=== PATIENT | female | born 1945 | race Two or more races ===

== ENCOUNTER 2017-02-16 19:29 | Inpatient (IN) | payer MEDICARE, OTHER ==
[~2017-02-16] VITALS: Ht 162.6 cm; Wt 49.9 kg
--- NOTE | 2017-02-16 19:37 | Emergency Room Report ---
History of Present Illness General Source: Medical Record, EMS Present Illness HPI 71YOF sent from SNF for FTT - not eating - and glucose> 500. HPI limited- patient not contributing, Other med problems include CAD, HTN, GERD, osteo of heels Allergies: Coded Allergies: No Known Allergies (Unverified , 02/16/17) Patient History Past Medical History: other - see HPI Past Surgical History: unable to obtain Pertinent Family History: unable to obtain Social History: Denies: smoking, alcohol use, drug use Now: No Immunizations: UTD Reviewed Nursing Documentation: PMH: Agreed, PSxH: Agreed Review of Systems All Other Systems: negative except mentioned in HPI Physical Exam Sp02 EP Interpretation: reviewed, normal General Appearance: normal inspection, well appearing, no apparent distress, alert, non-toxic Head: normocephalic, atraumatic Eyes: bilateral eye PERRL, bilateral eye EOMI ENT: normal ENT inspection, hearing grossly normal, normal voice Neck: normal inspection, full range of motion, supple, no bony tend Respiratory: normal inspection, lungs clear, normal breath sounds, no respiratory distress, no retraction, no wheezing Cardiovascular #1: regular rate, rhythm, no edema Gastrointestinal: normal inspection, normal bowel sounds, non tender, soft, no guarding, no hernia Genitourinary: no CVA tenderness, other - Urine from straight cath is pus Musculoskeletal: normal inspection, back normal, normal range of motion, Angela' s Sign negative Neurologic: normal inspection, alert, responsive, speech normal Psychiatric: normal inspection, judgement/insight normal, mood/affect normal Skin: normal inspection, normal color, no rash Medical Decision Making Medicare Attestation I Steven Jain MD hereby attest that the medical record entry for date of service, 02/16/17 accurately reflects signatures/notations that I made in my capacity as MD when I treated/diagnosed the above listed Medicare beneficiary. I attest that this information is true, accurate and complete to the best of my knowledge. I understand that any falsification, omission, or concealment of material fact may subject me to administrative, civil, or criminal liability. This patient warrants hospital admission for extreme of age and has a condition that cannot be treated as outpatient. Diagnostic Impression: Primary Impression: Failure to thrive Qualified Codes: R62.7 - Adult failure to thrive Additional Impressions: Hypernatremia ASHLY (acute kidney injury) UTI (urinary tract infection) Qualified Codes: N30.01 - Acute cystitis with hematuria Dehydration Sepsis Qualified Codes: A41.9 - Sepsis, unspecified organism ER Course 71 yof brought in by ambulance for a question of failure to thrive Found to be hypernatremic, likely due to dehydration given the elevated serum creatinine stright cath of urine shows pus, likely source of infection contributing to leukocytosis Blood cultures pending Empiric antibiotics given fluid given for severe dehydration Endorse to Dr. Stubbs as PMD at 9pm for tele admit EKG Diagnostic Results Rate: tachycardiac Rhythm: NSR ST Segments: other - ST depression in 2,3,AVF, V4-6 ASA given to the pt in ED: No Rhythm Strip Diag. Results EP Interpretation: yes Rate: 65 Rhythm: NSR, no PVC's, no ectopy Chest X-Ray Diagnostic Results Chest X-Ray Diagnostic Results : Chest X-Ray Ordered: Yes # of Views/Limited/Complete: 1 View Indication: Other - FTT EP Interpretation: Yes Interpretation: no consolidation, no effusion, no pneumothorax, no acute cardiopulmonary disease Impression: No acute disease Electronically Signed by: Dr Steven Jain MD Status: improved Disposition: ADMITTED INPATIENT Condition: Serious STEVEN JAIN M.D. Feb 16, 2017 19:37
[2017-02-16 19:55] VITALS: BP 95/54
[2017-02-16 20:39] LABS: BASOPHILS % (AUTO) 0.6 % (0.0-2.0); EOSINOPHILS % (AUTO) 0.3 % (0.0-3.0); LYMPHOCYTES % (AUTO) 12.1 % (20.0-45.0); MEAN CORPUSCULAR HEMOGLOBIN 30.3 PG (27.0-31.0); MEAN CORPUSCULAR HGB CONC 29.6 G/DL (32.0-36.0); MEAN CORPUSCULAR VOLUME 103 FL (80-99); MEAN PLATELET VOLUME 9.2 FL (6.5-10.1); MONOCYTES % (AUTO) 5.5 % (1.0-10.0); NEUTROPHILS % (AUTO) 81.5 % (45.0-75.0); PLATELET COUNT 207 K/UL (150-450); RED BLOOD COUNT 4.32 M/UL (4.20-5.40); RED CELL DISTRIBUTION WIDTH 15.7 % (11.6-14.8); WHITE BLOOD COUNT 17.7 K/UL (4.8-10.8)
[2017-02-16 20:41] LABS: ALANINE AMINOTRANSFERASE 26 U/L (12-78); ALBUMIN/GLOBULIN RATIO 0.6 (1.0-2.7); ANION GAP 16 mmol/L (5-15); ASPARTATE AMINO TRANSFERASE 31 U/L (15-37); CALCIUM 9.4 MG/DL (8.5-10.1); CARBON DIOXIDE 23 MMOL/L (21-32); CHLORIDE 124 MMOL/L (98-107); CREATININE 3.3 MG/DL (0.55-1.30); LIPASE 179 U/L (73-393); POTASSIUM 4.2 MMOL/L (3.5-5.1); TOTAL PROTEIN 8.9 G/DL (6.4-8.2)
[2017-02-16 20:42] LABS: SODIUM 163 MMOL/L (136-145)
[2017-02-16 20:45] LABS: INR 1.2 (0.9-1.1); PROTHROMBIN TIME 12.7 SEC (9.30-11.50)
[2017-02-16 21:25] LABS: APPEARANCE,URINE VERY CLOUDY; KETONES,URINE 1+ (NEGATIVE); LEUKOCYTE ESTERASE ,URINE 3+ (NEGATIVE); NITRITE,URINE POSITIVE (NEGATIVE); PH,URINE 5 (4.5-8.0); PROTEIN,URINE 4+ (NEGATIVE); UROBILINOGEN,URINE NORMAL MG/DL (0.0-1.0)
[2017-02-16 21:39] LABS: BACTERIA,URINE MANY /HPF; RBC,URINE TNTC /HPF (0 - 2); SQUAMOUS EPITHELIAL CELL,UR FEW /LPF (NONE/OCC); WBC,URINE TNTC /HPF (0 - 2)
[2017-02-16 21:40] LABS: AMORPHOUS SEDIMENT,UR FEW /LPF
[2017-02-16 21:55] VITALS: BP 120/63
[2017-02-16] MEDS ORDERED: ATIVAN0.5 MG ORAL (21:56)
[2017-02-16] MEDS ORDERED: NORVASC5 MG ORAL (21:56)
[2017-02-16] MEDS ORDERED: DULCOLAX10 MG RC (21:56)
[2017-02-16] MEDS ORDERED: ATORVASTATIN CA10 MG ORAL (21:56)
[2017-02-16] MEDS ORDERED: MULTIVITAMINS1 EAC8 ORAL (21:56)
[2017-02-16] MEDS ORDERED: NORCO 5-325 TA1 EACH ORAL (21:56)
[2017-02-16] MEDS ORDERED: ACIDOPHILUS LA1 EAC1 ORAL (21:56)
[2017-02-16] MEDS ORDERED: AMBIEN5 MG ORAL (21:56)
[2017-02-16] MEDS ORDERED: ASPIRIN81 MG ORAL (21:56)
[2017-02-16] MEDS ORDERED: ATENOLOL25 MG ORAL (21:56)
[2017-02-16] MEDS ORDERED: MIRTAZAPINE15 MG ORAL (21:56)
[2017-02-16] MEDS ORDERED: MILK OF MA400 MG/51 ORAL (21:56)
[2017-02-16] MEDS ORDERED: NOVOLIN R100 UNIT/1 SUBQ ×2 (21:56)
[2017-02-16] MEDS ORDERED: AMIODARONE HCL100 MG ORAL (21:56)
[2017-02-16] MEDS ORDERED: ACETAMINOPHEN325 M1 ORAL (21:56)
[2017-02-16] MEDS ORDERED: PROTONIX40 MG ORAL (21:56)
[2017-02-16] MEDS ORDERED: COLACE100 MG ORAL (21:56)
[2017-02-16] MEDS ORDERED: SENOKOT8.6 MG PO (21:56)
[2017-02-16] MEDS ORDERED: PLAVIX75 MG ORAL (21:56)
[2017-02-16] MEDS ORDERED: VENLAFAXINE H37.5 MG ORAL (21:56)
[2017-02-16] MEDS ORDERED: MYLANTA PO (21:56)
[2017-02-16] MEDS ORDERED: GLUCAGON HCL1 MG IJ (21:56)
[2017-02-16] MEDS ORDERED: LEVEMIR100 UNIT/1 SUBQ (21:56)
[2017-02-17] VITALS: BP 104/57
[2017-02-17 01:58] LABS: ANION GAP 11 mmol/L (5-15); CALCIUM 9.3 MG/DL (8.5-10.1); CARBON DIOXIDE 23 MMOL/L (21-32); CHLORIDE 130 MMOL/L (98-107); CREATININE 2.9 MG/DL (0.55-1.30); POTASSIUM 3.7 MMOL/L (3.5-5.1)
[2017-02-17 02:15] LABS: SODIUM 165 MMOL/L (136-145)
[2017-02-17 04:00] VITALS: BP 106/52
[2017-02-17 05:07] LABS: BASOPHILS % (AUTO) 0.4 % (0.0-2.0); EOSINOPHILS % (AUTO) 1.3 % (0.0-3.0); LYMPHOCYTES % (AUTO) 14.4 % (20.0-45.0); MEAN CORPUSCULAR HEMOGLOBIN 34.5 PG (27.0-31.0); MEAN CORPUSCULAR HGB CONC 33.6 G/DL (32.0-36.0); MEAN CORPUSCULAR VOLUME 103 FL (80-99); MEAN PLATELET VOLUME 9.2 FL (6.5-10.1); MONOCYTES % (AUTO) 6.4 % (1.0-10.0); NEUTROPHILS % (AUTO) 77.4 % (45.0-75.0); PLATELET COUNT 176 K/UL (150-450); RED BLOOD COUNT 3.54 M/UL (4.20-5.40); RED CELL DISTRIBUTION WIDTH 15.8 % (11.6-14.8); WHITE BLOOD COUNT 15.4 K/UL (4.8-10.8)
[2017-02-17 05:33] LABS: ANION GAP 10 mmol/L (5-15); CALCIUM 9.2 MG/DL (8.5-10.1); CARBON DIOXIDE 23 MMOL/L (21-32); CHLORIDE 130 MMOL/L (98-107); CREATININE 2.8 MG/DL (0.55-1.30); POTASSIUM 3.7 MMOL/L (3.5-5.1)
[2017-02-17 06:22] LABS: SODIUM 164 MMOL/L (136-145)
[2017-02-17] MEDS: NovoLOG Insulin Flexpen SUBQ SCH ×4 (06:30→21:00)
[2017-02-17 08:00] VITALS: BP 100/50
[2017-02-17 08:53] LABS: ANION GAP 11 mmol/L (5-15); CALCIUM 8.9 MG/DL (8.5-10.1); CARBON DIOXIDE 24 MMOL/L (21-32); CHLORIDE 132 MMOL/L (98-107); CREATININE 2.6 MG/DL (0.55-1.30)
[2017-02-17 08:57] LABS: SODIUM 167 MMOL/L (136-145)
[2017-02-17] MEDS: Lactobacillus-GG tablet ORAL SCH ×2 (09:30→17:32)
[2017-02-17] MEDS: Venlafaxine XR 37.5mg cap ORAL SCH (09:31)
[2017-02-17] MEDS: Amiodarone 200mg tab ORAL SCH (09:31)
[2017-02-17] MEDS: Aspirin Baby 81mg ORAL SCH (09:31)
[2017-02-17] MEDS ORDERED: Flu Vaccine Quadrivalent 0.5ml IM ONE (11:59)
[2017-02-17] MEDS ORDERED: Pneumococcal Vaccine 25mcg/0.5ml IM ONE (11:59)
[2017-02-17 12:00] VITALS: BP 112/75
--- NOTE | 2017-02-17 12:10 | Consultation ---
Consult Note Consult Note asked to eval for renal failure 71YOF sent from SNF for FTT - not eating - and glucose> 500. HPI limited- patient not contributing, Other med problems include CAD, HTN, GERD, osteo of heels examined- chart reviewed discussed with household personal assistant/Plan acute renal failure- dehydration- and hypernatremia FTT UTI CAD GERD Plan: Hydrate- monitor I&o and renal parameters Urine studies gastric support per orders EDGARDO ORDOÑEZ Feb 17, 2017 12:10
[2017-02-17 12:36] LABS: ANION GAP 9 mmol/L (5-15); CALCIUM 9.1 MG/DL (8.5-10.1); CARBON DIOXIDE 26 MMOL/L (21-32); CHLORIDE 133 MMOL/L (98-107); CREATININE 2.4 MG/DL (0.55-1.30); POTASSIUM 3.7 MMOL/L (3.5-5.1)
[2017-02-17 12:37] LABS: SODIUM 168 MMOL/L (136-145)
--- NOTE | 2017-02-17 15:19 | History and Physical ---
History of Present Illness General Date patient seen: Feb 17, 2017 Time patient seen: 12:00 Reason for Hospitalization: failure to thrive, hypernatremia, ASHLY, sepsis Present Illness HPI 71y/o female with pmh of DM2, HTN, HLD, CAD, GERD, depression who presents from SNF with failure to thrive. History limited as pt altered. Per SNF report, pt has not been taking her meds since Thursday and has not eating anything since yesterday. At SNF, pt noted to be tachycardic and glucose >500. In ED, pt afebrile, tachycardic, BPs wnl. Labs notable for ASHLY w/ SCr 3.3, hypernatremia to 163, glucseo 500s. Pt given IVFs, regular insulin 4U IV. Pt also found to have leukocytosis w/ WBC 17K and U/S showing pyuria c/w UTI. Pt was started on started on levaquin. Allergies: Coded Allergies: No Known Allergies (Unverified , 02/16/17) Medication History Scheduled Amiodarone Hcl (Amiodarone Hcl), 100 MG ORAL DAILY, (Reported) Amlodipine Besylate (Norvasc), 5 MG ORAL DAILY, (Reported) Aspirin* (Aspirin*), 81 MG ORAL DAILY, (Reported) Atenolol* (Tenormin*), 12.5 MG ORAL DAILY, (Reported) Atorvastatin Calcium* (Lipitor*), 10 MG ORAL BEDTIME, (Reported) Clopidogrel Bisulfate* (Plavix*), 75 MG ORAL DAILY, (Reported) Docusate Sodium* (Colace*), 100 MG ORAL TWICE A DAY, (Reported) Insulin Detemir (Levemir), 34 SUBQ BEDTIME, (Reported) Insulin Regular, Human* (Novolin R*), 7 SUBQ AC MEALS, (Reported) Insulin Regular, Human* (Novolin R*), 0 SUBQ .SLIDING SCALE, (Reported) Lactobacillus Acidophilus (Acidophilus Lactobacillus), 1 TAB ORAL BID, (Reported ) Magnesium Hydroxide* (Milk Of Magnesia*), 30 ML ORAL DAILY, (Reported) Mirtazapine* (Remeron*), 7.5 MG ORAL BEDTIME, (Reported) Multivitamin With Minerals (Multivitamins With Minerals*), 1 TAB ORAL DAILY, ( Reported) Pantoprazole* (Protonix*), 40 MG ORAL DAILY, (Reported) Sennosides (Senokot), 8.6 MG PO BEDTIME, (Reported) Venlafaxine Hcl* (Effexor*), 37.5 MG ORAL DAILY, (Reported) [Mylanta], 20 ML PO EVERY 4 HOURS, (Reported) Scheduled PRN Acetaminophen* (Acetaminophen 325MG Tablet*), 650 MG ORAL Q4H PRN for Mild Pain (Pain Scale 1-3), (Reported) Bisacodyl (Dulcolax), 10 MG RC DAILY PRN for Constipation, (Reported) Glucagon HCl (Glucagon HCl), 1 MG IJ q 24 hours PRN for bs<60, (Reported) Hydrocodone Bit/Acetaminophen 5-325* ([place] 5-325*), 1 TAB ORAL DAILY PRN for For Pain, (Reported) Lorazepam* (Ativan*), 0.5 MG ORAL EVERY 6 HOURS PRN for For Anxiety, (Reported) Zolpidem Tartrate* (Ambien*), 5 MG ORAL BEDTIME PRN for Insomnia, (Reported) Patient History History Provided By: Patient, Medical Record, PMD Healthcare decision maker Resuscitation status Full Code Advanced Directive on File No Past Medical/Surgical History Past Medical/Surgical History: (1) CAD (coronary artery disease) (2) HTN (hypertension) (3) HLD (hyperlipidemia) (4) GERD (gastroesophageal reflux disease) (5) Depression (6) Diabetes mellitus Family History Family History: Patient reports no known family medical history. Social History Social History: (1) lives at [facility] Review of Systems ROS Narrative Unable to obtain as pt altered Physical Exam Physical Exam Narrative General: alert, cooperative, no distress, appears stated age, lethargic, A&Ox1 Head: normocephalic, without obvious abnormality, atraumatic Eyes: conjunctivae/corneas clear. PERRL, EOM's intact Throat: lips, mucosa, and tongue normal. MMM Neck: supple, symmetrical, trachea midline, and no JVD Lungs: clear to auscultation bilaterally Heart: regular rate and rhythm, S1, S2 normal, no murmur, click, rub or gallop Abdomen: soft, non-tender, non-distended, bowel sounds normal; no masses or organomegaly Extremities: extremities normal, atraumatic, no cyanosis or edema Pulses: 2+ and symmetric Skin: skin color, texture, turgor normal; +pressure ulcers b/l heels Neurologic: grossly normal, no focal deficits Last 24 Hour Vital Signs Date Time Temp Pulse Resp B/P (MAP) Pulse Ox O2 Delivery O2 Flow Rate FiO2 02/17/17 12:05 86 02/17/17 12:00 97.7 89 20 112/75 100 Room Air 02/17/17 09:00 85 100/50 02/17/17 08:00 85 02/17/17 08:00 96.6 86 19 100/50 96 Room Air 02/17/17 04:00 97.5 98 20 106/52 98 Room Air 02/17/17 04:00 89 02/17/17 00:00 96 02/17/17 00:00 97.9 98 18 104/57 99 Room Air 98 02/16/17 22:48 101 02/16/17 22:20 97.9 105 20 120/63 100 Nasal Cannula 2.0 02/16/17 21:55 97.9 105 20 120/63 100 Nasal Cannula 2.0 02/16/17 19:55 97.9 106 14 95/54 96 Room Air 02/16/17 19:34 97.9 103 14 95/54 96 Room Air Intake and Output 02/17/17 02/18/17 19:00 07:00 Intake Total 500 ml Balance 500 ml IV Total 500 ml Laboratory Tests Test 02/16/17 19:50 02/16/17 20:55 02/17/17 01:30 02/17/17 05:00 White Blood Count 17.7 K/UL (4.8-10.8) H 15.4 K/UL (4.8-10.8) H Red Blood Count 4.32 M/UL (4.20-5.40) 3.54 M/UL (4.20-5.40) L Hemoglobin 13.1 G/DL (12.0-16.0) 12.2 G/DL (12.0-16.0) Hematocrit 44.3 % (37.0-47.0) 36.4 % (37.0-47.0) L Mean Corpuscular Volume 103 FL (80-99) H 103 FL (80-99) H Mean Corpuscular Hemoglobin 30.3 PG (27.0-31.0) 34.5 PG (27.0-31.0) H Mean Corpuscular Hemoglobin Concent 29.6 G/DL (32.0-36.0) L 33.6 G/DL (32.0-36.0) Red Cell Distribution Width 15.7 % (11.6-14.8) H 15.8 % (11.6-14.8) H Platelet Count 207 K/UL (150-450) 176 K/UL (150-450) Mean Platelet Volume 9.2 FL (6.5-10.1) 9.2 FL (6.5-10.1) Neutrophils (%) (Auto) 81.5 % (45.0-75.0) H 77.4 % (45.0-75.0) H Lymphocytes (%) (Auto) 12.1 % (20.0-45.0) L 14.4 % (20.0-45.0) L Monocytes (%) (Auto) 5.5 % (1.0-10.0) 6.4 % (1.0-10.0) Eosinophils (%) (Auto) 0.3 % (0.0-3.0) 1.3 % (0.0-3.0) Basophils (%) (Auto) 0.6 % (0.0-2.0) 0.4 % (0.0-2.0) Prothrombin Time 12.7 SEC (9.30-11.50) H Prothromb Time International Ratio 1.2 (0.9-1.1) H Sodium Level 163 MMOL/L (136-145) *H 165 MMOL/L (136-145) *H 164 MMOL/L (136-145) *H Potassium Level 4.2 MMOL/L (3.5-5.1) 3.7 MMOL/L (3.5-5.1) 3.7 MMOL/L (3.5-5.1) Chloride Level 124 MMOL/L (98-107) H 130 MMOL/L (98-107) H 130 MMOL/L (98-107) H Carbon Dioxide Level 23 MMOL/L (21-32) 23 MMOL/L (21-32) 23 MMOL/L (21-32) Anion Gap 16 mmol/L (5-15) H 11 mmol/L (5-15) 10 mmol/L (5-15) Blood Urea Nitrogen 100 mg/dL (7-18) H 99 mg/dL (7-18) H 92 mg/dL (7-18) H Creatinine 3.3 MG/DL (0.55-1.30) H 2.9 MG/DL (0.55-1.30) H 2.8 MG/DL (0.55-1.30) H Estimat Glomerular Filtration Rate mL/min (>60) mL/min (>60) mL/min (>60) Glucose Level 472 MG/DL (74-106) H 263 MG/DL (74-106) #H 208 MG/DL (74-106) H Calcium Level 9.4 MG/DL (8.5-10.1) 9.3 MG/DL (8.5-10.1) 9.2 MG/DL (8.5-10.1) Total Bilirubin 0.5 MG/DL (0.2-1.0) Aspartate Amino Transf (AST/SGOT) 31 U/L (15-37) Alanine Aminotransferase (ALT/SGPT) 26 U/L (12-78) Alkaline Phosphatase 182 U/L (46-116) H Troponin I 0.064 ng/mL (0.000-0.056) 0.064 ng/mL (0.000-0.056) Total Protein 8.9 G/DL (6.4-8.2) H Albumin 3.2 G/DL (3.4-5.0) L Globulin 5.7 g/dL Albumin/Globulin Ratio 0.6 (1.0-2.7) L Lipase 179 U/L (73-393) Urine Color Pale yellow Urine Appearance Very cloudy Urine pH 5 (4.5-8.0) Urine Specific [place] 1.020 (1.005-1.035) Urine Protein 4+ (NEGATIVE) H Urine Glucose (UA) Negative (NEGATIVE) Urine Ketones 1+ (NEGATIVE) H Urine Occult Blood 5+ (NEGATIVE) H Urine Nitrite Positive (NEGATIVE) H Urine Bilirubin Negative (NEGATIVE) Urine Urobilinogen Normal MG/DL (0.0-1.0) Urine Leukocyte Esterase 3+ (NEGATIVE) H Urine RBC Tntc /HPF (0 - 2) H Urine WBC Tntc /HPF (0 - 2) H Urine Squamous Epithelial Cells Few /LPF (NONE/OCC) Urine Amorphous Sediment Few /LPF (NONE) H Urine Bacteria Many /HPF (NONE) H Test 02/17/17 08:00 02/17/17 12:15 02/17/17 14:40 Sodium Level 167 MMOL/L (136-145) *H 168 MMOL/L (136-145) *H Potassium Level 4.0 MMOL/L (3.5-5.1) 3.7 MMOL/L (3.5-5.1) Chloride Level 132 MMOL/L (98-107) H 133 MMOL/L (98-107) H Carbon Dioxide Level 24 MMOL/L (21-32) 26 MMOL/L (21-32) Anion Gap 11 mmol/L (5-15) 9 mmol/L (5-15) Blood Urea Nitrogen 94 mg/dL (7-18) H 88 mg/dL (7-18) H Creatinine 2.6 MG/DL (0.55-1.30) H 2.4 MG/DL (0.55-1.30) H Estimat Glomerular Filtration Rate mL/min (>60) mL/min (>60) Glucose Level 187 MG/DL (74-106) H 175 MG/DL (74-106) H Calcium Level 8.9 MG/DL (8.5-10.1) 9.1 MG/DL (8.5-10.1) Troponin I 0.059 ng/mL (0.000-0.056) Urine Random Sodium 21 MEQ/L (20-110) Microbiology Date/Time Source Procedure Growth Status 02/16/17 20:55 Urine,Clean Catch Urine Culture - Preliminary Resulted 02/17/17 03:00 Foot Left Gram Stain - Final Resulted 02/17/17 03:00 Foot Left Wound Culture Pending Resulted Height (Feet): 5 Height (Inches): 4.00 Weight (Pounds): 110 Medications Current Medications Medications (Trade) Dose Ordered Sig/Baldev Route PRN Reason Start Time Stop Time Status Last Admin Dose Admin Acetaminophen (Tylenol) 650 mg Q4H PRN ORAL Mild Pain/Temp > 100.5 02/17/17 00:45 03/19/17 00:44 Amiodarone HCl (Cordarone) 100 mg DAILY ORAL 02/17/17 09:00 03/19/17 08:59 02/17/17 09:31 Amlodipine Besylate (Norvasc) 2.5 mg DAILY ORAL 02/18/17 09:00 03/20/17 08:59 Aspirin (ASA) 81 mg DAILY ORAL 02/17/17 09:00 03/19/17 08:59 02/17/17 09:31 Atorvastatin Calcium (Lipitor) 10 mg BEDTIME ORAL 02/17/17 21:00 03/19/17 20:59 Clopidogrel Bisulfate (Plavix) 75 mg DAILY ORAL 02/17/17 09:00 03/19/17 08:59 02/17/17 09:31 Dextrose (Dextrose 50%) STAT PRN IV Hypoglycemia 02/16/17 23:45 03/18/17 23:44 Insulin Aspart (NovoLOG) BEFORE MEALS AND HS SUBQ 02/17/17 06:30 03/19/17 06:29 Lactobacillus Acidophilus (Culturelle) 1 tab TWICE A DAY ORAL 02/17/17 09:00 03/19/17 08:59 02/17/17 09:30 Levofloxacin 100 ml @ 100 mls/hr Q48H IVPB 02/18/17 21:00 02/25/17 20:59 Pantoprazole (Protonix) 40 mg ACBREAKFAST ORAL 02/17/17 06:30 03/19/17 06:29 Ranitidine HCl (Zantac) 150 mg Q24H ORAL 02/17/17 13:30 02/19/17 13:29 02/17/17 13:21 Sodium Chloride 1,000 ml @ 100 mls/hr Q10H IV 02/17/17 13:30 03/19/17 13:29 02/17/17 13:22 Venlafaxine HCl (Effexor-XR) 37.5 mg DAILY ORAL 02/17/17 09:00 03/19/17 08:59 02/17/17 09:31 Assessment/Plan Problem List: (1) Failure to thrive SNOMED: 27149488 Qualifiers: Qualified Codes: R62.7 - Adult failure to thrive (2) Sepsis ICD Codes: A41.9 - Sepsis, unspecified organism SNOMED: 16762086 Qualifiers: Qualified Codes: A41.9 - Sepsis, unspecified organism (3) UTI (urinary tract infection) ICD Codes: N39.0 - Urinary tract infection, site not specified SNOMED: 99058328 Qualifiers: Qualified Codes: N30.01 - Acute cystitis with hematuria (4) Acute toxic metabolic encephalopathy (5) ASHLY (acute kidney injury) ICD Codes: N17.9 - Acute kidney failure, unspecified SNOMED: 62367785 (6) Hypernatremia ICD Codes: E87.0 - Hyperosmolality and hypernatremia SNOMED: 39579246 (7) Elevated troponin Assessment & Plan: likely in setting of renal insufficiency vs NSTEMI type 2 given sepsis ICD Codes: R74.8 - Abnormal levels of other serum enzymes SNOMED: 210254193, 912383384 (8) CAD (coronary artery disease) ICD Codes: I25.10 - Atherosclerotic heart disease of ione coronary artery without angina pectoris SNOMED: 94070671 (9) Diabetes mellitus Assessment & Plan: uncontrolled ICD Codes: E11.9 - Type 2 diabetes mellitus without complications SNOMED: 25747178 (10) HTN (hypertension) ICD Codes: I10 - Essential (primary) hypertension SNOMED: 95993803 (11) HLD (hyperlipidemia) ICD Codes: E78.5 - Hyperlipidemia, unspecified SNOMED: 82522904 (12) Depression ICD Codes: F32.9 - Major depressive disorder, single episode, unspecified SNOMED: 28865144 Status: stable Assessment/Plan Admit inpt Renal consulted Cont IVFs w/ /2 NS at 100mL/h per renal Trend BMP closely Cardiology consulted given elevated troponin Trend trop/EKG Cont levaquin for UTI for now (02/16-) Consider ID consult Trend CBC Cont home meds RIDGE Check A1C Swallow eval Pony Roll Finisher consult DVT Prophylaxis: SCD, HSQ Code Status: Full Hospital Classification Declaration: Based on this initial evaluation, and depending on the patient's clinical course, I anticipate that this patient will require hospitalization for 2-3 days for sepsis, ASHLY, hypernatremia and close respiratory/hemodynamic monitoring. Disposition: Once the patient is stable to leave the hospital, I anticipate the patient will likely be discharged to the following environment: back to SNF I spent 70 minutes on this patient's case, and 39 minutes were dedicated to counseling and/or care coordination. Discussed with patient/family, nursing staff, SW/CM, renal, cardiology regarding clinical status, treatment course, and disposition planning. Time of note may not reflect time of encounter. Noman Burch M.D. Feb 17, 2017 15:19
[2017-02-17 16:00] VITALS: BP 119/67
[2017-02-17] MEDS ORDERED: NS 500ML ONE (16:15)
--- NOTE | 2017-02-17 16:22 | Cardiac Electrophysiology PN ---
Subjective Subjective [id number] Objective Last 24 Hour Vital Signs Date Time Temp Pulse Resp B/P (MAP) Pulse Ox O2 Delivery O2 Flow Rate FiO2 02/17/17 12:05 86 02/17/17 12:00 97.7 89 20 112/75 100 Room Air 02/17/17 09:00 85 100/50 02/17/17 08:00 85 02/17/17 08:00 96.6 86 19 100/50 96 Room Air 02/17/17 04:00 97.5 98 20 106/52 98 Room Air 02/17/17 04:00 89 02/17/17 00:00 96 02/17/17 00:00 97.9 98 18 104/57 99 Room Air 98 02/16/17 22:48 101 02/16/17 22:20 97.9 105 20 120/63 100 Nasal Cannula 2.0 02/16/17 21:55 97.9 105 20 120/63 100 Nasal Cannula 2.0 02/16/17 19:55 97.9 106 14 95/54 96 Room Air 02/16/17 19:34 97.9 103 14 95/54 96 Room Air Intake and Output 02/17/17 02/18/17 19:00 07:00 Intake Total 700 ml Balance 700 ml IV Total 700 ml Laboratory Tests Test 02/16/17 19:50 02/16/17 20:55 02/17/17 01:30 02/17/17 05:00 White Blood Count 17.7 K/UL (4.8-10.8) H 15.4 K/UL (4.8-10.8) H Red Blood Count 4.32 M/UL (4.20-5.40) 3.54 M/UL (4.20-5.40) L Hemoglobin 13.1 G/DL (12.0-16.0) 12.2 G/DL (12.0-16.0) Hematocrit 44.3 % (37.0-47.0) 36.4 % (37.0-47.0) L Mean Corpuscular Volume 103 FL (80-99) H 103 FL (80-99) H Mean Corpuscular Hemoglobin 30.3 PG (27.0-31.0) 34.5 PG (27.0-31.0) H Mean Corpuscular Hemoglobin Concent 29.6 G/DL (32.0-36.0) L 33.6 G/DL (32.0-36.0) Red Cell Distribution Width 15.7 % (11.6-14.8) H 15.8 % (11.6-14.8) H Platelet Count 207 K/UL (150-450) 176 K/UL (150-450) Mean Platelet Volume 9.2 FL (6.5-10.1) 9.2 FL (6.5-10.1) Neutrophils (%) (Auto) 81.5 % (45.0-75.0) H 77.4 % (45.0-75.0) H Lymphocytes (%) (Auto) 12.1 % (20.0-45.0) L 14.4 % (20.0-45.0) L Monocytes (%) (Auto) 5.5 % (1.0-10.0) 6.4 % (1.0-10.0) Eosinophils (%) (Auto) 0.3 % (0.0-3.0) 1.3 % (0.0-3.0) Basophils (%) (Auto) 0.6 % (0.0-2.0) 0.4 % (0.0-2.0) Prothrombin Time 12.7 SEC (9.30-11.50) H Prothromb Time International Ratio 1.2 (0.9-1.1) H Sodium Level 163 MMOL/L (136-145) *H 165 MMOL/L (136-145) *H 164 MMOL/L (136-145) *H Potassium Level 4.2 MMOL/L (3.5-5.1) 3.7 MMOL/L (3.5-5.1) 3.7 MMOL/L (3.5-5.1) Chloride Level 124 MMOL/L (98-107) H 130 MMOL/L (98-107) H 130 MMOL/L (98-107) H Carbon Dioxide Level 23 MMOL/L (21-32) 23 MMOL/L (21-32) 23 MMOL/L (21-32) Anion Gap 16 mmol/L (5-15) H 11 mmol/L (5-15) 10 mmol/L (5-15) Blood Urea Nitrogen 100 mg/dL (7-18) H 99 mg/dL (7-18) H 92 mg/dL (7-18) H Creatinine 3.3 MG/DL (0.55-1.30) H 2.9 MG/DL (0.55-1.30) H 2.8 MG/DL (0.55-1.30) H Estimat Glomerular Filtration Rate mL/min (>60) mL/min (>60) mL/min (>60) Glucose Level 472 MG/DL (74-106) H 263 MG/DL (74-106) #H 208 MG/DL (74-106) H Calcium Level 9.4 MG/DL (8.5-10.1) 9.3 MG/DL (8.5-10.1) 9.2 MG/DL (8.5-10.1) Total Bilirubin 0.5 MG/DL (0.2-1.0) Aspartate Amino Transf (AST/SGOT) 31 U/L (15-37) Alanine Aminotransferase (ALT/SGPT) 26 U/L (12-78) Alkaline Phosphatase 182 U/L (46-116) H Troponin I 0.064 ng/mL (0.000-0.056) 0.064 ng/mL (0.000-0.056) Total Protein 8.9 G/DL (6.4-8.2) H Albumin 3.2 G/DL (3.4-5.0) L Globulin 5.7 g/dL Albumin/Globulin Ratio 0.6 (1.0-2.7) L Lipase 179 U/L (73-393) Urine Color Pale yellow Urine Appearance Very cloudy Urine pH 5 (4.5-8.0) Urine Specific [place] 1.020 (1.005-1.035) Urine Protein 4+ (NEGATIVE) H Urine Glucose (UA) Negative (NEGATIVE) Urine Ketones 1+ (NEGATIVE) H Urine Occult Blood 5+ (NEGATIVE) H Urine Nitrite Positive (NEGATIVE) H Urine Bilirubin Negative (NEGATIVE) Urine Urobilinogen Normal MG/DL (0.0-1.0) Urine Leukocyte Esterase 3+ (NEGATIVE) H Urine RBC Tntc /HPF (0 - 2) H Urine WBC Tntc /HPF (0 - 2) H Urine Squamous Epithelial Cells Few /LPF (NONE/OCC) Urine Amorphous Sediment Few /LPF (NONE) H Urine Bacteria Many /HPF (NONE) H Test 02/17/17 08:00 02/17/17 12:15 02/17/17 14:40 Sodium Level 167 MMOL/L (136-145) *H 168 MMOL/L (136-145) *H Potassium Level 4.0 MMOL/L (3.5-5.1) 3.7 MMOL/L (3.5-5.1) Chloride Level 132 MMOL/L (98-107) H 133 MMOL/L (98-107) H Carbon Dioxide Level 24 MMOL/L (21-32) 26 MMOL/L (21-32) Anion Gap 11 mmol/L (5-15) 9 mmol/L (5-15) Blood Urea Nitrogen 94 mg/dL (7-18) H 88 mg/dL (7-18) H Creatinine 2.6 MG/DL (0.55-1.30) H 2.4 MG/DL (0.55-1.30) H Estimat Glomerular Filtration Rate mL/min (>60) mL/min (>60) Glucose Level 187 MG/DL (74-106) H 175 MG/DL (74-106) H Calcium Level 8.9 MG/DL (8.5-10.1) 9.1 MG/DL (8.5-10.1) Troponin I 0.059 ng/mL (0.000-0.056) Urine Random Sodium 21 MEQ/L (20-110) Microbiology Date/Time Source Procedure Growth Status 02/16/17 20:55 Urine,Clean Catch Urine Culture - Preliminary Resulted 02/17/17 03:00 Foot Left Gram Stain - Final Resulted 02/17/17 03:00 Foot Left Wound Culture Pending Resulted LUIS EDUARDO CORBIN Feb 17, 2017 16:22
[2017-02-17 20:00] VITALS: BP 124/65
[2017-02-18] VITALS: BP 112/60
[2017-02-18 04:00] VITALS: BP 124/65
--- NOTE | 2017-02-18 05:15 | Consultation ---
DATE OF CONSULTATION: 02/17/2017 CARDIOLOGY CONSULTATION CONSULTING PHYSICIAN: Avtar Munroe M.D. REFERRING PHYSICIAN: Napoleon Stubbs M.D. REASON FOR CONSULTATION: Management of hypertension and elevated troponin in the patient with coronary artery disease. HISTORY OF PRESENT ILLNESS: The patient is a 71-year-old lady with history of hypertension, diabetes, coronary artery disease, , and gastroesophageal reflux disease, who was sent from alf for failure to thrive and not eating and glucose of more than 500. The patient was admitted to step-down unit. The patient's EKG showed ST depression in the inferolateral leads. The patient's troponin was also elevated at 0.064 and a Cardiology consultation was obtained for further evaluation and management. It is of note that the patient's sodium was as high as also 168. PAST MEDICAL HISTORY: As mentioned above. FAMILY HISTORY: Noncontributory. SOCIAL HISTORY: She lives in a alf. She does not smoke or drink alcohol. REVIEW OF SYSTEMS: Negative other than what was mentioned in the history of present illness. PHYSICAL EXAMINATION: VITAL SIGNS: Blood pressure is 100/50, pulse is 86, respirations 20, and temperature 97.7 degrees. HEAD AND NECK: No JVD. LUNGS: Clear. CARDIOVASCULAR: Regular S1 and S2 with no gallop or murmur. ABDOMEN: Soft. EXTREMITIES: No pitting edema. LABORATORY AND DIAGNOSTIC DATA: Labs show sodium of 168, potassium of 3.7, BUN of 88, creatinine of 2.4, and glucose of 175. Initial BUN and creatinine was 98 and 2.8. Troponin is 0.064 and 0.059. INR is 1.2. White count was initially 17.7, today is 15.4; hemoglobin 12.2, hematocrit 36.4, and platelet count of 176,000. INR is 1.2. Urinalysis shows too numerous to count WBC and RBC and positive nitrite and many bacteria. ASSESSMENT AND PLAN: 1. Troponin leak. This is due to the patient's renal failure and azotemia. The patient does not have any chest pain; however, the patient electrocardiogram. The patient will be on aspirin and Plavix. Add metoprolol to her medical regimen and continue Lipitor. 2. Hypertension, on Norvasc 2.5 mg mg daily. Today, I will discontinue and start the patient on Toprol in view of positive troponin. 3. Paroxysmal atrial fibrillation, on amiodarone 100 mg daily. The patient is off anticoagulation except for aspirin and Plavix. Currently in sinus rhythm. 4. Hyperlipidemia, on Lipitor. 5. Severe hypernatremia. The patient is on intravenous fluids per Dr. Armstrong. 6. Acute renal failure. Again, further management by Dr. Armstrong. 7. Uncontrolled diabetes with glucose of more than 500. Thank you very much, Dr. Stubbs, for allowing me to participate in the care of this patient. Please do not hesitate to contact me if you have any questions regarding my evaluation. Avtar Munroe M.D. DR: SMITH JOB#: [id number] CC:
[2017-02-18 05:34] LABS: BASOPHILS % (AUTO) 0.5 % (0.0-2.0); EOSINOPHILS % (AUTO) 2.7 % (0.0-3.0); LYMPHOCYTES % (AUTO) 17.3 % (20.0-45.0); MEAN CORPUSCULAR HEMOGLOBIN 32.6 PG (27.0-31.0); MEAN CORPUSCULAR HGB CONC 31.4 G/DL (32.0-36.0); MEAN CORPUSCULAR VOLUME 104 FL (80-99); MEAN PLATELET VOLUME 9.5 FL (6.5-10.1); MONOCYTES % (AUTO) 5.7 % (1.0-10.0); NEUTROPHILS % (AUTO) 73.8 % (45.0-75.0); PLATELET COUNT 140 K/UL (150-450); RED BLOOD COUNT 3.15 M/UL (4.20-5.40); RED CELL DISTRIBUTION WIDTH 15.9 % (11.6-14.8); WHITE BLOOD COUNT 10.3 K/UL (4.8-10.8)
[2017-02-18 05:55] LABS: ALANINE AMINOTRANSFERASE 18 U/L (12-78); ALBUMIN/GLOBULIN RATIO 0.5 (1.0-2.7); ANION GAP 5 mmol/L (5-15); ASPARTATE AMINO TRANSFERASE 28 U/L (15-37); CALCIUM 8.8 MG/DL (8.5-10.1); CARBON DIOXIDE 26 MMOL/L (21-32); CHLORIDE 132 MMOL/L (98-107); CHOLESTEROL 97 MG/DL (< 200); CHOLESTEROL/HDL RATIO 5.1 (3.3-4.4); CREATININE 1.7 MG/DL (0.55-1.30); CRP QUANT 10.9 mg/dL (0.00-0.90); PHOSPHORUS 2.4 MG/DL (2.5-4.9); POTASSIUM 3.4 MMOL/L (3.5-5.1); THYROID STIMULATING HORMONE 8.578 uiU/mL (0.358-3.740); TOTAL PROTEIN 7.2 G/DL (6.4-8.2); URIC ACID 9.7 MG/DL (2.6-7.2)
[2017-02-18 06:12] LABS: HEMOGLOBIN A1C 7.5 % (4.3-6.0)
[2017-02-18 06:25] LABS: SODIUM 163 MMOL/L (136-145)
[2017-02-18] MEDS: NovoLOG Insulin Flexpen SUBQ SCH ×3 (06:30→17:41)
[2017-02-18 06:48] LABS: FOLIC ACID 11.3 NG/ML (8.6-58.9)
[2017-02-18 08:00] VITALS: BP 121/58
[2017-02-18] MEDS: Lactobacillus-GG tablet ORAL SCH ×2 (08:58→17:40)
[2017-02-18] MEDS: Amiodarone 200mg tab ORAL SCH (08:58)
[2017-02-18] MEDS: Metoprolol Succinate XL 25mg tab ORAL SCH (08:58)
[2017-02-18] MEDS: Aspirin Baby 81mg ORAL SCH (08:59)
[2017-02-18] MEDS: Heparin 5000 units/ml inj SUBQ SCH ×2 (08:59→21:00)
[2017-02-18] MEDS: Venlafaxine XR 37.5mg cap ORAL SCH (08:59)
[2017-02-18] MEDS ORDERED: Ascorbic Acid 500mg tab ORAL SCH (09:00)
--- NOTE | 2017-02-18 10:57 | Infectious Diseases Prog Note ---
Assessment/Plan Assessment/Plan Full consult dictated: A) 1) sepsis, leukocytosis, gram neg uti 2) ? right foot heel wound infection, ? osteo 3) pmh noted 4) allergies - negative P) 1) vancomycin and cefepime 2) check urine culture, wound culture, labs and chest x-ray 3) thank you Subjective Allergies: Coded Allergies: No Known Allergies (Unverified , 02/16/17) Objective Vital Signs Last 24 Hour Vital Signs Date Time Temp Pulse Resp B/P (MAP) Pulse Ox O2 Delivery O2 Flow Rate FiO2 02/18/17 08:58 78 121/58 02/18/17 08:00 97.9 78 18 121/58 98 Room Air 02/18/17 08:00 78 02/18/17 04:00 97.9 81 18 124/65 100 Room Air 02/18/17 04:00 75 02/18/17 00:00 97.8 77 18 112/60 98 Room Air 02/18/17 00:00 85 02/17/17 20:00 80 02/17/17 20:00 97.5 81 18 124/65 100 Room Air 02/17/17 16:00 84 02/17/17 16:00 97.8 87 19 119/67 97 Room Air 02/17/17 12:05 86 02/17/17 12:00 97.7 89 20 112/75 100 Room Air Height (Feet): 5 Height (Inches): 4.00 Weight (Pounds): 110 Microbiology Date/Time Source Procedure Growth Status 02/17/17 01:30 Blood Blood Culture - Preliminary NO GROWTH AFTER 24 HOURS Resulted 02/16/17 19:55 Blood Blood Culture - Preliminary NO GROWTH AFTER 24 HOURS Resulted 02/16/17 19:40 Blood Blood Culture - Preliminary NO GROWTH AFTER 24 HOURS Resulted 02/16/17 20:55 Urine,Clean Catch Urine Culture - Preliminary Gram Negative Bacillus 1 Gram Negative Bacillus 2 Resulted 02/17/17 03:00 Foot Left Gram Stain - Final Resulted 02/17/17 03:00 Foot Left Wound Culture - Preliminary Resulted Laboratory Tests Test 02/17/17 12:15 02/17/17 14:40 02/18/17 03:30 Sodium Level 168 MMOL/L (136-145) *H 163 MMOL/L (136-145) *H Potassium Level 3.7 MMOL/L (3.5-5.1) 3.4 MMOL/L (3.5-5.1) L Chloride Level 133 MMOL/L (98-107) H 132 MMOL/L (98-107) H Carbon Dioxide Level 26 MMOL/L (21-32) 26 MMOL/L (21-32) Anion Gap 9 mmol/L (5-15) 5 mmol/L (5-15) Blood Urea Nitrogen 88 mg/dL (7-18) H 64 mg/dL (7-18) H Creatinine 2.4 MG/DL (0.55-1.30) H 1.7 MG/DL (0.55-1.30) H Estimat Glomerular Filtration Rate mL/min (>60) mL/min (>60) Glucose Level 175 MG/DL (74-106) H 193 MG/DL (74-106) H Calcium Level 9.1 MG/DL (8.5-10.1) 8.8 MG/DL (8.5-10.1) Urine Random Sodium 21 MEQ/L (20-110) White Blood Count 10.3 K/UL (4.8-10.8) Red Blood Count 3.15 M/UL (4.20-5.40) L Hemoglobin 10.3 G/DL (12.0-16.0) L Hematocrit 32.7 % (37.0-47.0) L Mean Corpuscular Volume 104 FL (80-99) H Mean Corpuscular Hemoglobin 32.6 PG (27.0-31.0) H Mean Corpuscular Hemoglobin Concent 31.4 G/DL (32.0-36.0) L Red Cell Distribution Width 15.9 % (11.6-14.8) H Platelet Count 140 K/UL (150-450) L Mean Platelet Volume 9.5 FL (6.5-10.1) Neutrophils (%) (Auto) 73.8 % (45.0-75.0) Lymphocytes (%) (Auto) 17.3 % (20.0-45.0) L Monocytes (%) (Auto) 5.7 % (1.0-10.0) Eosinophils (%) (Auto) 2.7 % (0.0-3.0) Basophils (%) (Auto) 0.5 % (0.0-2.0) Hemoglobin A1c 7.5 % (4.3-6.0) H Uric Acid 9.7 MG/DL (2.6-7.2) H Phosphorus Level 2.4 MG/DL (2.5-4.9) L Magnesium Level 2.0 MG/DL (1.8-2.4) Total Bilirubin 0.3 MG/DL (0.2-1.0) Gamma Glutamyl Transpeptidase 33 U/L (5-85) Aspartate Amino Transf (AST/SGOT) 28 U/L (15-37) Alanine Aminotransferase (ALT/SGPT) 18 U/L (12-78) Alkaline Phosphatase 131 U/L (46-116) H Total Creatine Kinase 165 U/L (26-308) Troponin I 0.052 ng/mL (0.000-0.056) C-Reactive Protein, Quantitative 10.9 mg/dL (0.00-0.90) H Pro-B-Type Natriuretic Peptide 800 pg/mL (0-125) H Total Protein 7.2 G/DL (6.4-8.2) Albumin 2.3 G/DL (3.4-5.0) L Globulin 4.9 g/dL Albumin/Globulin Ratio 0.5 (1.0-2.7) L Triglycerides Level 116 MG/DL (30-150) Cholesterol Level 97 MG/DL (< 200) LDL Cholesterol 60 mg/dL (<100) HDL Cholesterol 19 MG/DL (40-60) L Cholesterol/HDL Ratio 5.1 (3.3-4.4) H Vitamin B12 Level 1239 PG/ML (193-986) H Folate 11.3 NG/ML (8.6-58.9) Thyroid Stimulating Hormone (TSH) 8.578 uiU/mL (0.358-3.740) Current Medications Medications (Trade) Dose Ordered Sig/Baldev Route PRN Reason Start Time Stop Time Status Last Admin Dose Admin Acetaminophen (Tylenol) 650 mg Q4H PRN ORAL Mild Pain/Temp > 100.5 02/17/17 00:45 03/19/17 00:44 Amiodarone HCl (Cordarone) 100 mg DAILY ORAL 02/17/17 09:00 03/19/17 08:59 02/18/17 08:58 Ascorbic Acid (Vitamin C) 500 mg TWICE A DAY ORAL 02/18/17 09:00 03/20/17 08:59 02/18/17 08:58 Aspirin (ASA) 81 mg DAILY ORAL 02/17/17 09:00 03/19/17 08:59 02/18/17 08:59 Atorvastatin Calcium (Lipitor) 10 mg BEDTIME ORAL 02/17/17 21:00 03/19/17 20:59 02/17/17 21:02 Clopidogrel Bisulfate (Plavix) 75 mg DAILY ORAL 02/17/17 09:00 03/19/17 08:59 02/18/17 08:58 Dextrose (Dextrose 50%) STAT PRN IV Hypoglycemia 02/16/17 23:45 03/18/17 23:44 Heparin Sodium (Porcine) (Heparin 5000 units/ml) 5,000 units EVERY 12 HOURS SUBQ 02/18/17 09:00 03/20/17 08:59 Insulin Aspart (NovoLOG) BEFORE MEALS AND HS SUBQ 02/17/17 06:30 03/19/17 06:29 Lactobacillus Acidophilus (Culturelle) 1 tab TWICE A DAY ORAL 02/17/17 09:00 03/19/17 08:59 02/18/17 08:58 Levofloxacin 100 ml @ 100 mls/hr Q48H IVPB 02/18/17 21:00 02/25/17 20:59 Metoprolol Succinate (Toprol XL) 25 mg DAILY ORAL 02/18/17 09:00 03/20/17 08:59 02/18/17 08:58 Multivitamins (Multivitamins) 1 tab DAILY ORAL 02/18/17 09:00 03/20/17 08:59 02/18/17 08:58 Pantoprazole (Protonix) 40 mg ACBREAKFAST ORAL 02/17/17 06:30 03/19/17 06:29 Ranitidine HCl (Zantac) 150 mg Q24H ORAL 02/17/17 13:30 02/19/17 13:29 02/17/17 13:21 Sodium Chloride 1,000 ml @ 100 mls/hr Q10H IV 02/17/17 13:30 03/19/17 13:29 02/18/17 08:59 Venlafaxine HCl (Effexor-XR) 37.5 mg DAILY ORAL 02/17/17 09:00 03/19/17 08:59 02/18/17 08:59 NILSA ALBARADO Feb 18, 2017 10:57
[2017-02-18] MEDS ORDERED: D5 1/2NS 1,000 ML IV SCH (11:30)
--- NOTE | 2017-02-18 11:30 | Diagnostic Imaging Report ---
Indication: Shortness of breath Technique: One view of the chest Comparison: 02/16/2017 Findings: No acute infiltrates, effusions, or congestion. Tortuous calcified aorta. Normal heart size. Upper mediastinum unremarkable. No significant interim change Impression: No acute process.
--- NOTE | 2017-02-18 11:44 | Cardiac Electrophysiology PN ---
Assessment/Plan Assessment/Plan 1. Troponin leak. This is due to the patient's renal failure. The patient does not have any chest pain. Continue aspirin,Plavix, metoprolol and Lipitor. 2. Hypertension, on Toprol 3. Paroxysmal atrial fibrillation, on amiodarone 100 mg daily, Toprol, aspirin and Plavix. Currently in sinus rhythm. 4. Hyperlipidemia, on Lipitor. 5. Severe hypernatremia. The patient is on intravenous fluids per Dr. Armstrong. 6. Acute renal failure. Again, further management by Dr. Armstrong. 7. Uncontrolled diabetes with glucose of more than 500. Subjective Subjective Comfortable. Transferred to [facility]. No events overnight. Objective Last 24 Hour Vital Signs Date Time Temp Pulse Resp B/P (MAP) Pulse Ox O2 Delivery O2 Flow Rate FiO2 02/18/17 08:58 78 121/58 02/18/17 08:00 97.9 78 18 121/58 98 Room Air 02/18/17 08:00 78 02/18/17 04:00 97.9 81 18 124/65 100 Room Air 02/18/17 04:00 75 02/18/17 00:00 97.8 77 18 112/60 98 Room Air 02/18/17 00:00 85 02/17/17 20:00 80 02/17/17 20:00 97.5 81 18 124/65 100 Room Air 02/17/17 16:00 84 02/17/17 16:00 97.8 87 19 119/67 97 Room Air 02/17/17 12:05 86 02/17/17 12:00 97.7 89 20 112/75 100 Room Air Intake and Output 02/18/17 02/19/17 19:00 07:00 Intake Total 300 ml Balance 300 ml IV Total 300 ml Laboratory Tests Test 02/17/17 12:15 02/17/17 14:40 02/18/17 03:30 Sodium Level 168 MMOL/L (136-145) *H 163 MMOL/L (136-145) *H Potassium Level 3.7 MMOL/L (3.5-5.1) 3.4 MMOL/L (3.5-5.1) L Chloride Level 133 MMOL/L (98-107) H 132 MMOL/L (98-107) H Carbon Dioxide Level 26 MMOL/L (21-32) 26 MMOL/L (21-32) Anion Gap 9 mmol/L (5-15) 5 mmol/L (5-15) Blood Urea Nitrogen 88 mg/dL (7-18) H 64 mg/dL (7-18) H Creatinine 2.4 MG/DL (0.55-1.30) H 1.7 MG/DL (0.55-1.30) H Estimat Glomerular Filtration Rate mL/min (>60) mL/min (>60) Glucose Level 175 MG/DL (74-106) H 193 MG/DL (74-106) H Calcium Level 9.1 MG/DL (8.5-10.1) 8.8 MG/DL (8.5-10.1) Urine Random Sodium 21 MEQ/L (20-110) White Blood Count 10.3 K/UL (4.8-10.8) Red Blood Count 3.15 M/UL (4.20-5.40) L Hemoglobin 10.3 G/DL (12.0-16.0) L Hematocrit 32.7 % (37.0-47.0) L Mean Corpuscular Volume 104 FL (80-99) H Mean Corpuscular Hemoglobin 32.6 PG (27.0-31.0) H Mean Corpuscular Hemoglobin Concent 31.4 G/DL (32.0-36.0) L Red Cell Distribution Width 15.9 % (11.6-14.8) H Platelet Count 140 K/UL (150-450) L Mean Platelet Volume 9.5 FL (6.5-10.1) Neutrophils (%) (Auto) 73.8 % (45.0-75.0) Lymphocytes (%) (Auto) 17.3 % (20.0-45.0) L Monocytes (%) (Auto) 5.7 % (1.0-10.0) Eosinophils (%) (Auto) 2.7 % (0.0-3.0) Basophils (%) (Auto) 0.5 % (0.0-2.0) Hemoglobin A1c 7.5 % (4.3-6.0) H Uric Acid 9.7 MG/DL (2.6-7.2) H Phosphorus Level 2.4 MG/DL (2.5-4.9) L Magnesium Level 2.0 MG/DL (1.8-2.4) Total Bilirubin 0.3 MG/DL (0.2-1.0) Gamma Glutamyl Transpeptidase 33 U/L (5-85) Aspartate Amino Transf (AST/SGOT) 28 U/L (15-37) Alanine Aminotransferase (ALT/SGPT) 18 U/L (12-78) Alkaline Phosphatase 131 U/L (46-116) H Total Creatine Kinase 165 U/L (26-308) Troponin I 0.052 ng/mL (0.000-0.056) C-Reactive Protein, Quantitative 10.9 mg/dL (0.00-0.90) H Pro-B-Type Natriuretic Peptide 800 pg/mL (0-125) H Total Protein 7.2 G/DL (6.4-8.2) Albumin 2.3 G/DL (3.4-5.0) L Globulin 4.9 g/dL Albumin/Globulin Ratio 0.5 (1.0-2.7) L Triglycerides Level 116 MG/DL (30-150) Cholesterol Level 97 MG/DL (< 200) LDL Cholesterol 60 mg/dL (<100) HDL Cholesterol 19 MG/DL (40-60) L Cholesterol/HDL Ratio 5.1 (3.3-4.4) H Vitamin B12 Level 1239 PG/ML (193-986) H Folate 11.3 NG/ML (8.6-58.9) Thyroid Stimulating Hormone (TSH) 8.578 uiU/mL (0.358-3.740) Microbiology Date/Time Source Procedure Growth Status 02/17/17 01:30 Blood Blood Culture - Preliminary NO GROWTH AFTER 24 HOURS Resulted 02/16/17 19:55 Blood Blood Culture - Preliminary NO GROWTH AFTER 24 HOURS Resulted 02/16/17 19:40 Blood Blood Culture - Preliminary NO GROWTH AFTER 24 HOURS Resulted 02/16/17 20:55 Urine,Clean Catch Urine Culture - Preliminary Gram Negative Bacillus 1 Gram Negative Bacillus 2 Resulted 02/17/17 03:00 Foot Left Gram Stain - Final Resulted 02/17/17 03:00 Foot Left Wound Culture - Preliminary Resulted Objective HEAD AND NECK: No JVD. LUNGS: Clear. CARDIOVASCULAR: Regular S1 and S2 with no gallop or murmur. ABDOMEN: Soft. EXTREMITIES: No pitting edema. LUIS EDUARDO CORBIN Feb 18, 2017 11:44
[2017-02-18 12:00] VITALS: BP 133/61
--- NOTE | 2017-02-18 12:01 | Nephrology Progress Note ---
Assessment/Plan Problem List: (1) Dehydration (2) Failure to thrive (3) Hypernatremia (4) ASHLY (acute kidney injury) Assessment acute renal failure- dehydration- and hypernatremia FTT UTI CAD GERD Plan Plan: Hydrate- start D5w monitor I&o and renal parameters Urine studies gastric support per orders Subjective ROS Limited/Unobtainable: No Constitutional: Reports: malaise, weakness Objective Objective Last 24 Hour Vital Signs Date Time Temp Pulse Resp B/P (MAP) Pulse Ox O2 Delivery O2 Flow Rate FiO2 02/18/17 08:58 78 121/58 02/18/17 08:00 97.9 78 18 121/58 98 Room Air 02/18/17 08:00 78 02/18/17 04:00 97.9 81 18 124/65 100 Room Air 02/18/17 04:00 75 02/18/17 00:00 97.8 77 18 112/60 98 Room Air 02/18/17 00:00 85 02/17/17 20:00 80 02/17/17 20:00 97.5 81 18 124/65 100 Room Air 02/17/17 16:00 84 02/17/17 16:00 97.8 87 19 119/67 97 Room Air 02/17/17 12:05 86 02/17/17 12:00 97.7 89 20 112/75 100 Room Air Intake and Output 02/18/17 02/19/17 19:00 07:00 Intake Total 300 ml Balance 300 ml IV Total 300 ml Laboratory Tests 02/17/17 12:15: Sodium Level 168*H, Potassium Level 3.7, Chloride Level 133H, Carbon Dioxide Level 26, Anion Gap 9, Blood Urea Nitrogen 88H, Creatinine 2.4H, Estimat Glomerular Filtration Rate , Glucose Level 175H, Calcium Level 9.1 02/17/17 14:40: Urine Random Sodium 21 02/18/17 03:30: Sodium Level 163*H, Potassium Level 3.4L, Chloride Level 132H, Carbon Dioxide Level 26, Anion Gap 5, Blood Urea Nitrogen 64H, Creatinine 1.7H, Estimat Glomerular Filtration Rate , Glucose Level 193H, Calcium Level 8.8, White Blood Count 10.3, Red Blood Count 3.15L, Hemoglobin 10.3L, Hematocrit 32.7L, Mean Corpuscular Volume 104H, Mean Corpuscular Hemoglobin 32.6H, Mean Corpuscular Hemoglobin Concent 31.4L, Red Cell Distribution Width 15.9H, Platelet Count 140L , Mean Platelet Volume 9.5, Neutrophils (%) (Auto) 73.8, Lymphocytes (%) (Auto) 17.3L, Monocytes (%) (Auto) 5.7, Eosinophils (%) (Auto) 2.7, Basophils (%) (Auto ) 0.5, Hemoglobin A1c 7.5H, Uric Acid 9.7H, Phosphorus Level 2.4L, Magnesium Level 2.0, Total Bilirubin 0.3, Gamma Glutamyl Transpeptidase 33, Aspartate Amino Transf (AST/SGOT) 28, Alanine Aminotransferase (ALT/SGPT) 18, Alkaline Phosphatase 131H, Total Creatine Kinase 165, Troponin I 0.052, C-Reactive Protein, Quantitative 10.9H, Pro-B-Type Natriuretic Peptide 800H, Total Protein 7.2, Albumin 2.3L, Globulin 4.9, Albumin/Globulin Ratio 0.5L, Triglycerides Level 116, Cholesterol Level 97, LDL Cholesterol 60, HDL Cholesterol 19L, Cholesterol/HDL Ratio 5.1H, Vitamin B12 Level 1239H, Folate 11.3, Thyroid Stimulating Hormone (TSH) 8.578H Height (Feet): 5 Height (Inches): 4.00 Weight (Pounds): 110 General Appearance: no apparent distress, lethargic Cardiovascular: normal rate Respiratory/Chest: lungs clear Abdomen: soft Objective no other change EDGARDO ORDOÑEZ Feb 18, 2017 12:01
--- NOTE | 2017-02-18 13:27 | Wound Care Consultation ---
Wound Assessment Wound Assessment #1: Wound Number: 1 Wound Present on Admission: Yes New Wound: No Status Change of Wound: No Wound Location Body Site Modif: right Wound Location Body Site: iliac crest Wound Type: pressure ulcer Lina Test: Does not Lina Pressure Ulcer Stage: III Wound Thickness: Full Thickness Wound Length: 1.0 Wound Width: 1.0 Wound Depth: 0.1 Percent of Wound Falkner/Red: 50 Percent of Wound Bed Yellow/Wh: 50 Wound Drainage Description: Serosanguineous Wound Drainage Amount: Moderate Wound Drainage Odor: None/Absent Tissue Surrounding Wound: Erythemic Wound General Appearance: Reddened - yellow, Draining Wound Assessment #2: Wound Number: 2 Wound Present on Admission: Yes New Wound: No Status Change of Wound: No Wound Location Body Site Modif: mid Wound Location Body Site: other - Sacrococcygeal Wound Type: pressure ulcer Lina Test: Does not Lina Pressure Ulcer Stage: Deep Tissue Injury Wound Thickness: Full Thickness Wound Length: 5.5 Wound Width: 5.5 Wound Depth: utd Percent of Wound Purple/Maroon: 100 Wound Drainage Amount: None Wound Drainage Odor: None/Absent Tissue Surrounding Wound: Intact Wound General Appearance: Reddened - purple Wound Assessment #3: Wound Number: 3 Wound Present on Admission: Yes New Wound: No Status Change of Wound: No Wound Location Body Site Modif: left Wound Location Body Site: heel Wound Type: pressure ulcer Lina Test: Does not Lina Pressure Ulcer Stage: Unstageable Wound Thickness: Full Thickness Wound Length: 3.5 Wound Width: 3.5 Wound Depth: utd Percent of Wound Falkner/Red: 20 Percent of Wound Bed Yellow/Wh: 20 Percent of Wound Black/Brown: 40 Percent of Wound Purple/Maroon: 20 Wound Drainage Description: Serosanguineous Wound Drainage Amount: Moderate Wound Drainage Odor: None/Absent Tissue Surrounding Wound: Macerated Wound General Appearance: Reddened - yellow, purple and black, Draining Wound Assessment #4: Wound Number: 4 Wound Present on Admission: Yes New Wound: No Status Change of Wound: No Wound Location Body Site Modif: right Wound Location Body Site: heel Wound Type: pressure ulcer Lina Test: Does not Lina Pressure Ulcer Stage: Unstageable Wound Thickness: Full Thickness Wound Length: 3.5 Wound Width: 4.0 Wound Depth: utd Percent of Wound Falkner/Red: 40 Percent of Wound Bed Yellow/Wh: 30 Percent of Wound Black/Brown: 20 Percent of Wound Purple/Maroon: 10 Wound Drainage Description: Serosanguineous Wound Drainage Amount: Moderate Wound Drainage Odor: None/Absent Tissue Surrounding Wound: Macerated Wound General Appearance: Reddened - yellow, purple and brown, Draining Wound Assessment #5: Wound Number: 5 Wound Present on Admission: Yes New Wound: No Status Change of Wound: No Wound Location Body Site: perineal area Wound Type: chemical burn Lina Test: Does not Lina Percent of Wound Falkner/Red: 100 Wound Drainage Amount: None Wound Drainage Odor: None/Absent Tissue Surrounding Wound: Erythemic Wound General Appearance: Reddened Wound Comment #1 Sacrococcygeal DTI pressure ulcer #2 Right iliac crest stage III pressure ulcer #3 Left heel unstageable pressure ulcer #4 Right heel unstageable pressure ulcer #5 Chemical burn on perineal area Recommendation -Local wound care per protocol -Keep clean and dry -Turn and reposition -Optimize nutrition -Offload both heels -Heel protector on both heels -Low air loss mattress -Assess and f/u accordingly for any changes LOU SANTORO RN Feb 18, 2017 13:27
[2017-02-18] MEDS ORDERED: Vancomycin 1gm/D5W 275ml IVPB ONE ×2 (13:30)
[2017-02-18] MEDS ORDERED: Potassium Phosphate 30 MM in NS 275 ML IV ONE (15:00)
[2017-02-18 16:00] VITALS: BP 124/59
--- NOTE | 2017-02-18 16:58 | General Progress Note ---
Assessment/Plan Problem List: (1) Failure to thrive SNOMED: 02758870 Qualifiers: Qualified Codes: R62.7 - Adult failure to thrive (2) Sepsis ICD Codes: A41.9 - Sepsis, unspecified organism SNOMED: 43159398 Qualifiers: Qualified Codes: A41.9 - Sepsis, unspecified organism (3) UTI (urinary tract infection) Assessment & Plan: / GNR ICD Codes: N39.0 - Urinary tract infection, site not specified SNOMED: 66283379 Qualifiers: Qualified Codes: N30.01 - Acute cystitis with hematuria (4) Acute toxic metabolic encephalopathy (5) ASHLY (acute kidney injury) ICD Codes: N17.9 - Acute kidney failure, unspecified SNOMED: 79314440 (6) Hypernatremia ICD Codes: E87.0 - Hyperosmolality and hypernatremia SNOMED: 63949152 (7) Elevated troponin Assessment & Plan: likely in setting of renal insufficiency vs NSTEMI type 2 given sepsis ICD Codes: R74.8 - Abnormal levels of other serum enzymes SNOMED: 664203269, 813270011 (8) CAD (coronary artery disease) ICD Codes: I25.10 - Atherosclerotic heart disease of [place] coronary artery without angina pectoris SNOMED: 48759508 (9) Diabetes mellitus Assessment & Plan: uncontrolled ICD Codes: E11.9 - Type 2 diabetes mellitus without complications SNOMED: 57799754 (10) HTN (hypertension) ICD Codes: I10 - Essential (primary) hypertension SNOMED: 53518644 (11) HLD (hyperlipidemia) ICD Codes: E78.5 - Hyperlipidemia, unspecified SNOMED: 48465743 (12) Depression ICD Codes: F32.9 - Major depressive disorder, single episode, unspecified SNOMED: 65424553 (13) multiple pressure ulcers Assessment & Plan: #1 Sacrococcygeal DTI pressure ulcer #2 Right iliac crest stage III pressure ulcer #3 Left heel unstageable pressure ulcer #4 Right heel unstageable pressure ulcer (14) paroxsymal atrial fibrillation Status: stable Assessment/Plan Renal consulted Change to D5W at 100mL/hr per renal Trend BMP closely Cardiology consulted given elevated troponin Trop downtrending to 0.05 Cont ASA, plavix, amio, amlodipine, MTP ID consulted Change to vanco and zosyn (02/18-) s/p levaquin (02/16-02/18) F/u cultures--urine cx w/ GNR Trend CBC Cont home meds RIDGE Check A1C F/u video swallow Bridge Manager consult Pt likely needs short-term vs long-term feeding tube to sustain nutrition. D/w family and awaiting decision DVT Prophylaxis: SCD, HSQ Code Status: Full Hospital Classification Declaration: Based on this initial evaluation, and depending on the patient's clinical course, I anticipate that this patient will require hospitalization for 2-3 days for sepsis, ASHLY, hypernatremia and close respiratory/hemodynamic monitoring. Disposition: Once the patient is stable to leave the hospital, I anticipate the patient will likely be discharged to the following environment: back to SNF Discussed with patient/family, nursing staff, SW/CM, renal, cardiology regarding clinical status, treatment course, and disposition planning. D/w ID re change in abx. D/w renal re change in fluids. D/w daughter re feeding tube Time of note may not reflect time of encounter. Subjective Date patient seen: Feb 18, 2017 Time patient seen: 16:46 ROS Limited/Unobtainable: Yes Allergies: Coded Allergies: No Known Allergies (Unverified , 02/16/17) Subjective No acute o/n events SCr improving to 1.7 Na down to 163 K and Phos low WBC down to 10 Pt awake, alert, not responding appropriately to questions. Cont to have poor PO intake Pt confused at baseline per discussion w/ daughter--usually not aware of where she is, date, situation. Non-ambulatory at baseline. Uses wheelchair. Mental status appeared to be worsening at SNF per daughter and pt was not eating well. Discussed possibility of feeding tube. She will discuss w/ rest of family and let us know Objective Last 24 Hour Vital Signs Date Time Temp Pulse Resp B/P (MAP) Pulse Ox O2 Delivery O2 Flow Rate FiO2 02/18/17 12:00 79 02/18/17 12:00 97.0 79 20 133/61 99 Room Air 02/18/17 08:58 78 121/58 02/18/17 08:00 97.9 78 18 121/58 98 Room Air 02/18/17 08:00 78 02/18/17 04:00 97.9 81 18 124/65 100 Room Air 02/18/17 04:00 75 02/18/17 00:00 97.8 77 18 112/60 98 Room Air 02/18/17 00:00 85 02/17/17 20:00 80 02/17/17 20:00 97.5 81 18 124/65 100 Room Air Intake and Output 02/18/17 02/19/17 19:00 07:00 Intake Total 1125.000 ml Balance 1125.000 ml IV Total 1125.000 ml Laboratory Tests 02/18/17 03:30: White Blood Count 10.3, Red Blood Count 3.15L, Hemoglobin 10.3L, Hematocrit 32.7L, Mean Corpuscular Volume 104H, Mean Corpuscular Hemoglobin 32.6H, Mean Corpuscular Hemoglobin Concent 31.4L, Red Cell Distribution Width 15.9H, Platelet Count 140L, Mean Platelet Volume 9.5, Neutrophils (%) (Auto) 73.8, Lymphocytes (%) (Auto) 17.3L, Monocytes (%) (Auto) 5.7, Eosinophils (%) (Auto) 2.7, Basophils (%) (Auto) 0.5, Sodium Level 163*H, Potassium Level 3.4L, Chloride Level 132H, Carbon Dioxide Level 26, Anion Gap 5, Blood Urea Nitrogen 64H, Creatinine 1.7H, Estimat Glomerular Filtration Rate , Glucose Level 193H, Hemoglobin A1c 7.5H, Uric Acid 9.7H, Calcium Level 8.8, Phosphorus Level 2.4L, Magnesium Level 2.0, Total Bilirubin 0.3, Gamma Glutamyl Transpeptidase 33, Aspartate Amino Transf (AST/SGOT) 28, Alanine Aminotransferase (ALT/SGPT) 18, Alkaline Phosphatase 131H, Total Creatine Kinase 165, Troponin I 0.052, C- Reactive Protein, Quantitative 10.9H, Pro-B-Type Natriuretic Peptide 800H, Total Protein 7.2, Albumin 2.3L, Globulin 4.9, Albumin/Globulin Ratio 0.5L, Triglycerides Level 116, Cholesterol Level 97, LDL Cholesterol 60, HDL Cholesterol 19L, Cholesterol/HDL Ratio 5.1H, Vitamin B12 Level 1239H, Folate 11.3, Thyroid Stimulating Hormone (TSH) 8.578H Height (Feet): 5 Height (Inches): 4.00 Weight (Pounds): 110 Objective General: alert, cooperative, no distress, appears stated age, thin Head: normocephalic, without obvious abnormality, atraumatic Eyes: conjunctivae/corneas clear. PERRL, EOM's intact Throat: lips, mucosa, and tongue normal. MMM Neck: supple, symmetrical, trachea midline, and no JVD Lungs: clear to auscultation bilaterally Heart: regular rate and rhythm, S1, S2 normal, no murmur, click, rub or gallop Abdomen: soft, non-tender, non-distended, bowel sounds normal; no masses or organomegaly Extremities: extremities normal, atraumatic, no cyanosis or edema Pulses: 2+ and symmetric Skin: skin color, texture, turgor normal; +pressure ulcers b/l heels Neurologic: grossly normal, no focal deficits Noman Burch M.D. Feb 18, 2017 16:58
[2017-02-18 20:00] VITALS: BP 125/78
[2017-02-19] VITALS (7 sets, daily range): BP systolic 103–140; BP diastolic 48–89
[2017-02-19] MEDS: NovoLOG Insulin Flexpen SUBQ SCH ×5 (00:49→20:57)
--- NOTE | 2017-02-19 05:01 | Diagnostic Imaging Report ---
Indication: Foot pain Technique: 3 views right foot Comparison: None Findings: Bones are profoundly osteoporotic. No definite acute fractures. No dislocations. There is hammertoe deformity of the second through fifth digits. No definite osteolytic process, osseous erosion, or unusual periosteal reaction. There are vascular calcifications. Impression: No definite acute bony trauma or evidence of osteomyelitis. Note, however, that profound osteoporosis decreases the sensitivity of the exam. Consider cross-sectional imaging if there is high clinical suspicion for acute bony pathology
[2017-02-19 05:30] LABS: BASOPHILS % (AUTO) 0.7 % (0.0-2.0); EOSINOPHILS % (AUTO) 3.3 % (0.0-3.0); MEAN CORPUSCULAR HEMOGLOBIN 32.7 PG (27.0-31.0); MEAN CORPUSCULAR HGB CONC 31.7 G/DL (32.0-36.0); MEAN CORPUSCULAR VOLUME 103 FL (80-99); MEAN PLATELET VOLUME 9.3 FL (6.5-10.1); PLATELET COUNT 141 K/UL (150-450); RED BLOOD COUNT 3.27 M/UL (4.20-5.40); RED CELL DISTRIBUTION WIDTH 15.6 % (11.6-14.8); WHITE BLOOD COUNT 8.2 K/UL (4.8-10.8)
[2017-02-19 06:01] LABS: ALANINE AMINOTRANSFERASE 17 U/L (12-78); ALBUMIN/GLOBULIN RATIO 0.5 (1.0-2.7); ANION GAP 8 mmol/L (5-15); ASPARTATE AMINO TRANSFERASE 20 U/L (15-37); CALCIUM 8.5 MG/DL (8.5-10.1); CARBON DIOXIDE 24 MMOL/L (21-32); CHLORIDE 124 MMOL/L (98-107); CREATININE 1.3 MG/DL (0.55-1.30); MAGNESIUM 1.7 MG/DL (1.8-2.4); PHOSPHORUS 2.4 MG/DL (2.5-4.9); POTASSIUM 3.1 MMOL/L (3.5-5.1); SODIUM 156 MMOL/L (136-145); TOTAL PROTEIN 7.2 G/DL (6.4-8.2); URIC ACID 6.1 MG/DL (2.6-7.2)
[2017-02-19 06:18] LABS: CRP QUANT 7.2 mg/dL (0.00-0.90)
[2017-02-19] MEDS ORDERED: Potassium Chloride 40 MEQ in Sodium Chloride 500ML 550 ML IVPB ONE (08:00)
[2017-02-19] MEDS ORDERED: Potassium Phosphate 20 MM in NS 275 ML IV ONE ×2 (08:45→14:00)
[2017-02-19] MEDS: Metoprolol Succinate XL 25mg tab ORAL SCH ×2 (09:00→09:08)
[2017-02-19] MEDS: Amiodarone 200mg tab ORAL SCH (09:06)
[2017-02-19] MEDS: Lactobacillus-GG tablet ORAL SCH ×3 (09:06→18:56)
[2017-02-19] MEDS: Aspirin Baby 81mg ORAL SCH (09:06)
[2017-02-19] MEDS: Heparin 5000 units/ml inj SUBQ SCH ×2 (09:08→20:59)
[2017-02-19] MEDS: Venlafaxine XR 37.5mg cap ORAL SCH (09:30)
--- NOTE | 2017-02-19 10:48 | Cardiac Electrophysiology PN ---
Assessment/Plan Assessment/Plan 1. Troponin leak. Likely due to renal failure. The patient does not have any chest pain. Continue aspirin,Plavix, metoprolol and Lipitor. 2. Hypertension, on Toprol 3. Paroxysmal atrial fibrillation, on amiodarone 100 mg daily, Toprol, aspirin and Plavix. Currently in sinus rhythm. 4. Hyperlipidemia, on Lipitor. 5. Severe hypernatremia. The patient is on intravenous fluids per Dr. Armstrong. 6. Acute renal failure. Again, further management by Dr. Armstrong. 7. Uncontrolled diabetes with glucose of more than 500. KERI RN DC tele Subjective Subjective Comfortable in NAD. No events overnight.No arrhythmias. In SR Objective Last 24 Hour Vital Signs Date Time Temp Pulse Resp B/P (MAP) Pulse Ox O2 Delivery O2 Flow Rate FiO2 02/19/17 09:08 70 124/89 02/19/17 08:00 97.5 70 18 124/89 95 Room Air 02/19/17 07:32 61 02/19/17 04:05 17 94 Room Air 02/19/17 04:00 97.8 72 18 103/71 93 Room Air 02/19/17 04:00 63 02/19/17 00:00 97.7 75 20 140/63 93 Room Air 02/19/17 00:00 74 02/18/17 20:05 18 95 Room Air 02/18/17 20:00 97.3 73 18 125/78 93 Room Air 02/18/17 20:00 74 02/18/17 16:00 98.2 72 18 124/59 97 Room Air 02/18/17 16:00 70 02/18/17 12:00 79 02/18/17 12:00 97.0 79 20 133/61 99 Room Air Laboratory Tests Test 02/19/17 03:45 White Blood Count 8.2 K/UL (4.8-10.8) Red Blood Count 3.27 M/UL (4.20-5.40) L Hemoglobin 10.7 G/DL (12.0-16.0) L Hematocrit 33.8 % (37.0-47.0) L Mean Corpuscular Volume 103 FL (80-99) H Mean Corpuscular Hemoglobin 32.7 PG (27.0-31.0) H Mean Corpuscular Hemoglobin Concent 31.7 G/DL (32.0-36.0) L Red Cell Distribution Width 15.6 % (11.6-14.8) H Platelet Count 141 K/UL (150-450) L Mean Platelet Volume 9.3 FL (6.5-10.1) Neutrophils (%) (Auto) 67.0 % (45.0-75.0) Lymphocytes (%) (Auto) 22.0 % (20.0-45.0) Monocytes (%) (Auto) 7.0 % (1.0-10.0) Eosinophils (%) (Auto) 3.3 % (0.0-3.0) H Basophils (%) (Auto) 0.7 % (0.0-2.0) Sodium Level 156 MMOL/L (136-145) H Potassium Level 3.1 MMOL/L (3.5-5.1) L Chloride Level 124 MMOL/L (98-107) H Carbon Dioxide Level 24 MMOL/L (21-32) Anion Gap 8 mmol/L (5-15) Blood Urea Nitrogen 30 mg/dL (7-18) H Creatinine 1.3 MG/DL (0.55-1.30) Estimat Glomerular Filtration Rate mL/min (>60) Glucose Level 262 MG/DL (74-106) H Uric Acid 6.1 MG/DL (2.6-7.2) Calcium Level 8.5 MG/DL (8.5-10.1) Phosphorus Level 2.4 MG/DL (2.5-4.9) L Magnesium Level 1.7 MG/DL (1.8-2.4) L Total Bilirubin 0.4 MG/DL (0.2-1.0) Aspartate Amino Transf (AST/SGOT) 20 U/L (15-37) Alanine Aminotransferase (ALT/SGPT) 17 U/L (12-78) Alkaline Phosphatase 133 U/L (46-116) H C-Reactive Protein, Quantitative 7.2 mg/dL (0.00-0.90) H Pro-B-Type Natriuretic Peptide 1626 pg/mL (0-125) H Total Protein 7.2 G/DL (6.4-8.2) Albumin 2.4 G/DL (3.4-5.0) L Globulin 4.8 g/dL Albumin/Globulin Ratio 0.5 (1.0-2.7) L Free Thyroxine 0.92 NG/DL (0.76-1.46) Microbiology Date/Time Source Procedure Growth Status 02/17/17 01:30 Blood Blood Culture - Preliminary NO GROWTH AFTER 48 HOURS Resulted 02/16/17 19:55 Blood Blood Culture - Preliminary NO GROWTH AFTER 48 HOURS Resulted 02/16/17 19:40 Blood Blood Culture - Preliminary NO GROWTH AFTER 48 HOURS Resulted 02/16/17 22:00 Nasal Nares MRSA Culture - Final Staphylococcus Aureus - Mrsa Complete 02/16/17 20:55 Urine,Clean Catch Urine Culture - Final Klebsiella Pneumoniae Esbl Escherichia Coli Complete 02/17/17 03:00 Foot Left Gram Stain - Final Resulted 02/17/17 03:00 Wound Culture - Preliminary Usual Skin Erika Resulted 02/16/17 22:00 Rectum VRE Culture - Final Complete Objective HEAD AND NECK: No JVD. LUNGS: Clear. CARDIOVASCULAR: Regular S1 and S2 with no gallop or murmur. ABDOMEN: Soft. EXTREMITIES: No pitting edema. LUIS EDUARDO CORBIN Feb 19, 2017 10:47
--- NOTE | 2017-02-19 11:00 | Cardiology Report ---
APPROVED REPORT EKG Measurement Heart [id number] 144P38 [id number] Sinus tachycardia Abnormal ECG
--- NOTE | 2017-02-19 11:01 | Cardiology Report ---
APPROVED REPORT EKG Measurement Heart [id number] 138P58 [id number] Normal sinus rhythm Abnormal ECG
--- NOTE | 2017-02-19 11:02 | Diagnostic Imaging Report ---
Indication: Shortness of breath Technique: One view of the chest Comparison: none Findings: No acute infiltrates, effusions, or congestion. Tortuous calcified aorta. Normal heart size. Upper mediastinum unremarkable. Impression: No acute process.
--- NOTE | 2017-02-19 11:02 | Diagnostic Imaging Report ---
APPROVED REPORT CPT Code: 78192 Present Symptoms Comments: R/O DVT RIGHT LEG: Venous imaging reveals a patent deep venous system. There is no evidence of thrombus within the femoral, popliteal or tibial segments. The greater saphenous vein is also within normal limits. Doppler indicates normal spontaneous flow within these segments. LEFT LEG: Venous imaging reveals recanalized chronic thrombus in the superficial femoral to popliteal veins. Imaging also reveals patency of the common femoral and calf veins. The greater saphenous vein is also within normal limits. Doppler indicates normal spontaneous flow within these segments. There is no evidence of acute deep vein thrombosis.
--- NOTE | 2017-02-19 13:17 | Nephrology Progress Note ---
Assessment/Plan Problem List: (1) Dehydration (2) Failure to thrive (3) Hypernatremia (4) ASHLY (acute kidney injury) Assessment acute renal failure- improving dehydration- and hypernatremia improving FTT UTI CAD GERD Plan Plan: Hydrate- start D5w Phos and K supplement as needed monitor I&o and renal parameters Urine studies gastric support per orders Subjective ROS Limited/Unobtainable: No Constitutional: Reports: malaise Objective Objective Last 24 Hour Vital Signs Date Time Temp Pulse Resp B/P (MAP) Pulse Ox O2 Delivery O2 Flow Rate FiO2 02/19/17 12:00 97.8 88 18 130/75 95 Room Air 02/19/17 09:08 70 124/89 02/19/17 08:00 97.5 70 18 124/89 95 Room Air 02/19/17 07:32 61 02/19/17 04:05 17 94 Room Air 02/19/17 04:00 97.8 72 18 103/71 93 Room Air 02/19/17 04:00 63 02/19/17 00:00 97.7 75 20 140/63 93 Room Air 02/19/17 00:00 74 02/18/17 20:05 18 95 Room Air 02/18/17 20:00 97.3 73 18 125/78 93 Room Air 02/18/17 20:00 74 02/18/17 16:00 98.2 72 18 124/59 97 Room Air 02/18/17 16:00 70 Intake and Output 02/19/17 02/20/17 19:00 07:00 Intake Total 898.333 ml Balance 898.333 ml IV Total 898.333 ml Laboratory Tests 02/19/17 03:45: White Blood Count 8.2, Red Blood Count 3.27L, Hemoglobin 10.7L, Hematocrit 33.8L , Mean Corpuscular Volume 103H, Mean Corpuscular Hemoglobin 32.7H, Mean Corpuscular Hemoglobin Concent 31.7L, Red Cell Distribution Width 15.6H, Platelet Count 141L, Mean Platelet Volume 9.3, Neutrophils (%) (Auto) 67.0, Lymphocytes (%) (Auto) 22.0, Monocytes (%) (Auto) 7.0, Eosinophils (%) (Auto) 3.3H, Basophils (%) (Auto) 0.7, Sodium Level 156H, Potassium Level 3.1L, Chloride Level 124H, Carbon Dioxide Level 24, Anion Gap 8, Blood Urea Nitrogen 30H, Creatinine 1.3, Estimat Glomerular Filtration Rate , Glucose Level 262H, Uric Acid 6.1, Calcium Level 8.5, Phosphorus Level 2.4L, Magnesium Level 1.7L, Total Bilirubin 0.4, Aspartate Amino Transf (AST/SGOT) 20, Alanine Aminotransferase (ALT/SGPT) 17, Alkaline Phosphatase 133H, C-Reactive Protein, Quantitative 7.2H, Pro-B-Type Natriuretic Peptide 1626H, Total Protein 7.2, Albumin 2.4L, Globulin 4.8, Albumin/Globulin Ratio 0.5L, Free Thyroxine 0.92 Height (Feet): 5 Height (Inches): 4.00 Weight (Pounds): 110 General Appearance: no apparent distress Cardiovascular: regular rhythm Respiratory/Chest: decreased breath sounds Abdomen: soft Objective no other change EDGARDO ORDOÑEZ Feb 19, 2017 13:17
[2017-02-19] MEDS ORDERED: Potassium Phosphate 30 MM in NS 275 ML IV ONE ×2 (14:30→18:30)
--- NOTE | 2017-02-19 16:43 | Infectious Diseases Prog Note ---
Assessment/Plan Assessment/Plan Full consult dictated: A) 1) esbl klebsiella uti, e.coli uti, sepsis, leukocytosis 2) ? right/left foot heel wound infection, x-ray - no osteo, wc - negative 3) pmh noted 4) allergies - negative P) 1) change to meropenem x 10 days 2) wound care per protocol 3) check labs Subjective Allergies: Coded Allergies: No Known Allergies (Unverified , 02/16/17) Objective Vital Signs Last 24 Hour Vital Signs Date Time Temp Pulse Resp B/P (MAP) Pulse Ox O2 Delivery O2 Flow Rate FiO2 02/19/17 12:00 97.8 88 18 130/75 95 Room Air 02/19/17 11:42 62 02/19/17 09:08 70 124/89 02/19/17 08:00 97.5 70 18 124/89 95 Room Air 02/19/17 07:32 61 02/19/17 04:05 17 94 Room Air 02/19/17 04:00 97.8 72 18 103/71 93 Room Air 02/19/17 04:00 63 02/19/17 00:00 97.7 75 20 140/63 93 Room Air 02/19/17 00:00 74 02/18/17 20:05 18 95 Room Air 02/18/17 20:00 97.3 73 18 125/78 93 Room Air 02/18/17 20:00 74 Height (Feet): 5 Height (Inches): 4.00 Weight (Pounds): 110 Microbiology Date/Time Source Procedure Growth Status 02/17/17 01:30 Blood Blood Culture - Preliminary NO GROWTH AFTER 48 HOURS Resulted 02/16/17 19:55 Blood Blood Culture - Preliminary NO GROWTH AFTER 48 HOURS Resulted 02/16/17 19:40 Blood Blood Culture - Preliminary NO GROWTH AFTER 48 HOURS Resulted 02/16/17 22:00 Nasal Nares MRSA Culture - Final Staphylococcus Aureus - Mrsa Complete 02/16/17 20:55 Urine,Clean Catch Urine Culture - Final Klebsiella Pneumoniae Esbl Escherichia Coli Complete 02/17/17 03:00 Foot Left Gram Stain - Final Resulted 02/17/17 03:00 Wound Culture - Preliminary Usual Skin Erika Resulted 02/16/17 22:00 Rectum VRE Culture - Final Complete Laboratory Tests Test 02/19/17 03:45 White Blood Count 8.2 K/UL (4.8-10.8) Red Blood Count 3.27 M/UL (4.20-5.40) L Hemoglobin 10.7 G/DL (12.0-16.0) L Hematocrit 33.8 % (37.0-47.0) L Mean Corpuscular Volume 103 FL (80-99) H Mean Corpuscular Hemoglobin 32.7 PG (27.0-31.0) H Mean Corpuscular Hemoglobin Concent 31.7 G/DL (32.0-36.0) L Red Cell Distribution Width 15.6 % (11.6-14.8) H Platelet Count 141 K/UL (150-450) L Mean Platelet Volume 9.3 FL (6.5-10.1) Neutrophils (%) (Auto) 67.0 % (45.0-75.0) Lymphocytes (%) (Auto) 22.0 % (20.0-45.0) Monocytes (%) (Auto) 7.0 % (1.0-10.0) Eosinophils (%) (Auto) 3.3 % (0.0-3.0) H Basophils (%) (Auto) 0.7 % (0.0-2.0) Sodium Level 156 MMOL/L (136-145) H Potassium Level 3.1 MMOL/L (3.5-5.1) L Chloride Level 124 MMOL/L (98-107) H Carbon Dioxide Level 24 MMOL/L (21-32) Anion Gap 8 mmol/L (5-15) Blood Urea Nitrogen 30 mg/dL (7-18) H Creatinine 1.3 MG/DL (0.55-1.30) Estimat Glomerular Filtration Rate mL/min (>60) Glucose Level 262 MG/DL (74-106) H Uric Acid 6.1 MG/DL (2.6-7.2) Calcium Level 8.5 MG/DL (8.5-10.1) Phosphorus Level 2.4 MG/DL (2.5-4.9) L Magnesium Level 1.7 MG/DL (1.8-2.4) L Total Bilirubin 0.4 MG/DL (0.2-1.0) Aspartate Amino Transf (AST/SGOT) 20 U/L (15-37) Alanine Aminotransferase (ALT/SGPT) 17 U/L (12-78) Alkaline Phosphatase 133 U/L (46-116) H C-Reactive Protein, Quantitative 7.2 mg/dL (0.00-0.90) H Pro-B-Type Natriuretic Peptide 1626 pg/mL (0-125) H Total Protein 7.2 G/DL (6.4-8.2) Albumin 2.4 G/DL (3.4-5.0) L Globulin 4.8 g/dL Albumin/Globulin Ratio 0.5 (1.0-2.7) L Free Thyroxine 0.92 NG/DL (0.76-1.46) Current Medications Medications (Trade) Dose Ordered Sig/Baldev Route PRN Reason Start Time Stop Time Status Last Admin Dose Admin Acetaminophen (Tylenol) 650 mg Q4H PRN ORAL Mild Pain/Temp > 100.5 02/17/17 00:45 03/19/17 00:44 Amiodarone HCl (Cordarone) 100 mg DAILY ORAL 02/17/17 09:00 03/19/17 08:59 02/19/17 09:06 Aspirin (ASA) 81 mg DAILY ORAL 02/17/17 09:00 03/19/17 08:59 02/19/17 09:06 Cefepime HCl 1 gm/ Dextrose 50 ml @ 100 mls/hr Q24H IVPB 02/18/17 13:00 02/25/17 12:59 02/19/17 13:25 Clopidogrel Bisulfate (Plavix) 75 mg DAILY ORAL 02/17/17 09:00 03/19/17 08:59 02/19/17 09:06 Dextrose 1,000 ml @ 100 mls/hr Q10H IV 02/18/17 12:00 03/20/17 11:59 02/19/17 08:07 Dextrose (Dextrose 50%) STAT PRN IV Hypoglycemia 02/16/17 23:45 03/18/17 23:44 Heparin Sodium (Porcine) (Heparin 5000 units/ml) 5,000 units EVERY 12 HOURS SUBQ 02/18/17 09:00 03/20/17 08:59 02/19/17 09:08 Insulin Aspart (NovoLOG) Q6HR SUBQ 02/18/17 18:00 03/19/17 06:29 02/19/17 12:09 Lactobacillus Acidophilus (Culturelle) 1 tab TWICE A DAY ORAL 02/17/17 09:00 03/19/17 08:59 02/19/17 09:06 Metoprolol Succinate (Toprol XL) 25 mg DAILY ORAL 02/18/17 09:00 03/20/17 08:59 02/19/17 09:08 Multivitamins (Multivitamins) 1 tab DAILY ORAL 02/18/17 09:00 03/20/17 08:59 02/19/17 09:06 Pantoprazole (Protonix) 40 mg ACBREAKFAST ORAL 02/17/17 06:30 03/19/17 06:29 Potassium Phosphate 30 mm/ Sodium Chloride 285 ml @ 47.5 mls/hr ONCE ONCE IV 02/19/17 14:30 02/19/17 20:29 02/19/17 14:37 Venlafaxine HCl (Effexor-XR) 37.5 mg DAILY ORAL 02/17/17 09:00 03/19/17 08:59 02/19/17 09:30 NILSA ALBARADO Feb 19, 2017 16:43
[2017-02-19] MEDS: Meropenem 1 GM in D5W 55 ML IVPB SCH (20:03)
[2017-02-20] VITALS: BP 106/50
[2017-02-20 04:00] VITALS: BP 132/51
[2017-02-20] MEDS: Meropenem 1 GM in D5W 55 ML IVPB SCH ×2 (07:07→18:13)
[2017-02-20] MEDS: NovoLOG Insulin Flexpen SUBQ SCH ×4 (07:08→18:14)
[2017-02-20 07:29] LABS: BASOPHILS % (AUTO) 0.4 % (0.0-2.0); EOSINOPHILS % (AUTO) 2.6 % (0.0-3.0); LYMPHOCYTES % (AUTO) 27.8 % (20.0-45.0); MEAN CORPUSCULAR HEMOGLOBIN 32.4 PG (27.0-31.0); MEAN CORPUSCULAR VOLUME 101 FL (80-99); MEAN PLATELET VOLUME 9.3 FL (6.5-10.1); MONOCYTES % (AUTO) 7.3 % (1.0-10.0); NEUTROPHILS % (AUTO) 61.9 % (45.0-75.0); PLATELET COUNT 132 K/UL (150-450); RED BLOOD COUNT 3.19 M/UL (4.20-5.40); RED CELL DISTRIBUTION WIDTH 15.2 % (11.6-14.8); WHITE BLOOD COUNT 7.9 K/UL (4.8-10.8)
[2017-02-20 07:34] LABS: ALANINE AMINOTRANSFERASE 14 U/L (12-78); ALBUMIN/GLOBULIN RATIO 0.5 (1.0-2.7); ANION GAP 7 mmol/L (5-15); ASPARTATE AMINO TRANSFERASE 16 U/L (15-37); CALCIUM 8.2 MG/DL (8.5-10.1); CARBON DIOXIDE 23 MMOL/L (21-32); CHLORIDE 116 MMOL/L (98-107); CREATININE 1.1 MG/DL (0.55-1.30); CRP QUANT 5.8 mg/dL (0.00-0.90); MAGNESIUM 1.9 MG/DL (1.8-2.4); PHOSPHORUS 2.8 MG/DL (2.5-4.9); POTASSIUM 3.6 MMOL/L (3.5-5.1); SODIUM 146 MMOL/L (136-145); TOTAL PROTEIN 6.9 G/DL (6.4-8.2); URIC ACID 4.2 MG/DL (2.6-7.2)
[2017-02-20 08:00] VITALS: BP 122/59
--- NOTE | 2017-02-20 08:08 | General Progress Note ---
Assessment/Plan Problem List: (1) Failure to thrive SNOMED: 58001828 Qualifiers: Qualified Codes: R62.7 - Adult failure to thrive (2) Sepsis ICD Codes: A41.9 - Sepsis, unspecified organism SNOMED: 57767045 Qualifiers: Qualified Codes: A41.9 - Sepsis, unspecified organism (3) UTI (urinary tract infection) Assessment & Plan: 2/2 GNR ICD Codes: N39.0 - Urinary tract infection, site not specified SNOMED: 97594928 Qualifiers: Qualified Codes: N30.01 - Acute cystitis with hematuria (4) Acute toxic metabolic encephalopathy (5) ASHLY (acute kidney injury) ICD Codes: N17.9 - Acute kidney failure, unspecified SNOMED: 58046438 (6) Hypernatremia ICD Codes: E87.0 - Hyperosmolality and hypernatremia SNOMED: 55828009 (7) Elevated troponin Assessment & Plan: likely in setting of renal insufficiency vs NSTEMI type 2 given sepsis ICD Codes: R74.8 - Abnormal levels of other serum enzymes SNOMED: 493805328, 695949120 (8) CAD (coronary artery disease) ICD Codes: I25.10 - Atherosclerotic heart disease of [place] coronary artery without angina pectoris SNOMED: 95960825 (9) Diabetes mellitus Assessment & Plan: uncontrolled ICD Codes: E11.9 - Type 2 diabetes mellitus without complications SNOMED: 06707062 (10) HTN (hypertension) ICD Codes: I10 - Essential (primary) hypertension SNOMED: 66639530 (11) HLD (hyperlipidemia) ICD Codes: E78.5 - Hyperlipidemia, unspecified SNOMED: 93396490 (12) Depression ICD Codes: F32.9 - Major depressive disorder, single episode, unspecified SNOMED: 68235155 (13) multiple pressure ulcers Assessment & Plan: #1 Sacrococcygeal DTI pressure ulcer #2 Right iliac crest stage III pressure ulcer #3 Left heel unstageable pressure ulcer #4 Right heel unstageable pressure ulcer (14) paroxsymal atrial fibrillation (15) Hypokalemia ICD Codes: E87.6 - Hypokalemia SNOMED: 05273465 (16) Hypophosphatemia ICD Codes: E83.39 - Other disorders of phosphorus metabolism SNOMED: 7404349 (17) Hypomagnesemia ICD Codes: E83.42 - Hypomagnesemia SNOMED: 314529643 Status: stable Assessment/Plan Renal consulted Cont D5W at 100mL/hr per renal Trend BMP closely Cardiology consulted given elevated troponin Trop downtrending to 0.05 Cont ASA, plavix, amio, amlodipine, MTP ID consulted Change to meropenem x 10 days per ID (02/19-) s/p zosyn (02/18-02/19) s/p levaquin (02/16-02/18) s/p vanco (02/18-02/19) F/u cultures--urine cx w/ ESBL Klebsiella, E. Coli Trend CBC Cont home meds RIDGE Check A1C--7.5 F/u video swallow--per [employer] CLERK ok for puree diet as tolerated [employer] consult Pt likely needs short-term vs long-term feeding tube to sustain nutrition. D/w family and awaiting decision DVT Prophylaxis: SCD, HSQ Code Status: Full Hospital Classification Declaration: Based on this initial evaluation, and depending on the patient's clinical course, I anticipate that this patient will require hospitalization for 1-2 days for sepsis, ASHLY, hypernatremia and close respiratory/hemodynamic monitoring. Disposition: Once the patient is stable to leave the hospital, I anticipate the patient will likely be discharged to the following environment: back to SNF Discussed with patient/family, nursing staff, SW/CM, renal, cardiology regarding clinical status, treatment course, and disposition planning. D/w ID re change in abx. D/w renal re change in fluids. D/w daughter re feeding tube Time of note may not reflect time of encounter. Subjective Date patient seen: Feb 19, 2017 Time patient seen: 12:00 ROS Limited/Unobtainable: Yes Allergies: Coded Allergies: No Known Allergies (Unverified , 02/16/17) Subjective No acute o/n events SCr improving to 1.3 Na down to 156 K and Phos low, being repleted WBC normalized Pt more awake, alert, not responding appropriately to questions. Cont to have poor PO intake Pt confused at baseline per discussion w/ daughter--usually not aware of where she is, date, situation. Non-ambulatory at baseline. Uses wheelchair. Mental status appeared to be worsening at SNF per daughter and pt was not eating well. Discussed possibility of feeding tube. She will discuss w/ rest of family and let us know. Awaiting family decision Objective Last 24 Hour Vital Signs Date Time Temp Pulse Resp B/P (MAP) Pulse Ox O2 Delivery O2 Flow Rate FiO2 02/20/17 04:56 Room Air 02/20/17 04:00 97.7 60 18 132/51 99 02/20/17 00:29 95 Room Air 02/20/17 00:20 Room Air 02/20/17 00:00 98.2 64 18 106/50 90 02/19/17 20:51 Room Air 02/19/17 20:00 98.2 66 18 111/48 92 02/19/17 18:43 96.6 63 18 113/66 100 63 02/19/17 16:00 98.8 65 18 112/53 96 Room Air 02/19/17 16:00 62 02/19/17 12:00 97.8 88 18 130/75 95 Room Air 02/19/17 11:42 62 02/19/17 09:08 70 124/89 Laboratory Tests 02/20/17 05:20: White Blood Count 7.9, Red Blood Count 3.19L, Hemoglobin 10.3L, Hematocrit 32.3L , Mean Corpuscular Volume 101H, Mean Corpuscular Hemoglobin 32.4H, Mean Corpuscular Hemoglobin Concent 32.0, Red Cell Distribution Width 15.2H, Platelet Count 132L, Mean Platelet Volume 9.3, Neutrophils (%) (Auto) 61.9, Lymphocytes (%) (Auto) 27.8, Monocytes (%) (Auto) 7.3, Eosinophils (%) (Auto) 2.6, Basophils (%) (Auto) 0.4, Sodium Level 146H, Potassium Level 3.6, Chloride Level 116H, Carbon Dioxide Level 23, Anion Gap 7, Blood Urea Nitrogen 15, Creatinine 1.1, Estimat Glomerular Filtration Rate , Glucose Level 220H, Uric Acid 4.2, Calcium Level 8.2L, Phosphorus Level 2.8, Magnesium Level 1.9, Total Bilirubin 0.4, Aspartate Amino Transf (AST/SGOT) 16, Alanine Aminotransferase ( ALT/SGPT) 14, Alkaline Phosphatase 132H, C-Reactive Protein, Quantitative 5.8H, Pro-B-Type Natriuretic Peptide 1841H, Total Protein 6.9, Albumin 2.3L, Globulin 4.6, Albumin/Globulin Ratio 0.5L Height (Feet): 5 Height (Inches): 4.00 Weight (Pounds): 110 Objective General: alert, cooperative, no distress, appears stated age, thin Head: normocephalic, without obvious abnormality, atraumatic Eyes: conjunctivae/corneas clear. PERRL, EOM's intact Throat: lips, mucosa, and tongue normal. MMM Neck: supple, symmetrical, trachea midline, and no JVD Lungs: clear to auscultation bilaterally Heart: regular rate and rhythm, S1, S2 normal, no murmur, click, rub or gallop Abdomen: soft, non-tender, non-distended, bowel sounds normal; no masses or organomegaly Extremities: extremities normal, atraumatic, no cyanosis or edema Pulses: 2+ and symmetric Skin: skin color, texture, turgor normal; +pressure ulcers b/l heels Neurologic: grossly normal, no focal deficits Noman Burch M.D. Feb 20, 2017 08:08
[2017-02-20] MEDS: Venlafaxine XR 37.5mg cap ORAL SCH (08:26)
--- NOTE | 2017-02-20 08:30 | Consultation ---
DATE OF CONSULTATION: 02/19/2017 INFECTIOUS DISEASES CONSULTATION CONSULTING PHYSICIAN: Jerson Keith M.D. ATTENDING PHYSICIAN: Napoleon Stubbs M.D. I was asked by Dr. Tineo to see this patient. REASON FOR CONSULTATION: ESBL, Klebsiella UTI, E coli UTI, sepsis, and leukocytosis. The patient's chief complaint coming in to the hospital is failure to thrive, sepsis, sirs, leukocytosis. HISTORY OF PRESENT ILLNESS: This is a 71-year-old female, who comes into [facility] with failure to thrive, noted to have lethargy and altered mental status. The patient was septic with elevated white count, SIRS criteria. Workup shows the patient has ESBL, Klebsiella, and E coli urinary tract infection with sepsis. She has bilateral heel-foot wounds that also are possibly infected. X-ray showed no evidence of osteo and the wound culture reveals negative. The patient has a positive urinalysis. The patient will be changed to meropenem 1 gram IV q.8 h. and adjust per pharmacy as needed for the urinary tract infection and sepsis. MAR was noted. Orders were noted. Notes and records were reviewed. PAST MEDICAL HISTORY: The patient's past medical history includes the following. The patient has a past medical history of diabetes mellitus, hypertension, hyperlipidemia, CAD, GERD, depression, elevated creatinine, anemia, and failure to thrive. She has a history of elevated blood sugar, history of osteo of the heels, looks like. MEDICATIONS: Upon reviewing the MAR, she is on following medications. She is on IV fluids, potassium, acetaminophen, abx, amiodarone. She is on aspirin, Plavix, heparin, insulin, lactobacillus, metoprolol, multivitamins, pantoprazole, antibiotics, vancomycin and cefepime, which have been discontinued. I put her on meropenem. Outside medications were noted and reconciled. ALLERGIES: The patient has no known allergies. SOCIAL HISTORY: Negative for smoking, alcohol, or drug abuse. FAMILY HISTORY: Noncontributory. Negative for exposure to tuberculosis or cancer. REVIEW OF SYSTEMS: CONSTITUTIONAL: She comes in with no fevers, but she does have generalized weakness and fatigue. HEAD AND NECK: No head pain, neck pain, or thrush. CARDIAC: No pressors. GASTROINTESTINAL: No nausea, vomiting, or diarrhea. GENITOURINARY: She has a Juan. PULMONARY: No hemoptysis or secretions. SKIN: No rash or itching. EXTREMITIES: No pain NEUROLOGIC: No seizures. PHYSICAL EXAMINATION: GENERAL: Weak and lethargic, but is arousable and responds. VITAL SIGNS: Temperature 97.8 degrees, pulse rate 80, respiratory rate 18, blood pressure 130/75, and saturation 95%. HEAD AND NECK: Oral exam, no thrush. Eye exam, no icterus. Normocephalic. No facial droop. No neck stiffness. Neck is supple. No JVD. HEART: Regular without murmur. ABDOMEN: Soft. Positive bowel sounds. Nontender. LUNGS: Clear bilaterally without rhonchi or rales. SKIN: No rashes. MUSCULOSKELETAL: No effusion. Legs are without cellulitis. legs - no cellulitis PERIPHERAL VASCULAR: Left heel wound noted with some slough bilaterally. No gangrene or cyanosis GENITOURINARY: She does have a Juan. LINES: Line sites without phlebitis. NEUROLOGICAL: weak but responsive. LABORATORY DATA: Na on admission was 163 and now it is 156 and creatinine 1.3, which is improved, it was 1.7 yesterday. C-reactive protein is 10.9 and 7.2. LFTs were noted. White count 8.2 and hemoglobin 10.7. White count on admission was 17.7. Wound culture was negative, normal zeina. Blood culture is negative. Urine culture was ESBL, Klebsiella, and E. coli. MRSA screen was positive. Urinalysis had too many to count white blood cells, many bacteria, and 3+ leukocyte esterase. IMAGING STUDIES: Chest x-ray was negative for pneumonia. No acute disease. No acute process noted and reviewed and report was noted. X-ray of the right foot showed no definite osteo. Negative x-ray of the left foot also. Chest x-ray is negative. ASSESSMENT AND PLAN: 1. The patient has extended spectrum beta-lactamases, Klebsiella urinary tract infection and also Escherichia coli urinary tract infection with sepsis, elevated white count, systemic inflammatory response syndrome criteria. The patient has altered mental status. Heart rate was as high as 98 on admission. Respiratory rate was also borderline high at 20. She does have systemic inflammatory response syndrome criteria. Most likely, she has Klebsiella, Escherichia coli urinary tract infection with sepsis. She also has bilateral wounds of the heels. Culture was normal zeina, however. We will get x-rays of both heels to make sure she does not have osteo. We will change antibiotics to meropenem, which is drug of choice for ESBL organisms. Would meropenem x10 more days. Continue wound care protocol, which is most important for the wounds of the heels for good local care. Watch laboratories closely. 2. The patient has a history of diabetes. 3. Hypertension. 4. Hyperlipidemia. 5. Coronary artery disease. 6. Gastroesophageal reflux disease. 7. Depression. 8. Anemia. 9. Elevated creatinine. 10. Elevated blood sugars. 11. Acute kidney injury. 12. Blood sugar and blood pressure treatment per primary for hypertension and diabetes. 13. Chronic kidney disease. 14. Weakness. 15. Altered mental status. 16. No known allergies. 17. Social history is negative. 18. allergies - negative 19. fh-nc 20. MAR was noted. 21. Case was discussed with RN. 22. Continue treatment per primary consultants. Jerson Keith M.D. DR: CARLITA JOB#: [id number] CC: [id number]
[2017-02-20] MEDS: Aspirin Baby 81mg ORAL SCH (08:33)
[2017-02-20] MEDS: Metoprolol Succinate XL 25mg tab ORAL SCH (08:34)
[2017-02-20] MEDS: Lactobacillus-GG tablet ORAL SCH ×2 (08:37→18:13)
[2017-02-20] MEDS: Amiodarone 200mg tab ORAL SCH (08:54)
[2017-02-20] MEDS: Heparin 5000 units/ml inj SUBQ SCH ×2 (08:54→21:00)
--- NOTE | 2017-02-20 11:28 | Nephrology Progress Note ---
Assessment/Plan Problem List: (1) Dehydration (2) Failure to thrive (3) Hypernatremia (4) ASHLY (acute kidney injury) Assessment acute renal failure- improving dehydration- and hypernatremia improving FTT UTI CAD GERD Plan Plan: as is stable from renal stand Hydrate- start D5w Phos and K supplement as needed monitor I&o and renal parameters Urine studies gastric support per orders Subjective ROS Limited/Unobtainable: No Constitutional: Reports: malaise Objective Objective Last 24 Hour Vital Signs Date Time Temp Pulse Resp B/P (MAP) Pulse Ox O2 Delivery O2 Flow Rate FiO2 02/20/17 08:34 61 122/59 02/20/17 08:00 Room Air 02/20/17 08:00 97.9 61 17 122/59 99 02/20/17 04:56 Room Air 02/20/17 04:00 97.7 60 18 132/51 99 02/20/17 00:29 95 Room Air 02/20/17 00:20 Room Air 02/20/17 00:00 98.2 64 18 106/50 90 02/19/17 20:51 Room Air 02/19/17 20:00 98.2 66 18 111/48 92 02/19/17 18:43 96.6 63 18 113/66 100 63 02/19/17 16:00 98.8 65 18 112/53 96 Room Air 02/19/17 16:00 62 02/19/17 12:00 97.8 88 18 130/75 95 Room Air 02/19/17 11:42 62 Laboratory Tests 02/20/17 05:20: White Blood Count 7.9, Red Blood Count 3.19L, Hemoglobin 10.3L, Hematocrit 32.3L , Mean Corpuscular Volume 101H, Mean Corpuscular Hemoglobin 32.4H, Mean Corpuscular Hemoglobin Concent 32.0, Red Cell Distribution Width 15.2H, Platelet Count 132L, Mean Platelet Volume 9.3, Neutrophils (%) (Auto) 61.9, Lymphocytes (%) (Auto) 27.8, Monocytes (%) (Auto) 7.3, Eosinophils (%) (Auto) 2.6, Basophils (%) (Auto) 0.4, Sodium Level 146H, Potassium Level 3.6, Chloride Level 116H, Carbon Dioxide Level 23, Anion Gap 7, Blood Urea Nitrogen 15, Creatinine 1.1, Estimat Glomerular Filtration Rate , Glucose Level 220H, Uric Acid 4.2, Calcium Level 8.2L, Phosphorus Level 2.8, Magnesium Level 1.9, Total Bilirubin 0.4, Aspartate Amino Transf (AST/SGOT) 16, Alanine Aminotransferase ( ALT/SGPT) 14, Alkaline Phosphatase 132H, C-Reactive Protein, Quantitative 5.8H, Pro-B-Type Natriuretic Peptide 1841H, Total Protein 6.9, Albumin 2.3L, Globulin 4.6, Albumin/Globulin Ratio 0.5L Height (Feet): 5 Height (Inches): 4.00 Weight (Pounds): 110 General Appearance: no apparent distress Cardiovascular: regular rhythm Respiratory/Chest: lungs clear Abdomen: soft Objective no other change EDGARDO ORDOÑEZ Feb 20, 2017 11:28
[2017-02-20 12:00] VITALS: BP 110/55
--- NOTE | 2017-02-20 12:35 | Diagnostic Imaging Report ---
Indication: Left heel wound infection Technique: 3 views left foot Comparison: none Findings: The bones are osteoporotic. No definite acute fractures. Questionable ulceration seen over the calcaneal tuberosity. No definite underlying osseous erosion or osteolytic lesion. No acute fractures. No dislocations. The joint spaces are preserved. There are vascular calcifications. There is hammertoe deformity of the second through fifth digits Impression: Osteoporosis No definite plain radiographic evidence of osteomyelitis. Note, however, limited sensitivity of plain radiographs for such, vertically in the setting of severe osteoporosis. There is high clinical suspicion, consider MRI for further evaluation. Possible posterior heel soft tissue ulcer. Correlate with clinical findings No acute bony trauma
--- NOTE | 2017-02-20 14:17 | Cardiac Electrophysiology PN ---
Assessment/Plan Assessment/Plan 1. Troponin leak. Likely due to renal failure. The patient does not have any chest pain. Continue aspirin,Plavix, metoprolol and Lipitor. 2. Hypertension, on Toprol 3. Paroxysmal atrial fibrillation, on amiodarone 100 mg daily, Toprol, aspirin and Plavix. 4. Hyperlipidemia, on Lipitor. 5. Severe hypernatremia. The patient is on intravenous fluids per Dr. Armstrong. 6. Acute renal failure. Again, further management by Dr. Armstrong. 7. Uncontrolled diabetes with glucose of more than 500. 8. Poor eating. Gi eval pending for PEG. FAmily agreed to PEG DW RN Subjective Subjective Comfortable in NAD. No events overnight.Off tele now. Objective Last 24 Hour Vital Signs Date Time Temp Pulse Resp B/P (MAP) Pulse Ox O2 Delivery O2 Flow Rate FiO2 02/20/17 12:00 97.5 61 18 110/55 94 02/20/17 08:34 61 122/59 02/20/17 08:00 Room Air 02/20/17 08:00 97.9 61 17 122/59 99 02/20/17 04:56 Room Air 02/20/17 04:00 97.7 60 18 132/51 99 02/20/17 00:29 95 Room Air 02/20/17 00:20 Room Air 02/20/17 00:00 98.2 64 18 106/50 90 02/19/17 20:51 Room Air 02/19/17 20:00 98.2 66 18 111/48 92 02/19/17 18:43 96.6 63 18 113/66 100 63 02/19/17 16:00 98.8 65 18 112/53 96 Room Air 02/19/17 16:00 62 Laboratory Tests Test 02/20/17 05:20 White Blood Count 7.9 K/UL (4.8-10.8) Red Blood Count 3.19 M/UL (4.20-5.40) L Hemoglobin 10.3 G/DL (12.0-16.0) L Hematocrit 32.3 % (37.0-47.0) L Mean Corpuscular Volume 101 FL (80-99) H Mean Corpuscular Hemoglobin 32.4 PG (27.0-31.0) H Mean Corpuscular Hemoglobin Concent 32.0 G/DL (32.0-36.0) Red Cell Distribution Width 15.2 % (11.6-14.8) H Platelet Count 132 K/UL (150-450) L Mean Platelet Volume 9.3 FL (6.5-10.1) Neutrophils (%) (Auto) 61.9 % (45.0-75.0) Lymphocytes (%) (Auto) 27.8 % (20.0-45.0) Monocytes (%) (Auto) 7.3 % (1.0-10.0) Eosinophils (%) (Auto) 2.6 % (0.0-3.0) Basophils (%) (Auto) 0.4 % (0.0-2.0) Sodium Level 146 MMOL/L (136-145) H Potassium Level 3.6 MMOL/L (3.5-5.1) Chloride Level 116 MMOL/L (98-107) H Carbon Dioxide Level 23 MMOL/L (21-32) Anion Gap 7 mmol/L (5-15) Blood Urea Nitrogen 15 mg/dL (7-18) Creatinine 1.1 MG/DL (0.55-1.30) Estimat Glomerular Filtration Rate mL/min (>60) Glucose Level 220 MG/DL (74-106) H Uric Acid 4.2 MG/DL (2.6-7.2) Calcium Level 8.2 MG/DL (8.5-10.1) L Phosphorus Level 2.8 MG/DL (2.5-4.9) Magnesium Level 1.9 MG/DL (1.8-2.4) Total Bilirubin 0.4 MG/DL (0.2-1.0) Aspartate Amino Transf (AST/SGOT) 16 U/L (15-37) Alanine Aminotransferase (ALT/SGPT) 14 U/L (12-78) Alkaline Phosphatase 132 U/L (46-116) H C-Reactive Protein, Quantitative 5.8 mg/dL (0.00-0.90) H Pro-B-Type Natriuretic Peptide 1841 pg/mL (0-125) H Total Protein 6.9 G/DL (6.4-8.2) Albumin 2.3 G/DL (3.4-5.0) L Globulin 4.6 g/dL Albumin/Globulin Ratio 0.5 (1.0-2.7) L Microbiology Date/Time Source Procedure Growth Status 02/18/17 11:45 Foot Right Gram Stain Pending Resulted 02/18/17 11:45 Foot Right Wound Culture - Preliminary Resulted Objective HEAD AND NECK: No JVD. LUNGS: Clear. CARDIOVASCULAR: Regular S1 and S2 with no gallop or murmur. ABDOMEN: Soft. EXTREMITIES: No pitting edema. LUIS EDUARDO CORBIN Feb 20, 2017 14:17
[2017-02-20 15:47] VITALS: BP 126/73
--- NOTE | 2017-02-20 15:58 | GI Initial Consult Note ---
Ren,Sabina Gonzalezoi N.P. 02/20/17 1558: History of Present Illness General Date patient seen: Feb 20, 2017 Time patient seen: 15:50 Reason for Hospitalization: General Complaint Referring physician: ADALBERTO DELUCA Reason for Consultation: PEG Present Illness HPI 71y/o female with pmh of DM2, HTN, HLD, CAD, GERD, depression who presents from SNF with failure to thrive. History limited as pt altered. Per SNF report, pt has not been taking her meds since Thursday and has not eating anything since yesterday. At SNF, pt noted to be tachycardic and glucose >500. In ED, pt afebrile, tachycardic, BPs wnl. Labs notable for ASHLY w/ SCr 3.3, hypernatremia to 163, glucose 500s. Pt given IVFs, regular insulin 4U IV. Pt also found to have leukocytosis w/ WBC 17K and U/S showing pyuria c/w UTI. Pt was started on started on levaquin. GI consulted for PEG evaluation. HPI as noted above. ROS limited. Pt seen on floor, awake NAD with no active s/sx of N/V/D. Patient with FTT to have PEG at families request. ST evaluation noted patient with esophageal dysphagia okay with nectar thick diet for quality of life, but considerations for non- oral feedings for nutrition supplementation. She presents today with anemia and elevated alkaline phosphatase. Unknown history of endoscopic / colonoscopies. Home Meds Reported Medications Amlodipine Besylate (Norvasc) 5 Mg Tablet, 5 MG ORAL DAILY, TAB 02/16/17 Hydrocodone Bit/Acetaminophen 5-325* (NORCO 5-325*) 1 Each Tablet, 1 TAB ORAL DAILY Y for For Pain, TAB 0 Refills 02/16/17 [Mylanta] No Conflict Check, 20 ML PO EVERY 4 HOURS 02/16/17 Multivitamin With Minerals (MULTIVITAMINS WITH MINERALS*) 1 Each Tablet, 1 TAB ORAL DAILY, TAB 02/16/17 Magnesium Hydroxide* (MILK OF MAGNESIA*) 400 Mg/5 Ml Oral.susp, 30 ML ORAL DAILY , ML 02/16/17 Atorvastatin Calcium* (LIPITOR*) 10 Mg Tablet, 10 MG ORAL BEDTIME, TAB 02/16/17 Insulin Regular, Human* (NOVOLIN R*) 100 Unit/1 Ml Vial, 0 SUBQ .SLIDING SCALE, UNITS 02/16/17 Insulin Regular, Human* (NOVOLIN R*) 100 Unit/1 Ml Vial, 7 SUBQ AC MEALS, UNITS 02/16/17 Insulin Detemir (LEVEMIR) 100 Unit/1 Ml Vial, 34 SUBQ BEDTIME, VIAL 02/16/17 Glucagon HCl (Glucagon HCl) 1 Mg Vial, 1 MG IJ q 24 hours Y for bs<60, VIAL 02/16/17 Venlafaxine Hcl* (EFFEXOR*) 37.5 Mg Tablet, 37.5 MG ORAL DAILY, TAB 02/16/17 Acetaminophen* (ACETAMINOPHEN 325MG TABLET*) 325 Mg Tablet, 650 MG ORAL Q4H Y for Mild Pain (Pain Scale 1-3), TAB 02/16/17 Sennosides (Senokot) 8.6 Mg Tablet, 8.6 MG PO BEDTIME, TAB 02/16/17 Mirtazapine* (REMERON*) 15 Mg Tablet, 7.5 MG ORAL BEDTIME, TAB 02/16/17 Pantoprazole* (PROTONIX*) 40 Mg Tablet.dr, 40 MG ORAL DAILY, TAB 02/16/17 Clopidogrel Bisulfate* (PLAVIX*) 75 Mg Tablet, 75 MG ORAL DAILY, TAB 02/16/17 Bisacodyl (DULCOLAX) 10 Mg Supp.rect, 10 MG RC DAILY Y for Constipation, SUPP 02/16/17 Docusate Sodium* (COLACE*) 100 Mg Capsule, 100 MG ORAL TWICE A DAY, CAP 02/16/17 Lorazepam* (ATIVAN*) 0.5 Mg Tablet, 0.5 MG ORAL EVERY 6 HOURS Y for For Anxiety , TAB 02/16/17 Atenolol* (TENORMIN*) 25 Mg Tablet, 12.5 MG ORAL DAILY, TAB 02/16/17 Aspirin* (ASPIRIN*) 81 Mg Tab.chew, 81 MG ORAL DAILY, TAB 02/16/17 Amiodarone Hcl (AMIODARONE HCL) 100 Mg Tablet, 100 MG ORAL DAILY, TAB 02/16/17 Zolpidem Tartrate* (AMBIEN*) 5 Mg Tablet, 5 MG ORAL BEDTIME Y for Insomnia, TAB 02/16/17 Lactobacillus Acidophilus (ACIDOPHILUS LACTOBACILLUS) 1 Each Capsule, 1 TAB ORAL BID, CAP 02/16/17 Med list reviewed/reconciled: Yes Allergies: Coded Allergies: No Known Allergies (Unverified , 02/16/17) Patient History Limited by: medical condition History Provided By: Medical Record [facility] Narrative Allergies: Coded Allergies: No Known Allergies (Unverified , 02/16/17) Medication History Past Medical/Surgical History: (1) CAD (coronary artery disease) (2) HTN (hypertension) (3) HLD (hyperlipidemia) (4) GERD (gastroesophageal reflux disease) (5) Depression (6) Diabetes mellitus Family History Family History: Patient reports no known family medical history. Social History Social History: (1) lives at [facility] Review of Systems All Other Systems: limited Physical Exam Vital Signs Date Time Temp Pulse Resp B/P (MAP) Pulse Ox O2 Delivery O2 Flow Rate FiO2 02/16/17 19:34 97.9 103 14 95/54 96 Room Air 02/16/17 21:55 2.0 Sp02 EP Interpretation: reviewed, normal Labs Laboratory Tests Test 02/20/17 05:20 White Blood Count 7.9 K/UL (4.8-10.8) Red Blood Count 3.19 M/UL (4.20-5.40) L Hemoglobin 10.3 G/DL (12.0-16.0) L Hematocrit 32.3 % (37.0-47.0) L Mean Corpuscular Volume 101 FL (80-99) H Mean Corpuscular Hemoglobin 32.4 PG (27.0-31.0) H Mean Corpuscular Hemoglobin Concent 32.0 G/DL (32.0-36.0) Red Cell Distribution Width 15.2 % (11.6-14.8) H Platelet Count 132 K/UL (150-450) L Mean Platelet Volume 9.3 FL (6.5-10.1) Neutrophils (%) (Auto) 61.9 % (45.0-75.0) Lymphocytes (%) (Auto) 27.8 % (20.0-45.0) Monocytes (%) (Auto) 7.3 % (1.0-10.0) Eosinophils (%) (Auto) 2.6 % (0.0-3.0) Basophils (%) (Auto) 0.4 % (0.0-2.0) Sodium Level 146 MMOL/L (136-145) H Potassium Level 3.6 MMOL/L (3.5-5.1) Chloride Level 116 MMOL/L (98-107) H Carbon Dioxide Level 23 MMOL/L (21-32) Anion Gap 7 mmol/L (5-15) Blood Urea Nitrogen 15 mg/dL (7-18) Creatinine 1.1 MG/DL (0.55-1.30) Estimat Glomerular Filtration Rate mL/min (>60) Glucose Level 220 MG/DL (74-106) H Uric Acid 4.2 MG/DL (2.6-7.2) Calcium Level 8.2 MG/DL (8.5-10.1) L Phosphorus Level 2.8 MG/DL (2.5-4.9) Magnesium Level 1.9 MG/DL (1.8-2.4) Total Bilirubin 0.4 MG/DL (0.2-1.0) Aspartate Amino Transf (AST/SGOT) 16 U/L (15-37) Alanine Aminotransferase (ALT/SGPT) 14 U/L (12-78) Alkaline Phosphatase 132 U/L (46-116) H C-Reactive Protein, Quantitative 5.8 mg/dL (0.00-0.90) H Pro-B-Type Natriuretic Peptide 1841 pg/mL (0-125) H Total Protein 6.9 G/DL (6.4-8.2) Albumin 2.3 G/DL (3.4-5.0) L Globulin 4.6 g/dL Albumin/Globulin Ratio 0.5 (1.0-2.7) L General Appearance: no apparent distress Head: normocephalic EENT: PERRL/EOMI, normal ENT inspection Neck: supple Respiratory: normal breath sounds, no respiratory distress Cardiovascular: normal rate Gastrointestinal: normal inspection, non tender, soft, normal bowel sounds, non -distended Rectal: deferred Genitourinary: no CVA tenderness Musculoskeletal: normal inspection, back normal Neurologic: alert, responsive Skin: normal color, no rash, warm/dry, palpation normal Lymphatic: normal inspection, no adenopathy Current Medications Current Medications Medications (Trade) Dose Ordered Sig/Baldev Route PRN Reason Start Time Stop Time Status Last Admin Dose Admin Acetaminophen (Tylenol) 650 mg Q4H PRN ORAL Mild Pain/Temp > 100.5 02/19/17 19:00 1/11/18 18:59 Amiodarone HCl (Cordarone) 100 mg DAILY ORAL 02/20/17 09:00 03/19/17 08:59 02/20/17 08:54 Aspirin (ASA) 81 mg DAILY ORAL 02/20/17 09:00 03/19/17 08:59 02/20/17 08:33 Dextrose 1,000 ml @ 50 mls/hr Q20H IV 02/20/17 19:00 03/22/17 18:59 02/20/17 13:53 Dextrose (Dextrose 50%) STAT PRN IV Hypoglycemia 02/19/17 19:00 03/18/17 18:59 Heparin Sodium (Porcine) (Heparin 5000 units/ml) 5,000 units EVERY 12 HOURS SUBQ 02/19/17 21:00 03/20/17 08:59 Insulin Aspart (NovoLOG) Q6HR SUBQ 02/19/17 19:00 03/19/17 18:59 02/20/17 12:11 Lactobacillus Acidophilus (Culturelle) 1 tab TWICE A DAY ORAL 02/19/17 19:00 03/19/17 18:59 02/20/17 08:37 Meropenem 1 gm/ Dextrose 55 ml @ 110 mls/hr Q12HR@0630,1830 IVPB 02/19/17 19:30 02/24/17 19:29 02/20/17 07:07 Metoprolol Succinate (Toprol XL) 25 mg DAILY ORAL 02/20/17 09:00 03/20/17 08:59 02/20/17 08:34 Multivitamins (Multivitamins) 1 tab DAILY ORAL 02/20/17 09:00 03/20/17 08:59 02/20/17 08:26 Pantoprazole (Protonix) 40 mg ACBREAKFAST ORAL 02/20/17 06:30 03/19/17 06:29 02/20/17 07:07 Venlafaxine HCl (Effexor-XR) 37.5 mg DAILY ORAL 02/20/17 09:00 03/19/17 08:59 02/20/17 08:26 GI: Plan Problems: (1) Failure to thrive (2) GERD (gastroesophageal reflux disease) (3) Diabetes mellitus (4) Dehydration Plan PEG scheduled for Thursday02/23/17. >> will require cardiac clearance given elevated troponin on admission - dietary per ST, NPO @ [place] day prior procedure. - dc Plavix >> must be stopped min 72 hours prior GI procedure - hold all blood thinners day prior procedure. anemia work up OB stool r/o GI bleed monitor H&H, prn transfusions bowel regime ppi fu labs Discussed with Dr. Dickson. Thank you for this patient referral, we will follow. RANDI DICKSON 02/23/17 0856: History of Present Illness General Reason for Hospitalization: General Complaint Present Illness Home Meds Reported Medications Amlodipine Besylate (Norvasc) 5 Mg Tablet, 5 MG ORAL DAILY, TAB 02/16/17 Hydrocodone Bit/Acetaminophen 5-325* (NORCO 5-325*) 1 Each Tablet, 1 TAB ORAL DAILY Y for For Pain, TAB 0 Refills 02/16/17 [Mylanta] No Conflict Check, 20 ML PO EVERY 4 HOURS 02/16/17 Multivitamin With Minerals (MULTIVITAMINS WITH MINERALS*) 1 Each Tablet, 1 TAB ORAL DAILY, TAB 02/16/17 Magnesium Hydroxide* (MILK OF MAGNESIA*) 400 Mg/5 Ml Oral.susp, 30 ML ORAL DAILY , ML 02/16/17 Atorvastatin Calcium* (LIPITOR*) 10 Mg Tablet, 10 MG ORAL BEDTIME, TAB 02/16/17 Insulin Regular, Human* (NOVOLIN R*) 100 Unit/1 Ml Vial, 0 SUBQ .SLIDING SCALE, UNITS 02/16/17 Insulin Regular, Human* (NOVOLIN R*) 100 Unit/1 Ml Vial, 7 SUBQ AC MEALS, UNITS 02/16/17 Insulin Detemir (LEVEMIR) 100 Unit/1 Ml Vial, 34 SUBQ BEDTIME, VIAL 02/16/17 Glucagon HCl (Glucagon HCl) 1 Mg Vial, 1 MG IJ q 24 hours Y for bs<60, VIAL 02/16/17 Venlafaxine Hcl* (EFFEXOR*) 37.5 Mg Tablet, 37.5 MG ORAL DAILY, TAB 02/16/17 Acetaminophen* (ACETAMINOPHEN 325MG TABLET*) 325 Mg Tablet, 650 MG ORAL Q4H Y for Mild Pain (Pain Scale 1-3), TAB 02/16/17 Sennosides (Senokot) 8.6 Mg Tablet, 8.6 MG PO BEDTIME, TAB 02/16/17 Mirtazapine* (REMERON*) 15 Mg Tablet, 7.5 MG ORAL BEDTIME, TAB 02/16/17 Pantoprazole* (PROTONIX*) 40 Mg Tablet.dr, 40 MG ORAL DAILY, TAB 02/16/17 Clopidogrel Bisulfate* (PLAVIX*) 75 Mg Tablet, 75 MG ORAL DAILY, TAB 02/16/17 Bisacodyl (DULCOLAX) 10 Mg Supp.rect, 10 MG RC DAILY Y for Constipation, SUPP 02/16/17 Docusate Sodium* (COLACE*) 100 Mg Capsule, 100 MG ORAL TWICE A DAY, CAP 02/16/17 Lorazepam* (ATIVAN*) 0.5 Mg Tablet, 0.5 MG ORAL EVERY 6 HOURS Y for For Anxiety , TAB 02/16/17 Atenolol* (TENORMIN*) 25 Mg Tablet, 12.5 MG ORAL DAILY, TAB 02/16/17 Aspirin* (ASPIRIN*) 81 Mg Tab.chew, 81 MG ORAL DAILY, TAB 02/16/17 Amiodarone Hcl (AMIODARONE HCL) 100 Mg Tablet, 100 MG ORAL DAILY, TAB 02/16/17 Zolpidem Tartrate* (AMBIEN*) 5 Mg Tablet, 5 MG ORAL BEDTIME Y for Insomnia, TAB 02/16/17 Lactobacillus Acidophilus (ACIDOPHILUS LACTOBACILLUS) 1 Each Capsule, 1 TAB ORAL BID, CAP 02/16/17 Allergies: Coded Allergies: No Known Allergies (Unverified , 02/16/17) GI: Plan Plan The patient was seen and examined at bedside and all new and available data was reviewed in the patients chart. I agree with the above findings, impression and plan. (Patient seen earlier today. Signature stamp does not reflect patient encounter time.). - MD Gela Armendariz,[facility] Himanshu N.PMonica Feb 20, 2017 15:58 RANDI DICKSON Feb 23, 2017 08:56
[2017-02-20 16:35] LABS: ANION GAP 9 mmol/L (5-15); CARBON DIOXIDE 20 MMOL/L (21-32); CHLORIDE 114 MMOL/L (98-107); CREATININE 0.9 MG/DL (0.55-1.30); POTASSIUM 3.7 MMOL/L (3.5-5.1); SODIUM 143 MMOL/L (136-145)
--- NOTE | 2017-02-20 18:14 | General Progress Note ---
Assessment/Plan Problem List: (1) Failure to thrive SNOMED: 41416382 Qualifiers: Qualified Codes: R62.7 - Adult failure to thrive (2) Sepsis ICD Codes: A41.9 - Sepsis, unspecified organism SNOMED: 70080701 Qualifiers: Qualified Codes: A41.9 - Sepsis, unspecified organism (3) UTI (urinary tract infection) Assessment & Plan: 2/2 GNR ICD Codes: N39.0 - Urinary tract infection, site not specified SNOMED: 64865554 Qualifiers: Qualified Codes: N30.01 - Acute cystitis with hematuria (4) Acute toxic metabolic encephalopathy (5) ASHLY (acute kidney injury) ICD Codes: N17.9 - Acute kidney failure, unspecified SNOMED: 89383666 (6) ATN (acute tubular necrosis) ICD Codes: N17.0 - Acute kidney failure with tubular necrosis SNOMED: 67543215 (7) Hypernatremia ICD Codes: E87.0 - Hyperosmolality and hypernatremia SNOMED: 13623653 (8) Elevated troponin Assessment & Plan: likely in setting of renal insufficiency vs NSTEMI type 2 given sepsis ICD Codes: R74.8 - Abnormal levels of other serum enzymes SNOMED: 286152130, 948328944 (9) CAD (coronary artery disease) ICD Codes: I25.10 - Atherosclerotic heart disease of [place] coronary artery without angina pectoris SNOMED: 50679718 (10) Diabetes mellitus Assessment & Plan: uncontrolled ICD Codes: E11.9 - Type 2 diabetes mellitus without complications SNOMED: 89523335 (11) HTN (hypertension) ICD Codes: I10 - Essential (primary) hypertension SNOMED: 68740970 (12) HLD (hyperlipidemia) ICD Codes: E78.5 - Hyperlipidemia, unspecified SNOMED: 10796558 (13) Depression ICD Codes: F32.9 - Major depressive disorder, single episode, unspecified SNOMED: 46476944 (14) multiple pressure ulcers Assessment & Plan: #1 Sacrococcygeal DTI pressure ulcer #2 Right iliac crest stage III pressure ulcer #3 Left heel unstageable pressure ulcer #4 Right heel unstageable pressure ulcer (15) paroxsymal atrial fibrillation (16) Hypokalemia ICD Codes: E87.6 - Hypokalemia SNOMED: 42298750 (17) Hypophosphatemia ICD Codes: E83.39 - Other disorders of phosphorus metabolism SNOMED: 4544123 (18) Hypomagnesemia ICD Codes: E83.42 - Hypomagnesemia SNOMED: 432284859 Status: stable Assessment/Plan Renal consulted Decreased D5W to 50mL/h Trend BMP closely Cardiology consulted given elevated troponin Trop downtrending to 0.05 Cont ASA, plavix, amio, amlodipine, MTP ID consulted Change to meropenem x 10 days per ID (02/19-) s/p zosyn (02/18-02/19) s/p levaquin (02/16-02/18) s/p vanco (02/18-02/19) F/u cultures--urine cx w/ ESBL Klebsiella, E. 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 Disposition: Once the patient is stable to leave the hospital, I anticipate the patient will likely be discharged to the following environment: back to SNF Discussed with patient/family, nursing staff, SW/CM, renal, cardiology regarding clinical status, treatment course, and disposition planning. D/w ID re change in abx. D/w renal re change in fluids. D/w daughter re feeding tube. D /w GI re plan for G tube Time of note may not reflect time of encounter. Subjective Date patient seen: Feb 20, 2017 Time patient seen: 14:00 ROS Limited/Unobtainable: No Allergies: Coded Allergies: No Known Allergies (Unverified , 02/16/17) Subjective No acute o/n events SCr improved to 1.1 Na down to 146 WBC normalized Pt more awake, alert, not responding appropriately to questions. Cont to have poor PO intake Pt confused at baseline per discussion w/ daughter--usually not aware of where she is, date, situation. Non-ambulatory at baseline. Uses wheelchair. Mental status appeared to be worsening at SNF per daughter and pt was not eating well. Discussed possibility of feeding tube. Daughter now states she would like to proceed with G tube. Objective Last 24 Hour Vital Signs Date Time Temp Pulse Resp B/P (MAP) Pulse Ox O2 Delivery O2 Flow Rate FiO2 02/20/17 16:00 Room Air 02/20/17 15:47 97.7 59 20 126/73 96 Room Air 02/20/17 12:00 97.5 61 18 110/55 94 02/20/17 08:34 61 122/59 02/20/17 08:00 Room Air 02/20/17 08:00 97.9 61 17 122/59 99 02/20/17 04:56 Room Air 02/20/17 04:00 97.7 60 18 132/51 99 02/20/17 00:29 95 Room Air 02/20/17 00:20 Room Air 02/20/17 00:00 98.2 64 18 106/50 90 02/19/17 20:51 Room Air 02/19/17 20:00 98.2 66 18 111/48 92 02/19/17 18:43 96.6 63 18 113/66 100 63 Intake and Output 02/20/17 02/21/17 19:00 07:00 Intake Total 25 ml Balance 25 ml Intake Oral 25 ml Laboratory Tests 02/20/17 05:20: White Blood Count 7.9, Red Blood Count 3.19L, Hemoglobin 10.3L, Hematocrit 32.3L , Mean Corpuscular Volume 101H, Mean Corpuscular Hemoglobin 32.4H, Mean Corpuscular Hemoglobin Concent 32.0, Red Cell Distribution Width 15.2H, Platelet Count 132L, Mean Platelet Volume 9.3, Neutrophils (%) (Auto) 61.9, Lymphocytes (%) (Auto) 27.8, Monocytes (%) (Auto) 7.3, Eosinophils (%) (Auto) 2.6, Basophils (%) (Auto) 0.4, Sodium Level 146H, Potassium Level 3.6, Chloride Level 116H, Carbon Dioxide Level 23, Anion Gap 7, Blood Urea Nitrogen 15, Creatinine 1.1, Estimat Glomerular Filtration Rate , Glucose Level 220H, Uric Acid 4.2, Calcium Level 8.2L, Phosphorus Level 2.8, Magnesium Level 1.9, Total Bilirubin 0.4, Aspartate Amino Transf (AST/SGOT) 16, Alanine Aminotransferase ( ALT/SGPT) 14, Alkaline Phosphatase 132H, C-Reactive Protein, Quantitative 5.8H, Pro-B-Type Natriuretic Peptide 1841H, Total Protein 6.9, Albumin 2.3L, Globulin 4.6, Albumin/Globulin Ratio 0.5L 02/20/17 15:35: Sodium Level 143, Potassium Level 3.7, Chloride Level 114H, Carbon Dioxide Level 20L, Anion Gap 9, Blood Urea Nitrogen 13, Creatinine 0.9, Estimat Glomerular Filtration Rate , Glucose Level 259H, Calcium Level 8.0L Height (Feet): 5 Height (Inches): 4.00 Weight (Pounds): 110 Objective General: alert, cooperative, no distress, appears stated age, thin Head: normocephalic, without obvious abnormality, atraumatic Eyes: conjunctivae/corneas clear. PERRL, EOM's intact Throat: lips, mucosa, and tongue normal. MMM Neck: supple, symmetrical, trachea midline, and no JVD Lungs: clear to auscultation bilaterally Heart: regular rate and rhythm, S1, S2 normal, no murmur, click, rub or gallop Abdomen: soft, non-tender, non-distended, bowel sounds normal; no masses or organomegaly Extremities: extremities normal, atraumatic, no cyanosis or edema Pulses: 2+ and symmetric Skin: skin color, texture, turgor normal; +pressure ulcers b/l heels Neurologic: grossly normal, no focal deficits Noman Burch M.D. Feb 20, 2017 18:14
[2017-02-20 20:00] VITALS: BP 105/73
[2017-02-21] VITALS: BP 123/51
[2017-02-21] MEDS: NovoLOG Insulin Flexpen SUBQ SCH ×5 (00:10→23:09)
[2017-02-21 04:00] VITALS: BP 129/63
[2017-02-21] MEDS: Meropenem 1 GM in D5W 55 ML IVPB SCH ×2 (05:55→18:51)
[2017-02-21 08:00] VITALS: BP 121/52
[2017-02-21 08:11] LABS: BASOPHILS % (AUTO) 0.5 % (0.0-2.0); EOSINOPHILS % (AUTO) 2.6 % (0.0-3.0); LYMPHOCYTES % (AUTO) 24.2 % (20.0-45.0); MEAN CORPUSCULAR HEMOGLOBIN 32.9 PG (27.0-31.0); MEAN CORPUSCULAR HGB CONC 33.1 G/DL (32.0-36.0); MEAN CORPUSCULAR VOLUME 99 FL (80-99); MEAN PLATELET VOLUME 9.1 FL (6.5-10.1); MONOCYTES % (AUTO) 6.3 % (1.0-10.0); NEUTROPHILS % (AUTO) 66.5 % (45.0-75.0); PLATELET COUNT 137 K/UL (150-450); RED BLOOD COUNT 3.12 M/UL (4.20-5.40); RED CELL DISTRIBUTION WIDTH 14.8 % (11.6-14.8); WHITE BLOOD COUNT 8.3 K/UL (4.8-10.8)
[2017-02-21 08:23] LABS: ANION GAP 8 mmol/L (5-15); CALCIUM 8.3 MG/DL (8.5-10.1); CARBON DIOXIDE 23 MMOL/L (21-32); CHLORIDE 112 MMOL/L (98-107); CREATININE 0.9 MG/DL (0.55-1.30); POTASSIUM 3.6 MMOL/L (3.5-5.1); SODIUM 143 MMOL/L (136-145)
[2017-02-21] MEDS: Heparin 5000 units/ml inj SUBQ SCH ×2 (08:42→20:13)
[2017-02-21] MEDS: Lactobacillus-GG tablet ORAL SCH ×2 (09:20→17:22)
[2017-02-21] MEDS: Amiodarone 200mg tab ORAL SCH (09:20)
[2017-02-21] MEDS: Metoprolol Succinate XL 25mg tab ORAL SCH (09:20)
[2017-02-21] MEDS: Aspirin Baby 81mg ORAL SCH (09:20)
[2017-02-21] MEDS: Venlafaxine XR 37.5mg cap ORAL SCH (09:20)
--- NOTE | 2017-02-21 09:39 | Nephrology Progress Note ---
Assessment/Plan Problem List: (1) Dehydration (2) Failure to thrive (3) Hypernatremia (4) ASHLY (acute kidney injury) Assessment acute renal failure- improving dehydration- and hypernatremia improving FTT UTI CAD GERD Plan Plan: as is stable from renal stand Hydrate- Phos and K supplement as needed monitor I&o and renal parameters Urine studies gastric support per orders Subjective ROS Limited/Unobtainable: No Constitutional: Reports: malaise Objective Objective Last 24 Hour Vital Signs Date Time Temp Pulse Resp B/P (MAP) Pulse Ox O2 Delivery O2 Flow Rate FiO2 02/21/17 09:20 70 121/52 02/21/17 08:00 97.5 70 20 121/52 97 02/21/17 04:00 97.7 64 20 129/63 92 Room Air 02/21/17 04:00 Room Air 02/21/17 00:00 Room Air 02/21/17 00:00 96.9 62 20 123/51 93 Room Air 02/20/17 20:30 93 Room Air 02/20/17 20:00 96.8 70 20 105/73 91 Room Air 02/20/17 16:00 Room Air 02/20/17 15:47 97.7 59 20 126/73 96 Room Air 02/20/17 12:00 97.5 61 18 110/55 94 Laboratory Tests 02/20/17 15:35: Sodium Level 143, Potassium Level 3.7, Chloride Level 114H, Carbon Dioxide Level 20L, Anion Gap 9, Blood Urea Nitrogen 13, Creatinine 0.9, Estimat Glomerular Filtration Rate , Glucose Level 259H, Calcium Level 8.0L 02/21/17 05:10: Sodium Level 143, Potassium Level 3.6, Chloride Level 112H, Carbon Dioxide Level 23, Anion Gap 8, Blood Urea Nitrogen 11, Creatinine 0.9, Estimat Glomerular Filtration Rate , Glucose Level 144#H, Calcium Level 8.3L, White Blood Count 8.3, Red Blood Count 3.12L, Hemoglobin 10.3L, Hematocrit 31.0L, Mean Corpuscular Volume 99, Mean Corpuscular Hemoglobin 32.9H, Mean Corpuscular Hemoglobin Concent 33.1, Red Cell Distribution Width 14.8, Platelet Count 137L, Mean Platelet Volume 9.1, Neutrophils (%) (Auto) 66.5, Lymphocytes (%) (Auto) 24.2, Monocytes (%) (Auto) 6.3, Eosinophils (%) (Auto) 2.6, Basophils (%) (Auto ) 0.5 Height (Feet): 5 Height (Inches): 4.00 Weight (Pounds): 110 General Appearance: no apparent distress Objective no other change EDGARDO ORDOÑEZ Feb 21, 2017 09:39
[2017-02-21 12:00] VITALS: BP 135/57
--- NOTE | 2017-02-21 15:35 | Infectious Diseases Prog Note ---
Assessment/Plan Assessment/Plan ASSESSMENT AND PLAN: 1. esbl klebsiella uti/e.coli uti, sepsis, bilateral heel wounds/ulcer - ? infected, right foot wound culture with staph aureus, leukocytosis - clinically improved, leukocytosis resolved - meropenem x 7 days more for 10 day course - vancomycin until sensitivities of staph aureus back from wound culture - wound care per protocol - check f/u labs 2. The patient has a history of diabetes. 3. Hypertension. 4. Hyperlipidemia. 5. Coronary artery disease. 6. Gastroesophageal reflux disease. 7. Depression. 8. Anemia. 9. Elevated creatinine. 10. Elevated blood sugars. 11. Acute kidney injury. 12. Blood sugar and blood pressure treatment per primary for hypertension and diabetes. 13. Chronic kidney disease. 14. Weakness. 15. Altered mental status. 16. No known allergies. 17. Social history is negative. 18. allergies - negative 19. fh-nc 20. MAR was noted. 21. Case was discussed with RN. 22. mrsa colonization and isolation Subjective Constitutional: Denies: fever HEENT: Denies: congestion Respiratory: Denies: shortness of breath Cardiovascular: Denies: chest pain Gastrointestinal/Abdominal: Denies: nausea, vomiting, diarrhea Genitourinary: Reports: other - + jin Neurologic: Denies: headache Psychiatric: Denies: depression Skin: Denies: rash Hematologic: Denies: bleeding Musculoskeletal: Denies: pain Allergies: Coded Allergies: No Known Allergies (Unverified , 02/16/17) Objective Vital Signs Last 24 Hour Vital Signs Date Time Temp Pulse Resp B/P (MAP) Pulse Ox O2 Delivery O2 Flow Rate FiO2 02/21/17 12:00 98.0 70 20 135/57 94 02/21/17 09:20 70 121/52 02/21/17 08:00 97.5 70 20 121/52 97 02/21/17 04:00 97.7 64 20 129/63 92 Room Air 02/21/17 04:00 Room Air 02/21/17 00:00 Room Air 02/21/17 00:00 96.9 62 20 123/51 93 Room Air 02/20/17 20:30 93 Room Air 02/20/17 20:00 96.8 70 20 105/73 91 Room Air 02/20/17 16:00 Room Air 02/20/17 15:47 97.7 59 20 126/73 96 Room Air Height (Feet): 5 Height (Inches): 4.00 Weight (Pounds): 110 General Appearance: no acute distress HEENT: normocephalic, atraumatic, anicteric, mucous membranes moist Respiratory/Chest: lungs clear, normal breath sounds, no respiratory distress, no accessory muscle use Cardiovascular: normal rate, regular rhythm, no gallop/murmur, no JVD Abdomen: normal bowel sounds, soft, non tender, no organomegaly, non distended Genitourinary: other - + jin - urine clear Extremities: no cyanosis Skin: no rash Neurologic/Psychiatric: photographic technician II-XII grossly normal, alert, responsive, other - + generalized weakness Lymphatic: no neck adenopathy Musculoskeletal: no effusion Objective bilateral foot x-ray - no osteo (report noted) chest x-ray - no pna (report noted, reviewed) Microbiology Date/Time Source Procedure Growth Status 02/17/17 01:30 Blood Blood Culture - Preliminary NO GROWTH AFTER 4 DAYS Resulted 02/16/17 22:00 Nasal Nares MRSA Culture - Final Staphylococcus Aureus - Mrsa Complete 02/16/17 20:55 Urine,Clean Catch Urine Culture - Final Klebsiella Pneumoniae Esbl Escherichia Coli Complete 02/18/17 11:45 Foot Right Gram Stain - Final Resulted 02/18/17 11:45 Wound Culture - Preliminary Staphylococcus Aureus Diphtheroids Resulted Laboratory Tests Test 02/20/17 15:35 02/21/17 05:10 Sodium Level 143 MMOL/L (136-145) 143 MMOL/L (136-145) Potassium Level 3.7 MMOL/L (3.5-5.1) 3.6 MMOL/L (3.5-5.1) Chloride Level 114 MMOL/L (98-107) H 112 MMOL/L (98-107) H Carbon Dioxide Level 20 MMOL/L (21-32) L 23 MMOL/L (21-32) Anion Gap 9 mmol/L (5-15) 8 mmol/L (5-15) Blood Urea Nitrogen 13 mg/dL (7-18) 11 mg/dL (7-18) Creatinine 0.9 MG/DL (0.55-1.30) 0.9 MG/DL (0.55-1.30) Estimat Glomerular Filtration Rate mL/min (>60) mL/min (>60) Glucose Level 259 MG/DL (74-106) H 144 MG/DL (74-106) #H Calcium Level 8.0 MG/DL (8.5-10.1) L 8.3 MG/DL (8.5-10.1) L White Blood Count 8.3 K/UL (4.8-10.8) Red Blood Count 3.12 M/UL (4.20-5.40) L Hemoglobin 10.3 G/DL (12.0-16.0) L Hematocrit 31.0 % (37.0-47.0) L Mean Corpuscular Volume 99 FL (80-99) Mean Corpuscular Hemoglobin 32.9 PG (27.0-31.0) H Mean Corpuscular Hemoglobin Concent 33.1 G/DL (32.0-36.0) Red Cell Distribution Width 14.8 % (11.6-14.8) Platelet Count 137 K/UL (150-450) L Mean Platelet Volume 9.1 FL (6.5-10.1) Neutrophils (%) (Auto) 66.5 % (45.0-75.0) Lymphocytes (%) (Auto) 24.2 % (20.0-45.0) Monocytes (%) (Auto) 6.3 % (1.0-10.0) Eosinophils (%) (Auto) 2.6 % (0.0-3.0) Basophils (%) (Auto) 0.5 % (0.0-2.0) Current Medications Medications (Trade) Dose Ordered Sig/Baldev Route PRN Reason Start Time Stop Time Status Last Admin Dose Admin Acetaminophen (Tylenol) 650 mg Q4H PRN ORAL Mild Pain/Temp > 100.5 02/19/17 19:00 03/19/17 18:59 Amiodarone HCl (Cordarone) 100 mg DAILY ORAL 02/20/17 09:00 03/19/17 08:59 02/21/17 09:20 Aspirin (ASA) 81 mg DAILY ORAL 02/20/17 09:00 03/19/17 08:59 02/21/17 09:20 Dextrose 1,000 ml @ 50 mls/hr Q20H IV 02/20/17 19:00 03/22/17 18:59 02/21/17 05:08 Dextrose (Dextrose 50%) STAT PRN IV Hypoglycemia 02/19/17 19:00 03/18/17 18:59 Heparin Sodium (Porcine) (Heparin 5000 units/ml) 5,000 units EVERY 12 HOURS SUBQ 02/19/17 21:00 03/20/17 08:59 Insulin Aspart (NovoLOG) Q6HR SUBQ 02/19/17 19:00 03/19/17 18:59 02/21/17 12:49 Lactobacillus Acidophilus (Culturelle) 1 tab TWICE A DAY ORAL 02/19/17 19:00 03/19/17 18:59 02/21/17 09:20 Meropenem 1 gm/ Dextrose 55 ml @ 110 mls/hr Q12HR@0630,1830 IVPB 02/19/17 19:30 02/24/17 19:29 02/21/17 05:55 Metoprolol Succinate (Toprol XL) 25 mg DAILY ORAL 02/20/17 09:00 03/20/17 08:59 02/21/17 09:20 Multivitamins (Multivitamins) 1 tab DAILY ORAL 02/20/17 09:00 03/20/17 08:59 02/21/17 09:20 Pantoprazole (Protonix) 40 mg ACBREAKFAST ORAL 02/20/17 06:30 03/19/17 06:29 02/20/17 07:07 Venlafaxine HCl (Effexor-XR) 37.5 mg DAILY ORAL 02/20/17 09:00 03/19/17 08:59 02/21/17 09:20 NILSA ALBARADO Feb 21, 2017 15:35
[2017-02-21 16:00] VITALS: BP 123/54
[2017-02-21] MEDS ORDERED: 1/2 NS 1000ml IV ONE (16:22)
[2017-02-21] MEDS ORDERED: Tubing IV Secondary IV ONE (16:22)
[2017-02-21] MEDS ORDERED: Vancomycin 750mg/NS 250ml 250 ML IVPB SCH (17:00)
--- NOTE | 2017-02-21 18:09 | General Progress Note ---
Assessment/Plan Assessment/Plan Assessment - OBS - anorexia/FTT - HTN - CAD - GERD Recommendations - push po - PEG Thursday am - follow labs Subjective Allergies: Coded Allergies: No Known Allergies (Unverified , 02/16/17) Subjective confused no new complaints d/w medical staff coordinator Objective Last 24 Hour Vital Signs Date Time Temp Pulse Resp B/P (MAP) Pulse Ox O2 Delivery O2 Flow Rate FiO2 02/21/17 16:00 97.3 60 20 123/54 95 02/21/17 12:00 98.0 70 20 135/57 94 02/21/17 09:20 70 121/52 02/21/17 08:00 97.5 70 20 121/52 97 02/21/17 04:00 97.7 64 20 129/63 92 Room Air 02/21/17 04:00 Room Air 02/21/17 00:00 Room Air 02/21/17 00:00 96.9 62 20 123/51 93 Room Air 02/20/17 20:30 93 Room Air 02/20/17 20:00 96.8 70 20 105/73 91 Room Air Laboratory Tests 02/21/17 05:10: White Blood Count 8.3, Red Blood Count 3.12L, Hemoglobin 10.3L, Hematocrit 31.0L , Mean Corpuscular Volume 99, Mean Corpuscular Hemoglobin 32.9H, Mean Corpuscular Hemoglobin Concent 33.1, Red Cell Distribution Width 14.8, Platelet Count 137L, Mean Platelet Volume 9.1, Neutrophils (%) (Auto) 66.5, Lymphocytes ( %) (Auto) 24.2, Monocytes (%) (Auto) 6.3, Eosinophils (%) (Auto) 2.6, Basophils (%) (Auto) 0.5, Sodium Level 143, Potassium Level 3.6, Chloride Level 112H, Carbon Dioxide Level 23, Anion Gap 8, Blood Urea Nitrogen 11, Creatinine 0.9, Estimat Glomerular Filtration Rate , Glucose Level 144#H, Calcium Level 8.3L Height (Feet): 5 Height (Inches): 4.00 Weight (Pounds): 110 Objective WDWN NCAT supple CTA RRR supple CTA abd soft ND NT no edema non focal ERIN OCHOA Feb 21, 2017 18:09
--- NOTE | 2017-02-21 18:46 | General Progress Note ---
Assessment/Plan Problem List: (1) multiple pressure ulcers (2) paroxsymal atrial fibrillation (3) ATN (acute tubular necrosis) ICD Codes: N17.0 - Acute kidney failure with tubular necrosis SNOMED: 87066587 (4) Diabetes mellitus ICD Codes: E11.9 - Type 2 diabetes mellitus without complications SNOMED: 16911956 (5) CAD (coronary artery disease) ICD Codes: I25.10 - Atherosclerotic heart disease of [place] coronary artery without angina pectoris SNOMED: 01990862 (6) Depression ICD Codes: F32.9 - Major depressive disorder, single episode, unspecified SNOMED: 44613544 (7) GERD (gastroesophageal reflux disease) ICD Codes: K21.9 - Gastro-esophageal reflux disease without esophagitis SNOMED: 843042502 (8) HTN (hypertension) ICD Codes: I10 - Essential (primary) hypertension SNOMED: 47916211 (9) HLD (hyperlipidemia) ICD Codes: E78.5 - Hyperlipidemia, unspecified SNOMED: 96934130 (10) Failure to thrive SNOMED: 76819997 Qualifiers: Qualified Codes: R62.7 - Adult failure to thrive (11) Hypernatremia ICD Codes: E87.0 - Hyperosmolality and hypernatremia SNOMED: 80652612 (12) UTI (urinary tract infection) ICD Codes: N39.0 - Urinary tract infection, site not specified SNOMED: 19782395 Qualifiers: Qualified Codes: N30.01 - Acute cystitis with hematuria (13) Sepsis ICD Codes: A41.9 - Sepsis, unspecified organism SNOMED: 95876607 Qualifiers: Qualified Codes: A41.9 - Sepsis, unspecified organism (14) Elevated troponin ICD Codes: R74.8 - Abnormal levels of other serum enzymes SNOMED: 662930306, 067305017 (15) Pressure ulcer of both heels ICD Codes: L89.619 - Pressure ulcer of right heel, unspecified stage; L89.629 - Pressure ulcer of left heel, unspecified stage SNOMED: 414046322 (16) Acute toxic metabolic encephalopathy Status: stable Assessment/Plan Renal recs appreciated. Trend BMP closely Cardiology consulted given elevated troponin. Elevated likely in the setting of renal insufficiency. appreciate cards recs Trop downtrending to 0.05 Cont ASA, plavix, amio, amlodipine, MTP ID consulted. appreciate recs Change to meropenem x 10 days per ID (02/19-) and continue vanco (02/18-) s/p zosyn (02/18-02/19) s/p levaquin (02/16-02/18) s/p vanco (02/18-02/19) F/u cultures--urine cx w/ ESBL Klebsiella, E. 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 G-tube to be placed on Thursday Pain control, supportive care, bowel regimen DVT Prophylaxis: SCD, HSQ Code Status: Full Hospital Classification Declaration: Based on this initial evaluation, and depending on the patient's clinical course, I anticipate that this patient will require hospitalization for 1-2 days for sepsis, ASHLY, hypernatremia, FTT and close respiratory/hemodynamic monitoring. Disposition: Once the patient is stable to leave the hospital, I anticipate the patient will likely be discharged to the following environment: back to SNF Discussed with patient/family, nursing staff, SW/CM, renal, cardiology regarding clinical status, treatment course, and disposition planning. D/w ID re change in abx. D/w renal re change in fluids. D/w daughter re feeding tube. D /w GI re plan for G tube Time of note may not reflect time of encounter. Subjective Date patient seen: Feb 21, 2017 Allergies: Coded Allergies: No Known Allergies (Unverified , 02/16/17) Subjective patient seen with NAD afebrile, HDS Objective Last 24 Hour Vital Signs Date Time Temp Pulse Resp B/P (MAP) Pulse Ox O2 Delivery O2 Flow Rate FiO2 02/21/17 16:00 97.3 60 20 123/54 95 02/21/17 12:00 98.0 70 20 135/57 94 02/21/17 09:20 70 121/52 02/21/17 08:00 97.5 70 20 121/52 97 02/21/17 04:00 97.7 64 20 129/63 92 Room Air 02/21/17 04:00 Room Air 02/21/17 00:00 Room Air 12/16/17 00:00 96.9 62 20 123/51 93 Room Air 02/20/17 20:30 93 Room Air 02/20/17 20:00 96.8 70 20 105/73 91 Room Air Laboratory Tests 02/21/17 05:10: White Blood Count 8.3, Red Blood Count 3.12L, Hemoglobin 10.3L, Hematocrit 31.0L , Mean Corpuscular Volume 99, Mean Corpuscular Hemoglobin 32.9H, Mean Corpuscular Hemoglobin Concent 33.1, Red Cell Distribution Width 14.8, Platelet Count 137L, Mean Platelet Volume 9.1, Neutrophils (%) (Auto) 66.5, Lymphocytes ( %) (Auto) 24.2, Monocytes (%) (Auto) 6.3, Eosinophils (%) (Auto) 2.6, Basophils (%) (Auto) 0.5, Sodium Level 143, Potassium Level 3.6, Chloride Level 112H, Carbon Dioxide Level 23, Anion Gap 8, Blood Urea Nitrogen 11, Creatinine 0.9, Estimat Glomerular Filtration Rate , Glucose Level 144#H, Calcium Level 8.3L Height (Feet): 5 Height (Inches): 4.00 Weight (Pounds): 110 General Appearance: no apparent distress, alert, confused EENT: PERRL/EOMI Neck: non-tender, normal alignment, supple Cardiovascular: normal peripheral pulses, normal rate, regular rhythm Respiratory/Chest: chest wall non-tender, lungs clear, normal breath sounds Abdomen: normal bowel sounds, non tender 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 Feb 21, 2017 18:46
[2017-02-21 20:00] VITALS: BP 97/54
--- NOTE | 2017-02-21 23:17 | Cardiology Progress Note ---
Assessment/Plan Assessment/Plan 1. Troponin leak. Likely due to renal failure. The patient does not have any chest pain. Continue aspirin,Plavix, metoprolol and Lipitor. 2. Hypertension, on Toprol 3. Paroxysmal atrial fibrillation, on amiodarone 100 mg daily, Toprol, aspirin and Plavix. Currently in sinus rhythm. 4. Hyperlipidemia, on Lipitor. Subjective Cardiovascular: Reports: no symptoms Respiratory: Reports: no symptoms Gastrointestinal/Abdominal: Reports: no symptoms Genitourinary: Reports: no symptoms Subjective Sinus rhythm at 84. Objective Last 24 Hour Vital Signs Date Time Temp Pulse Resp B/P (MAP) Pulse Ox O2 Delivery O2 Flow Rate FiO2 02/21/17 20:00 98.6 74 20 97/54 92 02/21/17 16:00 97.3 60 20 123/54 95 02/21/17 12:00 98.0 70 20 135/57 94 02/21/17 09:20 70 121/52 02/21/17 08:00 97.5 70 20 121/52 97 02/21/17 04:00 97.7 64 20 129/63 92 Room Air 02/21/17 04:00 Room Air 02/21/17 00:00 Room Air 02/21/17 00:00 96.9 62 20 123/51 93 Room Air Intake and Output 02/21/17 02/22/17 19:00 07:00 Intake Total 205 ml Output Total 600 ml Balance -600 ml 205 ml IV Total 205 ml Output Urine Total 600 ml # Bowel Movements 1 Laboratory Tests Test 02/21/17 05:10 White Blood Count 8.3 K/UL (4.8-10.8) Red Blood Count 3.12 M/UL (4.20-5.40) L Hemoglobin 10.3 G/DL (12.0-16.0) L Hematocrit 31.0 % (37.0-47.0) L Mean Corpuscular Volume 99 FL (80-99) Mean Corpuscular Hemoglobin 32.9 PG (27.0-31.0) H Mean Corpuscular Hemoglobin Concent 33.1 G/DL (32.0-36.0) Red Cell Distribution Width 14.8 % (11.6-14.8) Platelet Count 137 K/UL (150-450) L Mean Platelet Volume 9.1 FL (6.5-10.1) Neutrophils (%) (Auto) 66.5 % (45.0-75.0) Lymphocytes (%) (Auto) 24.2 % (20.0-45.0) Monocytes (%) (Auto) 6.3 % (1.0-10.0) Eosinophils (%) (Auto) 2.6 % (0.0-3.0) Basophils (%) (Auto) 0.5 % (0.0-2.0) Sodium Level 143 MMOL/L (136-145) Potassium Level 3.6 MMOL/L (3.5-5.1) Chloride Level 112 MMOL/L (98-107) H Carbon Dioxide Level 23 MMOL/L (21-32) Anion Gap 8 mmol/L (5-15) Blood Urea Nitrogen 11 mg/dL (7-18) Creatinine 0.9 MG/DL (0.55-1.30) Estimat Glomerular Filtration Rate mL/min (>60) Glucose Level 144 MG/DL (74-106) #H Calcium Level 8.3 MG/DL (8.5-10.1) L Objective HEAD AND NECK: No JVD. LUNGS: Clear. CARDIOVASCULAR: Regular S1 and S2 with no gallop or murmur. ABDOMEN: Soft. EXTREMITIES: No pitting edema. LUIS EDUARDO LEAL Feb 21, 2017 23:17
[2017-02-22] VITALS (7 sets, daily range): BP systolic 102–143; BP diastolic 48–67
[2017-02-22] MEDS: Meropenem 1 GM in D5W 55 ML IVPB SCH ×2 (06:01→17:57)
[2017-02-22] MEDS: NovoLOG Insulin Flexpen SUBQ SCH ×3 (06:01→18:00)
[2017-02-22 07:44] LABS: ANION GAP 8 mmol/L (5-15); CALCIUM 8.1 MG/DL (8.5-10.1); CARBON DIOXIDE 22 MMOL/L (21-32); CHLORIDE 109 MMOL/L (98-107); CREATININE 1.1 MG/DL (0.55-1.30); POTASSIUM 3.7 MMOL/L (3.5-5.1); SODIUM 139 MMOL/L (136-145)
[2017-02-22 07:49] LABS: BASOPHILS % (AUTO) 0.5 % (0.0-2.0); EOSINOPHILS % (AUTO) 2.6 % (0.0-3.0); LYMPHOCYTES % (AUTO) 27.2 % (20.0-45.0); MEAN CORPUSCULAR HEMOGLOBIN 32.8 PG (27.0-31.0); MEAN CORPUSCULAR HGB CONC 32.8 G/DL (32.0-36.0); MEAN CORPUSCULAR VOLUME 100 FL (80-99); MEAN PLATELET VOLUME 8.5 FL (6.5-10.1); MONOCYTES % (AUTO) 8.2 % (1.0-10.0); NEUTROPHILS % (AUTO) 61.5 % (45.0-75.0); PLATELET COUNT 143 K/UL (150-450); RED BLOOD COUNT 3.16 M/UL (4.20-5.40); WHITE BLOOD COUNT 7.4 K/UL (4.8-10.8)
[2017-02-22] MEDS: Metoprolol Succinate XL 25mg tab ORAL SCH ×2 (09:00→09:32)
[2017-02-22] MEDS: Heparin 5000 units/ml inj SUBQ SCH ×2 (09:00→21:00)
[2017-02-22] MEDS: Lactobacillus-GG tablet ORAL SCH ×2 (09:32→17:57)
[2017-02-22] MEDS: Venlafaxine XR 37.5mg cap ORAL SCH (09:32)
[2017-02-22] MEDS: Aspirin Baby 81mg ORAL SCH (09:32)
[2017-02-22] MEDS: Amiodarone 200mg tab ORAL SCH (09:32)
--- NOTE | 2017-02-22 10:19 | Nephrology Progress Note ---
Assessment/Plan Problem List: (1) Dehydration (2) Failure to thrive (3) Hypernatremia (4) ASHLY (acute kidney injury) Assessment acute renal failure- improvied dehydration- and hypernatremia improving FTT UTI CAD GERD Plan Plan: re eval mind altering meds stable from renal stand Hydrate- Phos and K supplement as needed monitor I&o and renal parameters Urine studies gastric support per orders Subjective ROS Limited/Unobtainable: No Constitutional: Reports: malaise, weakness Objective Objective Last 24 Hour Vital Signs Date Time Temp Pulse Resp B/P (MAP) Pulse Ox O2 Delivery O2 Flow Rate FiO2 02/22/17 09:32 64 143/56 02/22/17 09:29 64 143/56 02/22/17 08:45 97.5 60 21 102/54 99 02/22/17 04:00 97.8 62 20 131/64 96 02/22/17 00:00 98.6 64 21 128/67 02/21/17 20:00 98.6 74 20 97/54 92 02/21/17 16:00 97.3 60 20 123/54 95 02/21/17 12:00 98.0 70 20 135/57 94 Laboratory Tests 02/22/17 04:45: White Blood Count 7.4, Red Blood Count 3.16L, Hemoglobin 10.4L, Hematocrit 31.6L , Mean Corpuscular Volume 100H, Mean Corpuscular Hemoglobin 32.8H, Mean Corpuscular Hemoglobin Concent 32.8, Red Cell Distribution Width 15.0H, Platelet Count 143L, Mean Platelet Volume 8.5, Neutrophils (%) (Auto) 61.5, Lymphocytes (%) (Auto) 27.2, Monocytes (%) (Auto) 8.2, Eosinophils (%) (Auto) 2.6, Basophils (%) (Auto) 0.5, Sodium Level 139, Potassium Level 3.7, Chloride Level 109H, Carbon Dioxide Level 22, Anion Gap 8, Blood Urea Nitrogen 8, Creatinine 1.1, Estimat Glomerular Filtration Rate , Glucose Level 228H, Calcium Level 8.1L Height (Feet): 5 Height (Inches): 4.00 Weight (Pounds): 110 General Appearance: no apparent distress Objective no other change EDGARDO ORDOÑEZ Feb 22, 2017 10:19
[2017-02-22] MEDS ORDERED: Haloperidol 5mg/ml Inj IM PRN (11:00)
--- NOTE | 2017-02-22 14:25 | General Progress Note ---
Assessment/Plan Assessment/Plan Assessment - OBS - anorexia/FTT - HTN - CAD - GERD Recommendations - push po - PEG Thursday am - follow labs Subjective Allergies: Coded Allergies: No Known Allergies (Unverified , 02/16/17) Subjective confused no new complaints d/w greenhouse staff Objective Last 24 Hour Vital Signs Date Time Temp Pulse Resp B/P (MAP) Pulse Ox O2 Delivery O2 Flow Rate FiO2 02/22/17 11:49 97.6 62 19 119/48 98 02/22/17 09:32 64 143/56 02/22/17 09:29 64 143/56 02/22/17 08:45 97.5 60 21 102/54 99 02/22/17 04:00 97.8 62 20 131/64 96 02/22/17 00:00 98.6 64 21 128/67 02/21/17 20:00 98.6 74 20 97/54 92 02/21/17 16:00 97.3 60 20 123/54 95 Laboratory Tests 02/22/17 04:45: White Blood Count 7.4, Red Blood Count 3.16L, Hemoglobin 10.4L, Hematocrit 31.6L , Mean Corpuscular Volume 100H, Mean Corpuscular Hemoglobin 32.8H, Mean Corpuscular Hemoglobin Concent 32.8, Red Cell Distribution Width 15.0H, Platelet Count 143L, Mean Platelet Volume 8.5, Neutrophils (%) (Auto) 61.5, Lymphocytes (%) (Auto) 27.2, Monocytes (%) (Auto) 8.2, Eosinophils (%) (Auto) 2.6, Basophils (%) (Auto) 0.5, Sodium Level 139, Potassium Level 3.7, Chloride Level 109H, Carbon Dioxide Level 22, Anion Gap 8, Blood Urea Nitrogen 8, Creatinine 1.1, Estimat Glomerular Filtration Rate , Glucose Level 228H, Calcium Level 8.1L Height (Feet): 5 Height (Inches): 4.00 Weight (Pounds): 110 Objective WDWN NCAT supple CTA RRR supple CTA abd soft ND NT no edema non focal ERIN OCHOA Feb 22, 2017 14:25
--- NOTE | 2017-02-22 18:14 | General Progress Note ---
Assessment/Plan Problem List: (1) multiple pressure ulcers (2) paroxsymal atrial fibrillation (3) ATN (acute tubular necrosis) ICD Codes: N17.0 - Acute kidney failure with tubular necrosis SNOMED: 65054947 (4) Diabetes mellitus ICD Codes: E11.9 - Type 2 diabetes mellitus without complications SNOMED: 14952621 (5) CAD (coronary artery disease) ICD Codes: I25.10 - Atherosclerotic heart disease of [place] coronary artery without angina pectoris SNOMED: 98011447 (6) Depression ICD Codes: F32.9 - Major depressive disorder, single episode, unspecified SNOMED: 39961791 (7) GERD (gastroesophageal reflux disease) ICD Codes: K21.9 - Gastro-esophageal reflux disease without esophagitis SNOMED: 006496958 (8) HTN (hypertension) ICD Codes: I10 - Essential (primary) hypertension SNOMED: 22346381 (9) HLD (hyperlipidemia) ICD Codes: E78.5 - Hyperlipidemia, unspecified SNOMED: 11471200 (10) Failure to thrive SNOMED: 49330760 Qualifiers: Qualified Codes: R62.7 - Adult failure to thrive (11) Hypernatremia ICD Codes: E87.0 - Hyperosmolality and hypernatremia SNOMED: 14420084 (12) UTI (urinary tract infection) ICD Codes: N39.0 - Urinary tract infection, site not specified SNOMED: 96068626 Qualifiers: Qualified Codes: N30.01 - Acute cystitis with hematuria (13) Sepsis ICD Codes: A41.9 - Sepsis, unspecified organism SNOMED: 90904857 Qualifiers: Qualified Codes: A41.9 - Sepsis, unspecified organism (14) Elevated troponin ICD Codes: R74.8 - Abnormal levels of other serum enzymes SNOMED: 985966781, 989548173 (15) Pressure ulcer of both heels ICD Codes: L89.619 - Pressure ulcer of right heel, unspecified stage; L89.629 - Pressure ulcer of left heel, unspecified stage SNOMED: 347788059 (16) Acute toxic metabolic encephalopathy Status: stable Assessment/Plan Renal recs appreciated. Trend BMP closely Cardiology consulted given elevated troponin. Elevated likely in the setting of renal insufficiency. appreciate cards recs Trop downtrending to 0.05 Cont ASA, plavix, amio, amlodipine, MTP ID consulted. appreciate recs Change to meropenem x 10 days per ID (02/19-) and continue vanco (02/18-) s/p zosyn (02/18-02/19) s/p levaquin (02/16-02/18) s/p vanco (02/18-02/19) F/u cultures--urine cx w/ ESBL Klebsiella, E. Coli Trend CBC Cont home meds RIDGE F/u A1C--7.5 F/u video swallow--per BRAND SPECIALIST ok for puree diet as tolerated Clay Artisan consult GI consulted as family now wants G tube. G-tube to be placed on Thursday Pain control, supportive care, bowel regimen DVT Prophylaxis: SCD, HSQ Code Status: Full Hospital Classification Declaration: Based on this initial evaluation, and depending on the patient's clinical course, I anticipate that this patient will require hospitalization for 1-2 days for sepsis, ASHLY, hypernatremia, FTT and close respiratory/hemodynamic monitoring. Disposition: Once the patient is stable to leave the hospital, I anticipate the patient will likely be discharged to the following environment: back to SNF Discussed with patient/family, nursing staff, SW/CM, renal, cardiology regarding clinical status, treatment course, and disposition planning. D/w ID re change in abx. D/w renal re change in fluids. D/w daughter re feeding tube. D /w GI re plan for G tube Time of note may not reflect time of encounter. Subjective Date patient seen: Feb 22, 2017 Allergies: Coded Allergies: No Known Allergies (Unverified , 02/16/17) Subjective patient seen with NAD afebrile, HDS Objective Last 24 Hour Vital Signs Date Time Temp Pulse Resp B/P (MAP) Pulse Ox O2 Delivery O2 Flow Rate FiO2 02/22/17 16:04 97.5 67 20 116/65 97 02/22/17 11:49 97.6 62 19 119/48 98 02/22/17 11:49 Room Air 02/22/17 09:32 64 143/56 02/22/17 09:29 64 143/56 02/22/17 08:45 97.5 60 21 102/54 99 02/22/17 08:45 Room Air 02/22/17 04:00 97.8 62 20 131/64 96 02/22/17 00:00 98.6 64 21 128/67 02/21/17 20:00 98.6 74 20 97/54 92 Intake and Output 02/22/17 02/23/17 19:00 07:00 Intake Total 360 ml Output Total 450 ml Balance -90 ml Intake Oral 360 ml Output Urine Total 450 ml # Bowel Movements 1 Laboratory Tests 02/22/17 04:45: White Blood Count 7.4, Red Blood Count 3.16L, Hemoglobin 10.4L, Hematocrit 31.6L , Mean Corpuscular Volume 100H, Mean Corpuscular Hemoglobin 32.8H, Mean Corpuscular Hemoglobin Concent 32.8, Red Cell Distribution Width 15.0H, Platelet Count 143L, Mean Platelet Volume 8.5, Neutrophils (%) (Auto) 61.5, Lymphocytes (%) (Auto) 27.2, Monocytes (%) (Auto) 8.2, Eosinophils (%) (Auto) 2.6, Basophils (%) (Auto) 0.5, Sodium Level 139, Potassium Level 3.7, Chloride Level 109H, Carbon Dioxide Level 22, Anion Gap 8, Blood Urea Nitrogen 8, Creatinine 1.1, Estimat Glomerular Filtration Rate , Glucose Level 228H, Calcium Level 8.1L Height (Feet): 5 Height (Inches): 4.00 Weight (Pounds): 110 General Appearance: no apparent distress, alert, confused EENT: PERRL/EOMI Neck: non-tender, normal alignment, supple Cardiovascular: normal peripheral pulses, normal rate, regular rhythm Respiratory/Chest: chest wall non-tender, lungs clear, normal breath sounds Abdomen: normal bowel sounds, non tender, soft 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 Feb 22, 2017 18:14
[2017-02-22] MEDS: Vancomycin 500mg/D5W 110ml IVPB SCH ×2 (21:30)
[2017-02-22] MEDS ORDERED: Vancomycin 500mg in D5W 275ml IVPB SCH (23:00)
[2017-02-23] VITALS (10 sets, daily range): BP systolic 104–152; BP diastolic 40–96
[2017-02-23] MEDS: NovoLOG Insulin Flexpen SUBQ SCH ×5 (00:28→23:40)
--- NOTE | 2017-02-23 05:34 | Anethesia Preoperative Eval ---
Anesthesia Pre-op PMH/ROS General Date of Evaluation: Feb 23, 2017 Time of Evaluation: 05:29 Anesthesiologist: farhat ASA Score: ASA 3 Mallampati Score Class I : Soft palate, uvula, fauces, pillars visible Class II: Soft palate, uvula, fauces visible Class III: Soft palate, base of uvula visible Class IV: Only hard plate visible Mallampati Classification: Class II Surgeon: jimmy Diagnosis: ftt Surgical Procedure: egd/peg Anesthesia History: none Family History: no anesthesia problems Allergies: Coded Allergies: No Known Allergies (Unverified , 02/16/17) Medications: see eMAR Past Medical History Cardiovascular: Reports: HTN, CAD, arrhythmia, other - hyperlipidemia Gastrointestinal/Genitourinary: Reports: GERD, other - , uti Neurologic/Psychiatric: Reports: depression/anxiety Endocrine: Reports: DM Hematology/Immune: Reports: other - sepsis Anesthesia Pre-op Phys. Exam Physician Exam Last Vital Signs Date Time Temp Pulse Resp B/P (MAP) Pulse Ox O2 Delivery O2 Flow Rate FiO2 02/23/17 00:00 97.9 68 20 108/70 96 Room Air 02/16/17 22:20 2.0 Constitutional: NAD Neurologic: CN 2-12 intact Cardiovascular: RRR Respiratory: CTA Gastrointestinal: S/NT/ND Airway Exam Mallampati Score: Class II MO: full Neck: supple TMD: 2fb ROM: full Anesthesia Pre-op A/P Labs Labs Test 02/20/17 15:35 02/21/17 05:10 02/22/17 04:45 Sodium Level 143 MMOL/L (136-145) 143 MMOL/L (136-145) 139 MMOL/L (136-145) Potassium Level 3.7 MMOL/L (3.5-5.1) 3.6 MMOL/L (3.5-5.1) 3.7 MMOL/L (3.5-5.1) Chloride Level 114 MMOL/L (98-107) 112 MMOL/L (98-107) 109 MMOL/L (98-107) Carbon Dioxide Level 20 MMOL/L (21-32) 23 MMOL/L (21-32) 22 MMOL/L (21-32) Anion Gap 9 mmol/L (5-15) 8 mmol/L (5-15) 8 mmol/L (5-15) Blood Urea Nitrogen 13 mg/dL (7-18) 11 mg/dL (7-18) 8 mg/dL (7-18) Creatinine 0.9 MG/DL (0.55-1.30) 0.9 MG/DL (0.55-1.30) 1.1 MG/DL (0.55-1.30) Estimat Glomerular Filtration Rate mL/min (>60) mL/min (>60) mL/min (>60) Glucose Level 259 MG/DL (74-106) 144 MG/DL (74-106) 228 MG/DL (74-106) Calcium Level 8.0 MG/DL (8.5-10.1) 8.3 MG/DL (8.5-10.1) 8.1 MG/DL (8.5-10.1) White Blood Count 8.3 K/UL (4.8-10.8) 7.4 K/UL (4.8-10.8) Red Blood Count 3.12 M/UL (4.20-5.40) 3.16 M/UL (4.20-5.40) Hemoglobin 10.3 G/DL (12.0-16.0) 10.4 G/DL (12.0-16.0) Hematocrit 31.0 % (37.0-47.0) 31.6 % (37.0-47.0) Mean Corpuscular Volume 99 FL (80-99) 100 FL (80-99) Mean Corpuscular Hemoglobin 32.9 PG (27.0-31.0) 32.8 PG (27.0-31.0) Mean Corpuscular Hemoglobin Concent 33.1 G/DL (32.0-36.0) 32.8 G/DL (32.0-36.0) Red Cell Distribution Width 14.8 % (11.6-14.8) 15.0 % (11.6-14.8) Platelet Count 137 K/UL (150-450) 143 K/UL (150-450) Mean Platelet Volume 9.1 FL (6.5-10.1) 8.5 FL (6.5-10.1) Neutrophils (%) (Auto) 66.5 % (45.0-75.0) 61.5 % (45.0-75.0) Lymphocytes (%) (Auto) 24.2 % (20.0-45.0) 27.2 % (20.0-45.0) Monocytes (%) (Auto) 6.3 % (1.0-10.0) 8.2 % (1.0-10.0) Eosinophils (%) (Auto) 2.6 % (0.0-3.0) 2.6 % (0.0-3.0) Basophils (%) (Auto) 0.5 % (0.0-2.0) 0.5 % (0.0-2.0) Risk Assessment & Plan Assessment: asa3 Plan: mac Status Change Before Surgery: No Pre-Antibiotics Drug: TEX Lizarraga Feb 23, 2017 05:34
[2017-02-23] MEDS ORDERED: DiphenhydrAMINE 50mg/ml Inj IVP PRN (05:45)
[2017-02-23] MEDS ORDERED: Midazolam 2mg/2ml Inj IVP PRN (05:45)
[2017-02-23] MEDS ORDERED: Atropine Inj 1mg/10ml Syr IV PRN (05:45)
[2017-02-23] MEDS ORDERED: fentaNYL 100 mcg/2 mL IV PRN (05:45)
[2017-02-23] MEDS: Meropenem 1 GM in D5W 55 ML IVPB SCH ×2 (06:44→19:47)
[2017-02-23] MEDS: Heparin 5000 units/ml inj SUBQ SCH ×2 (08:51→20:41)
[2017-02-23] MEDS: Aspirin Baby 81mg ORAL SCH (09:00)
[2017-02-23] MEDS: Metoprolol Succinate XL 25mg tab ORAL SCH (09:00)
[2017-02-23] MEDS: Lactobacillus-GG tablet ORAL SCH ×2 (09:00→18:16)
[2017-02-23 10:04] LABS: BASOPHILS % (AUTO) 0.6 % (0.0-2.0); EOSINOPHILS % (AUTO) 2.2 % (0.0-3.0); LYMPHOCYTES % (AUTO) 28.4 % (20.0-45.0); MEAN CORPUSCULAR HEMOGLOBIN 31.6 PG (27.0-31.0); MEAN CORPUSCULAR HGB CONC 32.3 G/DL (32.0-36.0); MEAN CORPUSCULAR VOLUME 98 FL (80-99); MEAN PLATELET VOLUME 8.5 FL (6.5-10.1); MONOCYTES % (AUTO) 7.8 % (1.0-10.0); PLATELET COUNT 189 K/UL (150-450); RED BLOOD COUNT 3.37 M/UL (4.20-5.40); RED CELL DISTRIBUTION WIDTH 14.5 % (11.6-14.8); WHITE BLOOD COUNT 7.8 K/UL (4.8-10.8)
--- NOTE | 2017-02-23 10:05 | Pre-Procedure Note/Attestation ---
Pre-Procedure Note/Attestation Complete Prior to Procedure Planned Procedure: not applicable Procedure Narrative: egs/peg Indications for Procedure Pre-Operative Diagnosis: dysphagia Attestation I attest that I discussed the nature of the procedure; its benefits; risks and complications; and alternatives (and the risks and benefits of such alternatives ), prior to the procedure, with the patient (or the patient's legal administrative representative). I attest that, if there was a reasonable possibility of needing a blood transfusion, the patient (or the patient's legal administrative representative) was given the [facility] standardized written summary, pursuant to the Familia Yudith Blood Safety Act ([place] Health and Safety Code # 1645, as amended). I attest that I re-evaluated the patient just prior to the surgery and that there has been no change in the patient's H&P, except as documented below: RANDI DICKSON Feb 23, 2017 10:05
[2017-02-23] MEDS ORDERED: NS 500ML IV ONE (10:15)
[2017-02-23 10:18] LABS: PROTHROMBIN TIME 10.9 SEC (9.30-11.50)
[2017-02-23] MEDS ORDERED: Lidocaine 1% MPF 10mg/ml 5ml ONE (10:30)
[2017-02-23] MEDS ORDERED: Propofol 200mg/20ml IV ONE (10:30)
[2017-02-23 10:35] LABS: ALANINE AMINOTRANSFERASE 12 U/L (12-78); ALBUMIN/GLOBULIN RATIO 0.4 (1.0-2.7); ANION GAP 7 mmol/L (5-15); ASPARTATE AMINO TRANSFERASE 17 U/L (15-37); CALCIUM 8.3 MG/DL (8.5-10.1); CARBON DIOXIDE 24 MMOL/L (21-32); CHLORIDE 107 MMOL/L (98-107); MAGNESIUM 1.6 MG/DL (1.8-2.4); POTASSIUM 3.7 MMOL/L (3.5-5.1); SODIUM 138 MMOL/L (136-145); TOTAL PROTEIN 7.1 G/DL (6.4-8.2)
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
--- NOTE | 2017-02-23 10:41 | Endoscopy Procedure Note ---
Endoscopy Procedure Note Indication for Procedure: FTT Procedures Performed: EGD, PEG Operative Findings/Diagnosis: same Pt Tolerated Procedure Well: Yes Estimated Blood Loss: none Anesthesiologist: antonio Anesthesia: MAC Implant(s) used?: No 50 yrs or older w/o bx or poly: Not Applicable 10yrs. F/U not recommended: Not Applicable RANDI DICKSON Feb 23, 2017 10:41
--- NOTE | 2017-02-23 11:09 | Immediate Post-Op Evaluation ---
Immediate Post-Op Evalulation Immediate Post-Op Evalulation Procedure: egd/peg Date of Evaluation: Feb 23, 2017 Time of Evaluation: 11:02 IV Fluids: 150ml 0.9ns Blood Products: none Estimated Blood Loss: negligible Blood Pressure Systolic: 126 Blood Pressure Diastolic: 47 Pulse Rate: 72 Respiratory Rate: 18 O2 Sat by Pulse Oximetry: 100 Temperature (Fahrenheit): 97.5 Pain Score (1-10): 0 Nausea: No Vomiting: No Complications none Patient Status: awake, reacts, patent Hydration Status: adequate Drug: TEX Lizarraga Feb 23, 2017 11:08
--- NOTE | 2017-02-23 11:10 | 48 Hour Post Anesthesia Eval ---
Post Anesthesia Evaluation Procedure: egd/peg Date of Evaluation: Feb 23, 2017 Time of Evaluation: 11:09 Blood Pressure Systolic: 110 0: 56 Pulse Rate: 72 Respiratory Rate: 18 Temperature (Fahrenheit): 97.5 O2 Sat by Pulse Oximetry: 100 Airway: patent Nausea: No Vomiting: No Pain Intensity: 0 Hydration Status: adequate Cardiopulmonary Status: stable Mental Status/LOC: patient returned to baseline Post-Anesthesia Complications: none Follow-up care needed: N/A TEX DAS Feb 23, 2017 11:10
[2017-02-23] MEDS: Metoprolol Tartrate 12.5mg TAB GT SCH ×2 (13:30→20:31)
[2017-02-23] MEDS ORDERED: CULTURELLE1 EACH ORAL (13:36)
[2017-02-23] MEDS ORDERED: LOPRESSOR25 M1 GT (13:36)
[2017-02-23] MEDS ORDERED: MEROPENEM1 GM IV (13:38)
[2017-02-23] MEDS ORDERED: BACTRIM DS TAB1 EAC1 ORAL (13:42)
[2017-02-23] MEDS ORDERED: Potassium Phosphate 20 MM in NS 275 ML IV ONE (14:30)
--- NOTE | 2017-02-23 15:00 | Procedure Note ---
DATE OF PROCEDURE: 02/23/2017 SURGEON: Kirk Mcintyre M.D. REFERRING PHYSICIAN: Napoleon Stubbs M.D. PROCEDURE: Upper endoscopy with PEG placement. ANESTHESIA: Per Dr. Galarza. INSTRUMENT: Olympus adult flexible upper endoscope. INDICATION: Failure to thrive. The procedure, risks, benefits, and possible consequences, including hemorrhage, aspiration, perforation and infection, and alternative treatments, were explained to the patient/legal guardian by Dr. Kirk Mcintyre and the patient/legal guardian understood and accepted these risks. DESCRIPTION OF PROCEDURE: After informed consent was obtained and the patient was adequately sedated, Olympus upper endoscope was advanced from mouth into the second portion of duodenum and retroflexion was performed in the stomach. The patient has diffuse atrophic gastritis. In the duodenum, probably there was a shallow duodenal ulceration. Unfortunately, we do not have a concern for biopsy. So, we did not do biopsy of the antrum for H. pylori infection. Then, under endoscopic guidance, under sterile condition, a 20-Czech pull type of G-tube was successfully placed in the epigastric area. The distance from the tip of the tube to skin was about 4 cm in size. On retroflexion in the stomach, the patient had evidence of medium-sized hiatal hernia. The patient tolerated the procedure very well without any complication. SUMMARY OF FINDINGS: 1. Medium-sized hiatal hernia. 2. Status post successful percutaneous endoscopic gastrostomy tube placement. 3. Atrophic gastritis. 4. Shallow duodenal ulceration. RECOMMENDATIONS: 1. Follow up biopsy results and treat accordingly. 2. Start tube feeding later today. 3. The patient was currently on antibiotics so no antibiotics was added. 4. We will send a serology for H. pylori and treat if it is positive. I want to thank, Dr. Stubbs, for this kind referral. Kirk Mcintyre M.D. DR: OSEAS JOB#: [id number] CC: Napoleon Stubbs M.D.; Fax#: [phone]
--- NOTE | 2017-02-23 15:10 | Infectious Diseases Prog Note ---
Assessment/Plan Assessment/Plan ASSESSMENT AND PLAN: 1. esbl klebsiella uti/e.coli uti, sepsis, bilateral heel wounds/ulcer - ? infected, right foot wound culture with staph aureus, leukocytosis - clinically improved, leukocytosis resolved - meropenem x 5 days more for 10 day course - vancomycin can be changed to po bactrim x 5 days - wound care per protocol - check f/u labs - d/w Dr. Tineo 2. The patient has a history of diabetes. 3. Hypertension. 4. Hyperlipidemia. 5. Coronary artery disease. 6. Gastroesophageal reflux disease. 7. Depression. 8. Anemia. 9. Elevated creatinine. 10. Elevated blood sugars. 11. Acute kidney injury. 12. Blood sugar and blood pressure treatment per primary for hypertension and diabetes. 13. Chronic kidney disease. 14. Weakness. 15. Altered mental status. 16. No known allergies. 17. Social history is negative. 18. allergies - negative 19. fh-nc 20. MAR was noted. 21. Case was discussed with RN. 22. mrsa colonization and isolation Subjective Constitutional: Denies: fever HEENT: Denies: congestion Respiratory: Denies: shortness of breath Cardiovascular: Denies: chest pain Gastrointestinal/Abdominal: Denies: nausea, diarrhea Genitourinary: Reports: other - + jin Neurologic: Denies: headache Psychiatric: Denies: depression Skin: Denies: rash Hematologic: Denies: bleeding Musculoskeletal: Denies: pain Allergies: Coded Allergies: No Known Allergies (Unverified , 02/16/17) Objective Vital Signs Last 24 Hour Vital Signs Date Time Temp Pulse Resp B/P (MAP) Pulse Ox O2 Delivery O2 Flow Rate FiO2 02/23/17 11:10 97.3 67 22 118/43 98 02/23/17 11:10 72 18 100 02/23/17 11:08 72 18 100 02/23/17 11:00 71 20 123/88 99 02/23/17 10:55 75 21 152/96 99 02/23/17 10:50 97.5 73 22 106/47 99 02/23/17 09:00 67 118/43 02/23/17 08:00 98.0 69 18 140/88 95 02/23/17 04:00 97.9 67 18 148/90 95 Room Air 02/23/17 00:00 97.9 68 20 108/70 96 Room Air 02/22/17 20:00 97.7 75 18 109/58 97 Room Air 02/22/17 16:04 97.5 67 20 116/65 97 Height (Feet): 5 Height (Inches): 4.00 Weight (Pounds): 110 General Appearance: no acute distress HEENT: normocephalic, mucous membranes moist Respiratory/Chest: lungs clear, normal breath sounds, no respiratory distress, no accessory muscle use Cardiovascular: normal rate, regular rhythm, no gallop/murmur, no JVD Abdomen: normal bowel sounds, soft, non tender, no organomegaly, non distended Genitourinary: other - + jin - urine clearer Extremities: no cyanosis Skin: no rash 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, alert, responsive Lymphatic: no neck adenopathy Musculoskeletal: no effusion Objective bilateral foot x-ray - no osteo (report noted) chest x-ray - no pna (report noted, reviewed) Microbiology Date/Time Source Procedure Growth Status 02/17/17 01:30 Blood Blood Culture - Final NO GROWTH AFTER 5 DAYS Complete 02/16/17 22:00 Nasal Nares MRSA Culture - Final Staphylococcus Aureus - Mrsa Complete 02/16/17 20:55 Urine,Clean Catch Urine Culture - Final Klebsiella Pneumoniae Esbl Escherichia Coli Complete 02/18/17 11:45 Foot Right Gram Stain - Final Complete 02/18/17 11:45 Wound Culture - Final Staphylococcus Aureus - Mrsa Diphtheroids Complete Laboratory Tests Test 02/23/17 09:15 White Blood Count 7.8 K/UL (4.8-10.8) Red Blood Count 3.37 M/UL (4.20-5.40) L Hemoglobin 10.6 G/DL (12.0-16.0) L Hematocrit 32.9 % (37.0-47.0) L Mean Corpuscular Volume 98 FL (80-99) Mean Corpuscular Hemoglobin 31.6 PG (27.0-31.0) H Mean Corpuscular Hemoglobin Concent 32.3 G/DL (32.0-36.0) Red Cell Distribution Width 14.5 % (11.6-14.8) Platelet Count 189 K/UL (150-450) Mean Platelet Volume 8.5 FL (6.5-10.1) Neutrophils (%) (Auto) 61.0 % (45.0-75.0) Lymphocytes (%) (Auto) 28.4 % (20.0-45.0) Monocytes (%) (Auto) 7.8 % (1.0-10.0) Eosinophils (%) (Auto) 2.2 % (0.0-3.0) Basophils (%) (Auto) 0.6 % (0.0-2.0) Prothrombin Time 10.9 SEC (9.30-11.50) Prothromb Time International Ratio 1.0 (0.9-1.1) Activated Partial Thromboplast Time 28 SEC (23-33) Sodium Level 138 MMOL/L (136-145) Potassium Level 3.7 MMOL/L (3.5-5.1) Chloride Level 107 MMOL/L (98-107) Carbon Dioxide Level 24 MMOL/L (21-32) Anion Gap 7 mmol/L (5-15) Blood Urea Nitrogen 8 mg/dL (7-18) Creatinine 1.0 MG/DL (0.55-1.30) Estimat Glomerular Filtration Rate mL/min (>60) Glucose Level 132 MG/DL (74-106) H Uric Acid 3.0 MG/DL (2.6-7.2) Calcium Level 8.3 MG/DL (8.5-10.1) L Phosphorus Level 2.0 MG/DL (2.5-4.9) L Magnesium Level 1.6 MG/DL (1.8-2.4) L Total Bilirubin 0.3 MG/DL (0.2-1.0) Aspartate Amino Transf (AST/SGOT) 17 U/L (15-37) Alanine Aminotransferase (ALT/SGPT) 12 U/L (12-78) Alkaline Phosphatase 124 U/L (46-116) H Total Protein 7.1 G/DL (6.4-8.2) Albumin 2.1 G/DL (3.4-5.0) L Globulin 5.0 g/dL Albumin/Globulin Ratio 0.4 (1.0-2.7) L Current Medications Medications (Trade) Dose Ordered Sig/Baldev Route PRN Reason Start Time Stop Time Status Last Admin Dose Admin Acetaminophen (Tylenol) 650 mg Q4H PRN ORAL Mild Pain/Temp > 100.5 02/19/17 19:00 03/19/17 18:59 Amiodarone HCl (Cordarone) 100 mg DAILY ORAL 02/20/17 09:00 03/19/17 08:59 02/22/17 09:32 Aspirin (ASA) 81 mg DAILY ORAL 02/20/17 09:00 03/19/17 08:59 02/22/17 09:32 Dextrose (Dextrose 50%) STAT PRN IV Hypoglycemia 02/19/17 19:00 03/18/17 18:59 Haloperidol Lactate (Haldol) 2 mg Q4H PRN IM Agitation 02/22/17 11:00 03/24/17 10:59 Heparin Sodium (Porcine) (Heparin 5000 units/ml) 5,000 units EVERY 12 HOURS SUBQ 02/19/17 21:00 03/20/17 08:59 Insulin Aspart (NovoLOG) Q6HR SUBQ 02/19/17 19:00 03/19/17 18:59 02/23/17 12:49 Lactobacillus Acidophilus (Culturelle) 1 tab TWICE A DAY ORAL 02/19/17 19:00 03/19/17 18:59 02/22/17 17:57 Magnesium Sulfate 100 ml @ 100 mls/hr Q1H IVPB 02/23/17 13:45 02/23/17 15:44 Meropenem 1 gm/ Dextrose 55 ml @ 110 mls/hr Q12HR@0630,1830 IVPB 02/19/17 19:30 03/01/17 19:29 02/23/17 06:44 Metoprolol Tartrate (Lopressor) 12.5 mg Q12HR GT 02/23/17 13:30 03/25/17 13:29 Multivitamins (Multivitamins) 1 tab DAILY ORAL 02/20/17 09:00 03/20/17 08:59 02/22/17 09:34 Pantoprazole (Protonix) 40 mg ACBREAKFAST ORAL 02/20/17 06:30 03/19/17 06:29 02/20/17 07:07 Potassium Phosphate 20 mm/ Sodium Chloride 281.6667 ml @ 46.944 m... ONCE ONCE IV 02/23/17 14:30 02/23/17 20:29 Vancomycin HCl (Vanco rx to dose) 1 ea DAILYPRN PRN MISC Per rx protocol 02/21/17 17:00 03/23/17 16:59 Vancomycin HCl 500 mg/Dextrose 110 ml @ 110 mls/hr Q24H IVPB 02/22/17 23:00 02/27/17 22:59 02/22/17 21:30 NILSA ALBARADO Feb 23, 2017 15:10
--- NOTE | 2017-02-23 15:19 | Nephrology Progress Note ---
Assessment/Plan Problem List: (1) Dehydration (2) Failure to thrive (3) Hypernatremia (4) ASHLY (acute kidney injury) Assessment acute renal failure- improvied dehydration- and hypernatremia improving FTT UTI CAD GERD Plan Plan: PEG today re eval mind altering meds stable from renal stand Hydrate- Phos and K supplement as needed monitor I&o and renal parameters Urine studies gastric support per orders Subjective ROS Limited/Unobtainable: No Objective Objective Last 24 Hour Vital Signs Date Time Temp Pulse Resp B/P (MAP) Pulse Ox O2 Delivery O2 Flow Rate FiO2 02/23/17 11:10 97.3 67 22 118/43 98 02/23/17 11:10 72 18 100 02/23/17 11:08 72 18 100 02/23/17 11:00 71 20 123/88 99 02/23/17 10:55 75 21 152/96 99 02/23/17 10:50 97.5 73 22 106/47 99 02/23/17 09:00 67 118/43 02/23/17 08:00 98.0 69 18 140/88 95 02/23/17 04:00 97.9 67 18 148/90 95 Room Air 02/23/17 00:00 97.9 68 20 108/70 96 Room Air 02/22/17 20:00 97.7 75 18 109/58 97 Room Air 02/22/17 16:04 97.5 67 20 116/65 97 Intake and Output 02/23/17 02/24/17 19:00 07:00 Intake Total 400 ml Output Total 0 ml Balance 400 ml IV Total 400 ml Estimated Blood Loss 0 ml Laboratory Tests 02/23/17 09:15: White Blood Count 7.8, Red Blood Count 3.37L, Hemoglobin 10.6L, Hematocrit 32.9L , Mean Corpuscular Volume 98, Mean Corpuscular Hemoglobin 31.6H, Mean Corpuscular Hemoglobin Concent 32.3, Red Cell Distribution Width 14.5, Platelet Count 189, Mean Platelet Volume 8.5, Neutrophils (%) (Auto) 61.0, Lymphocytes (% ) (Auto) 28.4, Monocytes (%) (Auto) 7.8, Eosinophils (%) (Auto) 2.2, Basophils ( %) (Auto) 0.6, Prothrombin Time 10.9, Prothromb Time International Ratio 1.0, Activated Partial Thromboplast Time 28, Sodium Level 138, Potassium Level 3.7, Chloride Level 107, Carbon Dioxide Level 24, Anion Gap 7, Blood Urea Nitrogen 8 , Creatinine 1.0, Estimat Glomerular Filtration Rate , Glucose Level 132H, Uric Acid 3.0, Calcium Level 8.3L, Phosphorus Level 2.0L, Magnesium Level 1.6L, Total Bilirubin 0.3, Aspartate Amino Transf (AST/SGOT) 17, Alanine Aminotransferase (ALT/SGPT) 12, Alkaline Phosphatase 124H, Total Protein 7.1, Albumin 2.1L, Globulin 5.0, Albumin/Globulin Ratio 0.4L Height (Feet): 5 Height (Inches): 4.00 Weight (Pounds): 110 General Appearance: no apparent distress, lethargic Objective no other change EDGARDO ORDOÑEZ Feb 23, 2017 15:19
[2017-02-23] MEDS ORDERED: NS 500ML ONE (16:07)
[2017-02-23] MEDS ORDERED: Tubing IV Secondary IV ONE ×2 (16:07→16:09)
[2017-02-23] MEDS: Amiodarone 200mg tab ORAL SCH (18:14)
--- NOTE | 2017-02-23 19:33 | Cardiology Progress Note ---
Assessment/Plan Assessment/Plan 1. Troponin leak, likely due to renal failure, chest pain free, continue aspirin ,Plavix, metoprolol and Lipitor. 2. Hypertension, continue Toprol. 3. Paroxysmal atrial fibrillation on amiodarone, Toprol, aspirin and Plavix. Currently in sinus rhythm. 4. Hyperlipidemia, on Lipitor. Subjective Subjective No cardiac events. No chest pain or SOB. Objective Last 24 Hour Vital Signs Date Time Temp Pulse Resp B/P (MAP) Pulse Ox O2 Delivery O2 Flow Rate FiO2 02/23/17 17:31 75 134/63 02/23/17 16:00 97.3 69 18 118/40 92 02/23/17 13:30 69 118/40 02/23/17 11:10 97.3 67 22 118/43 98 02/23/17 11:10 72 18 100 02/23/17 11:08 72 18 100 02/23/17 11:00 71 20 123/88 99 02/23/17 10:55 75 21 152/96 99 02/23/17 10:50 97.5 73 22 106/47 99 02/23/17 09:00 67 118/43 02/23/17 08:00 98.0 69 18 140/88 95 02/23/17 04:00 97.9 67 18 148/90 95 Room Air 02/23/17 00:00 97.9 68 20 108/70 96 Room Air 02/22/17 20:00 97.7 75 18 109/58 97 Room Air Intake and Output 02/23/17 02/24/17 19:00 07:00 Intake Total 400 ml Output Total 600 ml Balance -200 ml IV Total 400 ml Output Urine Total 600 ml Estimated Blood Loss 0 ml Laboratory Tests Test 02/23/17 09:15 White Blood Count 7.8 K/UL (4.8-10.8) Red Blood Count 3.37 M/UL (4.20-5.40) L Hemoglobin 10.6 G/DL (12.0-16.0) L Hematocrit 32.9 % (37.0-47.0) L Mean Corpuscular Volume 98 FL (80-99) Mean Corpuscular Hemoglobin 31.6 PG (27.0-31.0) H Mean Corpuscular Hemoglobin Concent 32.3 G/DL (32.0-36.0) Red Cell Distribution Width 14.5 % (11.6-14.8) Platelet Count 189 K/UL (150-450) Mean Platelet Volume 8.5 FL (6.5-10.1) Neutrophils (%) (Auto) 61.0 % (45.0-75.0) Lymphocytes (%) (Auto) 28.4 % (20.0-45.0) Monocytes (%) (Auto) 7.8 % (1.0-10.0) Eosinophils (%) (Auto) 2.2 % (0.0-3.0) Basophils (%) (Auto) 0.6 % (0.0-2.0) Prothrombin Time 10.9 SEC (9.30-11.50) Prothromb Time International Ratio 1.0 (0.9-1.1) Activated Partial Thromboplast Time 28 SEC (23-33) Sodium Level 138 MMOL/L (136-145) Potassium Level 3.7 MMOL/L (3.5-5.1) Chloride Level 107 MMOL/L (98-107) Carbon Dioxide Level 24 MMOL/L (21-32) Anion Gap 7 mmol/L (5-15) Blood Urea Nitrogen 8 mg/dL (7-18) Creatinine 1.0 MG/DL (0.55-1.30) Estimat Glomerular Filtration Rate mL/min (>60) Glucose Level 132 MG/DL (74-106) H Uric Acid 3.0 MG/DL (2.6-7.2) Calcium Level 8.3 MG/DL (8.5-10.1) L Phosphorus Level 2.0 MG/DL (2.5-4.9) L Magnesium Level 1.6 MG/DL (1.8-2.4) L Total Bilirubin 0.3 MG/DL (0.2-1.0) Aspartate Amino Transf (AST/SGOT) 17 U/L (15-37) Alanine Aminotransferase (ALT/SGPT) 12 U/L (12-78) Alkaline Phosphatase 124 U/L (46-116) H Total Protein 7.1 G/DL (6.4-8.2) Albumin 2.1 G/DL (3.4-5.0) L Globulin 5.0 g/dL Albumin/Globulin Ratio 0.4 (1.0-2.7) L Objective HEAD AND NECK: No JVD. LUNGS: Clear. CARDIOVASCULAR: Regular S1 and S2 with no gallop or murmur. ABDOMEN: Soft. EXTREMITIES: No pitting edema. LUIS EDUARDO LELA Feb 23, 2017 19:33
[2017-02-23] MEDS ORDERED: Haloperidol 5mg/ml Inj IM PRN (23:00)
[2017-02-23] MEDS: Vancomycin 500mg/D5W 110ml IVPB SCH ×2 (23:30)
[2017-02-23] MEDS: LORazepam 0.5mg tab GT PRN (23:31)
[2017-02-24] VITALS: BP 107/43
--- NOTE | 2017-02-24 01:06 | General Progress Note ---
Assessment/Plan Problem List: (1) Failure to thrive SNOMED: 75893704 Qualifiers: Qualified Codes: R62.7 - Adult failure to thrive (2) Sepsis ICD Codes: A41.9 - Sepsis, unspecified organism SNOMED: 61601770 Qualifiers: Qualified Codes: A41.9 - Sepsis, unspecified organism (3) UTI (urinary tract infection) Assessment & Plan: 2/2 GNR ICD Codes: N39.0 - Urinary tract infection, site not specified SNOMED: 94764143 Qualifiers: Qualified Codes: N30.01 - Acute cystitis with hematuria (4) Acute toxic metabolic encephalopathy (5) ASHLY (acute kidney injury) ICD Codes: N17.9 - Acute kidney failure, unspecified SNOMED: 00292131 (6) ATN (acute tubular necrosis) ICD Codes: N17.0 - Acute kidney failure with tubular necrosis SNOMED: 71017625 (7) Hypernatremia ICD Codes: E87.0 - Hyperosmolality and hypernatremia SNOMED: 26747975 (8) Elevated troponin Assessment & Plan: likely in setting of renal insufficiency vs NSTEMI type 2 given sepsis ICD Codes: R74.8 - Abnormal levels of other serum enzymes SNOMED: 172826687, 541824111 (9) CAD (coronary artery disease) ICD Codes: I25.10 - Atherosclerotic heart disease of [place] coronary artery without angina pectoris SNOMED: 37952466 (10) Diabetes mellitus Assessment & Plan: uncontrolled ICD Codes: E11.9 - Type 2 diabetes mellitus without complications SNOMED: 30292118 (11) HTN (hypertension) ICD Codes: I10 - Essential (primary) hypertension SNOMED: 28226171 (12) HLD (hyperlipidemia) ICD Codes: E78.5 - Hyperlipidemia, unspecified SNOMED: 24298015 (13) Depression ICD Codes: F32.9 - Major depressive disorder, single episode, unspecified SNOMED: 66814823 (14) multiple pressure ulcers Assessment & Plan: #1 Sacrococcygeal DTI pressure ulcer #2 Right iliac crest stage III pressure ulcer #3 Left heel unstageable pressure ulcer #4 Right heel unstageable pressure ulcer (15) paroxsymal atrial fibrillation (16) Hypokalemia ICD Codes: E87.6 - Hypokalemia SNOMED: 05318440 (17) Hypophosphatemia ICD Codes: E83.39 - Other disorders of phosphorus metabolism SNOMED: 0064292 (18) Hypomagnesemia ICD Codes: E83.42 - Hypomagnesemia SNOMED: 890273571 Status: stable Assessment/Plan Renal consulted D/c D5W Trend BMP closely Cardiology consulted given elevated troponin Trop downtrending to 0.05 Cont ASA, plavix, amio, amlodipine, MTP ID consulted Change to meropenem x 10 days per ID (02/19-) s/p zosyn (02/18-02/19) s/p levaquin (02/16-02/18) s/p vanco (02/18-02/19) F/u cultures--urine cx w/ ESBL Klebsiella, E. 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 Disposition: Once the patient is stable to leave the hospital, I anticipate the patient will likely be discharged to the following environment: back to SNF Discussed with patient/family, nursing staff, SW/CM, renal, cardiology regarding clinical status, treatment course, and disposition planning. D/w ID re change in abx. D/w renal re change in fluids. D/w daughter re feeding tube. D /w GI re starting tube feeds Time of note may not reflect time of encounter. Subjective Date patient seen: Feb 23, 2017 Time patient seen: 14:00 ROS Limited/Unobtainable: Yes Allergies: Coded Allergies: No Known Allergies (Unverified , 02/16/17) Subjective No acute o/n events s/p PEG today Pt more awake, alert, not responding appropriately to questions. Cont to have poor PO intake Pt confused at baseline per discussion w/ daughter--usually not aware of where she is, date, situation. Non-ambulatory at baseline. Uses wheelchair. Mental status appeared to be worsening at SNF per daughter and pt was not eating well. Discussed possibility of feeding tube. Daughter now states she would like to proceed with G tube. Objective Last 24 Hour Vital Signs Date Time Temp Pulse Resp B/P (MAP) Pulse Ox O2 Delivery O2 Flow Rate FiO2 02/24/17 00:00 97.9 79 18 107/43 94 Room Air 02/23/17 20:31 85 104/78 02/23/17 20:00 98.1 85 19 104/78 95 Room Air 02/23/17 17:31 75 134/63 02/23/17 16:00 Room Air 02/23/17 16:00 97.3 69 18 118/40 92 02/23/17 13:30 69 118/40 02/23/17 11:10 97.3 67 22 118/43 98 02/23/17 11:10 72 18 100 02/23/17 11:08 72 18 100 02/23/17 11:00 71 20 123/88 99 02/23/17 10:55 75 21 152/96 99 02/23/17 10:50 97.5 73 22 106/47 99 02/23/17 09:00 67 118/43 02/23/17 08:00 98.0 69 18 140/88 95 02/23/17 04:00 97.9 67 18 148/90 95 Room Air Laboratory Tests 02/23/17 09:15: White Blood Count 7.8, Red Blood Count 3.37L, Hemoglobin 10.6L, Hematocrit 32.9L , Mean Corpuscular Volume 98, Mean Corpuscular Hemoglobin 31.6H, Mean Corpuscular Hemoglobin Concent 32.3, Red Cell Distribution Width 14.5, Platelet Count 189, Mean Platelet Volume 8.5, Neutrophils (%) (Auto) 61.0, Lymphocytes (% ) (Auto) 28.4, Monocytes (%) (Auto) 7.8, Eosinophils (%) (Auto) 2.2, Basophils ( %) (Auto) 0.6, Prothrombin Time 10.9, Prothromb Time International Ratio 1.0, Activated Partial Thromboplast Time 28, Sodium Level 138, Potassium Level 3.7, Chloride Level 107, Carbon Dioxide Level 24, Anion Gap 7, Blood Urea Nitrogen 8 , Creatinine 1.0, Estimat Glomerular Filtration Rate , Glucose Level 132H, Uric Acid 3.0, Calcium Level 8.3L, Phosphorus Level 2.0L, Magnesium Level 1.6L, Total Bilirubin 0.3, Aspartate Amino Transf (AST/SGOT) 17, Alanine Aminotransferase (ALT/SGPT) 12, Alkaline Phosphatase 124H, Total Protein 7.1, Albumin 2.1L, Globulin 5.0, Albumin/Globulin Ratio 0.4L 02/23/17 21:45: Random Vancomycin Level < 2.0 Height (Feet): 5 Height (Inches): 4.00 Weight (Pounds): 110 Objective General: alert, cooperative, no distress, appears stated age, thin Head: normocephalic, without obvious abnormality, atraumatic Eyes: conjunctivae/corneas clear. PERRL, EOM's intact Throat: lips, mucosa, and tongue normal. MMM Neck: supple, symmetrical, trachea midline, and no JVD Lungs: clear to auscultation bilaterally Heart: regular rate and rhythm, S1, S2 normal, no murmur, click, rub or gallop Abdomen: soft, non-tender, non-distended, bowel sounds normal; no masses or organomegaly Extremities: extremities normal, atraumatic, no cyanosis or edema Pulses: 2+ and symmetric Skin: skin color, texture, turgor normal; +pressure ulcers b/l heels Neurologic: grossly normal, no focal deficits Noman Burch M.D. Feb 24, 2017 01:06
[2017-02-24 04:00] VITALS: BP 113/50
[2017-02-24] MEDS: LORazepam 0.5mg tab GT PRN (05:16)
[2017-02-24] MEDS: Meropenem 1 GM in D5W 55 ML IVPB SCH (05:16)
[2017-02-24] MEDS: NovoLOG Insulin Flexpen SUBQ SCH ×2 (05:24→12:29)
[2017-02-24 07:07] LABS: BASOPHILS % (AUTO) 0.5 % (0.0-2.0); EOSINOPHILS % (AUTO) 1.3 % (0.0-3.0); LYMPHOCYTES % (AUTO) 23.8 % (20.0-45.0); MEAN CORPUSCULAR HEMOGLOBIN 32.7 PG (27.0-31.0); MEAN CORPUSCULAR HGB CONC 32.9 G/DL (32.0-36.0); MEAN CORPUSCULAR VOLUME 99 FL (80-99); MEAN PLATELET VOLUME 7.9 FL (6.5-10.1); MONOCYTES % (AUTO) 7.8 % (1.0-10.0); NEUTROPHILS % (AUTO) 66.5 % (45.0-75.0); PLATELET COUNT 187 K/UL (150-450); RED BLOOD COUNT 3.16 M/UL (4.20-5.40); RED CELL DISTRIBUTION WIDTH 14.8 % (11.6-14.8)
[2017-02-24 07:39] LABS: ANION GAP 8 mmol/L (5-15); CARBON DIOXIDE 23 MMOL/L (21-32); CHLORIDE 106 MMOL/L (98-107); CREATININE 1.1 MG/DL (0.55-1.30); POTASSIUM 4.1 MMOL/L (3.5-5.1); SODIUM 137 MMOL/L (136-145)
[2017-02-24 07:55] LABS: MAGNESIUM 2.2 MG/DL (1.8-2.4); PHOSPHORUS 3.7 MG/DL (2.5-4.9)
[2017-02-24 08:00] VITALS: BP 125/60
[2017-02-24 08:40] LABS: ABG ALLEN TEST POSITIVE; ABG BASE EXCESS -2.6; ABG PCO2 27.9 mmHg (35.0-45.0)
[2017-02-24] MEDS: Lactobacillus-GG tablet ORAL SCH (09:28)
[2017-02-24] MEDS: Aspirin Baby 81mg ORAL SCH (09:28)
[2017-02-24] MEDS: Amiodarone 200mg tab ORAL SCH (09:28)
[2017-02-24] MEDS: Metoprolol Tartrate 12.5mg TAB GT SCH (09:28)
[2017-02-24] MEDS: Heparin 5000 units/ml inj SUBQ SCH (09:30)
--- NOTE | 2017-02-24 11:28 | Nephrology Progress Note ---
Assessment/Plan Problem List: (1) Dehydration (2) Failure to thrive (3) Hypernatremia (4) ASHLY (acute kidney injury) Assessment hypoxic today acute renal failure- improvied dehydration- and hypernatremia improving FTT UTI CAD GERD Plan Plan: Post PEG re eval mind altering meds stable from renal stand Hydrate- Phos and K supplement as needed monitor I&o and renal parameters Urine studies gastric support per orders Subjective ROS Limited/Unobtainable: No Constitutional: Reports: malaise, other - sob Objective Objective Last 24 Hour Vital Signs Date Time Temp Pulse Resp B/P (MAP) Pulse Ox O2 Delivery O2 Flow Rate FiO2 02/24/17 09:28 75 125/60 02/24/17 08:00 97.0 75 18 125/60 Room Air 02/24/17 04:00 98.0 79 18 113/50 99 Room Air 02/24/17 00:00 Room Air 02/24/17 00:00 97.9 79 18 107/43 94 Room Air 02/23/17 20:31 85 104/78 02/23/17 20:00 Room Air 02/23/17 20:00 98.1 85 19 104/78 95 Room Air 02/23/17 17:31 75 134/63 02/23/17 16:00 Room Air 02/23/17 16:00 97.3 69 18 118/40 92 02/23/17 13:30 69 118/40 Laboratory Tests 02/23/17 21:45: Random Vancomycin Level < 2.0 02/24/17 06:00: White Blood Count 8.0, Red Blood Count 3.16L, Hemoglobin 10.3L, Hematocrit 31.4L , Mean Corpuscular Volume 99, Mean Corpuscular Hemoglobin 32.7H, Mean Corpuscular Hemoglobin Concent 32.9, Red Cell Distribution Width 14.8, Platelet Count 187, Mean Platelet Volume 7.9, Neutrophils (%) (Auto) 66.5, Lymphocytes (% ) (Auto) 23.8, Monocytes (%) (Auto) 7.8, Eosinophils (%) (Auto) 1.3, Basophils ( %) (Auto) 0.5, Sodium Level 137, Potassium Level 4.1, Chloride Level 106, Carbon Dioxide Level 23, Anion Gap 8, Blood Urea Nitrogen 11, Creatinine 1.1, Estimat Glomerular Filtration Rate , Glucose Level 249#H, Calcium Level 8.0L, Phosphorus Level 3.7, Magnesium Level 2.2, Helicobacter pylori IgG Antibody [ Pending] 02/24/17 08:25: Arterial Blood pH 7.475H, Arterial Blood Partial Pressure CO2 27.9L, Arterial Blood Partial Pressure O2 435.9H, Arterial Blood HCO3 20.1L, Arterial Blood Oxygen Saturation 99.1H, Arterial Blood Base Excess -2.6, Arnol Test Positive Height (Feet): 5 Height (Inches): 4.00 Weight (Pounds): 110 General Appearance: mild distress Cardiovascular: normal rate Respiratory/Chest: decreased breath sounds Abdomen: soft Objective no other change EDGARDO ORDOÑEZ Feb 24, 2017 11:28
[2017-02-24 12:00] VITALS: BP 121/64
--- NOTE | 2017-02-24 12:27 | General Progress Note ---
Assessment/Plan Problem List: (1) Failure to thrive SNOMED: 64272696 Qualifiers: Qualified Codes: R62.7 - Adult failure to thrive (2) Sepsis ICD Codes: A41.9 - Sepsis, unspecified organism SNOMED: 24383340 Qualifiers: Qualified Codes: A41.9 - Sepsis, unspecified organism (3) UTI (urinary tract infection) Assessment & Plan: 2/2 GNR ICD Codes: N39.0 - Urinary tract infection, site not specified SNOMED: 53300928 Qualifiers: Qualified Codes: N30.01 - Acute cystitis with hematuria (4) Acute toxic metabolic encephalopathy (5) ASHLY (acute kidney injury) ICD Codes: N17.9 - Acute kidney failure, unspecified SNOMED: 30864111 (6) ATN (acute tubular necrosis) ICD Codes: N17.0 - Acute kidney failure with tubular necrosis SNOMED: 25674976 (7) Hypernatremia ICD Codes: E87.0 - Hyperosmolality and hypernatremia SNOMED: 87355075 (8) Elevated troponin Assessment & Plan: likely in setting of renal insufficiency vs NSTEMI type 2 given sepsis ICD Codes: R74.8 - Abnormal levels of other serum enzymes SNOMED: 727821911, 110748042 (9) CAD (coronary artery disease) ICD Codes: I25.10 - Atherosclerotic heart disease of [place] coronary artery without angina pectoris SNOMED: 59885750 (10) Diabetes mellitus Assessment & Plan: uncontrolled ICD Codes: E11.9 - Type 2 diabetes mellitus without complications SNOMED: 65903483 (11) HTN (hypertension) ICD Codes: I10 - Essential (primary) hypertension SNOMED: 79763096 (12) HLD (hyperlipidemia) ICD Codes: E78.5 - Hyperlipidemia, unspecified SNOMED: 46526138 (13) Depression ICD Codes: F32.9 - Major depressive disorder, single episode, unspecified SNOMED: 28709854 (14) multiple pressure ulcers Assessment & Plan: #1 Sacrococcygeal DTI pressure ulcer #2 Right iliac crest stage III pressure ulcer #3 Left heel unstageable pressure ulcer #4 Right heel unstageable pressure ulcer (15) paroxsymal atrial fibrillation (16) Hypokalemia ICD Codes: E87.6 - Hypokalemia SNOMED: 90313187 (17) Hypophosphatemia ICD Codes: E83.39 - Other disorders of phosphorus metabolism SNOMED: 2175776 (18) Hypomagnesemia ICD Codes: E83.42 - Hypomagnesemia SNOMED: 932197706 Assessment/Plan Renal consulted D/c D5W Trend BMP closely Cardiology consulted given elevated troponin Trop downtrending to 0.05 Cont ASA, plavix, amio, amlodipine, MTP ID consulted Change to meropenem x 10 days per ID (02/19-) s/p zosyn (02/18-02/19) s/p levaquin (02/16-02/18) s/p vanco (02/18-02/19) F/u cultures--urine cx w/ ESBL Klebsiella, E. 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 Disposition: Once the patient is stable to leave the hospital, I anticipate the patient will likely be discharged to the following environment: back to SNF Discussed with patient/family, nursing staff, SW/CM, renal, cardiology regarding clinical status, treatment course, and disposition planning. D/w ID re change in abx. D/w renal re change in fluids. D/w daughter re feeding tube. D /w GI re starting tube feeds Time of note may not reflect time of encounter. Subjective Date patient seen: Feb 24, 2017 Time patient seen: 12:27 ROS Limited/Unobtainable: Yes Allergies: Coded Allergies: No Known Allergies (Unverified , 02/16/17) Subjective No acute o/n events s/p PEG today Pt more awake, alert, not responding appropriately to questions. Cont to have poor PO intake Pt confused at baseline per discussion w/ daughter--usually not aware of where she is, date, situation. Non-ambulatory at baseline. Uses wheelchair. Mental status appeared to be worsening at SNF per daughter and pt was not eating well. Discussed possibility of feeding tube. Daughter now states she would like to proceed with G tube. Objective Last 24 Hour Vital Signs Date Time Temp Pulse Resp B/P (MAP) Pulse Ox O2 Delivery O2 Flow Rate FiO2 02/24/17 09:28 75 125/60 02/24/17 08:00 97.0 75 18 125/60 Room Air 02/24/17 04:00 98.0 79 18 113/50 99 Room Air 02/24/17 00:00 Room Air 02/24/17 00:00 97.9 79 18 107/43 94 Room Air 02/23/17 20:31 85 104/78 02/23/17 20:00 Room Air 02/23/17 20:00 98.1 85 19 104/78 95 Room Air 02/23/17 17:31 75 134/63 02/23/17 16:00 Room Air 02/23/17 16:00 97.3 69 18 118/40 92 02/23/17 13:30 69 118/40 Laboratory Tests 02/23/17 21:45: Random Vancomycin Level < 2.0 02/24/17 06:00: White Blood Count 8.0, Red Blood Count 3.16L, Hemoglobin 10.3L, Hematocrit 31.4L , Mean Corpuscular Volume 99, Mean Corpuscular Hemoglobin 32.7H, Mean Corpuscular Hemoglobin Concent 32.9, Red Cell Distribution Width 14.8, Platelet Count 187, Mean Platelet Volume 7.9, Neutrophils (%) (Auto) 66.5, Lymphocytes (% ) (Auto) 23.8, Monocytes (%) (Auto) 7.8, Eosinophils (%) (Auto) 1.3, Basophils ( %) (Auto) 0.5, Sodium Level 137, Potassium Level 4.1, Chloride Level 106, Carbon Dioxide Level 23, Anion Gap 8, Blood Urea Nitrogen 11, Creatinine 1.1, Estimat Glomerular Filtration Rate , Glucose Level 249#H, Calcium Level 8.0L, Phosphorus Level 3.7, Magnesium Level 2.2, Helicobacter pylori IgG Antibody [ Pending] 02/24/17 08:25: Arterial Blood pH 7.475H, Arterial Blood Partial Pressure CO2 27.9L, Arterial Blood Partial Pressure O2 435.9H, Arterial Blood HCO3 20.1L, Arterial Blood Oxygen Saturation 99.1H, Arterial Blood Base Excess -2.6, Arnol Test Positive Height (Feet): 5 Height (Inches): 4.00 Weight (Pounds): 110 Objective General: alert, cooperative, no distress, appears stated age, thin Head: normocephalic, without obvious abnormality, atraumatic Eyes: conjunctivae/corneas clear. PERRL, EOM's intact Throat: lips, mucosa, and tongue normal. MMM Neck: supple, symmetrical, trachea midline, and no JVD Lungs: clear to auscultation bilaterally Heart: regular rate and rhythm, S1, S2 normal, no murmur, click, rub or gallop Abdomen: soft, non-tender, non-distended, bowel sounds normal; no masses or organomegaly Extremities: extremities normal, atraumatic, no cyanosis or edema Pulses: 2+ and symmetric Skin: skin color, texture, turgor normal; +pressure ulcers b/l heels Neurologic: grossly normal, no focal deficits Noman Burch M.D. Feb 24, 2017 12:27
--- NOTE | 2017-02-24 12:39 | GI Progress Note ---
Assessment/Plan Problems: (1) Encounter for PEG (percutaneous endoscopic gastrostomy) ICD Codes: Z43.1 - Encounter for attention to gastrostomy SNOMED: 582858080, 984690334 (2) Failure to thrive SNOMED: 62270900 Qualifiers: Qualified Codes: R62.7 - Adult failure to thrive (3) lives at snf (4) GERD (gastroesophageal reflux disease) ICD Codes: K21.9 - Gastro-esophageal reflux disease without esophagitis SNOMED: 592275684 (5) Dehydration ICD Codes: E86.0 - Dehydration SNOMED: 85330268 Status: stable Status Narrative Discussed with Dr. Mcintyre. Assessment/Plan SUMMARY OF FINDINGS: 1. Medium-sized hiatal hernia. 2. Status post successful percutaneous endoscopic gastrostomy tube placement. 3. Atrophic gastritis. 4. Shallow duodenal ulceration. RECOMMENDATIONS: okay for DC per GI standpoint 1. Follow up biopsy results and treat accordingly. 2. Start tube feeding later today. 3. The patient was currently on antibiotics so no antibiotics was added. 4. We will send a serology for H. pylori and treat if it is positive. The patient was seen and examined at bedside and all new and available data was reviewed in the patients chart. I agree with the above findings, impression and plan. (Patient seen earlier today. Signature stamp does not reflect patient encounter time.). - Melquiades Mcintyre MD Subjective Subjective limited Objective Last 24 Hour Vital Signs Date Time Temp Pulse Resp B/P (MAP) Pulse Ox O2 Delivery O2 Flow Rate FiO2 02/24/17 09:28 75 125/60 02/24/17 08:00 97.0 75 18 125/60 Room Air 02/24/17 04:00 98.0 79 18 113/50 99 Room Air 02/24/17 00:00 Room Air 02/24/17 00:00 97.9 79 18 107/43 94 Room Air 02/23/17 20:31 85 104/78 02/23/17 20:00 Room Air 02/23/17 20:00 98.1 85 19 104/78 95 Room Air 02/23/17 17:31 75 134/63 02/23/17 16:00 Room Air 02/23/17 16:00 97.3 69 18 118/40 92 02/23/17 13:30 69 118/40 Laboratory Tests Test 02/23/17 21:45 02/24/17 06:00 02/24/17 08:25 Random Vancomycin Level < 2.0 ug/mL White Blood Count 8.0 K/UL (4.8-10.8) Red Blood Count 3.16 M/UL (4.20-5.40) L Hemoglobin 10.3 G/DL (12.0-16.0) L Hematocrit 31.4 % (37.0-47.0) L Mean Corpuscular Volume 99 FL (80-99) Mean Corpuscular Hemoglobin 32.7 PG (27.0-31.0) H Mean Corpuscular Hemoglobin Concent 32.9 G/DL (32.0-36.0) Red Cell Distribution Width 14.8 % (11.6-14.8) Platelet Count 187 K/UL (150-450) Mean Platelet Volume 7.9 FL (6.5-10.1) Neutrophils (%) (Auto) 66.5 % (45.0-75.0) Lymphocytes (%) (Auto) 23.8 % (20.0-45.0) Monocytes (%) (Auto) 7.8 % (1.0-10.0) Eosinophils (%) (Auto) 1.3 % (0.0-3.0) Basophils (%) (Auto) 0.5 % (0.0-2.0) Sodium Level 137 MMOL/L (136-145) Potassium Level 4.1 MMOL/L (3.5-5.1) Chloride Level 106 MMOL/L (98-107) Carbon Dioxide Level 23 MMOL/L (21-32) Anion Gap 8 mmol/L (5-15) Blood Urea Nitrogen 11 mg/dL (7-18) Creatinine 1.1 MG/DL (0.55-1.30) Estimat Glomerular Filtration Rate mL/min (>60) Glucose Level 249 MG/DL (74-106) #H Calcium Level 8.0 MG/DL (8.5-10.1) L Phosphorus Level 3.7 MG/DL (2.5-4.9) Magnesium Level 2.2 MG/DL (1.8-2.4) Helicobacter pylori IgG Antibody Pending Arterial Blood pH 7.475 (7.350-7.450) Arterial Blood Partial Pressure CO2 27.9 mmHg (35.0-45.0) L Arterial Blood Partial Pressure O2 435.9 mmHg (75.0-100.0) H Arterial Blood HCO3 20.1 mmol/L (22.0-26.0) L Arterial Blood Oxygen Saturation 99.1 % (92.0-98.0) H Arterial Blood Base Excess -2.6 Arnol Test Positive Height (Feet): 5 Height (Inches): 4.00 Weight (Pounds): 110 General Appearance: no apparent distress, alert Cardiovascular: normal rate Respiratory/Chest: normal breath sounds, no respiratory distress Abdominal Exam: site - c/d/i Sabina Ren N.P. Feb 24, 2017 12:39 RANDI MCINTYRE Feb 25, 2017 12:45
[2017-02-24 16:15] VITALS: BP 122/57
[2017-02-24] MEDS ORDERED: Tubing IV Secondary IV ONE (17:19)
[2017-02-24] MEDS ORDERED: Sterile Water Irrig 1000ml IRRIG ONE (17:19)
--- NOTE | 2017-02-24 17:56 | Discharge Summary ---
Discharge Summary Hospital Course Date of Admission Feb 16, 2017 at 20:23 Date of Discharge Feb 24, 2017 at 17:20 Admitting Diagnosis Failure to thrive, ASHLY, UTI, Hypernatremia, AMS Reason for Hospitalization: Sepsis, failure to thrive HPI 71y/o female with pmh of DM2, HTN, HLD, CAD, GERD, depression who presents from SNF with failure to thrive. History limited as pt altered. Per SNF report, pt has not been taking her meds since Thursday and has not eating anything since yesterday. At SNF, pt noted to be tachycardic and glucose >500. In ED, pt afebrile, tachycardic, BPs wnl. Labs notable for ASHLY w/ SCr 3.3, hypernatremia to 163, glucseo 500s. Pt given IVFs, regular insulin 4U IV. Pt also found to have leukocytosis w/ WBC 17K and U/S showing pyuria c/w UTI. Pt was started on started on levaquin. Consultations Infectious disease, Gastroenterology, Pulmonology, Nephrology Hospital Course Pt was admitted and seen by nephrology given severe hypernatremia and ASHLY. She was continued on D5W w/ slow improvement in Na and SCr. She was continued on vanco and zosyn per ID. Urine culture showed ESBL E. Coli and Klebsiella. She was transitioned to meropenem for 10 more days starting 02/19 per ID. Pt also seen by cardiology for elevated troponin which was medically managed. Despite improvement in mental status, pt's PO intake continued to be poor. PEG was placed on 02/23/17 and pt was initiated on tube feeds. Once medically stable, she was discharged to SNF. Discharge physical exam: General: alert, cooperative, no distress, appears stated age Head: normocephalic, without obvious abnormality, atraumatic Eyes: conjunctivae/corneas clear. PERRL, EOM's intact Throat: lips, mucosa, and tongue normal. MMM Neck: supple, symmetrical, trachea midline, and no JVD Lungs: clear to auscultation bilaterally Heart: regular rate and rhythm, S1, S2 normal, no murmur, click, rub or gallop Abdomen: soft, non-tender, non-distended, bowel sounds normal; +PEG c/d/i Extremities: extremities normal, atraumatic, no cyanosis or edema Pulses: 2+ and symmetric Skin: skin color, texture, turgor normal; no rashes or lesions Neurologic: grossly normal, no focal deficits Discharge diagnoses: (1) Failure to thrive SNOMED: 44196483 Qualifiers: Qualified Codes: R62.7 - Adult failure to thrive (2) Sepsis ICD Codes: A41.9 - Sepsis, unspecified organism SNOMED: 96590025 Qualifiers: Qualified Codes: A41.9 - Sepsis, unspecified organism (3) UTI (urinary tract infection) Assessment & Plan: 2/2 GNR ICD Codes: N39.0 - Urinary tract infection, site not specified SNOMED: 90609075 Qualifiers: Qualified Codes: N30.01 - Acute cystitis with hematuria (4) Acute toxic metabolic encephalopathy (5) ASHLY (acute kidney injury) ICD Codes: N17.9 - Acute kidney failure, unspecified SNOMED: 91862066 (6) ATN (acute tubular necrosis) ICD Codes: N17.0 - Acute kidney failure with tubular necrosis SNOMED: 46318426 (7) Hypernatremia ICD Codes: E87.0 - Hyperosmolality and hypernatremia SNOMED: 92240903 (8) Elevated troponin Assessment & Plan: likely in setting of renal insufficiency vs NSTEMI type 2 given sepsis ICD Codes: R74.8 - Abnormal levels of other serum enzymes SNOMED: 180167052, 469968129 (9) CAD (coronary artery disease) ICD Codes: I25.10 - Atherosclerotic heart disease of [place] coronary artery without angina pectoris SNOMED: 21583289 (10) Diabetes mellitus Assessment & Plan: uncontrolled ICD Codes: E11.9 - Type 2 diabetes mellitus without complications SNOMED: 81032109 (11) HTN (hypertension) ICD Codes: I10 - Essential (primary) hypertension SNOMED: 67784627 (12) HLD (hyperlipidemia) ICD Codes: E78.5 - Hyperlipidemia, unspecified SNOMED: 55481201 (13) Depression ICD Codes: F32.9 - Major depressive disorder, single episode, unspecified SNOMED: 56198694 (14) multiple pressure ulcers Assessment & Plan: #1 Sacrococcygeal DTI pressure ulcer #2 Right iliac crest stage III pressure ulcer #3 Left heel unstageable pressure ulcer #4 Right heel unstageable pressure ulcer (15) paroxsymal atrial fibrillation (16) Hypokalemia ICD Codes: E87.6 - Hypokalemia SNOMED: 08957546 (17) Hypophosphatemia ICD Codes: E83.39 - Other disorders of phosphorus metabolism SNOMED: 0457483 (18) Hypomagnesemia ICD Codes: E83.42 - Hypomagnesemia Discharge Medications New Medications: Meropenem (Meropenem) 1 Gm Vial 1 GM IV Q12HR for 5 Days, VIAL Trimethoprim/Sulfamethoxazole 160/800* (Bactrim Ds Tablet*) 1 Each Tablet 1 TAB ORAL Q12H for 5 Days, #10 TAB 0 Refills Lactobacillus Rhamnosus Gg* (Culturelle*) 1 Each Capsule 1 TAB ORAL TWICE A DAY for 30 Days, CAP Metoprolol Tartrate (Metoprolol Tartrate) 25 Mg Tablet 12.5 MG GT Q12HR for 90 Days, TAB Continued Medications: Acetaminophen* (Acetaminophen 325MG Tablet*) 325 Mg Tablet 650 MG ORAL Q4H PRN for Mild Pain (Pain Scale 1-3), TAB Amiodarone Hcl (Amiodarone Hcl) 100 Mg Tablet 100 MG ORAL DAILY, TAB Amlodipine Besylate (Norvasc) 5 Mg Tablet 5 MG ORAL DAILY, TAB Aspirin* (Aspirin*) 81 Mg Tab.chew 81 MG ORAL DAILY, TAB Atorvastatin Calcium* (Lipitor*) 10 Mg Tablet 10 MG ORAL BEDTIME, TAB Bisacodyl (Dulcolax) 10 Mg Supp.rect 10 MG RC DAILY PRN for Constipation, SUPP Clopidogrel Bisulfate* (Plavix*) 75 Mg Tablet 75 MG ORAL DAILY, TAB Docusate Sodium* (Colace*) 100 Mg Capsule 100 MG ORAL TWICE A DAY, CAP Glucagon HCl (Glucagon HCl) 1 Mg Vial 1 MG IJ q 24 hours PRN for bs<60, VIAL Hydrocodone Bit/Acetaminophen 5-325* ([place] 5-325*) 1 Each Tablet 1 TAB ORAL DAILY PRN for For Pain, TAB 0 Refills Insulin Detemir (Levemir) 100 Unit/1 Ml Vial 34 SUBQ BEDTIME, VIAL Insulin Regular, Human* (Novolin R*) 100 Unit/1 Ml Vial 7 SUBQ AC MEALS, UNITS Insulin Regular, Human* (Novolin R*) 100 Unit/1 Ml Vial 0 SUBQ .SLIDING SCALE, UNITS Lactobacillus Acidophilus (Acidophilus Lactobacillus) 1 Each Capsule 1 TAB ORAL BID, CAP Lorazepam* (Ativan*) 0.5 Mg Tablet 0.5 MG ORAL EVERY 6 HOURS PRN for For Anxiety, TAB Magnesium Hydroxide* (Milk Of Magnesia*) 400 Mg/5 Ml Oral.susp 30 ML ORAL DAILY, ML Mirtazapine* (Remeron*) 15 Mg Tablet 7.5 MG ORAL BEDTIME, TAB Multivitamin With Minerals (Multivitamins With Minerals*) 1 Each Tablet 1 TAB ORAL DAILY, TAB Pantoprazole* (Protonix*) 40 Mg Tablet.dr 40 MG ORAL DAILY, TAB Sennosides (Senokot) 8.6 Mg Tablet 8.6 MG PO BEDTIME, TAB Venlafaxine Hcl* (Effexor*) 37.5 Mg Tablet 37.5 MG ORAL DAILY, TAB Zolpidem Tartrate* (Ambien*) 5 Mg Tablet 5 MG ORAL BEDTIME PRN for Insomnia, TAB [Mylanta] () 20 ML PO EVERY 4 HOURS Discontinued Medications: Atenolol* (Tenormin*) 25 Mg Tablet 12.5 MG ORAL DAILY, TAB Discharge Condition Upon Discharge: stable Discharge Disposition Patient was discharged to SNF/Subacute Facility(03) Discharge Diagnoses: Noman Burch M.D. Feb 24, 2017 17:56
--- NOTE | 2017-02-24 18:20 | Consultation ---
Consult Note Consult Note [facility] DICTATION # [id number] REX ESPINO M.D. Feb 24, 2017 18:20
[2017-02-24] MEDS ORDERED: Meropenem 1 GM in NS 55 ML IVPB SCH (18:30)
--- NOTE | 2017-02-24 20:02 | Cardiology Progress Note ---
Assessment/Plan Assessment/Plan 1. Troponin leak, likely due to renal failure, chest pain free, continue aspirin ,Plavix, metoprolol and Lipitor. 2. Hypertension, continue Toprol. 3. Paroxysmal atrial fibrillation, in SR, on amiodarone, Toprol, aspirin and Plavix. 4. Hyperlipidemia, on Lipitor. Subjective Subjective No cardiac events. DC planning in progress. Objective Last 24 Hour Vital Signs Date Time Temp Pulse Resp B/P (MAP) Pulse Ox O2 Delivery O2 Flow Rate FiO2 02/24/17 16:15 97.0 68 19 122/57 97 Room Air 02/24/17 12:00 97.4 72 18 121/64 02/24/17 09:28 75 125/60 02/24/17 08:00 97.0 75 18 125/60 Room Air 02/24/17 04:00 98.0 79 18 113/50 99 Room Air 02/24/17 00:00 Room Air 02/24/17 00:00 97.9 79 18 107/43 94 Room Air 02/23/17 20:31 85 104/78 Intake and Output 02/24/17 02/25/17 19:00 07:00 Intake Total 500 ml Output Total 600 ml Balance -100 ml Free Water 100 ml Tube Feeding 400 ml Output Urine Total 600 ml Laboratory Tests Test 02/23/17 21:45 02/24/17 06:00 02/24/17 08:25 Random Vancomycin Level < 2.0 ug/mL White Blood Count 8.0 K/UL (4.8-10.8) Red Blood Count 3.16 M/UL (4.20-5.40) L Hemoglobin 10.3 G/DL (12.0-16.0) L Hematocrit 31.4 % (37.0-47.0) L Mean Corpuscular Volume 99 FL (80-99) Mean Corpuscular Hemoglobin 32.7 PG (27.0-31.0) H Mean Corpuscular Hemoglobin Concent 32.9 G/DL (32.0-36.0) Red Cell Distribution Width 14.8 % (11.6-14.8) Platelet Count 187 K/UL (150-450) Mean Platelet Volume 7.9 FL (6.5-10.1) Neutrophils (%) (Auto) 66.5 % (45.0-75.0) Lymphocytes (%) (Auto) 23.8 % (20.0-45.0) Monocytes (%) (Auto) 7.8 % (1.0-10.0) Eosinophils (%) (Auto) 1.3 % (0.0-3.0) Basophils (%) (Auto) 0.5 % (0.0-2.0) Sodium Level 137 MMOL/L (136-145) Potassium Level 4.1 MMOL/L (3.5-5.1) Chloride Level 106 MMOL/L (98-107) Carbon Dioxide Level 23 MMOL/L (21-32) Anion Gap 8 mmol/L (5-15) Blood Urea Nitrogen 11 mg/dL (7-18) Creatinine 1.1 MG/DL (0.55-1.30) Estimat Glomerular Filtration Rate mL/min (>60) Glucose Level 249 MG/DL (74-106) #H Calcium Level 8.0 MG/DL (8.5-10.1) L Phosphorus Level 3.7 MG/DL (2.5-4.9) Magnesium Level 2.2 MG/DL (1.8-2.4) Helicobacter pylori IgG Antibody Pending Arterial Blood pH 7.475 (7.350-7.450) Arterial Blood Partial Pressure CO2 27.9 mmHg (35.0-45.0) L Arterial Blood Partial Pressure O2 435.9 mmHg (75.0-100.0) H Arterial Blood HCO3 20.1 mmol/L (22.0-26.0) L Arterial Blood Oxygen Saturation 99.1 % (92.0-98.0) H Arterial Blood Base Excess -2.6 Arnol Test Positive Objective HEAD AND NECK: Normocephalic, atraumatic, PERRLA, EOMI. LUNGS: Clear. CARDIOVASCULAR: Regular S1 and S2 with no gallop or murmur. ABDOMEN: Soft, NT/ND, + BS. EXTREMITIES: No pitting edema. LUIS EDUARDO LEAL Feb 24, 2017 20:02
--- NOTE | 2017-02-24 23:27 | Consultation ---
History of Present Illness General Date patient seen: Feb 20, 2017 Chief Complaint: General Complaint Referring physician: ADALBERTO DELUCA Reason for Consultation: PEG Present Illness HPI 71-year-old female, who comes into [facility] with failure to thrive, noted to have lethargy and altered mental status. The patient was septic with elevated white count, SIRS criteria. Allergies: Coded Allergies: No Known Allergies (Unverified , 02/16/17) Medication History Scheduled Amiodarone Hcl (Amiodarone Hcl), 100 MG ORAL DAILY, (Reported) Amlodipine Besylate (Norvasc), 5 MG ORAL DAILY, (Reported) Aspirin* (Aspirin*), 81 MG ORAL DAILY, (Reported) Atorvastatin Calcium* (Lipitor*), 10 MG ORAL BEDTIME, (Reported) Clopidogrel Bisulfate* (Plavix*), 75 MG ORAL DAILY, (Reported) Docusate Sodium* (Colace*), 100 MG ORAL TWICE A DAY, (Reported) Insulin Detemir (Levemir), 34 SUBQ BEDTIME, (Reported) Insulin Regular, Human* (Novolin R*), 7 SUBQ AC MEALS, (Reported) Insulin Regular, Human* (Novolin R*), 0 SUBQ .SLIDING SCALE, (Reported) Lactobacillus Acidophilus (Acidophilus Lactobacillus), 1 TAB ORAL BID, (Reported ) Lactobacillus Rhamnosus Gg* (Culturelle*), 1 TAB ORAL TWICE A DAY Magnesium Hydroxide* (Milk Of Magnesia*), 30 ML ORAL DAILY, (Reported) Meropenem (Meropenem), 1 GM IV Q12HR Metoprolol Tartrate (Metoprolol Tartrate), 12.5 MG GT Q12HR Mirtazapine* (Remeron*), 7.5 MG ORAL BEDTIME, (Reported) Multivitamin With Minerals (Multivitamins With Minerals*), 1 TAB ORAL DAILY, ( Reported) Pantoprazole* (Protonix*), 40 MG ORAL DAILY, (Reported) Sennosides (Senokot), 8.6 MG PO BEDTIME, (Reported) Trimethoprim/Sulfamethoxazole 160/800* (Bactrim Ds Tablet*), 1 TAB ORAL Q12H Venlafaxine Hcl* (Effexor*), 37.5 MG ORAL DAILY, (Reported) [Mylanta], 20 ML PO EVERY 4 HOURS, (Reported) Scheduled PRN Acetaminophen* (Acetaminophen 325MG Tablet*), 650 MG ORAL Q4H PRN for Mild Pain (Pain Scale 1-3), (Reported) Bisacodyl (Dulcolax), 10 MG RC DAILY PRN for Constipation, (Reported) Glucagon HCl (Glucagon HCl), 1 MG IJ q 24 hours PRN for bs<60, (Reported) Hydrocodone Bit/Acetaminophen 5-325* ([place] 5-325*), 1 TAB ORAL DAILY PRN for For Pain, (Reported) Lorazepam* (Ativan*), 0.5 MG ORAL EVERY 6 HOURS PRN for For Anxiety, (Reported) Zolpidem Tartrate* (Ambien*), 5 MG ORAL BEDTIME PRN for Insomnia, (Reported) Discontinued Medications Atenolol* (Tenormin*), 12.5 MG ORAL DAILY, (Reported) Discontinued Reason: MD discontinued med Patient History Healthcare decision maker Resuscitation status Full Code Advanced Directive on File No Physical Exam Last 24 Hour Vital Signs Date Time Temp Pulse Resp B/P (MAP) Pulse Ox O2 Delivery O2 Flow Rate FiO2 02/24/17 16:15 97.0 68 19 122/57 97 Room Air 02/24/17 12:00 97.4 72 18 121/64 02/24/17 09:28 75 125/60 02/24/17 08:00 97.0 75 18 125/60 Room Air 02/24/17 04:00 98.0 79 18 113/50 99 Room Air 02/24/17 00:00 Room Air 02/24/17 00:00 97.9 79 18 107/43 94 Room Air Intake and Output 02/24/17 02/25/17 19:00 07:00 Intake Total 500 ml Output Total 600 ml Balance -100 ml Free Water 100 ml Tube Feeding 400 ml Output Urine Total 600 ml Laboratory Tests Test 02/24/17 06:00 02/24/17 08:25 White Blood Count 8.0 K/UL (4.8-10.8) Red Blood Count 3.16 M/UL (4.20-5.40) L Hemoglobin 10.3 G/DL (12.0-16.0) L Hematocrit 31.4 % (37.0-47.0) L Mean Corpuscular Volume 99 FL (80-99) Mean Corpuscular Hemoglobin 32.7 PG (27.0-31.0) H Mean Corpuscular Hemoglobin Concent 32.9 G/DL (32.0-36.0) Red Cell Distribution Width 14.8 % (11.6-14.8) Platelet Count 187 K/UL (150-450) Mean Platelet Volume 7.9 FL (6.5-10.1) Neutrophils (%) (Auto) 66.5 % (45.0-75.0) Lymphocytes (%) (Auto) 23.8 % (20.0-45.0) Monocytes (%) (Auto) 7.8 % (1.0-10.0) Eosinophils (%) (Auto) 1.3 % (0.0-3.0) Basophils (%) (Auto) 0.5 % (0.0-2.0) Sodium Level 137 MMOL/L (136-145) Potassium Level 4.1 MMOL/L (3.5-5.1) Chloride Level 106 MMOL/L (98-107) Carbon Dioxide Level 23 MMOL/L (21-32) Anion Gap 8 mmol/L (5-15) Blood Urea Nitrogen 11 mg/dL (7-18) Creatinine 1.1 MG/DL (0.55-1.30) Estimat Glomerular Filtration Rate mL/min (>60) Glucose Level 249 MG/DL (74-106) #H Calcium Level 8.0 MG/DL (8.5-10.1) L Phosphorus Level 3.7 MG/DL (2.5-4.9) Magnesium Level 2.2 MG/DL (1.8-2.4) Helicobacter pylori IgG Antibody Pending Arterial Blood pH 7.475 (7.350-7.450) Arterial Blood Partial Pressure CO2 27.9 mmHg (35.0-45.0) L Arterial Blood Partial Pressure O2 435.9 mmHg (75.0-100.0) H Arterial Blood HCO3 20.1 mmol/L (22.0-26.0) L Arterial Blood Oxygen Saturation 99.1 % (92.0-98.0) H Arterial Blood Base Excess -2.6 Arnol Test Positive Height (Feet): 5 Height (Inches): 4.00 Weight (Pounds): 110 Madhuri Fraga M.D. Feb 24, 2017 23:27
--- NOTE | 2017-02-25 02:16 | Consultation ---
DATE OF CONSULTATION: 02/24/2017 PULMONARY CONSULTATION CONSULTING PHYSICIAN: Roby Slaughter M.D. REFERRING PHYSICIAN: Noman Bruch M.D. REASON FOR CONSULTATION: Hypoxemia. HISTORY OF PRESENT ILLNESS: The patient is a 71-year-old female with history of diabetes, hypertension, hyperlipidemia, CAD, GERD and depression, who initially presented on 02/17/2017 from SNF with failure to thrive as well as acute kidney injury. She has been seen by multiple consultants. She had an EGD, which showed a medium-sized hiatal hernia. She had a PEG tube placed. She has also been followed by Renal for her ASHLY on CKD and was felt to have elevated cardiac biomarkers in the setting of renal insufficiency. She was treated for sepsis, ASHLY, failure to thrive and was actually doing well and back to her baseline. She is confused at baseline with poor p.o. intake that is why PEG was placed. Today, she was getting ready to be discharged to SNF, but acutely became hypoxic with saturation of 80% on room air. She was placed on high-flow oxygen. ABG was 7.47/27/435/20/99. Chest x-ray was normal and subsequently, her saturation completely resolved. The patient has not coughed or had any respiratory distress. She is 100% on room air currently. PAST MEDICAL HISTORY: 1. [facility] resident. 2. Diabetes. 3. Hypertension. 4. Hyperlipidemia. 5. CAD. 6. GERD. 7. G-tube. 8. Recent failure to thrive. CURRENT MEDICATIONS: Per EMR. SOCIAL HISTORY: No tobacco, alcohol, or drug use. [facility] resident. FAMILY HISTORY: Noncontributory. REVIEW OF SYSTEMS: Negative other than history of present illness. PHYSICAL EXAMINATION: VITAL SIGNS: Temperature 97.5, pulse 61, blood pressure 110/65, respiratory rate 18, and saturating 100% on room air. GENERAL: Well-developed, well-nourished, elderly female, in no acute distress. Awake, alert, and oriented x3. HEENT: Normocephalic and atraumatic. Oropharynx is clear. Moist mucous membranes. NECK: Supple without lymphadenopathy or JVD. CHEST: Clear to auscultation bilaterally. HEART: Regular rate and rhythm. ABDOMEN: G-tube otherwise soft, nontender and nondistended. EXTREMITIES: No cyanosis, clubbing, or edema. ANCILLARY DATA: Laboratories reviewed. ABG 7.475/27/435/. Chest x-ray within normal limits. On 02/18/2017, duplex was patent bilaterally. ASSESSMENT: The patient is a 71-year-old female with history of diabetes, hypertension, hyperlipidemia, coronary artery disease, gastroesophageal reflux disease, and depression, admitted with failure to thrive, acute kidney injury on chronic kidney disease, [id number] myocardial infarction, decreased by mouth now, status post G-tube, who was noted to be hypoxemic. PaO2 on the blood gas was greater than 450 increased 100% on room air. No respiratory distress with a normal chest x-ray. I suspect that the hypoxemia with an error in the pulse ox reading however the patient has recurrent episodes of hypoxemia. We can work this up further. PROBLEM LIST: 1. Hypoxemia, likely erroneous. 2. Failure to thrive. 3. Acute kidney injury, resolved. 4. Status post gastrostomy tube. 5. Diabetes. 6. Hypertension. 7. Hyperlipidemia. 8. Gastroesophageal reflux disease. 9. Paroxysmal atrial fibrillation. 10. Systemic inflammatory response syndrome, resolved. 11. Urinary tract infection, status post treatment. 12. Multiple pressure ulcers. 13. [facility] resident. TREATMENT PLAN: 1. Optimize pulmonary hygiene/mobilize as tolerated. 2. As needed O2 saturations fall below 90. 3. We will workup patient further if any recurrent episodes of hypoxemia. 4. DVT prophylaxis. 5. Aspiration precautions. 6. Monitor volumes. 7. The patient is being discharged to facility stable from respiratory standpoint. Please call with any questions. Dr. Burch, thank you for allowing me to assist in the care of your patient. Case was discussed with DEJAN Ca. Roby Slaughter M.D. DR: KAREN JOB#: [id number] CC:
--- NOTE | 2017-02-25 10:40 | Diagnostic Imaging Report ---
Indication: Shortness of breath Technique: One view of the chest Comparison: 02/18/2017 Findings: No acute infiltrates, effusions, or congestion. Tortuous calcified aorta. Normal heart size. Upper mediastinum unremarkable. No significant change Impression: No acute process.
--- NOTE | 2017-03-06 07:21 | Discharge Summary ---
Discharge Summary Hospital Course Date of Admission Feb 16, 2017 at 20:23 Date of Discharge Feb 24, 2017 at 17:20 Admitting Diagnosis FAILURE TO THRIVE, HYPERNATREMIA, ACUTE KIDNEY INJ HPI Iram Reilly is a 71 year old female who was admitted on Feb 16, 2017 at 20:23 for Failure To Thrive,Hypernatremia Hospital Course 71y/o female with pmh of DM2, HTN, HLD, CAD, GERD, depression who presents from SNF with failure to thrive. History limited as pt altered. Per SNF report, pt has not been taking her meds.. At SNF, pt noted to be tachycardic and glucose >500. In ED, pt afebrile, tachycardic, BPs wnl. Labs notable for ASHLY w/ SCr 3.3, hypernatremia to 163, glucose 500s. Pt given IVFs, regular insulin 4U IV. Pt also found to have leukocytosis w/ WBC 17K and U/S showing pyuria c/w UTI. Pt was started on started on levaquin. She was admitted for Sepsis, UTI, FTT, hypernatremia, ASHLY and elevated troponin. The patient was septic with elevated white count, SIRS criteria. Workup shows the patient has ESBL, Klebsiella, and E coli urinary tract infection with sepsis. She has bilateral heel-foot wounds that also are possibly infected. X-ray showed no evidence of osteo and the wound culture reveals negative. The patient has a positive urinalysis. Antibiotic was changed to meropenem 1 gram IV q.8 h. Over the course of hospitalization, she received zosyn, levaquin and vanco. The patient's EKG showed ST depression in the inferolateral leads. The patient's troponin was also elevated at 0.064 and a Cardiology consultation was obtained for further evaluation and management. Serial cardiac enzymes were monitored. Patient was assessed to have troponin leak, likely due to renal failure. She remained chest pain free, she was given aspirin,Plavix, metoprolol and Lipitor. She had paroxysmal atrial fibrillation, in SR on monitor. she was given amiodarone, Toprol, aspirin and Plavix. Patient with FTT. ST evaluation noted patient with esophageal dysphagia okay with nectar thick diet for quality of life, but considerations for non-oral feedings for nutrition supplementation. Dr Mcintyre was consulted. She underwent EGD with PEG placement on 02/23/17. Tube feedings were started. She was getting ready to be discharged to SNF, but acutely became hypoxic with saturation of 80% on room air. She was placed on high-flow oxygen. ABG was 7.47/27/435/20/99. Chest x-ray was normal and subsequently, her saturation completely resolved. The patient has not coughed or had any respiratory distress. She is 100% on room air. She came in with pressure sores. Wound care was provided. She was subsequently discharged back to SNF. Assessment/Plan Problem List: (1) Failure to thrive SNOMED: 44033988 Qualifiers: Qualified Codes: R62.7 - Adult failure to thrive (2) Sepsis ICD Codes: A41.9 - Sepsis, unspecified organism SNOMED: 70058672 Qualifiers: Qualified Codes: A41.9 - Sepsis, unspecified organism (3) UTI (urinary tract infection) Assessment & Plan: / GNR ICD Codes: N39.0 - Urinary tract infection, site not specified SNOMED: 92493910 Qualifiers: Qualified Codes: N30.01 - Acute cystitis with hematuria (4) Acute toxic metabolic encephalopathy (5) ASHLY (acute kidney injury) ICD Codes: N17.9 - Acute kidney failure, unspecified SNOMED: 28626662 (6) ATN (acute tubular necrosis) ICD Codes: N17.0 - Acute kidney failure with tubular necrosis SNOMED: 37468156 (7) Hypernatremia ICD Codes: E87.0 - Hyperosmolality and hypernatremia SNOMED: 03945843 (8) Elevated troponin Assessment & Plan: likely in setting of renal insufficiency vs NSTEMI type 2 given sepsis ICD Codes: R74.8 - Abnormal levels of other serum enzymes SNOMED: 481747842, 494115157 (9) CAD (coronary artery disease) ICD Codes: I25.10 - Atherosclerotic heart disease of [place] coronary artery without angina pectoris SNOMED: 91520555 (10) Diabetes mellitus Assessment & Plan: uncontrolled ICD Codes: E11.9 - Type 2 diabetes mellitus without complications SNOMED: 29699755 (11) HTN (hypertension) ICD Codes: I10 - Essential (primary) hypertension SNOMED: 34835531 (12) HLD (hyperlipidemia) ICD Codes: E78.5 - Hyperlipidemia, unspecified SNOMED: 41205615 (13) Depression ICD Codes: F32.9 - Major depressive disorder, single episode, unspecified SNOMED: 36699945 (14) multiple pressure ulcers Assessment & Plan: #1 Sacrococcygeal DTI pressure ulcer #2 Right iliac crest stage III pressure ulcer #3 Left heel unstageable pressure ulcer #4 Right heel unstageable pressure ulcer (15) paroxsymal atrial fibrillation (16) Hypokalemia ICD Codes: E87.6 - Hypokalemia SNOMED: 49833545 (17) Hypophosphatemia ICD Codes: E83.39 - Other disorders of phosphorus metabolism SNOMED: 2260541 (18) Hypomagnesemia ICD Codes: E83.42 - Hypomagnesemia SNOMED: 841188505 --I have been assigned to complete a discahrge summary on this account, I was not involved with the patient management.--Nay Mckinley NP Discharge Discharge Disposition Patient was discharged to SNF/Subacute Facility(03) Discharge Diagnoses: Shaye Mckinley NP Mar 06, 2017 07:21
--- NOTE | 2017-03-12 16:46 | Diagnostic Imaging Report ---
Indications: Dysphagia Technique: Patient ingested multiple substances under the supervision of speech pathology. Video fluoroscopic recording performed. Total fluoroscopy time 205.7 seconds. Total dose area product 0.92090 mGycm2 Comparison: none Findings: Early pooling seen with thin liquid barium and nectar thick liquid barium, with episodes of supraglottic laryngeal penetration. No nori aspiration. With honey thick liquid barium puree barium, early pooling in the vallecula, trace residual, no aspiration or penetration Impression: Positive for penetration of thin liquid barium and nectar thick liquid barium
== END 2017-02-24 17:20 | DRG 871 ==
LOC: EDBD 19:29 → EMR 20:01 → 2W 20:23 → EDBEDREQSVC 21:06 → EDBEDREQ 21:06 → ENRESERV 21:39 → EDBEDREQ 21:43 → 2W 02-17 02:31 → 4E 02-19 17:45
PROC: 0DH63UZ Insertion of Feeding Device into Stomach, Percutaneous Approach (ICD-10-PCS; principal; 2017-02-16)
DX: A41.9 Sepsis, unspecified organism (principal); N17.0 Acute kidney failure with tubular necrosis; L89.150 Pressure ulcer of sacral region, unstageable; L89.213 Pressure ulcer of right hip, stage 3; G92 Toxic encephalopathy; E87.0 Hyperosmolality and hypernatremia; E11.65 Type 2 diabetes mellitus with hyperglycemia; N39.0 Urinary tract infection, site not specified; E83.42 Hypomagnesemia; I48.0 Paroxysmal atrial fibrillation; L89.620 Pressure ulcer of left heel, unstageable; L89.610 Pressure ulcer of right heel, unstageable; E86.0 Dehydration; I10 Essential (primary) hypertension; R62.7 Adult failure to thrive; I25.10 Atherosclerotic heart disease of native coronary artery without angina pectoris; K21.9 Gastro-esophageal reflux disease without esophagitis; F32.9 Major depressive disorder, single episode, unspecified; B96.1 Klebsiella pneumoniae [K. pneumoniae] as the cause of diseases classified elsewhere; Z16.12 Extended spectrum beta lactamase (ESBL) resistance; B96.20 Unspecified Escherichia coli [E. coli] as the cause of diseases classified elsewhere; R74.8 Abnormal levels of other serum enzymes; E83.39 Other disorders of phosphorus metabolism; Z22.322 Carrier or suspected carrier of Methicillin resistant Staphylococcus aureus; R63.0 Anorexia; Z79.02 Long term (current) use of antithrombotics/antiplatelets; K44.9 Diaphragmatic hernia without obstruction or gangrene; K29.40 Chronic atrophic gastritis without bleeding
CPT/HCPCS: 36415; 36600; 71010; 74230; 80048; 80053; 80061; 80202; 81003; 82550; 82607; 82746; 82803; 82962; 82977; 83036; 83690; 83735; 83880; 84100; 84300; 84439; 84443; 84484; 84550; 85025; 85610; 85730; 86140; 86677; 87040; 87070; 87081; 87086; 87181; 87205; 90630; 90732; 93005; 93970; 94003; 94150; 99285; J1815; J8499

== ENCOUNTER 2019-01-22 03:00 | Inpatient (IN) | payer MEDICARE, OTHER ==
[~2019-01-22] VITALS: Ht 157.5 cm; Wt 65.9 kg
[~2019-01-22 03:00] MED LIST: ACETAMINOPHEN325 M1 ORAL; ACIDOPHILUS LA1 EAC1 ORAL; AMBIEN5 MG ORAL; AMIODARONE HCL100 MG ORAL; ASPIRIN81 MG ORAL; ATENOLOL25 MG ORAL; ATIVAN0.5 MG ORAL; ATORVASTATIN CA10 MG ORAL; BACTRIM DS TAB1 EAC1 ORAL; COLACE100 MG ORAL; CULTURELLE1 EACH ORAL; DULCOLAX10 MG RC; GLUCAGON HCL1 MG IJ; LEVEMIR100 UNIT/1 SUBQ; LOPRESSOR25 M1 GT; MEROPENEM1 GM IV; MILK OF MA400 MG/51 ORAL; MIRTAZAPINE15 MG ORAL; MULTIVITAMINS1 EAC8 ORAL; MYLANTA PO; NORCO 5-325 TA1 EACH ORAL; NORVASC5 MG ORAL; NOVOLIN R100 UNIT/1 SUBQ; PLAVIX75 MG ORAL; PROTONIX40 MG ORAL; SENOKOT8.6 MG PO; VENLAFAXINE H37.5 MG ORAL
[2019-01-22] MEDS ORDERED: Morphine Sulfate 2mg/ml Inj(IV/IM USE ONLY) IVP ONE (03:30)
--- NOTE | 2019-01-22 03:37 | Emergency Room Report ---
History of Present Illness General Chief Complaint: Multiple Trauma/Fall Source: EMS Present Illness HPI Patient is a 73-year-old female sent in by rehab facility after increased right upper extremity pain. Patient had an unwitnessed injury. She was noted to have increased pain to the right lower extremity. X-ray imaging showed distal femur fracture. History is markedly limited by patient being a poor historian. Allergies: Coded Allergies: No Known Allergies (Unverified , 02/16/17) Patient History Last Menstrual Period: na Reviewed Nursing Documentation: PMH: Agreed; PSxH: Agreed Nursing Documentation-PMH Hx Cardiac Problems: Yes - Afib Hx Hypertension: Yes Hx Diabetes: Yes Hx Cancer: No Hx Gastrointestinal Problems: No Hx Neurological Problems: No Review of Systems All Other Systems: negative except mentioned in HPI Physical Exam Vital Signs Date Time Temp Pulse Resp B/P (MAP) Pulse Ox O2 Delivery O2 Flow Rate FiO2 01/22/19 03:12 98.4 78 16 141/65 (90) 96 Room Air Sp02 EP Interpretation: reviewed, normal General Appearance: normal inspection, alert, Chronically Ill Head: atraumatic ENT: normal ENT inspection, hearing grossly normal, normal voice Neck: normal inspection, full range of motion, supple, no bony tend Respiratory: normal inspection, lungs clear, normal breath sounds, no respiratory distress, no retraction, no wheezing Cardiovascular #1: regular rate, rhythm, no edema Gastrointestinal: normal inspection, normal bowel sounds, non tender, soft, no guarding, no hernia Genitourinary: no CVA tenderness Musculoskeletal: back normal, decreased range of motion - right lower extremity Neurologic: normal inspection, alert, responsive, speech normal Psychiatric: anxious Medical Decision Making Diagnostic Impression: Primary Impression: Fall Additional Impressions: Closed fracture of right distal femur Psychosis ER Course Patient differential diagnosis include was not limited to fracture, dislocation , contusion among others. X-ray imaging of the right femur showed a distal femoral fracture which appears to be acute. Patient was placed in a posterior splint. CT imaging was ordered of the head as well as to the pelvis due to patient's unclear mechanism of injury. EKG interpreted by me showed normal sinus rhythm with a rate of [address] or T wave changes. CT of the head read by radiology showed no evidence of acute intracranial hemorrhage. See radiology report for full details. Pelvis CT showed no evidence of acute fracture as well as a large amount of retained stool. See radiology report for full details. Patient was discussed with Dr. Williamson for [facility] and patient will be admitted for further evaluation and treatment fracture. Labs Test 01/22/19 03:30 White Blood Count 9.6 K/UL (4.8-10.8) Red Blood Count 3.56 M/UL (4.20-5.40) Hemoglobin 11.5 G/DL (12.0-16.0) Hematocrit 33.8 % (37.0-47.0) Mean Corpuscular Volume 95 FL (80-99) Mean Corpuscular Hemoglobin 32.2 PG (27.0-31.0) Mean Corpuscular Hemoglobin Concent 33.9 G/DL (32.0-36.0) Red Cell Distribution Width 12.3 % (11.6-14.8) Platelet Count 222 K/UL (150-450) Mean Platelet Volume 6.9 FL (6.5-10.1) Neutrophils (%) (Auto) 75.7 % (45.0-75.0) Lymphocytes (%) (Auto) 17.4 % (20.0-45.0) Monocytes (%) (Auto) 5.8 % (1.0-10.0) Eosinophils (%) (Auto) 0.1 % (0.0-3.0) Basophils (%) (Auto) 1.0 % (0.0-2.0) Prothrombin Time 10.5 SEC (9.30-11.50) Prothromb Time International Ratio 1.0 (0.9-1.1) Activated Partial Thromboplast Time 26 SEC (23-33) Sodium Level 137 MMOL/L (136-145) Potassium Level 4.5 MMOL/L (3.5-5.1) Chloride Level 101 MMOL/L (98-107) Carbon Dioxide Level 28 MMOL/L (21-32) Anion Gap 9 mmol/L (5-15) Blood Urea Nitrogen 27 mg/dL (7-18) Creatinine 1.1 MG/DL (0.55-1.30) Estimat Glomerular Filtration Rate mL/min (>60) Glucose Level 231 MG/DL (74-106) Calcium Level 9.0 MG/DL (8.5-10.1) Total Bilirubin 0.5 MG/DL (0.2-1.0) Aspartate Amino Transf (AST/SGOT) 15 U/L (15-37) Alanine Aminotransferase (ALT/SGPT) 23 U/L (12-78) Alkaline Phosphatase 90 U/L (46-116) Troponin I 0.000 ng/mL (0.000-0.056) Total Protein 8.7 G/DL (6.4-8.2) Albumin 3.9 G/DL (3.4-5.0) Globulin 4.8 g/dL Albumin/Globulin Ratio 0.8 (1.0-2.7) Thyroid Stimulating Hormone (TSH) 3.426 uiU/mL (0.358-3.740) Valproic Acid (Depakene) Level 20 MCG/ML (50-100) Last Vital Signs Date Time Temp Pulse Resp B/P (MAP) Pulse Ox O2 Delivery O2 Flow Rate FiO2 01/22/19 03:12 98.4 78 16 141/65 (90) 96 Room Air Status: unchanged Disposition: ADMITTED INPATIENT Condition: Stable Roly Branham MD Jan 22, 2019 03:37
[2019-01-22] MEDS ORDERED: DEPAKOTE125 MG PO (03:48)
[2019-01-22] MEDS ORDERED: FERROUS SU220 MG/53 PO (03:49)
[2019-01-22] MEDS ORDERED: FOLIC ACID1 MG ORAL (03:50)
[2019-01-22] MEDS ORDERED: GABAPENTIN100 MG ORAL (03:51)
[2019-01-22] MEDS ORDERED: HYDRALAZINE HCL25 M1 ORAL (03:51)
[2019-01-22] MEDS ORDERED: ATORVASTATIN CA10 MG ORAL (03:52)
[2019-01-22] MEDS ORDERED: METFORMIN HCL1000 M1 ORAL (03:53)
[2019-01-22] MEDS ORDERED: NAPROXEN250 M1 PO (03:53)
[2019-01-22 03:54] LABS: EOSINOPHILS % (AUTO) 0.1 % (0.0-3.0); HEMATOCRIT 33.8 % (37.0-47.0); HEMOGLOBIN 11.5 G/DL (12.0-16.0); LYMPHOCYTES % (AUTO) 17.4 % (20.0-45.0); MEAN CORPUSCULAR VOLUME 95 FL (80-99); MONOCYTES % (AUTO) 5.8 % (1.0-10.0); NEUTROPHILS % (AUTO) 75.7 % (45.0-75.0); PLATELET COUNT 222 K/UL (150-450); RED BLOOD COUNT 3.56 M/UL (4.20-5.40); RED CELL DISTRIBUTION WIDTH 12.3 % (11.6-14.8); WHITE BLOOD COUNT 9.6 K/UL (4.8-10.8)
[2019-01-22] MEDS ORDERED: ZANTAC150 MG ORAL (03:54)
[2019-01-22] MEDS ORDERED: SYNTHROID137 MCG ORAL (03:55)
[2019-01-22] MEDS ORDERED: UTI-STAT L3875 MG/31 PO (03:56)
[2019-01-22] MEDS ORDERED: VITAMIN C250 MG ORAL (03:57)
[2019-01-22] MEDS ORDERED: OSTERA TABLET1 EACH PO (03:59)
[2019-01-22] MEDS ORDERED: ZOFRAN ODT8 MG ORAL (04:00)
[2019-01-22 04:16] LABS: ANION GAP 9 mmol/L (5-15); BLOOD UREA NITROGEN 27 mg/dL (7-18); CARBON DIOXIDE 28 MMOL/L (21-32); CHLORIDE 101 MMOL/L (98-107); CREATININE 1.1 MG/DL (0.55-1.30); POTASSIUM 4.5 MMOL/L (3.5-5.1); SODIUM 137 MMOL/L (136-145)
[2019-01-22 04:19] VITALS: BP 141/65
[2019-01-22 04:27] LABS: ALANINE AMINOTRANSFERASE 23 U/L (12-78); ALBUMIN 3.9 G/DL (3.4-5.0); ALBUMIN/GLOBULIN RATIO 0.8 (1.0-2.7); ALKALINE PHOSPHATASE 90 U/L (46-116); ASPARTATE AMINO TRANSFERASE 15 U/L (15-37); BILIRUBIN,TOTAL 0.5 MG/DL (0.2-1.0)
[2019-01-22] MEDS ORDERED: Albuterol/Ipratropium 3ml neb HHN PRN (05:30)
[2019-01-22 05:32] VITALS: BP 130/66
--- NOTE | 2019-01-22 05:33 | Diagnostic Imaging Report ---
EXAM: XR Right Femur, 2 Views CLINICAL HISTORY: PAIN TECHNIQUE: Frontal and lateral views of the right femur. COMPARISON: none FINDINGS: Bones joints: Single view right femur shows a fracture of the distal right femur with foreshortening of the femoral shaft. Evaluation limited by lack of orthogonal view. Bones are osteopenic and mild valgus deformity to the right knee joint is evident. Incidental vascular stent in the distal right femoral artery. No dislocation. Soft tissues: Unremarkable. IMPRESSION: Partially imaged acute fracture of the distal right femur with foreshortening and valgus angulation in the setting of osteopenia.
--- NOTE | 2019-01-22 05:34 | History and Physical ---
History of Present Illness General Date patient seen: Jan 22, 2019 Reason for Hospitalization: Multiple Trauma/Fall Present Illness HPI 71 year old female with pmh of DM2, HTN, HLD, CAD, GERD, depression, adult failure to thrive s/p peg who presents from rehab of [facility] s/p unwitnessed fall. She was noted to have increased pain to the right lower extremity. X- ray imaging showed distal femur fracture. History is limited as patient is a poor historian. History obtained is via records and from ED attending Dr. Branham. Patient is reportedly only oriented to self at baseline. In the ED, X-ray imaging of the right femur showed a distal femoral fracture which appears to be acute. Patient was placed in a posterior splint. CT imaging was ordered of the head as well as to the pelvis due to patient's unclear mechanism of injury. EKG tracing done and interpreted by me showed normal sinus rhythm at 71 bmp, no acute ST-T changes. Past Medical/Surgical History: (1) CAD (coronary artery disease) (2) HTN (hypertension) (3) HLD (hyperlipidemia) (4) GERD (gastroesophageal reflux disease) (5) Depression (6) Diabetes mellitus Family History: Patient reports no known family medical history. however only oriented to self Social History: (1) lives at [facility] Allergies: Coded Allergies: No Known Allergies (Unverified , 02/16/17) Medication History Scheduled Amiodarone Hcl (Amiodarone Hcl), 100 MG ORAL DAILY, (Reported) Amlodipine Besylate (Norvasc), 5 MG ORAL DAILY, (Reported) Ascorbic Acid* (Vitamin C*), 5 ML ORAL DAILY, (Reported) Aspirin* (Aspirin*), 81 MG ORAL DAILY, (Reported) Atorvastatin Calcium* (Lipitor*), 10 MG ORAL BEDTIME, (Reported) Atorvastatin Calcium* (Lipitor*), 10 MG ORAL BEDTIME, (Reported) Cran/Vitc/Mannose/Inulin/Brom (Uti-Stat Liquid), 30 ML PO DAILY, (Reported) Docusate Sodium* (Colace*), 100 MG ORAL TWICE A DAY, (Reported) Folic Acid* (Folic Acid*), 1 MG ORAL DAILY, (Reported) Gabapentin* (Gabapentin*), 250 MG ORAL BID, (Reported) Hydralazine Hcl* (Hydralazine Hcl*), 25 MG ORAL EVERY 8 HOURS, (Reported) Insulin Detemir (Levemir), 34 SUBQ BEDTIME, (Reported) Insulin Regular, Human* (Novolin R*), 0 SUBQ .SLIDING SCALE, (Reported) Levothyroxine Sodium (Synthroid), 162 MCG ORAL DAILY, (Reported) Magnesium Hydroxide* (Milk Of Magnesia*), 30 ML ORAL DAILY, (Reported) Metformin Hcl* (Metformin Hcl*), 1,000 MG ORAL BID, (Reported) Metoprolol Tartrate (Metoprolol Tartrate), 12.5 MG GT Q12HR Multivitamin With Minerals (Multivitamins With Minerals*), 1 TAB ORAL DAILY, ( Reported) Naproxen (Naproxen), 250 MG PO BID, (Reported) Ranitidine Hcl* (Zantac*), 150 MG ORAL BID, (Reported) Sennosides (Senokot), 8.6 MG PO BEDTIME, (Reported) Venlafaxine Hcl* (Effexor*), 37.5 MG ORAL DAILY, (Reported) Vit D3 & K/Berberine Hcl/Hops (Ostera Tablet), 2,000 UNITS PO DAILY, (Reported) [Mylanta], 20 ML PO EVERY 4 HOURS, (Reported) Scheduled PRN Acetaminophen* (Acetaminophen 325MG Tablet*), 650 MG ORAL Q4H PRN for Mild Pain (Pain Scale 1-3), (Reported) Bisacodyl (Dulcolax), 10 MG RC DAILY PRN for Constipation, (Reported) Glucagon HCl (Glucagon HCl), 1 MG IJ q 24 hours PRN for bs<60, (Reported) Hydrocodone Bit/Acetaminophen 5-325* ([place] 5-325*), 1 TAB ORAL DAILY PRN for For Pain, (Reported) Ondansetron Odt* (Zofran Odt*), 8 MG ORAL Q6H PRN for Nausea & Vomiting, ( Reported) Miscellaneous Medications Divalproex Sodium (Depakote), 125 MG PO, (Reported) Ferrous Sulfate (Ferrous Sulfate), 220 MG PO, (Reported) Discontinued Medications Clopidogrel Bisulfate* (Plavix*), 75 MG ORAL DAILY, (Reported) Discontinued Reason: Pt had allergic rxn Insulin Regular, Human* (Novolin R*), 7 SUBQ AC MEALS, (Reported) Discontinued Reason: Pt had allergic rxn Lactobacillus Acidophilus (Acidophilus Lactobacillus), 1 TAB ORAL BID, (Reported ) Discontinued Reason: Pt had allergic rxn Lactobacillus Rhamnosus Gg* (Culturelle*), 1 TAB ORAL TWICE A DAY Discontinued Reason: Pt had allergic rxn Lorazepam* (Ativan*), 0.5 MG ORAL EVERY 6 HOURS PRN for For Anxiety, (Reported) Discontinued Reason: Pt had allergic rxn Meropenem (Meropenem), 1 GM IV Q12HR Discontinued Reason: Pt had allergic rxn Mirtazapine* (Remeron*), 7.5 MG ORAL BEDTIME, (Reported) Discontinued Reason: Pt had allergic rxn Pantoprazole* (Protonix*), 40 MG ORAL DAILY, (Reported) Discontinued Reason: Pt had allergic rxn Trimethoprim/Sulfamethoxazole 160/800* (Bactrim Ds Tablet*), 1 TAB ORAL Q12H Discontinued Reason: Pt had allergic rxn Zolpidem Tartrate* (Ambien*), 5 MG ORAL BEDTIME PRN for Insomnia, (Reported) Discontinued Reason: Pt had allergic rxn Patient History Healthcare decision maker Resuscitation status Advanced Directive on File Family History Family History: Patient reports no known family medical history. Review of Systems ROS Narrative unable to obtain due to poor mental status and historian Physical Exam Physical Exam Narrative General: alert, cooperative, no distress, appears stated age, A&Ox1 Head: normocephalic, without obvious abnormality, atraumatic Eyes: conjunctivae/corneas clear. PERRL, EOM's intact Throat: lips, mucosa, and tongue normal. MMM, poor dentition Neck: supple, symmetrical, trachea midline, and no JVD Lungs: clear to auscultation bilaterally Heart: regular rate and rhythm, S1, S2 normal, no murmur, click, rub or gallop Abdomen: soft, non-tender, non-distended, bowel sounds normal; no masses or organomegaly Extremities: extremities normal, atraumatic, no cyanosis or edema, moves all extremitas, pain with palpation of RLE Pulses: 2+ and symmetric Skin: skin color, texture, turgor normal; +pressure ulcers b/l heels Neurologic: grossly normal, no focal deficits, A&Ox1 Last 24 Hour Vital Signs Date Time Temp Pulse Resp B/P (MAP) Pulse Ox O2 Delivery O2 Flow Rate FiO2 01/22/19 05:32 98.4 74 16 130/66 98 Room Air 01/22/19 04:41 98.4 01/22/19 04:19 78 16 Room Air 01/22/19 04:19 98.4 76 16 141/65 96 Room Air 01/22/19 03:12 98.4 78 16 141/65 (90) 96 Room Air Laboratory Tests Test 01/22/19 03:30 White Blood Count 9.6 K/UL (4.8-10.8) Red Blood Count 3.56 M/UL (4.20-5.40) L Hemoglobin 11.5 G/DL (12.0-16.0) L Hematocrit 33.8 % (37.0-47.0) L Mean Corpuscular Volume 95 FL (80-99) Mean Corpuscular Hemoglobin 32.2 PG (27.0-31.0) H Mean Corpuscular Hemoglobin Concent 33.9 G/DL (32.0-36.0) Red Cell Distribution Width 12.3 % (11.6-14.8) Platelet Count 222 K/UL (150-450) Mean Platelet Volume 6.9 FL (6.5-10.1) Neutrophils (%) (Auto) 75.7 % (45.0-75.0) H Lymphocytes (%) (Auto) 17.4 % (20.0-45.0) L Monocytes (%) (Auto) 5.8 % (1.0-10.0) Eosinophils (%) (Auto) 0.1 % (0.0-3.0) Basophils (%) (Auto) 1.0 % (0.0-2.0) Prothrombin Time 10.5 SEC (9.30-11.50) Prothromb Time International Ratio 1.0 (0.9-1.1) Activated Partial Thromboplast Time 26 SEC (23-33) Sodium Level 137 MMOL/L (136-145) Potassium Level 4.5 MMOL/L (3.5-5.1) Chloride Level 101 MMOL/L (98-107) Carbon Dioxide Level 28 MMOL/L (21-32) Anion Gap 9 mmol/L (5-15) Blood Urea Nitrogen 27 mg/dL (7-18) H Creatinine 1.1 MG/DL (0.55-1.30) Estimat Glomerular Filtration Rate mL/min (>60) Glucose Level 231 MG/DL (74-106) H Calcium Level 9.0 MG/DL (8.5-10.1) Total Bilirubin 0.5 MG/DL (0.2-1.0) Aspartate Amino Transf (AST/SGOT) 15 U/L (15-37) Alanine Aminotransferase (ALT/SGPT) 23 U/L (12-78) Alkaline Phosphatase 90 U/L (46-116) Troponin I 0.000 ng/mL (0.000-0.056) Total Protein 8.7 G/DL (6.4-8.2) H Albumin 3.9 G/DL (3.4-5.0) Globulin 4.8 g/dL Albumin/Globulin Ratio 0.8 (1.0-2.7) L Thyroid Stimulating Hormone (TSH) 3.426 uiU/mL (0.358-3.740) Valproic Acid (Depakene) Level 20 MCG/ML (50-100) L Height (Feet): 5 Height (Inches): 8.00 Weight (Pounds): 140 Assessment/Plan Problem List: (1) Closed fracture of right distal femur ICD Codes: S72.401A - Unspecified fracture of lower end of right femur, initial encounter for closed fracture SNOMED: 416146205, 883574018 (2) Fall ICD Codes: W19.XXXA - Unspecified fall, initial encounter SNOMED: 0862132, 395726829 (3) paroxsymal atrial fibrillation (4) Psychosis ICD Codes: F29 - Unspecified psychosis not due to a substance or known physiological condition SNOMED: 37532855 (5) CAD (coronary artery disease) ICD Codes: I25.10 - Atherosclerotic heart disease of [place] coronary artery without angina pectoris SNOMED: 30407993 (6) GERD (gastroesophageal reflux disease) ICD Codes: K21.9 - Gastro-esophageal reflux disease without esophagitis SNOMED: 559174678 (7) HTN (hypertension) ICD Codes: I10 - Essential (primary) hypertension SNOMED: 35577287 (8) HLD (hyperlipidemia) ICD Codes: E78.5 - Hyperlipidemia, unspecified SNOMED: 65616506 (9) Diabetes mellitus ICD Codes: E11.9 - Type 2 diabetes mellitus without complications SNOMED: 90574673 (10) Depression ICD Codes: F32.9 - Major depressive disorder, single episode, unspecified SNOMED: 13092283 (11) multiple pressure ulcers (12) Dehydration ICD Codes: E86.0 - Dehydration SNOMED: 36999781 Status: stable Assessment/Plan: Admit to telemetry CT pelvis, CT head Orthopedic consult Dr Klarissa THOMPSON hydration Psychiatry consult Dr. Fraga- low Valproic acid levels. Increase dose resume prior to admission home meds. Amiodarone, depakote, Effexor, Gabapentin, insulin per protocol, lipitor, amlodipine, Norvasc, synthroid. hold metformin DVT Prophylaxis: SCD, HSQ on hold pending CT head and ortho eval Diet: feeds via PEG Code Status: Full code- POLS reviewed Hospital Classification Declaration: Based on this initial evaluation, and depending on the patient's clinical course, I anticipate that this patient will require hospitalization for 2-3 days pending orthopedic evaluation. Disposition: Once the patient is stable to leave the hospital, I anticipate the patient will likely be discharged to the following environment: back to [facility] rehab of [facility] I spent 70 minutes on this patient's case, and 39 minutes were dedicated to counseling and/or care coordination. Discussed with patient/family, nursing staff, SW/WEI, ED physician, Orthopedic physician Dr. Ca regarding clinical status, treatment course, and disposition planning. Time of note may not reflect time of encounter. Luis Eduardo Williamson M.D. Jan 22, 2019 05:34
[2019-01-22] MEDS ORDERED: HYDROcodone/Acetamin 5/325 tab ORAL PRN (05:45)
[2019-01-22] MEDS ORDERED: Ondansetron ODT 8mg tab ORAL PRN (05:45)
--- NOTE | 2019-01-22 05:57 | Diagnostic Imaging Report ---
EXAM: CT Head Without Intravenous Contrast CLINICAL HISTORY: PAIN TECHNIQUE: Axial computed tomography images of the head brain without intravenous contrast. CTDI is 62.7 mGy and DLP is 1520.4 mGy-cm. One or more of the following dose reduction techniques were used: automated exposure control, adjustment of the mA and or kV according to patient size, use of iterative reconstruction technique. COMPARISON: none FINDINGS: Brain: Chronic left temporal lobe infarct with involvement of the left occipital lobe as well is present. This is noted in the setting of generalized parenchymal volume loss and white matter low-density compatible with chronic ischemic microvascular change. No acute intracranial hemorrhage, acute infarct, or intracranial mass effect is evident. Ventricles: Unremarkable. No ventriculomegaly. Bones joints: Unremarkable. No acute fracture. Soft tissues: Unremarkable. Sinuses: Unremarkable as visualized. No acute sinusitis. Mastoid air cells: Unremarkable as visualized. No mastoid effusion. IMPRESSION: Chronic left temporal occipital infarct. No acute intracranial pathology.
[2019-01-22 06:30] VITALS: BP 111/46
[2019-01-22] MEDS: NovoLOG Insulin Flexpen SUBQ SCH ×5 (06:30→22:00)
--- NOTE | 2019-01-22 07:16 | Diagnostic Imaging Report ---
EXAM: CT Pelvis Without Intravenous Contrast CLINICAL HISTORY: FALL TECHNIQUE: Axial computed tomography images of the pelvis without intravenous contrast. CTDI is 21.4 mGy and DLP is 747.7 mGy-cm. One or more of the following dose reduction techniques were used: automated exposure control, adjustment of the mA and or kV according to patient size, use of iterative reconstruction technique. COMPARISON: Right femur x-rays of the same day. FINDINGS: Bowel: There is partial evacuation of fecal debris with residual rectal distention to a transverse diameter of 8.7 cm of fecal contents. No mucosal thickening. Appendix: No findings to suggest acute appendicitis. Intraperitoneal space: Unremarkable. No free air. No significant fluid collection. Bladder: Unremarkable. No stones. Reproductive: Unremarkable as visualized. Bones joints: Bilateral chronic and since healed L5 fractures with associated grade 1-2 anterolisthesis of L5 on S1. No dislocation. Soft tissues: Unremarkable. Vasculature: Unremarkable. No lower abdominal aortic aneurysm. Lymph nodes: Unremarkable. No enlarged lymph nodes. IMPRESSION: Osteopenia with no evidence of an acute hip fracture or dislocation or of pelvic fracture. The patient's previously described distal right femoral fracture is not included [id number] on this exam.
[2019-01-22] MEDS: Depakote 125mg Sprinkles ORAL SCH ×2 (08:57→21:33)
[2019-01-22] MEDS: HYDROcodone/Acetamin 5/325 tab ORAL PRN ×3 (08:59→21:59)
[2019-01-22] MEDS ORDERED: Amiodarone 200mg tab ORAL SCH (09:00)
[2019-01-22] MEDS: Gabapentin 300 MG/6 ML Soln ORAL SCH ×2 (09:00→18:08)
[2019-01-22] MEDS: Docusate 100mg cap ORAL SCH ×2 (09:00→18:08)
[2019-01-22] MEDS ORDERED: Metoprolol Tartrate 12.5mg TAB GT SCH (09:00)
[2019-01-22] MEDS: Multivitamin w/Minerals tab ORAL SCH (09:00)
[2019-01-22] MEDS: Venlafaxine XR 37.5mg cap ORAL SCH (09:09)
--- NOTE | 2019-01-22 15:11 | Consultation ---
Consult Note Consult Note Patient seen/evaluated. rigth distal spiral femur fracture. Patient is non-ambulatory in wheel chair. Will require ORIF of the right femur for bed to wheel chair transfers and for comfort during [facility] activities. Will require medical clearance including 2D echo. Discussed my findings and surgery with Yisel, patient daughter at [phone] and risk and benefits were discussed. Will proceed once clearance obtained and she is optimized, most likely on Thursday. thank you Avelino Ca MD Jan 22, 2019 15:11
[2019-01-22 20:00] VITALS: BP 126/66
--- NOTE | 2019-01-22 20:15 | Consultation ---
DATE OF CONSULTATION: 01/22/2019 ORTHOPEDIC CONSULTATION CONSULTING PHYSICIAN: Avelino Ca M.D. REQUESTING PHYSICIAN: Napoleon Stubbs M.D. REASON FOR CONSULTATION: Right distal third spiral femur fracture. BRIEF HISTORY: The patient is a pleasant 73-year-old care home resident, who is wheelchair-bound, who sustained an unwitnessed fall while at the facility. She was at [facility] and apparently she had fell and was complaining about right-sided leg pain. The patient has significant comorbidities including type 2 diabetes, hypertension, hyperlipidemia, coronary artery disease, gastroesophageal reflux disease, and depression as well as failure to thrive, status post PEG placement, who presents from Rehab of [facility] with the above diagnosis. She was evaluated in the ER and x-rays were obtained. A distal third spiral femur fracture was noted in the supracondylar region. Orthopedic consultation was obtained. A CT of the pelvis was obtained. There was no femur fracture or pelvic fracture. PAST MEDICAL HISTORY: As above. PAST SURGICAL HISTORY: None available. MEDICATIONS: Please see chart. ALLERGIES: No known drug allergies. SOCIAL HISTORY: She lives at the [facility] facility. She does not ambulate. She is wheelchair-bound. REVIEW OF SYSTEMS: Noncontributory. She has a daughter by the name of Yisel Orosco at [phone] and 's phone number is [phone]. PHYSICAL EXAMINATION: GENERAL: Examination of the patient today reveals she is a pleasant lady, cooperative with examination. EXTREMITIES: She has a distal third up to mid calf splint in place. She does not complain about pain in her leg at this point. She is able to wiggle her toes; however, her leg is internally rotated distally. NEUROLOGIC: This lady is frail and she is unable to follow command. Neurological examination cannot be done secondary to inability of the patient to answer questions. X-RAYS AND MRI: X-ray of the right femur was reviewed. There is a distal third spiral femur fracture. CT of the pelvis reviewed. There were no abnormal fractures that are noted. IMPRESSION: Right distal third spiral femur fracture in a 73-year-old female. DISCUSSION: At this time, I had a discussion with the patient's daughter, Yisel, at the phone numbers that are provided in the social history. I went over the nature of the problem. Although she is not ambulatory, to control her pain and to aid with her getting out of chair into a bed as well as for [facility] care, I recommend proceeding with open reduction and internal fixation of right femur. Risks, benefits, and complications of surgery were fully discussed. The risks of infection, bleeding, neurovascular complication, possibility of malunion, possibility of nonunion, possibility of hardware failure, possibility of need for further surgery, and possibility of other complication including was discussed. I explained to her that we will get her medically optimized prior to proceeding with surgery. I will defer that to the Internal Medicine physician. We will make her NPO past midnight the night before surgery and give her some IV fluids. We will put her in a knee immobilizer for comfort until surgery. Avelino Ca M.D. DR: Dion JOB#: [id number] CC:
[2019-01-22] MEDS: Levemir Flexpen SUBQ SCH ×2 (21:00→22:01)
[2019-01-22] MEDS ORDERED: Sennosides 8.6mg tab ORAL SCH (21:00)
[2019-01-22] MEDS ORDERED: Metoprolol Tartrate 12.5mg TAB ORAL SCH (21:00)
[2019-01-23] VITALS (7 sets, daily range): BP systolic 107–131; BP diastolic 49–80
[2019-01-23] MEDS: HYDROcodone/Acetamin 5/325 tab ORAL PRN (06:37)
[2019-01-23] MEDS: NovoLOG Insulin Flexpen SUBQ SCH ×4 (06:38→20:40)
[2019-01-23] MEDS ORDERED: HYDROcodone/Acetamin 10/325 tab ORAL PRN (07:30)
[2019-01-23] MEDS ORDERED: Amiodarone 200mg tab GT SCH (09:00)
[2019-01-23] MEDS ORDERED: Metoprolol Tartrate 12.5mg TAB GT SCH (09:00)
[2019-01-23] MEDS ORDERED: Heparin 5000 units/ml inj SUBQ SCH (09:00)
[2019-01-23] MEDS ORDERED: Docusate 100mg/10ml Liq GT SCH (09:00)
[2019-01-23] MEDS ORDERED: Gabapentin 300 MG/6 ML Soln GT SCH (09:00)
[2019-01-23] MEDS ORDERED: Depakote 125mg Sprinkles GT SCH (09:00)
--- NOTE | 2019-01-23 09:07 | General Progress Note ---
Assessment/Plan Problem List: (1) Closed fracture of right distal femur ICD Codes: S72.401A - Unspecified fracture of lower end of right femur, initial encounter for closed fracture SNOMED: 153926166, 830750542 (2) Fall ICD Codes: W19.XXXA - Unspecified fall, initial encounter SNOMED: 6289253, 936734970 (3) paroxsymal atrial fibrillation (4) Psychosis ICD Codes: F29 - Unspecified psychosis not due to a substance or known physiological condition SNOMED: 41479673 (5) CAD (coronary artery disease) ICD Codes: I25.10 - Atherosclerotic heart disease of [place] coronary artery without angina pectoris SNOMED: 40394179 (6) GERD (gastroesophageal reflux disease) ICD Codes: K21.9 - Gastro-esophageal reflux disease without esophagitis SNOMED: 093192037 (7) HTN (hypertension) ICD Codes: I10 - Essential (primary) hypertension SNOMED: 52423582 (8) HLD (hyperlipidemia) ICD Codes: E78.5 - Hyperlipidemia, unspecified SNOMED: 65286201 (9) Diabetes mellitus ICD Codes: E11.9 - Type 2 diabetes mellitus without complications SNOMED: 67964149 (10) Depression ICD Codes: F32.9 - Major depressive disorder, single episode, unspecified SNOMED: 65778954 (11) multiple pressure ulcers (12) Dehydration ICD Codes: E86.0 - Dehydration SNOMED: 14360141 Status: stable Assessment/Plan: Admit to telemetry --> step down XR right femure dital fracture CT pelvis negative for fracture , CT head negative Orthopedic consult Dr Klarissa carreon, for OR on Thursday 01/25. pending echocardiogram, medical pre-op by hi IV hydration, monitor BUN Pain control turn q2hr to avoid pressure ulcer Cardiac: CAD, Paroxysmal Afib, HTN, HLD Continue Amiodarone 100 mg daily, Metoprolol 12.5 mg BID, Amlodipine 5 mg daily , Atorvastatin 10mg qhs. Hold ASA- upcoming ORIF. Will consider adding ACEi/ARB on discharge Endocrine: Hypothyroidism and DM II- controlled Continue Synthroid 150 daily, Insulin Levemir 20 mg QHS, sliding scale, hold metformin Psych: Depression and anxiety continue valproic acid, Effexor. Psychiatry consult Dr. Fraga- low Valproic acid levels. Increase dose DVT Prophylaxis: SCD, HSQ Diet: feeds via PEG Code Status: Full code- POLS reviewed Hospital Classification Declaration: Based on this initial evaluation, and depending on the patient's clinical course, I anticipate that this patient will require hospitalization for 4-5 days, going to OR on 01/25 for right femur ORIF Disposition: Once the patient is stable to leave the hospital, I anticipate the patient will likely be discharged to the following environment: back to [facility] rehab of [facility] I spent 40 minutes on this patient's case, and 20 minutes were dedicated to counseling and/or care coordination. Discussed with patient/family, nursing staff, SW/CM, ED physician, Orthopedic physician Dr. Ca regarding clinical status, treatment course, and disposition planning. Time of note may not reflect time of encounter. Subjective Date patient seen: Jan 23, 2019 ROS Limited/Unobtainable: Yes Allergies: Coded Allergies: No Known Allergies (Unverified , 02/16/17) Subjective No acute overnight events. Patient unreliable historian, unable to obtain ROS, seen by orthopedic surgery. Plan for ORIF right femur possible on 01/25. Asked for pre-op optimization. Objective Last 24 Hour Vital Signs Date Time Temp Pulse Resp B/P (MAP) Pulse Ox O2 Delivery O2 Flow Rate FiO2 01/23/19 07:07 98.2 01/23/19 04:00 98.2 67 18 107/76 (86) 95 01/23/19 04:00 67 01/23/19 00:00 68 01/23/19 00:00 97.8 73 18 121/49 (73) 97 01/22/19 21:33 80 126/66 01/22/19 21:00 Room Air 01/22/19 20:00 98.2 80 18 126/66 (86) 95 01/22/19 20:00 78 01/22/19 16:00 72 01/22/19 12:00 67 Intake and Output 01/22/19 01/23/19 18:59 06:59 Intake Total 2071.67 ml Balance 2071.67 ml Intake Free Water 500 ml IV Total 1171.67 ml Tube Feeding 400 ml # Voids 2 1 Labs Test 01/22/19 03:30 White Blood Count 9.6 K/UL (4.8-10.8) Red Blood Count 3.56 M/UL (4.20-5.40) Hemoglobin 11.5 G/DL (12.0-16.0) Hematocrit 33.8 % (37.0-47.0) Mean Corpuscular Volume 95 FL (80-99) Mean Corpuscular Hemoglobin 32.2 PG (27.0-31.0) Mean Corpuscular Hemoglobin Concent 33.9 G/DL (32.0-36.0) Red Cell Distribution Width 12.3 % (11.6-14.8) Platelet Count 222 K/UL (150-450) Mean Platelet Volume 6.9 FL (6.5-10.1) Neutrophils (%) (Auto) 75.7 % (45.0-75.0) Lymphocytes (%) (Auto) 17.4 % (20.0-45.0) Monocytes (%) (Auto) 5.8 % (1.0-10.0) Eosinophils (%) (Auto) 0.1 % (0.0-3.0) Basophils (%) (Auto) 1.0 % (0.0-2.0) Prothrombin Time 10.5 SEC (9.30-11.50) Prothromb Time International Ratio 1.0 (0.9-1.1) Activated Partial Thromboplast Time 26 SEC (23-33) Sodium Level 137 MMOL/L (136-145) Potassium Level 4.5 MMOL/L (3.5-5.1) Chloride Level 101 MMOL/L (98-107) Carbon Dioxide Level 28 MMOL/L (21-32) Anion Gap 9 mmol/L (5-15) Blood Urea Nitrogen 27 mg/dL (7-18) Creatinine 1.1 MG/DL (0.55-1.30) Estimat Glomerular Filtration Rate mL/min (>60) Glucose Level 231 MG/DL (74-106) Hemoglobin A1c 5.9 % (4.3-6.0) Calcium Level 9.0 MG/DL (8.5-10.1) Total Bilirubin 0.5 MG/DL (0.2-1.0) Aspartate Amino Transf (AST/SGOT) 15 U/L (15-37) Alanine Aminotransferase (ALT/SGPT) 23 U/L (12-78) Alkaline Phosphatase 90 U/L (46-116) Troponin I 0.000 ng/mL (0.000-0.056) Total Protein 8.7 G/DL (6.4-8.2) Albumin 3.9 G/DL (3.4-5.0) Globulin 4.8 g/dL Albumin/Globulin Ratio 0.8 (1.0-2.7) Thyroid Stimulating Hormone (TSH) 3.426 uiU/mL (0.358-3.740) Valproic Acid (Depakene) Level 20 MCG/ML (50-100) Height (Feet): 5 Height (Inches): 2.00 Weight (Pounds): 140 Objective General: alert, cooperative, no distress, appears stated age, A&Ox1 Head: normocephalic, without obvious abnormality, atraumatic Eyes: conjunctivae/corneas clear. PERRL, EOM's intact Throat: lips, mucosa, and tongue normal. MMM, poor dentition Neck: supple, symmetrical, trachea midline, and no JVD Lungs: clear to auscultation bilaterally Heart: regular rate and rhythm, S1, S2 normal, no murmur, click, rub or gallop Abdomen: soft, non-tender, non-distended, bowel sounds normal; no masses or organomegaly Extremities: extremities normal, atraumatic, no cyanosis or edema, moves all extremitas, pain with palpation of RLE, distally internally rotated Pulses: 2+ and symmetric Skin: skin color, texture, turgor normal; + no ulcers Neurologic: grossly normal. oriented x 1 at baseline Luis Eduardo Williamson M.D. Jan 23, 2019 09:07
[2019-01-23] MEDS: Venlafaxine XR 37.5mg cap ORAL SCH (09:12)
[2019-01-23] MEDS: Multivitamin w/Minerals tab ORAL SCH (09:13)
[2019-01-23] MEDS ORDERED: HYDROcodone/Acetamin 10/325 tab GT PRN (10:30)
[2019-01-23] MEDS ORDERED: HYDROcodone/Acetamin 5/325 tab GT PRN ×2 (10:30→14:30)
[2019-01-23] MEDS ORDERED: Albuterol/Ipratropium 3ml neb HHN PRN (13:30)
[2019-01-23] MEDS ORDERED: Ondansetron ODT 8mg tab ORAL PRN (13:30)
[2019-01-23] MEDS: Docusate 100mg/10ml Liq GT SCH (17:26)
[2019-01-23] MEDS: HYDROcodone/Acetamin 10/325 tab GT PRN (17:26)
[2019-01-23] MEDS: Gabapentin 300 MG/6 ML Soln GT SCH (17:33)
[2019-01-23] MEDS: Metoprolol Tartrate 12.5mg TAB GT SCH (20:35)
[2019-01-23] MEDS: Depakote 125mg Sprinkles GT SCH (20:35)
[2019-01-23] MEDS: Sennosides 8.6mg tab GT SCH (20:36)
[2019-01-23] MEDS: Heparin 5000 units/ml inj SUBQ SCH (20:37)
[2019-01-23] MEDS ORDERED: Sennosides 8.6mg tab GT SCH (21:00)
[2019-01-23] MEDS ORDERED: Levemir Flexpen SUBQ SCH (21:00)
[2019-01-24] VITALS: BP 142/69
[2019-01-24] MEDS: HYDROcodone/Acetamin 10/325 tab GT PRN (02:13)
[2019-01-24 04:00] VITALS: BP 125/60
[2019-01-24] MEDS: NovoLOG Insulin Flexpen SUBQ SCH ×4 (06:15→21:36)
[2019-01-24 07:20] LABS: BASOPHILS % (AUTO) 1.1 % (0.0-2.0); EOSINOPHILS % (AUTO) 1.5 % (0.0-3.0); HEMOGLOBIN 9.7 G/DL (12.0-16.0); LYMPHOCYTES % (AUTO) 34.2 % (20.0-45.0); MEAN CORPUSCULAR VOLUME 93 FL (80-99); MONOCYTES % (AUTO) 7.7 % (1.0-10.0); NEUTROPHILS % (AUTO) 55.6 % (45.0-75.0); PLATELET COUNT 160 K/UL (150-450); RED CELL DISTRIBUTION WIDTH 11.2 % (11.6-14.8); WHITE BLOOD COUNT 9.8 K/UL (4.8-10.8)
[2019-01-24 07:31] LABS: ALANINE AMINOTRANSFERASE 24 U/L (12-78); ALBUMIN 2.9 G/DL (3.4-5.0); ALBUMIN/GLOBULIN RATIO 0.7 (1.0-2.7); ALKALINE PHOSPHATASE 84 U/L (46-116); ANION GAP 8 mmol/L (5-15); ASPARTATE AMINO TRANSFERASE 25 U/L (15-37); BILIRUBIN,TOTAL 0.3 MG/DL (0.2-1.0); BLOOD UREA NITROGEN 18 mg/dL (7-18); CALCIUM 8.5 MG/DL (8.5-10.1); CARBON DIOXIDE 26 MMOL/L (21-32); CHLORIDE 104 MMOL/L (98-107); CREATININE 0.8 MG/DL (0.55-1.30); POTASSIUM 4.3 MMOL/L (3.5-5.1); SODIUM 138 MMOL/L (136-145)
[2019-01-24 08:00] VITALS: BP 134/97
[2019-01-24] MEDS ORDERED: Venlafaxine HCl 37.5mg Tab GT SCH (09:00)
[2019-01-24] MEDS: Heparin 5000 units/ml inj SUBQ SCH ×3 (09:00→21:24)
[2019-01-24] MEDS: Docusate 100mg/10ml Liq GT SCH ×2 (09:05→17:17)
[2019-01-24] MEDS: Metoprolol Tartrate 12.5mg TAB GT SCH ×2 (09:06→21:23)
[2019-01-24] MEDS: Amiodarone 200mg tab GT SCH (09:06)
[2019-01-24] MEDS: Depakote 125mg Sprinkles GT SCH ×2 (09:06→21:23)
[2019-01-24] MEDS: Multivitamin w/Minerals tab ORAL SCH (09:06)
[2019-01-24] MEDS: Gabapentin 300 MG/6 ML Soln GT SCH ×2 (09:54→17:18)
--- NOTE | 2019-01-24 10:04 | General Progress Note ---
Assessment/Plan Problem List: (1) Closed fracture of right distal femur ICD Codes: S72.401A - Unspecified fracture of lower end of right femur, initial encounter for closed fracture SNOMED: 588531058, 784764518 (2) Fall ICD Codes: W19.XXXA - Unspecified fall, initial encounter SNOMED: 8999532, 454283300 (3) paroxsymal atrial fibrillation (4) Psychosis ICD Codes: F29 - Unspecified psychosis not due to a substance or known physiological condition SNOMED: 29302595 (5) CAD (coronary artery disease) ICD Codes: I25.10 - Atherosclerotic heart disease of [place] coronary artery without angina pectoris SNOMED: 00844418 (6) GERD (gastroesophageal reflux disease) ICD Codes: K21.9 - Gastro-esophageal reflux disease without esophagitis SNOMED: 189720661 (7) HTN (hypertension) ICD Codes: I10 - Essential (primary) hypertension SNOMED: 85437936 (8) HLD (hyperlipidemia) ICD Codes: E78.5 - Hyperlipidemia, unspecified SNOMED: 99517045 (9) Diabetes mellitus ICD Codes: E11.9 - Type 2 diabetes mellitus without complications SNOMED: 73187188 (10) Depression ICD Codes: F32.9 - Major depressive disorder, single episode, unspecified SNOMED: 62728473 (11) multiple pressure ulcers (12) Dehydration ICD Codes: E86.0 - Dehydration SNOMED: 49465526 Status: stable Assessment/Plan: #Right femur distal fracture #Perioperative risk assessment Med Surg XR right femur dital fracture CT pelvis negative for fracture , CT head negative Orthopedic consult Dr Cyr appreciated, for OR on Thursday 01/25, for right femur ORIF IV hydration, monitor BUN Pain control turn q2hr to prevent pressure ulcer Echocardiogram reviewed: official report pending. ?severe aortic regurgitation and sever pulmonary hypertension. -Cardiology consult- Dr. Munroe Cardiac: CAD, Paroxysmal Afib, HTN, HLD Continue Amiodarone 100 mg daily, Metoprolol 12.5 mg BID, Amlodipine 5 mg daily , Atorvastatin 10mg qhs. Hold ASA- upcoming ORIF. Will consider adding ACEi/ARB on discharge Cardiology consult prior to surgery Endocrine: Hypothyroidism and DM II- controlled Continue Synthroid 150 daily, Insulin Levemir 20 mg QHS, increase to 25, continue sliding scale insulin , hold metformin Psych: Depression and anxiety continue valproic acid, Effexor. Psychiatry consult Dr. Fraga- low Valproic acid levels. Increase dose DVT Prophylaxis: SCD, HSQ Diet: feeds via PEG Code Status: Full code- POLS reviewed Hospital Classification Declaration: Based on this initial evaluation, and depending on the patient's clinical course, I anticipate that this patient will require hospitalization for 4-5 days, going to OR on 01/25 for right femur ORIF Disposition: Once the patient is stable to leave the hospital, I anticipate the patient will likely be discharged to the following environment: back to [facility] rehab of [facility] I spent 40 minutes on this patient's case, and 20 minutes were dedicated to counseling and/or care coordination. Discussed with patient/family, nursing staff, SW/CM, ED physician, Orthopedic physician Dr. Ca regarding clinical status, treatment course, and disposition planning. Time of note may not reflect time of encounter. Subjective Date patient seen: Jan 24, 2019 ROS Limited/Unobtainable: Yes Allergies: Coded Allergies: No Known Allergies (Unverified , 02/16/17) Subjective No acute overnight events. Patient unreliable historian, unable to obtain ROS, seen by orthopedic surgery. Plan for ORIF right femur possible on 01/25. Echocardiogram reviewed (official report pending), severe aortic regurgitation and pulmonary HTN. EF normal Objective Last 24 Hour Vital Signs Date Time Temp Pulse Resp B/P (MAP) Pulse Ox O2 Delivery O2 Flow Rate FiO2 01/24/19 09:06 76 134/97 01/24/19 09:06 76 134/97 01/24/19 09:06 76 20 95 Room Air 21 01/24/19 08:00 97.6 93 18 134/97 (109) 95 01/24/19 04:00 98.2 82 20 125/60 (81) 96 01/24/19 00:00 97.2 85 21 142/69 (93) 95 01/23/19 21:00 Room Air 01/23/19 20:35 82 126/62 01/23/19 20:00 98.0 82 21 126/62 (83) 96 01/23/19 19:52 73 20 96 Room Air 21 01/23/19 17:56 98.3 01/23/19 16:00 98.3 77 19 120/80 (93) 100 01/23/19 13:21 98.8 70 16 131/65 (87) 93 01/23/19 12:00 72 01/23/19 12:00 98.7 61 18 130/76 (94) 98 01/23/19 11:38 68 20 96 Room Air 21 Intake and Output 01/23/19 01/24/19 19:00 07:00 Intake Total 400 ml 2430 ml Balance 400 ml 2430 ml Intake Oral 120 ml Free Water 250 ml 850 ml IV Total 800 ml Tube Feeding 150 ml 660 ml # Voids 1 # Bowel Movements 1 Laboratory Tests 01/24/19 04:00: Sodium Level 138, Potassium Level 4.3, Chloride Level 104, Carbon Dioxide Level 26, Anion Gap 8, Blood Urea Nitrogen 18, Creatinine 0.8, Estimat Glomerular Filtration Rate , Glucose Level 199H, Calcium Level 8.5, Total Bilirubin 0.3, Aspartate Amino Transf (AST/SGOT) 25, Alanine Aminotransferase (ALT/SGPT) 24, Alkaline Phosphatase 84, Total Protein 7.3, Albumin 2.9L, Globulin 4.4, Albumin/ Globulin Ratio 0.7L 01/24/19 06:40: White Blood Count 9.8, Red Blood Count 3.00L, Hemoglobin 9.7L, Hematocrit 28.0L , Mean Corpuscular Volume 93, Mean Corpuscular Hemoglobin 32.3H, Mean Corpuscular Hemoglobin Concent 34.6, Red Cell Distribution Width 11.2L, Platelet Count 160, Mean Platelet Volume 6.8, Neutrophils (%) (Auto) 55.6, Lymphocytes (%) (Auto) 34.2, Monocytes (%) (Auto) 7.7, Eosinophils (%) (Auto) 1.5, Basophils (%) (Auto) 1.1 Height (Feet): 5 Height (Inches): 2.00 Weight (Pounds): 140 Objective General: alert, cooperative, no distress, appears stated age, A&Ox1 Head: normocephalic, without obvious abnormality, atraumatic Eyes: conjunctivae/corneas clear. PERRL, EOM's intact Throat: lips, mucosa, and tongue normal. MMM, poor dentition Neck: supple, symmetrical, trachea midline, and no JVD Lungs: clear to auscultation bilaterally Heart: regular rate and rhythm, S1, S2 normal, no murmur, click, rub or gallop Abdomen: soft, non-tender, non-distended, bowel sounds normal; no masses or organomegaly Extremities: extremities normal, atraumatic, no cyanosis or edema, moves all extremitas, pain with palpation of RLE, distally internally rotated Pulses: 2+ and symmetric Skin: skin color, texture, turgor normal; + no ulcers Neurologic: grossly normal. oriented x 1 at baseline Luis Eduardo Williamson M.D. Jan 24, 2019 10:04
--- NOTE | 2019-01-24 10:21 | Anethesia Preoperative Eval ---
Anesthesia Pre-op PMH/ROS General Date of Evaluation: Jan 24, 2019 Time of Evaluation: 10:27 Anesthesiologist: Mackenzie ASA Score: ASA 3 Mallampati Score Class I : Soft palate, uvula, fauces, pillars visible Class II: Soft palate, uvula, fauces visible Class III: Soft palate, base of uvula visible Class IV: Only hard plate visible Mallampati Classification: Class II Surgeon: Roby Diagnosis: R Distal Femur Fx Surgical Procedure: R Distal Femur ORIF Anesthesia History: none Family History: no anesthesia problems Allergies: Coded Allergies: No Known Allergies (Unverified , 02/16/17) Medications: see eMAR Patient NPO?: Yes Past Medical History Cardiovascular: Reports: HTN, arrhythmia - Afib, other - HL Neurologic/Psychiatric: Reports: dementia Endocrine: Reports: DM Anesthesia Pre-op Phys. Exam Physician Exam Last Vital Signs Date Time Temp Pulse Resp B/P (MAP) Pulse Ox O2 Delivery O2 Flow Rate FiO2 01/24/19 09:06 76 134/97 01/24/19 09:06 20 95 Room Air 21 01/24/19 08:00 97.6 Constitutional: NAD Neurologic: CN 2-12 intact Cardiovascular: RRR Respiratory: CTA Gastrointestinal: S/NT/ND Airway Exam Mallampati Score: Class II MO: limited ROM: limited Teeth: missing, intact Anesthesia Pre-op A/P Labs Hematology Test 01/24/19 06:40 White Blood Count 9.8 K/UL (4.8-10.8) Red Blood Count 3.00 M/UL (4.20-5.40) L Hemoglobin 9.7 G/DL (12.0-16.0) L Hematocrit 28.0 % (37.0-47.0) L Mean Corpuscular Volume 93 FL (80-99) Mean Corpuscular Hemoglobin 32.3 PG (27.0-31.0) H Mean Corpuscular Hemoglobin Concent 34.6 G/DL (32.0-36.0) Red Cell Distribution Width 11.2 % (11.6-14.8) L Platelet Count 160 K/UL (150-450) Mean Platelet Volume 6.8 FL (6.5-10.1) Neutrophils (%) (Auto) 55.6 % (45.0-75.0) Lymphocytes (%) (Auto) 34.2 % (20.0-45.0) Monocytes (%) (Auto) 7.7 % (1.0-10.0) Eosinophils (%) (Auto) 1.5 % (0.0-3.0) Basophils (%) (Auto) 1.1 % (0.0-2.0) Chemistry Test 01/24/19 04:00 Sodium Level 138 MMOL/L (136-145) Potassium Level 4.3 MMOL/L (3.5-5.1) Chloride Level 104 MMOL/L (98-107) Carbon Dioxide Level 26 MMOL/L (21-32) Anion Gap 8 mmol/L (5-15) Blood Urea Nitrogen 18 mg/dL (7-18) Creatinine 0.8 MG/DL (0.55-1.30) Estimat Glomerular Filtration Rate mL/min (>60) Glucose Level 199 MG/DL (74-106) H Calcium Level 8.5 MG/DL (8.5-10.1) Total Bilirubin 0.3 MG/DL (0.2-1.0) Aspartate Amino Transf (AST/SGOT) 25 U/L (15-37) Alanine Aminotransferase (ALT/SGPT) 24 U/L (12-78) Alkaline Phosphatase 84 U/L (46-116) Total Protein 7.3 G/DL (6.4-8.2) Albumin 2.9 G/DL (3.4-5.0) L Globulin 4.4 g/dL Albumin/Globulin Ratio 0.7 (1.0-2.7) L Risk Assessment & Plan Assessment: ASA 3 Plan: GA vs Spinal Status Change Before Surgery: No Pre-Antibiotics Drug: Ford Rosenberg MD Jan 24, 2019 10:21
[2019-01-24 12:00] VITALS: BP 127/68
[2019-01-24] MEDS ORDERED: OLANZapine 2.5mg tab ORAL PRN (14:45)
[2019-01-24 16:00] VITALS: BP 134/77
--- NOTE | 2019-01-24 18:05 | Cardiac Electrophysiology PN ---
Subjective Subjective [id number] Objective Last 24 Hour Vital Signs Date Time Temp Pulse Resp B/P (MAP) Pulse Ox O2 Delivery O2 Flow Rate FiO2 01/24/19 12:00 98.2 79 18 127/68 (87) 95 01/24/19 09:06 76 134/97 01/24/19 09:06 76 134/97 01/24/19 09:06 76 20 95 Room Air 21 01/24/19 09:00 Room Air 01/24/19 08:00 97.6 93 18 134/97 (109) 95 01/24/19 04:00 98.2 82 20 125/60 (81) 96 01/24/19 00:00 97.2 85 21 142/69 (93) 95 01/23/19 21:00 Room Air 01/23/19 20:35 82 126/62 01/23/19 20:00 98.0 82 21 126/62 (83) 96 01/23/19 19:52 73 20 96 Room Air 21 Intake and Output 01/23/19 01/24/19 18:59 06:59 Intake Total 470 ml 2480 ml Balance 470 ml 2480 ml Intake Oral 120 ml 120 ml Free Water 250 ml 850 ml IV Total 800 ml Tube Feeding 100 ml 710 ml # Voids 1 # Bowel Movements 1 Laboratory Tests Test 01/24/19 04:00 01/24/19 06:40 Sodium Level 138 MMOL/L (136-145) Potassium Level 4.3 MMOL/L (3.5-5.1) Chloride Level 104 MMOL/L (98-107) Carbon Dioxide Level 26 MMOL/L (21-32) Anion Gap 8 mmol/L (5-15) Blood Urea Nitrogen 18 mg/dL (7-18) Creatinine 0.8 MG/DL (0.55-1.30) Estimat Glomerular Filtration Rate mL/min (>60) Glucose Level 199 MG/DL (74-106) H Calcium Level 8.5 MG/DL (8.5-10.1) Total Bilirubin 0.3 MG/DL (0.2-1.0) Aspartate Amino Transf (AST/SGOT) 25 U/L (15-37) Alanine Aminotransferase (ALT/SGPT) 24 U/L (12-78) Alkaline Phosphatase 84 U/L (46-116) Total Protein 7.3 G/DL (6.4-8.2) Albumin 2.9 G/DL (3.4-5.0) L Globulin 4.4 g/dL Albumin/Globulin Ratio 0.7 (1.0-2.7) L White Blood Count 9.8 K/UL (4.8-10.8) Red Blood Count 3.00 M/UL (4.20-5.40) L Hemoglobin 9.7 G/DL (12.0-16.0) L Hematocrit 28.0 % (37.0-47.0) L Mean Corpuscular Volume 93 FL (80-99) Mean Corpuscular Hemoglobin 32.3 PG (27.0-31.0) H Mean Corpuscular Hemoglobin Concent 34.6 G/DL (32.0-36.0) Red Cell Distribution Width 11.2 % (11.6-14.8) L Platelet Count 160 K/UL (150-450) Mean Platelet Volume 6.8 FL (6.5-10.1) Neutrophils (%) (Auto) 55.6 % (45.0-75.0) Lymphocytes (%) (Auto) 34.2 % (20.0-45.0) Monocytes (%) (Auto) 7.7 % (1.0-10.0) Eosinophils (%) (Auto) 1.5 % (0.0-3.0) Basophils (%) (Auto) 1.1 % (0.0-2.0) Microbiology Date/Time Source Procedure Growth Status 01/22/19 05:55 Nasal Nares MRSA Culture - Final Staphylococcus Aureus - Mrsa Complete 01/22/19 05:55 Rectum VRE Culture - Final NO VANCOMYCIN RESISTANT ENTEROCOCCUS ... Complete Avtar Munroe MD Jan 24, 2019 18:05
--- NOTE | 2019-01-24 18:30 | Consultation ---
DATE OF CONSULTATION: 01/24/2019 CONSULTING PHYSICIAN: Madhuri Fraga M.D. REFERRING PHYSICIAN: Napoleon Stubbs M.D. HISTORY OF PRESENT ILLNESS: The patient is a 73-year-old female, Israeli-speaking, with a history of and history of diabetes mellitus type 2, hypertension, cardiac issues, major depressive disorder, failure to thrive who has been admitted to the hospital for status question for multiple falls and trauma. The patient is presenting with delusional thoughts, anxiety, agitation. The patient is withdrawn, presents with depressed mood, anhedonia, worthlessness, hopelessness, decreased appetite. No suicidal or homicidal ideations. The patient is a poor historian. PAST PSYCHIATRIC HISTORY: Depression and anxiety. PAST MEDICAL HISTORY: Diabetes mellitus, CAD, hyperlipidemia, acute tubular necrosis, GERD, hypertension. ALLERGIES: No known drug allergies. SUBSTANCE ABUSE HISTORY: No known history of illicit drug use or alcohol. MENTAL STATUS EXAMINATION: The patient is alert, oriented times self, place. Mood is depressed. Affect is constricted, congruent with mood. Thought process is linear. Thought content, no suicidal or homicidal ideation. Cognition is impaired. Insight and judgment is fair. PLAN: 1. We will start the patient on Remeron 15 mg qhs 2. Provide the patient with reality orientation and supportive therapy. Madhuri Fraga M.D. DR: GINI JOB#: [id number] CC: NAHUN
[2019-01-24 20:00] VITALS: BP 132/56
[2019-01-24] MEDS ORDERED: Levemir Flexpen SUBQ SCH (21:00)
[2019-01-24] MEDS: Sennosides 8.6mg tab GT SCH (21:23)
--- NOTE | 2019-01-24 23:00 | Consultation ---
DATE OF CONSULTATION: 01/24/2019 CARDIOLOGY CONSULTATION CONSULTING PHYSICIAN: Avtar Munroe M.D. REFERRING PHYSICIAN: Napoleon Stubbs M.D. REASON FOR CONSULTATION: Management of hypertension and preoperative clearance prior to hip surgery. HISTORY OF PRESENT ILLNESS: The patient is a 73-year-old long-term resident, who is wheelchair bound with dementia and history of G-tube placement unwitnessed fall while at [facility]. The patient had a fall and was complaining of right-sided leg pain. The patient also has history of diabetes, hyperlipidemia, gastroesophageal reflux disease, and depression. The patient was evaluated in the emergency room and was found to have a distal third spiral femur fracture in the supracondylar region. The patient was evaluated by Dr. Ca. CT of the pelvis was obtained. Cardiology clearance was requested for further evaluation. At the time of my evaluation, the patient is pleasantly confused, but denies any chest pain or shortness of breath and is lying in bed flat. REVIEW OF SYSTEMS: Review of systems was negative other than what was mentioned in the history of present illness. PAST MEDICAL HISTORY: As mentioned above. MEDICATIONS: Per reconciliation. ALLERGIES: She has no known drug allergies. SOCIAL HISTORY: She lives in a group home facility and is wheelchair bound. FAMILY HISTORY: Noncontributory. PHYSICAL EXAMINATION: VITAL SIGNS: Show blood pressure of 127/68, pulse 79, respirations 18, and temperature 98.2. HEAD AND NECK: Showed no JVD. LUNGS: Clear. CARDIOVASCULAR: Shows regular S1 and S2 with no gallop or murmur. ABDOMEN: Soft. EXTREMITIES: No pitting edema. LABORATORY AND DIAGNOSTIC DATA: Her labs show white count of 9.8, hemoglobin 9.7, hematocrit 28, and platelet count is 160,000. Sodium 138, potassium 4.3, BUN of 18, creatinine 0.8, and glucose of 109. Troponin is negative. EKG showed normal sinus rhythm with nonspecific ST-T wave abnormalities. ASSESSMENT AND PLAN: 1. Hypertension. The patient's blood pressure is currently stable on metoprolol 12.5 mg b.i.d. 2. Paroxysmal atrial fibrillation, currently in sinus rhythm, on amiodarone 100 mg per G-tube daily. For blood pressure, the patient is also on amlodipine 5 mg daily. 3. Diabetes, on insulin. 4. Hypothyroidism, on Synthroid. 5. Hyperlipidemia, on Lipitor. 6. Status post fall and right femur fracture. The patient is clinically comfortable and EKGs shows normal sinus rhythm. We will order echocardiogram for further evaluation. The patient is not in a condition to be able to undergo a stress test at this point and echocardiogram is negative. The patient would be cleared to undergo surgery at moderate risk in view of her age and comorbidities. Thank you very much, Dr. Stubbs, for allowing me to participate in the care of this patient. Please do not hesitate to contact me for any questions regarding my evaluation. Avtar Munroe M.D. DR: SMITH JOB#: [id number] CC:
[2019-01-25] VITALS (13 sets, daily range): BP systolic 87–150; BP diastolic 40–89
[2019-01-25] MEDS: NovoLOG Insulin Flexpen SUBQ SCH ×3 (05:43→20:55)
--- NOTE | 2019-01-25 06:56 | Pre-Procedure Note/Attestation ---
Pre-Procedure Note/Attestation Complete Prior to Procedure Planned Procedure: right Procedure Narrative: rt distal femur ORIF Indications for Procedure Pre-Operative Diagnosis: rt femur fracture Attestation I attest that I discussed the nature of the procedure; its benefits; risks and complications; and alternatives (and the risks and benefits of such alternatives ), prior to the procedure, with the patient (or the patient's legal agency service representative). I attest that, if there was a reasonable possibility of needing a blood transfusion, the patient (or the patient's legal agency service representative) was given the [facility] standardized written summary, pursuant to the Familia Yudith Blood Safety Act ([place] Health and Safety Code # 1645, as amended). I attest that I re-evaluated the patient just prior to the surgery and that there has been no change in the patient's H&P, except as documented below:none Avelino Ca MD Jan 25, 2019 06:56
[2019-01-25] MEDS ORDERED: Hydromorphone 0.5mg/0.5ml inj SUBQ PRN ×3 (07:00→19:15)
[2019-01-25] MEDS ORDERED: HYDROmorphone 1mg/ml Carpuject SUBQ PRN ×3 (07:00→19:15)
[2019-01-25 07:20] LABS: BASOPHILS % (AUTO) 0.7 % (0.0-2.0); EOSINOPHILS % (AUTO) 0.9 % (0.0-3.0); HEMATOCRIT 26.5 % (37.0-47.0); HEMOGLOBIN 9.3 G/DL (12.0-16.0); LYMPHOCYTES % (AUTO) 25.3 % (20.0-45.0); MEAN CORPUSCULAR VOLUME 92 FL (80-99); MONOCYTES % (AUTO) 8.6 % (1.0-10.0); NEUTROPHILS % (AUTO) 64.5 % (45.0-75.0); PLATELET COUNT 195 K/UL (150-450); RED BLOOD COUNT 2.87 M/UL (4.20-5.40); RED CELL DISTRIBUTION WIDTH 11.3 % (11.6-14.8); WHITE BLOOD COUNT 10.7 K/UL (4.8-10.8)
[2019-01-25 07:22] LABS: ANION GAP 9 mmol/L (5-15); BLOOD UREA NITROGEN 14 mg/dL (7-18); CALCIUM 8.6 MG/DL (8.5-10.1); CARBON DIOXIDE 27 MMOL/L (21-32); CHLORIDE 106 MMOL/L (98-107); CREATININE 0.7 MG/DL (0.55-1.30); POTASSIUM 3.6 MMOL/L (3.5-5.1); SODIUM 142 MMOL/L (136-145)
[2019-01-25] MEDS ORDERED: Acetaminophen 650mg/20.3ml GT PRN ×2 (08:15→17:42)
[2019-01-25] MEDS: Multivitamin w/Minerals tab ORAL SCH (09:00)
[2019-01-25] MEDS ORDERED: oxyCONTIN 10mg tab ORAL SCH ×2 (09:00→21:00)
[2019-01-25] MEDS: Metoprolol Tartrate 12.5mg TAB GT SCH ×2 (09:00→20:50)
[2019-01-25] MEDS: Docusate 100mg/10ml Liq GT SCH ×3 (09:00→18:18)
[2019-01-25] MEDS: Heparin 5000 units/ml inj SUBQ SCH ×2 (09:00→20:56)
[2019-01-25] MEDS: Depakote 125mg Sprinkles GT SCH ×2 (09:00→20:51)
[2019-01-25] MEDS: Gabapentin 300 MG/6 ML Soln GT SCH ×2 (09:00→19:19)
[2019-01-25] MEDS: Amiodarone 200mg tab GT SCH (09:00)
[2019-01-25] MEDS ORDERED: D5 1/2NS 1,000 ML IV SCH (09:00)
[2019-01-25] MEDS ORDERED: celeBREX 200mg Cap **SURGERY PATIENTS ONLY ORAL SCH (09:00)
[2019-01-25] MEDS ORDERED: EPINEPHrine 1mg/1ml Amp ONE (09:28)
[2019-01-25] MEDS ORDERED: cloNIDine 1000mcg/10ml inj ONE (09:28)
[2019-01-25] MEDS ORDERED: Bupivacaine 0.5% Inj 30 ml vial INJ ONE (09:28)
[2019-01-25] MEDS ORDERED: Sterile Water Irrig 1000ml IRRIG ONE ×2 (10:00→10:18)
[2019-01-25] MEDS ORDERED: Dexamethasone 4mg/ml vial ONE (10:06)
[2019-01-25] MEDS ORDERED: Sodium Chloride 10ml vial INJ ONE (10:06)
[2019-01-25] MEDS ORDERED: LR 1000ml 1,000 ML IVLG SCH (10:06)
[2019-01-25] MEDS ORDERED: Lidocaine 1% MPF 10mg/ml 5ml ONE (10:06)
[2019-01-25] MEDS ORDERED: Midazolam 2mg/2ml Inj ONE (10:13)
[2019-01-25] MEDS ORDERED: DiphenhydrAMINE 50mg/ml Inj IVP PRN (10:15)
[2019-01-25] MEDS ORDERED: Labetalol 5mg/ml 20ml vial IV PRN (10:15)
[2019-01-25] MEDS ORDERED: HYDROcodone/Acetamin 5/325 tab ORAL PRN (10:15)
[2019-01-25] MEDS ORDERED: Midazolam 2mg/2ml Inj IVP PRN (10:15)
[2019-01-25] MEDS ORDERED: Tranexamic Acid 1,000 MG in NS 65 ML IV ONE (10:15)
[2019-01-25] MEDS ORDERED: LORazepam Inj 2mg/ml 1ml IV PRN (10:15)
[2019-01-25] MEDS ORDERED: fentaNYL 100 mcg/2 mL IV PRN (10:15)
[2019-01-25] MEDS ORDERED: HYDROcodone/Acetamin 7.5/325 tab ORAL PRN (10:15)
[2019-01-25] MEDS ORDERED: Hydromorphone 0.5mg/0.5ml inj IVP PRN (10:15)
[2019-01-25] MEDS ORDERED: Metoclopramide 10mg/2ml Inj IVP PRN (10:15)
[2019-01-25] MEDS ORDERED: Meperidine 50mg/ml Inj(FOR RIGORS ONLY) IVP PRN (10:15)
[2019-01-25] MEDS ORDERED: Atropine Sulfate 0.4mg/ml inj IVP PRN (10:15)
[2019-01-25] MEDS ORDERED: oxyCODONE HCL/Acetaminophen 5/325mg ORAL PRN (10:15)
[2019-01-25] MEDS ORDERED: NS Irrig 1000ml ONE (10:18)
[2019-01-25] MEDS ORDERED: LR 1000ml ONE (10:18)
--- NOTE | 2019-01-25 10:19 | General Progress Note ---
Assessment/Plan Problem List: (1) Closed fracture of right distal femur ICD Codes: S72.401A - Unspecified fracture of lower end of right femur, initial encounter for closed fracture SNOMED: 645352310, 238955063 (2) Fall ICD Codes: W19.XXXA - Unspecified fall, initial encounter SNOMED: 0346347, 795347527 (3) paroxsymal atrial fibrillation (4) Psychosis ICD Codes: F29 - Unspecified psychosis not due to a substance or known physiological condition SNOMED: 05417823 (5) CAD (coronary artery disease) ICD Codes: I25.10 - Atherosclerotic heart disease of [place] coronary artery without angina pectoris SNOMED: 07179729 (6) GERD (gastroesophageal reflux disease) ICD Codes: K21.9 - Gastro-esophageal reflux disease without esophagitis SNOMED: 311184085 (7) HTN (hypertension) ICD Codes: I10 - Essential (primary) hypertension SNOMED: 60018291 (8) HLD (hyperlipidemia) ICD Codes: E78.5 - Hyperlipidemia, unspecified SNOMED: 99988303 (9) Diabetes mellitus ICD Codes: E11.9 - Type 2 diabetes mellitus without complications SNOMED: 21750496 (10) Depression ICD Codes: F32.9 - Major depressive disorder, single episode, unspecified SNOMED: 31549433 (11) multiple pressure ulcers (12) Dehydration ICD Codes: E86.0 - Dehydration SNOMED: 48721818 Status: stable Assessment/Plan: #Right femur distal fracture #Perioperative risk assessment Med Surg XR right femur dital fracture CT pelvis negative for fracture , CT head negative Orthopedic consult Dr Cyr appreciated, for OR on Thursday 01/25, for right femur ORIF IV hydration, monitor BUN Pain control turn q2hr to prevent pressure ulcer Echocardiogram reviewed: official report pending. ?severe aortic regurgitation and sever pulmonary hypertension. -Cardiology consult- Dr. Munroe Patient should be monitored on telemetry after OR. d/w DEJAN Covarrubias Cardiac: CAD, Paroxysmal Afib, HTN, HLD Continue Amiodarone 100 mg daily, Metoprolol 12.5 mg BID, Amlodipine 5 mg daily , Atorvastatin 10mg qhs. Hold ASA- upcoming ORIF. Will consider adding ACEi/ARB on discharge Cardiology consult prior to surgery Endocrine: Hypothyroidism and DM II- controlled Continue Synthroid 150 daily, Insulin Levemir 20 mg QHS, increase to 25, continue sliding scale insulin , hold metformin Psych: Depression and anxiety continue valproic acid, Effexor. Psychiatry consult Dr. Fraga- low Valproic acid levels. Increase dose DVT Prophylaxis: SCD, HSQ Diet: feeds via PEG Code Status: Full code- POLS reviewed Hospital Classification Declaration: Based on this initial evaluation, and depending on the patient's clinical course, I anticipate that this patient will require hospitalization for 4-5 days, going to OR on 01/25 for right femur ORIF Disposition: Once the patient is stable to leave the hospital, I anticipate the patient will likely be discharged to the following environment: back to [facility] I spent 40 minutes on this patient's case, and 20 minutes were dedicated to counseling and/or care coordination. Discussed with patient/family, nursing staff, SW/CM, ED physician, Orthopedic physician Dr. Ca regarding clinical status, treatment course, and disposition planning. Time of note may not reflect time of encounter. Subjective Date patient seen: Jan 25, 2019 ROS Limited/Unobtainable: Yes Allergies: Coded Allergies: No Known Allergies (Unverified , 02/16/17) Subjective OR for ORIF Objective Last 24 Hour Vital Signs Date Time Temp Pulse Resp B/P (MAP) Pulse Ox O2 Delivery O2 Flow Rate FiO2 01/25/19 09:20 76 16 96 Room Air 21 01/25/19 09:18 Room Air 01/25/19 08:00 97.2 72 12 150/71 (97) 93 01/25/19 04:00 97.9 72 20 113/51 (71) 93 01/25/19 00:00 97.9 88 18 104/53 (70) 93 01/24/19 23:13 84 18 95 Room Air 21 01/24/19 23:00 Room Air 01/24/19 21:23 93 134/77 01/24/19 20:00 97.7 90 18 132/56 (81) 93 01/24/19 16:00 97.6 93 18 134/77 (96) 95 01/24/19 12:00 98.2 79 18 127/68 (87) 95 Intake and Output 01/24/19 01/25/19 19:00 07:00 Intake Total 310 ml 400 ml Output Total 600 ml Balance 310 ml -200 ml Free Water 250 ml IV Total 400 ml Tube Feeding 60 ml Output Urine Total 600 ml # Voids 4 2 # Bowel Movements 2 1 Laboratory Tests 01/25/19 05:15: White Blood Count 10.7, Red Blood Count 2.87L, Hemoglobin 9.3L, Hematocrit 26.5L , Mean Corpuscular Volume 92, Mean Corpuscular Hemoglobin 32.3H, Mean Corpuscular Hemoglobin Concent 35.0, Red Cell Distribution Width 11.3L, Platelet Count 195, Mean Platelet Volume 6.8, Neutrophils (%) (Auto) 64.5, Lymphocytes (%) (Auto) 25.3, Monocytes (%) (Auto) 8.6, Eosinophils (%) (Auto) 0.9, Basophils (%) (Auto) 0.7, Sodium Level 142, Potassium Level 3.6, Chloride Level 106, Carbon Dioxide Level 27, Anion Gap 9, Blood Urea Nitrogen 14, Creatinine 0.7, Estimat Glomerular Filtration Rate , Glucose Level 41#L, Calcium Level 8.6, Pro-B-Type Natriuretic Peptide 2480H Height (Feet): 5 Height (Inches): 2.00 Weight (Pounds): 140 Objective General: alert, cooperative, no distress, appears stated age, A&Ox1 Head: normocephalic, without obvious abnormality, atraumatic Eyes: conjunctivae/corneas clear. PERRL, EOM's intact Throat: lips, mucosa, and tongue normal. MMM, poor dentition Neck: supple, symmetrical, trachea midline, and no JVD Lungs: clear to auscultation bilaterally Heart: regular rate and rhythm, S1, S2 normal, no murmur, click, rub or gallop Abdomen: soft, non-tender, non-distended, bowel sounds normal; no masses or organomegaly Extremities: extremities normal, atraumatic, no cyanosis or edema, moves all extremitas, pain with palpation of RLE, distally internally rotated Pulses: 2+ and symmetric Skin: skin color, texture, turgor normal; + no ulcers Neurologic: grossly normal. oriented x 1 at baseline Luis Eduardo Williamson M.D. Jan 25, 2019 10:18
[2019-01-25] MEDS ORDERED: Propofol 200mg/20ml IV ONE (10:43)
[2019-01-25] MEDS ORDERED: Lidocaine 1% Plain 30 ml INJ ONE (10:44)
[2019-01-25] MEDS ORDERED: ePHEDrine 50mg/ml Inj ONE (10:55)
--- NOTE | 2019-01-25 11:59 | Cardiac Electrophysiology PN ---
Assessment/Plan Assessment/Plan 1. Hypertension. On amlodipine 5 mg daily and Lopressor 12.5 bid 2. Paroxysmal atrial fibrillation, currently in sinus rhythm, on amiodarone 100 mg per G-tube daily and Lopressor 3. Severe AI and pulmonary HTn PAP 60. Compensated with no CHF. Laying flat in bed. 5. Hyperlipidemia, on Lipitor. 6. Status post fall and right femur fracture. The patient is clinically comfortable and EKGs shows normal sinus rhythm. The patient is not in a condition to be able to undergo a stress test at this point The patient would be cleared to undergo surgery at moderate to high risk in view of her age and comorbidities. 7. Hypothyroidism, on Synthroid. 8. Diabetes, on insulin. DW Dr Williamson Subjective Subjective NPO for Femur surgery today. Objective Last 24 Hour Vital Signs Date Time Temp Pulse Resp B/P (MAP) Pulse Ox O2 Delivery O2 Flow Rate FiO2 01/25/19 10:09 Room Air 01/25/19 09:20 76 16 96 Room Air 21 01/25/19 09:18 Room Air 01/25/19 08:00 97.2 72 12 150/71 (97) 93 01/25/19 04:00 97.9 72 20 113/51 (71) 93 01/25/19 00:00 97.9 88 18 104/53 (70) 93 01/24/19 23:13 84 18 95 Room Air 21 01/24/19 23:00 Room Air 01/24/19 21:23 93 134/77 01/24/19 20:00 97.7 90 18 132/56 (81) 93 01/24/19 16:00 97.6 93 18 134/77 (96) 95 01/24/19 12:00 98.2 79 18 127/68 (87) 95 Intake and Output 01/24/19 01/25/19 19:00 07:00 Intake Total 310 ml 400 ml Output Total 600 ml Balance 310 ml -200 ml Free Water 250 ml IV Total 400 ml Tube Feeding 60 ml Output Urine Total 600 ml # Voids 4 2 # Bowel Movements 2 1 Laboratory Tests Test 01/25/19 05:15 White Blood Count 10.7 K/UL (4.8-10.8) Red Blood Count 2.87 M/UL (4.20-5.40) L Hemoglobin 9.3 G/DL (12.0-16.0) L Hematocrit 26.5 % (37.0-47.0) L Mean Corpuscular Volume 92 FL (80-99) Mean Corpuscular Hemoglobin 32.3 PG (27.0-31.0) H Mean Corpuscular Hemoglobin Concent 35.0 G/DL (32.0-36.0) Red Cell Distribution Width 11.3 % (11.6-14.8) L Platelet Count 195 K/UL (150-450) Mean Platelet Volume 6.8 FL (6.5-10.1) Neutrophils (%) (Auto) 64.5 % (45.0-75.0) Lymphocytes (%) (Auto) 25.3 % (20.0-45.0) Monocytes (%) (Auto) 8.6 % (1.0-10.0) Eosinophils (%) (Auto) 0.9 % (0.0-3.0) Basophils (%) (Auto) 0.7 % (0.0-2.0) Sodium Level 142 MMOL/L (136-145) Potassium Level 3.6 MMOL/L (3.5-5.1) Chloride Level 106 MMOL/L (98-107) Carbon Dioxide Level 27 MMOL/L (21-32) Anion Gap 9 mmol/L (5-15) Blood Urea Nitrogen 14 mg/dL (7-18) Creatinine 0.7 MG/DL (0.55-1.30) Estimat Glomerular Filtration Rate mL/min (>60) Glucose Level 41 MG/DL (74-106) #L Calcium Level 8.6 MG/DL (8.5-10.1) Pro-B-Type Natriuretic Peptide 2480 pg/mL (0-125) H Objective HEAD AND NECK: No JVD. LUNGS: Clear. CARDIOVASCULAR: Regular S1 and S2 with no gallop or murmur. ABDOMEN: Soft. EXTREMITIES: No pitting edema. Avtar Munroe MD Jan 25, 2019 11:59
[2019-01-25] MEDS ORDERED: Bacitracin 50000 Units Vial ONE (12:36)
--- NOTE | 2019-01-25 12:40 | Immediate Post-Op Evaluation ---
Immediate Post-Op Evalulation Immediate Post-Op Evalulation Procedure: ORIF R Distal Femur Date of Evaluation: Jan 25, 2019 Time of Evaluation: 13:20 IV Fluids: 600 LR Blood Products: 0 Estimated Blood Loss: 75 Urinary Output: 0 Blood Pressure Systolic: 106 Blood Pressure Diastolic: 41 Pulse Rate: 93 Respiratory Rate: 16 O2 Sat by Pulse Oximetry: 99 Temperature (Fahrenheit): 97.5 Pain Score (1-10): 0 Nausea: No Vomiting: No Complications 0 Patient Status: awake, reacts, patent, none Hydration Status: adequate Dru Gram Ancef IV Given Within 1 Hr of Incision: Yes Time Given: 10:26 Ford Mann MD Jan 25, 2019 12:40
--- NOTE | 2019-01-25 13:02 | Brief Operative Note ---
Immediate Post Operative Note Operative Note Pre-op Diagnosis: rt femur fracture Procedure: Right femur ORIF Post-op Diagnosis: same as pre-op Surgeon: jimena Ground Intelligence Officer: Brenda Anesthesia: regional Specimen: none Complications: none Condition: stable Fluids: 800cc Estimated Blood Loss: volume - 200cc Implant(s) used?: Yes - Juan lateral distal femoral plate Avelino Ca MD Jan 25, 2019 13:02
--- NOTE | 2019-01-25 14:13 | Diagnostic Imaging Report ---
INDICATION: Pain, intraoperative TECHNIQUE: Intraoperative imaging Fluoroscopy time: 21.2 seconds Total dose: 0.88675 mGym2 Total number of images: 4 COMPARISON: 01/22/2019 FINDINGS: Intraoperative imaging documents surgical repair previously demonstrated distal femur fracture with a sideplate and screws IMPRESSION: Intraoperative imaging, as described
--- NOTE | 2019-01-25 14:38 | Diagnostic Imaging Report ---
Indications: Status post repair of distal femoral fracture Technique: Two views of the right femur Comparison: None Findings: Surgical side plate and screws are seen reducing previously described distal femoral fracture. Incidentally noted is a superficial femoral artery stent. There are vascular calcifications. There are overlying skin kaila. There is good anatomic alignment. Impression: Postoperative right femur, as described
--- NOTE | 2019-01-25 15:28 | Diagnostic Imaging Report ---
Indication: Pain, postoperative, femur fracture Technique: 2 views of the right knee Comparison: Radiograph dated 01/22/2019 Findings: Post operative images demonstrate surgical side plate and screws reducing previously demonstrated distal femoral fracture. There are overlying skin kaila. Small amount of air is seen within the joint, presumably retained from the surgical exposure. Impression: Postoperative right knee. No unusual features
--- NOTE | 2019-01-25 17:00 | Operative Note - Dictated ---
DATE OF OPERATION: 01/25/2019 PREOPERATIVE DIAGNOSIS: Right severely comminuted displaced distal femoral fracture. POSTOPERATIVE DIAGNOSIS: Right severely comminuted displaced distal femoral fracture. PROCEDURE: Open reduction, internal fixation of the supracondylar femur fracture using a 10 hole [place] distal femur lateral plate with multiple locking screws proximally and distally. SURGEON: Avelino Ca M.D. ELECTRICIAN TECHNICIAN: Chata Gutierrez PA-C. ANESTHESIOLOGIST: Ford Mann M.D. ANESTHESIA: Spinal anesthesia. ESTIMATED BLOOD LOSS: About 200 mL. COMPLICATIONS: None. BRIEF HISTORY: The patient is a pleasant 73-year-old female who sustained an injury to her right femur. She is nonambulatory and wheelchair bound. Apparently, she had a twisting injury to her right knee and this was unwitnessed fall. She sustained a supracondylar femur fracture, which was severely comminuted. There were multiple butterfly fragments. After full discussion of risks and benefits of surgery and complications associated with the surgery with her daughterYisel, including infection, bleeding, neurovascular complication, possibility of malunion, possibility of nonunion, possibility of hardware failure, possibility of significant anesthesia complication considering her old age and poor health, and other complications that may arise, she opted for surgical treatment as described above. OPERATIVE PROCEDURE: The patient was brought to the operating room table and was placed supine. All pressure points were well padded. Spinal anesthesia was induced. The right leg was prepped and draped in usual sterile fashion. Standard lateral approach to the distal femur was undertaken. The incision was taken through the subcutaneous tissue and tensor fascia. The vastus lateralis was identified and was retracted anteriorly. The fracture was identified with severe comminution with a large unstable butterfly fragment on the lateral side. There was also a large butterfly fragment on the medial side. At this point, multiple attempts in reduction initially was unsuccessful. At this point, decision was made to apply a lateral precontoured plate distally and fix it to the condyle and then used that as a guide to reduce the shaft. We at this point using the plate as a guide, a precontoured plate was applied onto the femur on the condyles and multiple locking screws were placed in. Once this was placed in, using combination of traction and distractors, the femur was reduced near anatomically and a proximal fixation was obtained using multiple locking screws. It should be noted that because of the displacement and severe comminution, the plate was sitting slightly about 1 to 2 mm off of the femur proximally. However, it was felt that this was acceptable as alignment was good. In the middle of the fracture, there was multiple comminution and the fragments were brought in together as best as possible and a single bicortical screw was placed in to hold large lateral butterfly fragment in place for bony union. Once this was completed, all wounds were thoroughly irrigated using copious amount of fluid. Multiple final x-rays were obtained. Alignment appeared to be good and the plate fixation was in good position. At this point, all wounds were thoroughly irrigated using copious amount of fluid. The tensor fascia was closed using #1 Vicryl suture. Subcutaneous tissue was closed using 2-0 Vicryl suture. Skin was closed in kaila. Sterile dressing was applied. The patient was placed in a knee immobilizer, was taken to recovery room in stable condition. All lap counts and instrument counts were correct. Avelino Ca M.D. DR: YESENIA JOB#: [id number] CC:
--- NOTE | 2019-01-25 17:06 | Cardiology Report ---
APPROVED REPORT EXAM: Two-dimensional and M-mode echocardiogram with Doppler and color Doppler. INDICATION Pre-Op M-Mode DIMENSIONS IVSd1.2 (0.7-1.1cm)Left Atrium (MM)3.6 (1.6-4.0cm) LVDd3.8 (3.5-5.6cm)Aortic Root3.4 (2.0-3.7cm) PWd1.1 (0.7-1.1cm)Aortic Cusp Exc.1.5 (1.5-2.0cm) LVDs1.5 (2.5-4.0cm) PWs1.5 cm Technically difficult study due to poor acoustic windows. Study quality precludes accurate assessment of regional wall motion. Normal left ventricular chamber size, systolic function and wall motion. Left ventricular ejection fraction estimated to be 60 %. Mild left ventricular hypertrophy. No evidence of pericardial effusion. All other cardiac chamber sizes are within normal limits. Focal aortic valve sclerosis with adequate cusp excursion. Heavily thickened mitral valve leaflets with reduced excursion. Heavy mitral annulus and aortic root calcification. Pulmonic valve not well visualized. Normal tricuspid valve structure. Subcostal views not obtainable due to G-tube. A color flow and spectral Doppler study was performed and revealed: Severe aortic regurgitation. Mild to moderate mitral regurgitation. Mitral P1/2 time of 105 m/s. Peak mitral valve diastolic gradient of 12 mmHg and a mean gradient of 4 mmHg. Mitral diastolic velocities suggest mild left ventricular diastolic dysfunction (Grade I). Moderate tricuspid regurgitation. Tricuspid systolic velocities suggests peak right ventricular systolic pressure of 62 mmHg, consistent with severe pulmonary hypertension. No pulmonic regurgitation present.
--- NOTE | 2019-01-25 17:28 | Cardiology Report ---
APPROVED REPORT EKG Measurement Heart [id number] NV [id number] Normal sinus rhythm Nonspecific ST and T wave abnormality Abnormal ECG
[2019-01-25] MEDS ORDERED: Albuterol/Ipratropium 3ml neb HHN PRN (17:44)
[2019-01-25] MEDS ORDERED: HYDROcodone/Acetamin 10/325 tab GT PRN ×2 (17:44→19:15)
[2019-01-25] MEDS ORDERED: HYDROcodone/Acetamin 5/325 tab GT PRN ×2 (17:45→19:07)
--- NOTE | 2019-01-25 17:45 | Progress Note ---
DATE: 01/25/2019 SUBJECTIVE: The patient is [place] speaking, calm, more redirectable. The patient calm, cooperative. No behavior issues noted. The patient behavior issues in the past, currently manageable. The Depakote level is normal for a such a low-dose she is on. There is no new compliant. MENTAL STATUS EXAMINATION: The patient is alert and oriented times to self. Mood is neutral to dysphoric. Affect is constricted. Congruent with mood. Thought process is concrete. Thought content, no suicidal or homicidal ideation. ASSESSMENT: 1. Major depressive disorder. 2. Dementia. PLAN: 1. We will continue the Remeron 15 mg at bedtime. 2. May taper and discontinue Depakote. 3. Discussed with staff. Madhuri Fraga M.D. DR: David JOB#: [id number] CC: [email or web address]
[2019-01-25] MEDS ORDERED: Ondansetron ODT 8mg tab ORAL PRN (17:46)
[2019-01-25] MEDS ORDERED: ceFAZolin sod 1 GM in D5W 55 ML IV SCH (18:30)
[2019-01-25] MEDS: oxyCODONE 5mg IR tab GT SCH (18:45)
[2019-01-25] MEDS: D5 1/2NS 1,000 ML IV SCH (19:17)
[2019-01-25] MEDS: ceFAZolin sod 1 GM in D5W 55 ML IV SCH (19:19)
[2019-01-25] MEDS: Sennosides 8.6mg tab GT SCH (20:50)
[2019-01-25] MEDS: Levemir Flexpen SUBQ SCH (20:54)
[2019-01-26] VITALS: BP 127/61
[2019-01-26] MEDS: oxyCODONE 5mg IR tab GT SCH ×4 (01:49→17:37)
[2019-01-26] MEDS: ceFAZolin sod 1 GM in D5W 55 ML IV SCH ×2 (03:19→09:52)
[2019-01-26 04:00] VITALS: BP 114/56
[2019-01-26] MEDS: NovoLOG Insulin Flexpen SUBQ SCH ×4 (05:36→20:51)
[2019-01-26] MEDS: D5 1/2NS 1,000 ML IV SCH ×2 (05:37→19:41)
--- NOTE | 2019-01-26 07:03 | 48 Hour Post Anesthesia Eval ---
Post Anesthesia Evaluation Procedure: ORIF R Distal Femur Date of Evaluation: Jan 26, 2019 Time of Evaluation: 07:02 Blood Pressure Systolic: 114 0: 56 Pulse Rate: 100 Respiratory Rate: 20 Temperature (Fahrenheit): 98 O2 Sat by Pulse Oximetry: 96 Airway: patent Nausea: No Vomiting: No Pain Intensity: 3 Hydration Status: adequate Cardiopulmonary Status: Stable Mental Status/LOC: patient returned to baseline Follow-up Care/Observations: 0 Post-Anesthesia Complications: 0 Follow-up care needed: N/A Ford Mann MD Jan 26, 2019 07:03
--- NOTE | 2019-01-26 07:26 | Orthopedic Progress Note ---
Orthopedic - Progress Note Subjective Symptoms: c/o post-op knee pain Objective Last 24 Hour Vital Signs Date Time Temp Pulse Resp B/P (MAP) Pulse Ox O2 Delivery O2 Flow Rate FiO2 01/26/19 07:10 80 18 95 Room Air 21 01/26/19 07:03 100 20 96 01/26/19 04:00 98.0 100 20 114/56 (75) 96 01/26/19 04:00 93 01/26/19 00:00 98.2 92 18 127/61 (83) 95 01/26/19 00:00 90 01/25/19 21:00 Room Air 01/25/19 20:50 116 128/67 01/25/19 20:00 98.0 112 20 128/67 (87) 95 01/25/19 20:00 107 01/25/19 16:00 107 01/25/19 14:35 98.1 97 19 111/54 98 Room Air 01/25/19 14:25 95 23 101/78 96 Room Air 01/25/19 14:10 98 21 115/57 96 Room Air 01/25/19 13:54 99 16 96/50 97 Room Air 01/25/19 13:39 98 18 87/40 99 Room Air 01/25/19 13:29 93 24 87/40 95 Simple Mask 6 01/25/19 13:19 93 13 87/41 99 Simple Mask 6 01/25/19 13:14 93 19 125/89 100 Simple Mask 6 01/25/19 13:09 97.5 94 21 106/42 99 Simple Mask 6 01/25/19 13:08 93 16 99 01/25/19 10:09 Room Air 01/25/19 09:20 76 16 96 Room Air 21 01/25/19 09:18 Room Air 01/25/19 08:00 97.2 72 12 150/71 (97) 93 Intake and Output 01/25/19 01/26/19 19:00 07:00 Intake Total 1000 ml Output Total 75 ml Balance 925 ml IV Total 1000 ml Estimated Blood Loss 75 ml # Voids 2 Laboratory Tests Test 01/26/19 06:24 White Blood Count Pending Red Blood Count Pending Hemoglobin Pending Hematocrit Pending Mean Corpuscular Volume Pending Mean Corpuscular Hemoglobin Pending Mean Corpuscular Hemoglobin Concent Pending Red Cell Distribution Width Pending Platelet Count Pending Mean Platelet Volume Pending Neutrophils (%) (Auto) Pending Lymphocytes (%) (Auto) Pending Monocytes (%) (Auto) Pending Eosinophils (%) (Auto) Pending Basophils (%) (Auto) Pending Sodium Level Pending Potassium Level Pending Chloride Level Pending Carbon Dioxide Level Pending Blood Urea Nitrogen Pending Creatinine Pending Estimat Glomerular Filtration Rate Pending Glucose Level Pending Calcium Level Pending Total Bilirubin Pending Aspartate Amino Transf (AST/SGOT) Pending Alanine Aminotransferase (ALT/SGPT) Pending Alkaline Phosphatase Pending Total Protein Pending Albumin Pending Globulin Pending Wound: clean, dry Drains: hemovac Neuro Status: normal Vascular Status: normal Assessment Procedure Performed Right femur ORIF Plan Plan: PT, pain management Additional Comments Check Hgb closely. Patient had 200 cc blood loss during surgery. Out of Bed with PT into a chair with knee immobilizer on at all times. Arrange for SNF transfer once stable, possibly tomorrow. Avelino Ca MD Jan 26, 2019 07:26
[2019-01-26 07:28] LABS: BASOPHILS % (AUTO) 0.2 % (0.0-2.0); HEMOGLOBIN 8.2 G/DL (12.0-16.0); LYMPHOCYTES % (AUTO) 9.1 % (20.0-45.0); MEAN CORPUSCULAR VOLUME 96 FL (80-99); MONOCYTES % (AUTO) 10.9 % (1.0-10.0); NEUTROPHILS % (AUTO) 79.7 % (45.0-75.0); PLATELET COUNT 179 K/UL (150-450); RED CELL DISTRIBUTION WIDTH 12.5 % (11.6-14.8); WHITE BLOOD COUNT 11.2 K/UL (4.8-10.8)
[2019-01-26 07:55] LABS: ALANINE AMINOTRANSFERASE 14 U/L (12-78); ALBUMIN 2.6 G/DL (3.4-5.0); ALBUMIN/GLOBULIN RATIO 0.6 (1.0-2.7); ALKALINE PHOSPHATASE 73 U/L (46-116); ANION GAP 8 mmol/L (5-15); ASPARTATE AMINO TRANSFERASE 26 U/L (15-37); BILIRUBIN,TOTAL 0.4 MG/DL (0.2-1.0); BLOOD UREA NITROGEN 17 mg/dL (7-18); CALCIUM 8.3 MG/DL (8.5-10.1); CARBON DIOXIDE 25 MMOL/L (21-32); CHLORIDE 104 MMOL/L (98-107); CREATININE 0.8 MG/DL (0.55-1.30); POTASSIUM 4.2 MMOL/L (3.5-5.1); SODIUM 137 MMOL/L (136-145)
[2019-01-26 08:00] VITALS: BP 135/68
--- NOTE | 2019-01-26 08:45 | General Progress Note ---
Assessment/Plan Problem List: (1) Status post open reduction and internal fixation (ORIF) of fracture ICD Codes: Z98.890 - Other specified postprocedural states; Z87.81 - Personal history of (healed) traumatic fracture SNOMED: 81384010, 821214324 (2) Closed fracture of right distal femur ICD Codes: S72.401A - Unspecified fracture of lower end of right femur, initial encounter for closed fracture SNOMED: 678872642, 090901117 (3) Fall ICD Codes: W19.XXXA - Unspecified fall, initial encounter SNOMED: 8266201, 639874277 (4) paroxsymal atrial fibrillation (5) CAD (coronary artery disease) ICD Codes: I25.10 - Atherosclerotic heart disease of [place] coronary artery without angina pectoris SNOMED: 59411318 (6) HTN (hypertension) ICD Codes: I10 - Essential (primary) hypertension SNOMED: 17642134 (7) HLD (hyperlipidemia) ICD Codes: E78.5 - Hyperlipidemia, unspecified SNOMED: 59983172 (8) Severe aortic regurgitation ICD Codes: I35.1 - Nonrheumatic aortic (valve) insufficiency SNOMED: 96100435 (9) Pulmonary HTN ICD Codes: I27.20 - Pulmonary hypertension, unspecified SNOMED: 98859562 (10) Diabetes mellitus ICD Codes: E11.9 - Type 2 diabetes mellitus without complications SNOMED: 93429884 (11) Psychosis ICD Codes: F29 - Unspecified psychosis not due to a substance or known physiological condition SNOMED: 59676468 (12) GERD (gastroesophageal reflux disease) ICD Codes: K21.9 - Gastro-esophageal reflux disease without esophagitis SNOMED: 506490992 (13) Depression ICD Codes: F32.9 - Major depressive disorder, single episode, unspecified SNOMED: 53311050 (14) Dehydration ICD Codes: E86.0 - Dehydration SNOMED: 25519619 Status: stable Assessment/Plan: #POD # 1 s/p right femur ORIF #Right femur distal fracture Continue to monitor on telemetry XR right femur dital fracture CT pelvis negative for fracture , CT head negative Orthopedic consult Dr Cyr appreciated s/p procedure IV hydration, monitor BUN, monitor hbg, 200 cc blood loss Pain control PT/OT, plan to return to SNF turn q2hr to prevent pressure ulcer Cardiac: CAD, Paroxysmal Afib, HTN, HLD, severe aortic regurgitation, Pulmonary hypertension Continue Amiodarone 100 mg daily, Metoprolol 12.5 mg BID, Amlodipine 5 mg daily , Atorvastatin 10mg qhs. ASA held for ORIF, resume if hgb stable Will consider adding ACEi/ARB on discharge Cardiology consult appreciated Endocrine: Hypothyroidism and DM II- controlled Continue Synthroid 150 daily, Insulin Levemir 25 mg QHS, continue sliding scale insulin , hold metformin Monitor serum glucose and increase insulin as needed Psych: Depression and anxiety continue valproic acid, Effexor. Remeron Psychiatry consult Dr. Fraga- low Valproic acid levels. Increase dose DVT Prophylaxis: SCD, HSQ Diet: feeds via PEG, mechanical soft is passes assessment by speech Code Status: Full code- POLS reviewed Hospital Classification Declaration: Based on this initial evaluation, and depending on the patient's clinical course, I anticipate that this patient will require hospitalization for 1-2 days Disposition: Once the patient is stable to leave the hospital, I anticipate the patient will likely be discharged to the following environment: back to [facility] rehab of [facility] I spent 40 minutes on this patient's case, and 20 minutes were dedicated to counseling and/or care coordination. Discussed with patient/family, nursing staff, SW/CM, ED physician, Orthopedic physician Dr. Ca regarding clinical status, treatment course, and disposition planning. Time of note may not reflect time of encounter. Subjective Date patient seen: Jan 26, 2019 ROS Limited/Unobtainable: No Constitutional: Reports: other - right knee pain 07/16 HEENT: Denies: no symptoms, eye pain, blurred vision, tearing, double vision, ear pain, ear discharge, nose pain, nose congestion, throat pain, throat swelling, mouth pain, mouth swelling, other Cardiovascular: Denies: no symptoms, chest pain, edema, irregular heart rate, lightheadedness, palpitations, syncope, other Gastrointestinal/Abdominal: Denies: no symptoms, abdomen distended, abdominal pain, black stools, tarry stools, blood in stool, constipated, diarrhea, difficulty swallowing, nausea, poor appetite, poor fluid intake, rectal bleeding , vomiting, other Genitourinary: Denies: no symptoms, burning, discharge, frequency, flank pain, hematuria, incontinence, pain, urgency, other Neurologic/Psychiatric: Denies: no symptoms, anxiety, depressed, emotional problems, headache, numbness, paresthesia, pre-existing deficit, seizure, tingling, tremors, weakness, other Endocrine: Denies: no symptoms, excessive sweating, flushing, intolerance to cold, intolerance to heat, increased hunger, increased thirst, increased urine, unexplained weight gain, unexplained weight loss, other Hematologic/Lymphatic: Denies: no symptoms, anemia, easy bleeding, easy bruising, other Allergies: Coded Allergies: No Known Allergies (Unverified , 02/16/17) Subjective seen, no distress. POD # 1 s/p R femur ORIF. Tele reviewed, no acute vents. sinus tach low 100's overnight Objective Last 24 Hour Vital Signs Date Time Temp Pulse Resp B/P (MAP) Pulse Ox O2 Delivery O2 Flow Rate FiO2 01/26/19 08:00 96.6 87 14 135/68 (90) 96 01/26/19 07:10 80 18 95 Room Air 21 01/26/19 07:03 100 20 96 01/26/19 04:00 98.0 100 20 114/56 (75) 96 01/26/19 04:00 93 01/26/19 00:00 98.2 92 18 127/61 (83) 95 01/26/19 00:00 90 01/25/19 21:00 Room Air 01/25/19 20:50 116 128/67 01/25/19 20:00 98.0 112 20 128/67 (87) 95 01/25/19 20:00 107 01/25/19 16:00 107 01/25/19 14:35 98.1 97 19 111/54 98 Room Air 01/25/19 14:25 95 23 101/78 96 Room Air 01/25/19 14:10 98 21 115/57 96 Room Air 01/25/19 13:54 99 16 96/50 97 Room Air 01/25/19 13:39 98 18 87/40 99 Room Air 01/25/19 13:29 93 24 87/40 95 Simple Mask 6 01/25/19 13:19 93 13 87/41 99 Simple Mask 6 01/25/19 13:14 93 19 125/89 100 Simple Mask 6 01/25/19 13:09 97.5 94 21 106/42 99 Simple Mask 6 01/25/19 13:08 93 16 99 01/25/19 10:09 Room Air 01/25/19 09:20 76 16 96 Room Air 21 01/25/19 09:18 Room Air Intake and Output 01/25/19 01/26/19 19:00 07:00 Intake Total 1000 ml Output Total 75 ml Balance 925 ml IV Total 1000 ml Estimated Blood Loss 75 ml # Voids 2 Laboratory Tests 01/26/19 06:24: White Blood Count 11.2H, Red Blood Count 2.60L, Hemoglobin 8.2L, Hematocrit 25.0L, Mean Corpuscular Volume 96, Mean Corpuscular Hemoglobin 31.7H, Mean Corpuscular Hemoglobin Concent 32.9, Red Cell Distribution Width 12.5, Platelet Count 179, Mean Platelet Volume 6.6, Neutrophils (%) (Auto) 79.7H, Lymphocytes ( %) (Auto) 9.1L, Monocytes (%) (Auto) 10.9H, Eosinophils (%) (Auto) 0.0, Basophils (%) (Auto) 0.2, Sodium Level 137, Potassium Level 4.2, Chloride Level 104, Carbon Dioxide Level 25, Anion Gap 8, Blood Urea Nitrogen 17, Creatinine 0.8, Estimat Glomerular Filtration Rate , Glucose Level 290#H, Calcium Level 8.3L, Total Bilirubin 0.4, Aspartate Amino Transf (AST/SGOT) 26, Alanine Aminotransferase (ALT/SGPT) 14, Alkaline Phosphatase 73, Total Protein 6.9, Albumin 2.6L, Globulin 4.3, Albumin/Globulin Ratio 0.6L Height (Feet): 5 Height (Inches): 2.00 Weight (Pounds): 145 Objective General: alert, cooperative, no distress, appears stated age, A&Ox1 Head: normocephalic, without obvious abnormality, atraumatic Eyes: conjunctivae/corneas clear. PERRL, EOM's intact Throat: lips, mucosa, and tongue normal. MMM, poor dentition Neck: supple, symmetrical, trachea midline, and no JVD Lungs: clear to auscultation bilaterally Heart: regular rate and rhythm, S1, S2 normal, no murmur, click, rub or gallop Abdomen: soft, non-tender, non-distended, bowel sounds normal; no masses or organomegaly Extremities: extremities normal, atraumatic, no cyanosis or edema, moves all extremitas, knee immobilizer in place +vac Pulses: 2+ and symmetric Skin: skin color, texture, turgor normal; + no ulcers, dressing c/d/i Neurologic: grossly normal. oriented x 1 at baseline Luis Eduardo Williamson M.D. Jan 26, 2019 08:44
[2019-01-26] MEDS: Docusate 100mg/10ml Liq GT SCH ×3 (09:04→17:37)
[2019-01-26] MEDS: Amiodarone 200mg tab GT SCH (09:05)
[2019-01-26] MEDS: Metoprolol Tartrate 12.5mg TAB GT SCH ×2 (09:05→20:47)
[2019-01-26] MEDS: Depakote 125mg Sprinkles GT SCH (09:05)
[2019-01-26] MEDS: Multivitamin w/Minerals tab ORAL SCH (09:07)
[2019-01-26] MEDS: celeBREX 200mg Cap **SURGERY PATIENTS ONLY ORAL SCH (09:07)
[2019-01-26] MEDS: Gabapentin 300 MG/6 ML Soln GT SCH ×2 (09:25→17:42)
[2019-01-26] MEDS: Heparin 5000 units/ml inj SUBQ SCH ×2 (09:27→20:51)
[2019-01-26 12:00] VITALS: BP 141/43
[2019-01-26 16:00] VITALS: BP 90/36
--- NOTE | 2019-01-26 16:33 | Cardiac Electrophysiology PN ---
Assessment/Plan Assessment/Plan 1. Hypertension. On amlodipine 5 mg daily and Lopressor 12.5 bid 2. Paroxysmal atrial fibrillation, in SR, on amiodarone 100 mg per G-tube daily and Lopressor 12.5 bid 3. Severe AI and pulmonary HTN PAP 60. Compensated with no CHF. Laying flat in bed. 4. Diabetes, on insulin. 5. Hyperlipidemia, on Lipitor. 6. Status post fall and right distal femur fracture. S/P ORIF yesterday. Tolerated the procedure well. 7. Hypothyroidism, on Synthroid. DW Subjective Subjective S/P Femur surgery yesterday. Objective Last 24 Hour Vital Signs Date Time Temp Pulse Resp B/P (MAP) Pulse Ox O2 Delivery O2 Flow Rate FiO2 01/26/19 16:00 97.8 85 14 90/36 (54) 96 01/26/19 12:00 98.0 80 15 141/43 (75) 96 01/26/19 11:30 75 01/26/19 09:06 87 135/68 01/26/19 09:05 87 135/68 01/26/19 09:00 Room Air 01/26/19 08:00 96.6 87 14 135/68 (90) 96 01/26/19 07:37 88 01/26/19 07:10 80 18 95 Room Air 21 01/26/19 07:03 100 20 96 01/26/19 04:00 98.0 100 20 114/56 (75) 96 01/26/19 04:00 93 01/26/19 00:00 98.2 92 18 127/61 (83) 95 01/26/19 00:00 90 01/25/19 21:00 Room Air 01/25/19 20:50 116 128/67 01/25/19 20:00 98.0 112 20 128/67 (87) 95 01/25/19 20:00 107 Intake and Output 01/25/19 01/26/19 19:00 07:00 Intake Total 1000 ml Output Total 75 ml Balance 925 ml IV Total 1000 ml Estimated Blood Loss 75 ml # Voids 2 Laboratory Tests Test 01/26/19 06:24 White Blood Count 11.2 K/UL (4.8-10.8) H Red Blood Count 2.60 M/UL (4.20-5.40) L Hemoglobin 8.2 G/DL (12.0-16.0) L Hematocrit 25.0 % (37.0-47.0) L Mean Corpuscular Volume 96 FL (80-99) Mean Corpuscular Hemoglobin 31.7 PG (27.0-31.0) H Mean Corpuscular Hemoglobin Concent 32.9 G/DL (32.0-36.0) Red Cell Distribution Width 12.5 % (11.6-14.8) Platelet Count 179 K/UL (150-450) Mean Platelet Volume 6.6 FL (6.5-10.1) Neutrophils (%) (Auto) 79.7 % (45.0-75.0) H Lymphocytes (%) (Auto) 9.1 % (20.0-45.0) L Monocytes (%) (Auto) 10.9 % (1.0-10.0) H Eosinophils (%) (Auto) 0.0 % (0.0-3.0) Basophils (%) (Auto) 0.2 % (0.0-2.0) Sodium Level 137 MMOL/L (136-145) Potassium Level 4.2 MMOL/L (3.5-5.1) Chloride Level 104 MMOL/L (98-107) Carbon Dioxide Level 25 MMOL/L (21-32) Anion Gap 8 mmol/L (5-15) Blood Urea Nitrogen 17 mg/dL (7-18) Creatinine 0.8 MG/DL (0.55-1.30) Estimat Glomerular Filtration Rate mL/min (>60) Glucose Level 290 MG/DL (74-106) #H Calcium Level 8.3 MG/DL (8.5-10.1) L Total Bilirubin 0.4 MG/DL (0.2-1.0) Aspartate Amino Transf (AST/SGOT) 26 U/L (15-37) Alanine Aminotransferase (ALT/SGPT) 14 U/L (12-78) Alkaline Phosphatase 73 U/L (46-116) Total Protein 6.9 G/DL (6.4-8.2) Albumin 2.6 G/DL (3.4-5.0) L Globulin 4.3 g/dL Albumin/Globulin Ratio 0.6 (1.0-2.7) L Objective HEAD AND NECK: No JVD. LUNGS: Clear. CARDIOVASCULAR: Regular S1 and S2 with no gallop or murmur. ABDOMEN: Soft. EXTREMITIES: S/P surgery Avtar Munroe MD Jan 26, 2019 16:33
[2019-01-26 17:37] VITALS: BP 106/44
[2019-01-26] MEDS: Sennosides 8.6mg tab GT SCH (20:46)
[2019-01-26] MEDS: Levemir Flexpen SUBQ SCH (20:51)
--- NOTE | 2019-01-26 21:15 | Progress Note ---
DATE: 01/26/2019 SUBJECTIVE: The patient is doing better. Calm and manageable. The patient's depressive symptoms improved. No suicidal or homicidal ideations noted. The patient is forgetful and has poor cognition. The patient is compliant with care. MENTAL STATUS EXAMINATION: The patient is oriented to self and place. Mood is neutral. Affect is blunted, congruent with mood. Thought process is concrete. Thought content, no suicidal or homicidal ideations. Memory, concentration and attention impaired. Insight and judgment, limited. ASSESSMENT: 1. Dementia. 2. Major depressive disorder. PLAN: 1. We will discontinue the Depakote. The patient will be continued on Remeron for depression and low appetite. 2. May increase the dosage. Madhuri Fraga M.D. DR: GINI JOB#: [id number] CC:
[2019-01-27] VITALS (7 sets, daily range): BP systolic 98–131; BP diastolic 40–58
[2019-01-27] MEDS: oxyCODONE 5mg IR tab GT SCH ×4 (00:29→18:04)
[2019-01-27] MEDS: NovoLOG Insulin Flexpen SUBQ SCH ×4 (06:27→22:24)
[2019-01-27 08:50] LABS: HEMATOCRIT 23.3 % (37.0-47.0); HEMOGLOBIN 7.8 G/DL (12.0-16.0); MEAN CORPUSCULAR VOLUME 96 FL (80-99); PLATELET COUNT 201 K/UL (150-450); RED BLOOD COUNT 2.43 M/UL (4.20-5.40); RED CELL DISTRIBUTION WIDTH 12.9 % (11.6-14.8); WHITE BLOOD COUNT 11.8 K/UL (4.8-10.8)
[2019-01-27 08:56] LABS: ANION GAP 2 mmol/L (5-15); BLOOD UREA NITROGEN 16 mg/dL (7-18); CALCIUM 8.2 MG/DL (8.5-10.1); CARBON DIOXIDE 31 MMOL/L (21-32); CHLORIDE 105 MMOL/L (98-107); CREATININE 0.9 MG/DL (0.55-1.30); POTASSIUM 3.9 MMOL/L (3.5-5.1); SODIUM 138 MMOL/L (136-145)
[2019-01-27] MEDS: Docusate 100mg/10ml Liq GT SCH ×3 (09:12→18:04)
[2019-01-27] MEDS: Gabapentin 300 MG/6 ML Soln GT SCH ×2 (09:12→18:04)
[2019-01-27] MEDS: Multivitamin w/Minerals tab ORAL SCH (09:13)
[2019-01-27] MEDS: celeBREX 200mg Cap **SURGERY PATIENTS ONLY ORAL SCH (09:13)
[2019-01-27] MEDS: Metoprolol Tartrate 12.5mg TAB GT SCH ×2 (09:13→22:19)
[2019-01-27] MEDS: Amiodarone 200mg tab GT SCH (09:14)
[2019-01-27] MEDS: Heparin 5000 units/ml inj SUBQ SCH ×2 (09:16→22:22)
--- NOTE | 2019-01-27 10:03 | General Progress Note ---
Assessment/Plan Problem List: (1) Status post open reduction and internal fixation (ORIF) of fracture ICD Codes: Z98.890 - Other specified postprocedural states; Z87.81 - Personal history of (healed) traumatic fracture SNOMED: 21524396, 627644751 (2) Closed fracture of right distal femur ICD Codes: S72.401A - Unspecified fracture of lower end of right femur, initial encounter for closed fracture SNOMED: 226214260, 790908598 (3) Fall ICD Codes: W19.XXXA - Unspecified fall, initial encounter SNOMED: 4159664, 013948059 (4) paroxsymal atrial fibrillation (5) CAD (coronary artery disease) ICD Codes: I25.10 - Atherosclerotic heart disease of [place] coronary artery without angina pectoris SNOMED: 36814152 (6) HTN (hypertension) ICD Codes: I10 - Essential (primary) hypertension SNOMED: 60433422 (7) HLD (hyperlipidemia) ICD Codes: E78.5 - Hyperlipidemia, unspecified SNOMED: 49884327 (8) Severe aortic regurgitation ICD Codes: I35.1 - Nonrheumatic aortic (valve) insufficiency SNOMED: 24501808 (9) Pulmonary HTN ICD Codes: I27.20 - Pulmonary hypertension, unspecified SNOMED: 73436508 (10) Diabetes mellitus ICD Codes: E11.9 - Type 2 diabetes mellitus without complications SNOMED: 34936782 (11) Psychosis ICD Codes: F29 - Unspecified psychosis not due to a substance or known physiological condition SNOMED: 69331441 (12) GERD (gastroesophageal reflux disease) ICD Codes: K21.9 - Gastro-esophageal reflux disease without esophagitis SNOMED: 888354181 (13) Depression ICD Codes: F32.9 - Major depressive disorder, single episode, unspecified SNOMED: 98740185 (14) Dehydration ICD Codes: E86.0 - Dehydration SNOMED: 59968070 Status: stable Assessment/Plan: #POD # 2 s/p right femur ORIF #Right femur distal fracture #Leukocytosis and tachycardia- likely reactive but will r/o infection. cxr and UA ordered. #Acute blood loss anemia on chronic anemia- Continue to monitor Continue to monitor on telemetry XR right femur dital fracture CT pelvis negative for fracture , CT head negative Orthopedic consult Dr Cyr appreciated s/p R femur ORIF on 11/19 IV hydration, monitor BUN, monitor hbg, 200 cc blood loss Pain control PT/OT, plan to return to SNF turn q2hr to prevent pressure ulcer Cardiac: CAD, Paroxysmal Afib, HTN, HLD, severe aortic regurgitation, Pulmonary hypertension Continue Amiodarone 100 mg daily, Metoprolol 12.5 mg BID, Amlodipine 5 mg daily , Atorvastatin 10mg qhs. ASA held for ORIF, resume if hgb stable Compensated AI with no chf Will consider adding ACEi/ARB on discharge Cardiology consult appreciated Endocrine: Hypothyroidism and DM II- controlled Continue Synthroid 150 daily, Insulin Levemir 25 mg QHS, continue sliding scale insulin , hold metformin Monitor serum glucose and increase insulin as needed Psych: Depression and anxiety Discontinue valproic acid Continue Effexor and Remeron Psychiatry consult Dr. Fraga appreciated DVT Prophylaxis: SCD, HSQ Diet: feeds via PEG, mechanical soft if passes assessment by speech (she did not pass swallow on 01/26, will attempt again) Code Status: Full code- POLS reviewed Hospital Classification Declaration: Based on this initial evaluation, and depending on the patient's clinical course, I anticipate that this patient will require hospitalization for 1-2 days Disposition: Once the patient is stable to leave the hospital, I anticipate the patient will likely be discharged to the following environment: back to SNF rehab of [facility] I spent 40 minutes on this patient's case, and 20 minutes were dedicated to counseling and/or care coordination. Discussed with patient/family, nursing staff, SW/CM, ED physician, Orthopedic physician Dr. Ca regarding clinical status, treatment course, and disposition planning. Time of note may not reflect time of encounter. Subjective Date patient seen: Jan 27, 2019 ROS Limited/Unobtainable: No Constitutional: Denies: no symptoms, chills, diaphoresis, fever, malaise, weakness, other HEENT: Denies: no symptoms, eye pain, blurred vision, tearing, double vision, ear pain, ear discharge, nose pain, nose congestion, throat pain, throat swelling, mouth pain, mouth swelling, other Cardiovascular: Denies: no symptoms, chest pain, edema, irregular heart rate, lightheadedness, palpitations, syncope, other Respiratory: Denies: no symptoms, cough, orthopnea, shortness of breath, SOB with excertion, SOB at rest, sputum, stridor, wheezing, other Gastrointestinal/Abdominal: Denies: no symptoms, abdomen distended, abdominal pain, black stools, tarry stools, blood in stool, constipated, diarrhea, difficulty swallowing, nausea, poor appetite, poor fluid intake, rectal bleeding , vomiting, other Genitourinary: Denies: no symptoms, burning, discharge, frequency, flank pain, hematuria, incontinence, pain, urgency, other Neurologic/Psychiatric: Denies: no symptoms, anxiety, depressed, emotional problems, headache, numbness, paresthesia, pre-existing deficit, seizure, tingling, tremors, weakness, other Endocrine: Denies: no symptoms, excessive sweating, flushing, intolerance to cold, intolerance to heat, increased hunger, increased thirst, increased urine, unexplained weight gain, unexplained weight loss, other Hematologic/Lymphatic: Denies: no symptoms, anemia, easy bleeding, easy bruising, other Allergies: Coded Allergies: No Known Allergies (Unverified , 02/16/17) Subjective seen, no distress. POD # 2 s/p R femur ORIF. Tele reviewed, no acute events. Objective Last 24 Hour Vital Signs Date Time Temp Pulse Resp B/P (MAP) Pulse Ox O2 Delivery O2 Flow Rate FiO2 01/27/19 09:14 103 118/93 01/27/19 09:13 103 118/93 01/27/19 09:00 Room Air 01/27/19 08:00 99.0 89 18 114/53 (73) 95 01/27/19 07:29 107 01/27/19 04:00 98.1 94 17 119/40 (66) 97 01/27/19 04:00 93 01/27/19 00:00 91 01/27/19 00:00 97.7 96 19 115/58 (77) 94 01/26/19 21:19 88 18 95 Room Air 21 01/26/19 21:00 Room Air 01/26/19 20:47 95 115/57 01/26/19 20:00 80 01/26/19 17:37 82 106/44 (64) 01/26/19 16:00 97.8 85 14 90/36 (54) 96 01/26/19 15:08 80 01/26/19 12:00 98.0 80 15 141/43 (75) 96 01/26/19 11:30 75 Intake and Output 01/26/19 01/27/19 19:00 07:00 Intake Total 270 ml Output Total 300 ml Balance -30 ml Tube Feeding 270 ml Output Urine Total 300 ml # Voids 6 5 # Bowel Movements 1 Laboratory Tests 01/27/19 08:15: White Blood Count 11.8H, Red Blood Count 2.43L, Hemoglobin 7.8L, Hematocrit 23.3L, Mean Corpuscular Volume 96, Mean Corpuscular Hemoglobin 32.0H, Mean Corpuscular Hemoglobin Concent 33.4, Red Cell Distribution Width 12.9, Platelet Count 201, Mean Platelet Volume 6.4L, Neutrophils (%) (Auto) , Lymphocytes (%) ( Auto) , Monocytes (%) (Auto) , Eosinophils (%) (Auto) , Basophils (%) (Auto) , Neutrophils % (Manual) [Pending], Lymphocytes % (Manual) [Pending], Platelet Estimate [Pending], Platelet Morphology [Pending], Sodium Level 138, Potassium Level 3.9, Chloride Level 105, Carbon Dioxide Level 31, Anion Gap 2L, Blood Urea Nitrogen 16, Creatinine 0.9, Estimat Glomerular Filtration Rate , Glucose Level 207H, Calcium Level 8.2L Height (Feet): 5 Height (Inches): 2.00 Weight (Pounds): 145 Objective General: alert, cooperative, no distress, appears stated age, A&Ox1 Head: normocephalic, without obvious abnormality, atraumatic Eyes: conjunctivae/corneas clear. PERRL, EOM's intact Throat: lips, mucosa, and tongue normal. MMM, poor dentition Neck: supple, symmetrical, trachea midline, and no JVD Lungs: clear to auscultation bilaterally Heart: regular rate and rhythm, S1, S2 normal, no murmur, click, rub or gallop Abdomen: soft, non-tender, non-distended, bowel sounds normal; no masses or organomegaly Extremities: extremities normal, atraumatic, no cyanosis or edema, moves all extremitas, knee immobilizer in place +vac Pulses: 2+ and symmetric Skin: skin color, texture, turgor normal; + no ulcers, dressing c/d/i Neurologic: grossly normal. oriented x 1 at baseline Luis Eduardo Williamson M.D. 21, 2019 10:03
--- NOTE | 2019-01-27 10:20 | Cardiac Electrophysiology PN ---
Assessment/Plan Assessment/Plan 1. Hypertension. On amlodipine 5 mg daily and Lopressor 12.5 bid 2. Paroxysmal atrial fibrillation, in SR on amiodarone 100 mg daily and Lopressor 12.5 bid 3. Severe AI and pulmonary HTN PAP 60. Compensated with no CHF. 4. Diabetes, on insulin. 5. Hyperlipidemia, on Lipitor. 6. Status post fall and right distal femur fracture. S/P ORIF 01/25/19 Tolerated the procedure well. 7. Hypothyroidism, on Synthroid. 8. S/P PEG. Resumed feeding last night DW RN Subjective Subjective Feeling better. No CP or SOB Objective Last 24 Hour Vital Signs Date Time Temp Pulse Resp B/P (MAP) Pulse Ox O2 Delivery O2 Flow Rate FiO2 01/27/19 09:14 103 118/93 01/27/19 09:13 103 118/93 01/27/19 09:00 Room Air 01/27/19 08:00 99.0 89 18 114/53 (73) 95 01/27/19 07:29 107 01/27/19 04:00 98.1 94 17 119/40 (66) 97 01/27/19 04:00 93 01/27/19 00:00 91 01/27/19 00:00 97.7 96 19 115/58 (77) 94 01/26/19 21:19 88 18 95 Room Air 21 01/26/19 21:00 Room Air 01/26/19 20:47 95 115/57 01/26/19 20:00 80 01/26/19 17:37 82 106/44 (64) 01/26/19 16:00 97.8 85 14 90/36 (54) 96 01/26/19 15:08 80 01/26/19 12:00 98.0 80 15 141/43 (75) 96 01/26/19 11:30 75 Intake and Output 01/26/19 01/27/19 19:00 07:00 Intake Total 270 ml Output Total 300 ml Balance -30 ml Tube Feeding 270 ml Output Urine Total 300 ml # Voids 6 5 # Bowel Movements 1 Laboratory Tests Test 01/27/19 08:15 White Blood Count 11.8 K/UL (4.8-10.8) H Red Blood Count 2.43 M/UL (4.20-5.40) L Hemoglobin 7.8 G/DL (12.0-16.0) L Hematocrit 23.3 % (37.0-47.0) L Mean Corpuscular Volume 96 FL (80-99) Mean Corpuscular Hemoglobin 32.0 PG (27.0-31.0) H Mean Corpuscular Hemoglobin Concent 33.4 G/DL (32.0-36.0) Red Cell Distribution Width 12.9 % (11.6-14.8) Platelet Count 201 K/UL (150-450) Mean Platelet Volume 6.4 FL (6.5-10.1) L Neutrophils (%) (Auto) % (45.0-75.0) Lymphocytes (%) (Auto) % (20.0-45.0) Monocytes (%) (Auto) % (1.0-10.0) Eosinophils (%) (Auto) % (0.0-3.0) Basophils (%) (Auto) % (0.0-2.0) Neutrophils % (Manual) Pending Lymphocytes % (Manual) Pending Platelet Estimate Pending Platelet Morphology Pending Sodium Level 138 MMOL/L (136-145) Potassium Level 3.9 MMOL/L (3.5-5.1) Chloride Level 105 MMOL/L (98-107) Carbon Dioxide Level 31 MMOL/L (21-32) Anion Gap 2 mmol/L (5-15) L Blood Urea Nitrogen 16 mg/dL (7-18) Creatinine 0.9 MG/DL (0.55-1.30) Estimat Glomerular Filtration Rate mL/min (>60) Glucose Level 207 MG/DL (74-106) H Calcium Level 8.2 MG/DL (8.5-10.1) L Objective HEAD AND NECK: No JVD. LUNGS: Clear. CARDIOVASCULAR: Regular S1 and S2 with no gallop or murmur. ABDOMEN: Soft. EXTREMITIES: S/P surgery Avtar Munroe MD Jan 27, 2019 10:20
--- NOTE | 2019-01-27 12:59 | Diagnostic Imaging Report ---
Indication: Dyspnea Comparison: 02/24/2017 A single view chest radiograph was obtained. Findings: No definite infiltrate or pulmonary vascular congestion identified. The heart is enlarged. The aorta is mildly enlarged consistent with atherosclerotic vascular disease. The bones are osteopenic. Impression: No acute disease
[2019-01-27 17:36] LABS: APPEARANCE,URINE VERY CLOUDY; BILIRUBIN, URINE NEGATIVE (NEGATIVE); GLUCOSE, URINE (UA) NEGATIVE (NEGATIVE); KETONES,URINE 1+ (NEGATIVE); LEUKOCYTE ESTERASE ,URINE 3+ (NEGATIVE); NITRITE,URINE NEGATIVE (NEGATIVE); PH,URINE 7 (4.5-8.0); PROTEIN,URINE 2+ (NEGATIVE); UROBILINOGEN,URINE 4 MG/DL (0.0-1.0)
[2019-01-27 17:42] LABS: COLOR,URINE YELLOW
[2019-01-27] MEDS: Sennosides 8.6mg tab GT SCH (22:19)
[2019-01-27] MEDS: Levemir Flexpen SUBQ SCH (22:23)
[2019-01-28] VITALS (7 sets, daily range): BP systolic 93–144; BP diastolic 39–65
[2019-01-28] MEDS: oxyCODONE 5mg IR tab GT SCH ×4 (01:06→17:58)
--- NOTE | 2019-01-28 04:15 | Progress Note ---
DATE: 01/27/2019 SUBJECTIVE: The patient is doing well. Less anxiety and calm. No behavior issues noted. Still confused. Status post PEG, tolerating it. MENTAL STATUS EXAMINATION: The patient is alert and disoriented. Knows her name. Still mood is dysphoric. Affect is constricted. Congruent with mood. Thought process is concrete. Thought content, no suicidal or homicidal ideation. ASSESSMENT: 1. Major depressive disorder. 2. Anxiety disorder. PLAN: 1. The patient will be on Remeron. 2. Provide the patient with reality orientation and supportive therapy. Madhuri Fraga M.D. DR: CATA JOB#: [id number] CC:
[2019-01-28] MEDS: NovoLOG Insulin Flexpen SUBQ SCH ×4 (06:06→21:59)
[2019-01-28 06:55] LABS: HEMATOCRIT 22.2 % (37.0-47.0); HEMOGLOBIN 7.4 G/DL (12.0-16.0); MEAN CORPUSCULAR VOLUME 96 FL (80-99); PLATELET COUNT 219 K/UL (150-450); RED CELL DISTRIBUTION WIDTH 12.8 % (11.6-14.8); WHITE BLOOD COUNT 8.3 K/UL (4.8-10.8)
[2019-01-28] MEDS: Gabapentin 300 MG/6 ML Soln GT SCH ×2 (09:41→17:58)
[2019-01-28] MEDS: Multivitamin w/Minerals tab ORAL SCH (09:41)
[2019-01-28] MEDS: Metoprolol Tartrate 12.5mg TAB GT SCH ×2 (09:42→21:52)
[2019-01-28] MEDS: celeBREX 200mg Cap **SURGERY PATIENTS ONLY ORAL SCH (09:42)
[2019-01-28] MEDS: Amiodarone 200mg tab GT SCH (09:43)
[2019-01-28] MEDS: Docusate 100mg/10ml Liq GT SCH ×3 (09:43→18:02)
[2019-01-28] MEDS: Heparin 5000 units/ml inj SUBQ SCH ×2 (09:45→21:58)
--- NOTE | 2019-01-28 11:30 | General Progress Note ---
Assessment/Plan Problem List: (1) Status post open reduction and internal fixation (ORIF) of fracture ICD Codes: Z98.890 - Other specified postprocedural states; Z87.81 - Personal history of (healed) traumatic fracture SNOMED: 99694745, 370154890 (2) Closed fracture of right distal femur ICD Codes: S72.401A - Unspecified fracture of lower end of right femur, initial encounter for closed fracture SNOMED: 361710343, 924020519 (3) Fall ICD Codes: W19.XXXA - Unspecified fall, initial encounter SNOMED: 9703534, 482440066 (4) paroxsymal atrial fibrillation (5) CAD (coronary artery disease) ICD Codes: I25.10 - Atherosclerotic heart disease of [place] coronary artery without angina pectoris SNOMED: 67465203 (6) HTN (hypertension) ICD Codes: I10 - Essential (primary) hypertension SNOMED: 31026693 (7) HLD (hyperlipidemia) ICD Codes: E78.5 - Hyperlipidemia, unspecified SNOMED: 50241463 (8) Severe aortic regurgitation ICD Codes: I35.1 - Nonrheumatic aortic (valve) insufficiency SNOMED: 52823639 (9) Pulmonary HTN ICD Codes: I27.20 - Pulmonary hypertension, unspecified SNOMED: 25213730 (10) Diabetes mellitus ICD Codes: E11.9 - Type 2 diabetes mellitus without complications SNOMED: 28174974 (11) Psychosis ICD Codes: F29 - Unspecified psychosis not due to a substance or known physiological condition SNOMED: 35501531 (12) GERD (gastroesophageal reflux disease) ICD Codes: K21.9 - Gastro-esophageal reflux disease without esophagitis SNOMED: 037507984 (13) Depression ICD Codes: F32.9 - Major depressive disorder, single episode, unspecified SNOMED: 38032119 (14) Dehydration ICD Codes: E86.0 - Dehydration SNOMED: 50130711 (15) UTI (urinary tract infection) ICD Codes: N39.0 - Urinary tract infection, site not specified SNOMED: 55070132 Status: stable Assessment/Plan: Musculoskeletal: POD # 3 s/p right femur ORIF for Right femur distal fracture Orthopedic consult Dr Cyr appreciated s/p R femur ORIF on 01/25 200 cc blood loss during procedure Pain control PT/OT, plan to return to SNF turn q2hr to prevent pressure ulcer Hematological: Acute blood loss anemia on chronic anemia- Transfuse one unit prbc. Spoke with daughter Yisel who consented to transfusion. Continue to monitor on telemetry check stool for occult blood Infectious disease: Leukocytosis and tachycardia- Resolved, UA positive for UTI, CXR negative for any acute process UTI. IV ceftriaxone (01/28-) follow up cultures Cardiac: CAD, Paroxysmal Afib, HTN, HLD, severe aortic regurgitation, Pulmonary hypertension Continue Amiodarone 100 mg daily, Metoprolol 12.5 mg BID, Amlodipine 5 mg daily , Atorvastatin 10mg qhs. ASA held for ORIF, resume if hgb stable Compensated AI with no chf Will consider adding ACEi/ARB on discharge Cardiology consult appreciated Endocrine: Hypothyroidism and DM II- controlled Continue Synthroid 150 daily, Insulin Levemir 25 mg QHS, continue sliding scale insulin , hold metformin Monitor serum glucose and increase insulin as needed Psych: Depression and anxiety Discontinue valproic acid Continue Effexor and Remeron Psychiatry consult Dr. Fraga appreciated DVT Prophylaxis: SCD, HSQ Diet: feeds via PEG, mechanical soft if passes assessment by speech (she did not pass swallow on 01/26, will attempt again) Code Status: Full code- POLS reviewed Hospital Classification Declaration: Based on this initial evaluation, and depending on the patient's clinical course, I anticipate that this patient will require hospitalization for 1-2 days Disposition: Once the patient is stable to leave the hospital, I anticipate the patient will likely be discharged to the following environment: back to SNF rehab of [facility] I spent 40 minutes on this patient's case, and 20 minutes were dedicated to counseling and/or care coordination. Discussed with patient/family, nursing staff, SW/CM, ED physician, Orthopedic physician Dr. Ca regarding clinical status, treatment course, and disposition planning. Time of note may not reflect time of encounter. Subjective Date patient seen: Jan 28, 2019 ROS Limited/Unobtainable: No Constitutional: Denies: no symptoms, chills, diaphoresis, fever, malaise, weakness, other HEENT: Denies: no symptoms, eye pain, blurred vision, tearing, double vision, ear pain, ear discharge, nose pain, nose congestion, throat pain, throat swelling, mouth pain, mouth swelling, other Cardiovascular: Denies: no symptoms, chest pain, edema, irregular heart rate, lightheadedness, palpitations, syncope, other Respiratory: Denies: no symptoms, cough, orthopnea, shortness of breath, SOB with excertion, SOB at rest, sputum, stridor, wheezing, other Gastrointestinal/Abdominal: Denies: no symptoms, abdomen distended, abdominal pain, black stools, tarry stools, blood in stool, constipated, diarrhea, difficulty swallowing, nausea, poor appetite, poor fluid intake, rectal bleeding , vomiting, other Genitourinary: Denies: no symptoms, burning, discharge, frequency, flank pain, hematuria, incontinence, pain, urgency, other Neurologic/Psychiatric: Denies: no symptoms, anxiety, depressed, emotional problems, headache, numbness, paresthesia, pre-existing deficit, seizure, tingling, tremors, weakness, other Endocrine: Denies: no symptoms, excessive sweating, flushing, intolerance to cold, intolerance to heat, increased hunger, increased thirst, increased urine, unexplained weight gain, unexplained weight loss, other Hematologic/Lymphatic: Denies: no symptoms, anemia, easy bleeding, easy bruising, other Allergies: Coded Allergies: No Known Allergies (Unverified , 02/16/17) Subjective seen, no distress. POD #3 s/p R femur ORIF. Tele reviewed, no acute events. Hgb dropping, no overt signs of bleeding. UA positive for UTI. CXR no acute process. wbc trending down Objective Last 24 Hour Vital Signs Date Time Temp Pulse Resp B/P (MAP) Pulse Ox O2 Delivery O2 Flow Rate FiO2 01/28/19 10:55 68 18 94 Room Air 21 01/28/19 09:43 82 103/60 01/28/19 09:42 82 103/60 01/28/19 09:00 Room Air 01/28/19 08:00 97.8 82 20 103/60 (74) 96 01/28/19 04:00 85 01/28/19 04:00 97.5 85 18 144/60 (88) 96 01/28/19 02:00 109/55 (73) 01/28/19 00:00 97.8 79 18 93/39 (57) 97 01/28/19 00:00 79 01/27/19 22:19 91 130/55 01/27/19 21:02 84 18 94 Room Air 21 01/27/19 21:00 Room Air 01/27/19 20:00 89 01/27/19 20:00 97.9 89 18 128/54 (78) 95 01/27/19 18:03 102 122/52 (75) 01/27/19 16:46 91 01/27/19 15:56 98.3 85 18 98/53 (68) 95 01/27/19 12:00 98.2 91 18 131/55 (80) 93 01/27/19 11:42 84 01/27/19 11:31 88 20 98 Room Air 21 Intake and Output 01/27/19 01/28/19 19:00 07:00 Intake Total 960 ml 590 ml Balance 960 ml 590 ml Free Water 360 ml 200 ml Tube Feeding 600 ml 390 ml # Voids 3 2 # Bowel Movements 2 Laboratory Tests 01/27/19 16:50: Urine Color Yellow, Urine Appearance Very cloudy, Urine pH 7, Urine Specific [place] 1.010, Urine Protein 2+H, Urine Glucose (UA) Negative, Urine Ketones 1+H , Urine Blood 2+H, Urine Nitrite Negative, Urine Bilirubin Negative, Urine Urobilinogen 4H, Urine Leukocyte Esterase 3+H, Urine RBC 5-10H, Urine WBC TntcH , Urine Squamous Epithelial Cells ModerateH, Urine Bacteria ManyH 01/28/19 06:04: White Blood Count 8.3, Red Blood Count 2.30L, Hemoglobin 7.4L, Hematocrit 22.2L , Mean Corpuscular Volume 96, Mean Corpuscular Hemoglobin 31.9H, Mean Corpuscular Hemoglobin Concent 33.2, Red Cell Distribution Width 12.8, Platelet Count 219, Mean Platelet Volume 6.0L, Neutrophils (%) (Auto) , Lymphocytes (%) ( Auto) , Monocytes (%) (Auto) , Eosinophils (%) (Auto) , Basophils (%) (Auto) , Differential Total Cells Counted 100, Neutrophils % (Manual) 63, Lymphocytes % ( Manual) 31, Monocytes % (Manual) 5, Eosinophils % (Manual) 1, Basophils % ( Manual) 0, Band Neutrophils 0, Platelet Estimate Adequate, Platelet Morphology Normal, Hypochromasia 1+ Height (Feet): 5 Height (Inches): 2.00 Weight (Pounds): 145 Objective General: alert, cooperative, no distress, appears stated age, A&Ox1 Head: normocephalic, without obvious abnormality, atraumatic Eyes: conjunctivae/corneas clear. PERRL, EOM's intact Throat: lips, mucosa, and tongue normal. MMM, poor dentition Neck: supple, symmetrical, trachea midline, and no JVD Lungs: clear to auscultation bilaterally Heart: regular rate and rhythm, S1, S2 normal, no murmur, click, rub or gallop Abdomen: soft, non-tender, non-distended, bowel sounds normal; no masses or organomegaly Extremities: extremities normal, atraumatic, no cyanosis or edema, moves all extremitas, knee immobilizer in place +vac Pulses: 2+ and symmetric Skin: skin color, texture, turgor normal; + no ulcers, dressing c/d/i Neurologic: grossly normal. oriented x 1 at baseline Luis Eduardo Williamson M.D. Jan 28, 2019 11:30
--- NOTE | 2019-01-28 12:03 | Orthopedic Progress Note ---
Orthopedic - Progress Note Subjective Symptoms: other - Hgb/Hct trending down, PRBc ordered Objective Laboratory Tests Test 01/27/19 16:50 01/28/19 06:04 Urine Color Yellow Urine Appearance Very cloudy Urine pH 7 (4.5-8.0) Urine Specific [place] 1.010 (1.005-1.035) Urine Protein 2+ (NEGATIVE) H Urine Glucose (UA) Negative (NEGATIVE) Urine Ketones 1+ (NEGATIVE) H Urine Blood 2+ (NEGATIVE) H Urine Nitrite Negative (NEGATIVE) Urine Bilirubin Negative (NEGATIVE) Urine Urobilinogen 4 MG/DL (0.0-1.0) H Urine Leukocyte Esterase 3+ (NEGATIVE) H Urine RBC 5-10 /HPF (0 - 2) H Urine WBC Tntc /HPF (0 - 2) H Urine Squamous Epithelial Cells Moderate /LPF (NONE/OCC) H Urine Bacteria Many /HPF (NONE) H White Blood Count 8.3 K/UL (4.8-10.8) Red Blood Count 2.30 M/UL (4.20-5.40) L Hemoglobin 7.4 G/DL (12.0-16.0) L Hematocrit 22.2 % (37.0-47.0) L Mean Corpuscular Volume 96 FL (80-99) Mean Corpuscular Hemoglobin 31.9 PG (27.0-31.0) H Mean Corpuscular Hemoglobin Concent 33.2 G/DL (32.0-36.0) Red Cell Distribution Width 12.8 % (11.6-14.8) Platelet Count 219 K/UL (150-450) Mean Platelet Volume 6.0 FL (6.5-10.1) L Neutrophils (%) (Auto) % (45.0-75.0) Lymphocytes (%) (Auto) % (20.0-45.0) Monocytes (%) (Auto) % (1.0-10.0) Eosinophils (%) (Auto) % (0.0-3.0) Basophils (%) (Auto) % (0.0-2.0) Differential Total Cells Counted 100 Neutrophils % (Manual) 63 % (45-75) Lymphocytes % (Manual) 31 % (20-45) Monocytes % (Manual) 5 % (1-10) Eosinophils % (Manual) 1 % (0-3) Basophils % (Manual) 0 % (0-2) Band Neutrophils 0 % (0-8) Platelet Estimate Adequate Platelet Morphology Normal Hypochromasia 1+ Last 24 Hour Vital Signs Date Time Temp Pulse Resp B/P (MAP) Pulse Ox O2 Delivery O2 Flow Rate FiO2 01/28/19 10:55 68 18 94 Room Air 21 01/28/19 09:43 82 103/60 01/28/19 09:42 82 103/60 01/28/19 09:00 Room Air 01/28/19 08:00 97.8 82 20 103/60 (74) 96 01/28/19 04:00 85 01/28/19 04:00 97.5 85 18 144/60 (88) 96 01/28/19 02:00 109/55 (73) 01/28/19 00:00 97.8 79 18 93/39 (57) 97 01/28/19 00:00 79 01/27/19 22:19 91 130/55 01/27/19 21:02 84 18 94 Room Air 21 01/27/19 21:00 Room Air 01/27/19 20:00 89 01/27/19 20:00 97.9 89 18 128/54 (78) 95 01/27/19 18:03 102 122/52 (75) 01/27/19 16:46 91 01/27/19 15:56 98.3 85 18 98/53 (68) 95 Intake and Output 01/27/19 01/28/19 19:00 07:00 Intake Total 960 ml 590 ml Balance 960 ml 590 ml Free Water 360 ml 200 ml Tube Feeding 600 ml 390 ml # Voids 3 2 # Bowel Movements 2 Laboratory Tests Test 01/27/19 16:50 01/28/19 06:04 Urine Color Yellow Urine Appearance Very cloudy Urine pH 7 (4.5-8.0) Urine Specific [place] 1.010 (1.005-1.035) Urine Protein 2+ (NEGATIVE) H Urine Glucose (UA) Negative (NEGATIVE) Urine Ketones 1+ (NEGATIVE) H Urine Blood 2+ (NEGATIVE) H Urine Nitrite Negative (NEGATIVE) Urine Bilirubin Negative (NEGATIVE) Urine Urobilinogen 4 MG/DL (0.0-1.0) H Urine Leukocyte Esterase 3+ (NEGATIVE) H Urine RBC 5-10 /HPF (0 - 2) H Urine WBC Tntc /HPF (0 - 2) H Urine Squamous Epithelial Cells Moderate /LPF (NONE/OCC) H Urine Bacteria Many /HPF (NONE) H White Blood Count 8.3 K/UL (4.8-10.8) Red Blood Count 2.30 M/UL (4.20-5.40) L Hemoglobin 7.4 G/DL (12.0-16.0) L Hematocrit 22.2 % (37.0-47.0) L Mean Corpuscular Volume 96 FL (80-99) Mean Corpuscular Hemoglobin 31.9 PG (27.0-31.0) H Mean Corpuscular Hemoglobin Concent 33.2 G/DL (32.0-36.0) Red Cell Distribution Width 12.8 % (11.6-14.8) Platelet Count 219 K/UL (150-450) Mean Platelet Volume 6.0 FL (6.5-10.1) L Neutrophils (%) (Auto) % (45.0-75.0) Lymphocytes (%) (Auto) % (20.0-45.0) Monocytes (%) (Auto) % (1.0-10.0) Eosinophils (%) (Auto) % (0.0-3.0) Basophils (%) (Auto) % (0.0-2.0) Differential Total Cells Counted 100 Neutrophils % (Manual) 63 % (45-75) Lymphocytes % (Manual) 31 % (20-45) Monocytes % (Manual) 5 % (1-10) Eosinophils % (Manual) 1 % (0-3) Basophils % (Manual) 0 % (0-2) Band Neutrophils 0 % (0-8) Platelet Estimate Adequate Platelet Morphology Normal Hypochromasia 1+ Microbiology Date/Time Source Procedure Growth Status 01/27/19 16:50 Urine,Clean Catch Urine Culture - Preliminary Resulted Assessment Post-op Diagnosis POD 3 Procedure Performed Rt femur ORIF Plan Plan: discharge plan - back to SNF facility, other - transfuse and follow H&H. Knee immobilizer at all times. Chata Gutierrez Jan 28, 2019 12:03
[2019-01-28] MEDS: cefTRIAXone 1 GM in D5W 55 ML IVPB SCH (12:21)
--- NOTE | 2019-01-28 12:21 | Cardiac Electrophysiology PN ---
Assessment/Plan Assessment/Plan 1. Hypertension. On amlodipine 5 mg daily and Lopressor 12.5 bid 2. Paroxysmal atrial fibrillation, in SR on amiodarone 100 mg daily and Lopressor 12.5 bid 3. Severe AI and pulmonary HTN PAP 60. Compensated with no CHF. 4. Diabetes, on insulin. 5. Hyperlipidemia, on Lipitor. 6. Status post fall and right distal femur fracture. S/P ORIF 01/25/19 Tolerated the procedure well. 7. Hypothyroidism, on Synthroid. 8. S/P PEG. KERI RN Subjective Subjective No CP or SOB. In SR getting PEG feeding. Objective Last 24 Hour Vital Signs Date Time Temp Pulse Resp B/P (MAP) Pulse Ox O2 Delivery O2 Flow Rate FiO2 01/28/19 10:55 68 18 94 Room Air 21 01/28/19 09:43 82 103/60 01/28/19 09:42 82 103/60 01/28/19 09:00 Room Air 01/28/19 08:00 97.8 82 20 103/60 (74) 96 01/28/19 04:00 85 01/28/19 04:00 97.5 85 18 144/60 (88) 96 01/28/19 02:00 109/55 (73) 01/28/19 00:00 97.8 79 18 93/39 (57) 97 01/28/19 00:00 79 01/27/19 22:19 91 130/55 01/27/19 21:02 84 18 94 Room Air 21 01/27/19 21:00 Room Air 01/27/19 20:00 89 01/27/19 20:00 97.9 89 18 128/54 (78) 95 01/27/19 18:03 102 122/52 (75) 01/27/19 16:46 91 01/27/19 15:56 98.3 85 18 98/53 (68) 95 Intake and Output 01/27/19 01/28/19 19:00 07:00 Intake Total 960 ml 590 ml Balance 960 ml 590 ml Free Water 360 ml 200 ml Tube Feeding 600 ml 390 ml # Voids 3 2 # Bowel Movements 2 Laboratory Tests Test 01/27/19 16:50 01/28/19 06:04 Urine Color Yellow Urine Appearance Very cloudy Urine pH 7 (4.5-8.0) Urine Specific [place] 1.010 (1.005-1.035) Urine Protein 2+ (NEGATIVE) H Urine Glucose (UA) Negative (NEGATIVE) Urine Ketones 1+ (NEGATIVE) H Urine Blood 2+ (NEGATIVE) H Urine Nitrite Negative (NEGATIVE) Urine Bilirubin Negative (NEGATIVE) Urine Urobilinogen 4 MG/DL (0.0-1.0) H Urine Leukocyte Esterase 3+ (NEGATIVE) H Urine RBC 5-10 /HPF (0 - 2) H Urine WBC Tntc /HPF (0 - 2) H Urine Squamous Epithelial Cells Moderate /LPF (NONE/OCC) H Urine Bacteria Many /HPF (NONE) H White Blood Count 8.3 K/UL (4.8-10.8) Red Blood Count 2.30 M/UL (4.20-5.40) L Hemoglobin 7.4 G/DL (12.0-16.0) L Hematocrit 22.2 % (37.0-47.0) L Mean Corpuscular Volume 96 FL (80-99) Mean Corpuscular Hemoglobin 31.9 PG (27.0-31.0) H Mean Corpuscular Hemoglobin Concent 33.2 G/DL (32.0-36.0) Red Cell Distribution Width 12.8 % (11.6-14.8) Platelet Count 219 K/UL (150-450) Mean Platelet Volume 6.0 FL (6.5-10.1) L Neutrophils (%) (Auto) % (45.0-75.0) Lymphocytes (%) (Auto) % (20.0-45.0) Monocytes (%) (Auto) % (1.0-10.0) Eosinophils (%) (Auto) % (0.0-3.0) Basophils (%) (Auto) % (0.0-2.0) Differential Total Cells Counted 100 Neutrophils % (Manual) 63 % (45-75) Lymphocytes % (Manual) 31 % (20-45) Monocytes % (Manual) 5 % (1-10) Eosinophils % (Manual) 1 % (0-3) Basophils % (Manual) 0 % (0-2) Band Neutrophils 0 % (0-8) Platelet Estimate Adequate Platelet Morphology Normal Hypochromasia 1+ Microbiology Date/Time Source Procedure Growth Status 01/27/19 16:50 Urine,Clean Catch Urine Culture - Preliminary Resulted Objective HEAD AND NECK: No JVD. LUNGS: Clear. CARDIOVASCULAR: Regular S1 and S2 with no gallop or murmur. ABDOMEN: Soft. EXTREMITIES: S/P surgery Avtar Munroe MD Jan 28, 2019 12:20
--- NOTE | 2019-01-28 18:00 | Progress Note ---
DATE: 01/28/2019 SUBJECTIVE: The patient is resting. No acute distress. No behavior issues noted. Withdrawn, depressed, anhedonia, worthlessness, hopelessness. MENTAL STATUS EXAMINATION: Alert and oriented x1. Mood is dysphoric. Affect is constricted, congruent with mood. Thought process is concrete. Thought content, no suicidal or homicidal ideation. Cognition is impaired. Insight and judgment is impaired. ASSESSMENT: 1. Dementia. 2. Major depressive disorder. PLAN: 1. Continue current medication. 2. Provide the patient with reality orientation and supportive therapy. Madhuri Fraga M.D. DR: DEACON JOB#: [id number] CC:
[2019-01-28] MEDS: Sennosides 8.6mg tab GT SCH (21:51)
[2019-01-28] MEDS: Levemir Flexpen SUBQ SCH (21:58)
[2019-01-29] VITALS (7 sets, daily range): BP systolic 100–136; BP diastolic 48–83
[2019-01-29] MEDS: oxyCODONE 5mg IR tab GT SCH ×4 (01:01→18:27)
[2019-01-29] MEDS: NovoLOG Insulin Flexpen SUBQ SCH ×4 (06:30→21:08)
[2019-01-29] MEDS: Docusate 100mg/10ml Liq GT SCH ×3 (09:00→18:26)
[2019-01-29 09:56] LABS: BASOPHILS % (AUTO) 0.7 % (0.0-2.0); EOSINOPHILS % (AUTO) 2.7 % (0.0-3.0); HEMATOCRIT 27.5 % (37.0-47.0); HEMOGLOBIN 9.1 G/DL (12.0-16.0); LYMPHOCYTES % (AUTO) 26.5 % (20.0-45.0); MEAN CORPUSCULAR VOLUME 93 FL (80-99); MONOCYTES % (AUTO) 7.8 % (1.0-10.0); NEUTROPHILS % (AUTO) 62.3 % (45.0-75.0); PLATELET COUNT 244 K/UL (150-450); RED BLOOD COUNT 2.98 M/UL (4.20-5.40); RED CELL DISTRIBUTION WIDTH 14.3 % (11.6-14.8); WHITE BLOOD COUNT 7.7 K/UL (4.8-10.8)
[2019-01-29] MEDS: Metoprolol Tartrate 12.5mg TAB GT SCH ×2 (10:04→20:55)
[2019-01-29] MEDS: Amiodarone 200mg tab GT SCH (10:06)
[2019-01-29] MEDS: celeBREX 200mg Cap **SURGERY PATIENTS ONLY ORAL SCH (10:06)
[2019-01-29] MEDS: Multivitamin w/Minerals tab ORAL SCH (10:06)
[2019-01-29] MEDS: Heparin 5000 units/ml inj SUBQ SCH ×2 (10:09→21:08)
[2019-01-29] MEDS: Gabapentin 300 MG/6 ML Soln GT SCH ×2 (10:12→18:27)
--- NOTE | 2019-01-29 10:16 | General Progress Note ---
Assessment/Plan Status: stable Assessment/Plan: Musculoskeletal: POD # 4 s/p right femur ORIF for Right femur distal fracture Orthopedic consult Dr Cyr appreciated s/p R femur ORIF on 01/25 200 cc blood loss during procedure Pain control PT/OT, plan to return to SNF turn q2hr to prevent pressure ulcer Hematological: Acute blood loss anemia on chronic anemia-s/p one unit prbc 01/28 w good response in hgb. Continue to monitor on telemetry check stool for occult blood Infectious disease: Leukocytosis and tachycardia- Resolved, UA positive for UTI, CXR negative for any acute process UTI. IV ceftriaxone (01/28-) follow up cultures dispo pending culture results Cardiac: CAD, Paroxysmal Afib, HTN, HLD, severe aortic regurgitation, Pulmonary hypertension Continue Amiodarone 100 mg daily, Metoprolol 12.5 mg BID, Amlodipine 5 mg daily , Atorvastatin 10mg qhs. ASA held for ORIF, resume today since hgb stable Compensated AI with no chf Will consider adding ACEi/ARB on discharge Cardiology consult appreciated Endocrine: Hypothyroidism and DM II- controlled Continue Synthroid 150 daily, Insulin Levemir 25 mg QHS, continue sliding scale insulin , hold metformin Monitor serum glucose and increase insulin as needed Psych: Depression and anxiety Discontinue valproic acid Continue Effexor and Remeron Psychiatry consult Dr. Fraga appreciated DVT Prophylaxis: SCD, HSQ Diet: feeds via PEG, mechanical soft if passes assessment by speech (she did not pass swallow on 01/26, will attempt again) Code Status: Full code- POLST reviewed Hospital Classification Declaration: Based on this initial evaluation, and depending on the patient's clinical course, I anticipate that this patient will require hospitalization for 1-2 days Disposition: Once the patient is stable to leave the hospital, I anticipate the patient will likely be discharged to the following environment: back to SNF rehab of [facility] I spent 40 minutes on this patient's case, and 20 minutes were dedicated to counseling and/or care coordination. Discussed with patient/family, nursing staff, SW/CM, ED physician, Orthopedic physician Dr. Ca regarding clinical status, treatment course, and disposition planning. I spent an additional 36 minutes in review of prior medical records including imaging, notes, labs, and ancillary data. Time of note may not reflect time of encounter. Subjective Date patient seen: Jan 29, 2019 Time patient seen: 10:45 Allergies: Coded Allergies: No Known Allergies (Unverified , 02/16/17) Subjective patient appears confused but able to follow commands Denies fevers, chills, pain, RLE numbness or tingling Objective Last 24 Hour Vital Signs Date Time Temp Pulse Resp B/P (MAP) Pulse Ox O2 Delivery O2 Flow Rate FiO2 01/29/19 10:14 81 123/53 01/29/19 10:04 81 123/53 01/29/19 09:00 Room Air 01/29/19 08:34 98.2 81 19 123/53 (76) 98 01/29/19 08:00 79 01/29/19 04:00 82 01/29/19 04:00 97.7 87 18 136/53 (80) 96 01/29/19 01:42 97.9 01/29/19 00:00 97.9 86 20 105/60 (75) 95 01/29/19 00:00 88 01/28/19 21:52 79 124/65 01/28/19 21:00 Room Air 01/28/19 20:04 79 18 95 Room Air 21 01/28/19 20:00 97.9 79 18 124/65 (84) 94 01/28/19 20:00 77 01/28/19 16:00 69 01/28/19 16:00 96.7 70 20 101/61 (74) 92 01/28/19 12:00 96.6 69 18 108/57 (74) 97 01/28/19 12:00 71 01/28/19 10:55 68 18 94 Room Air 21 Intake and Output 01/28/19 01/29/19 19:00 07:00 Intake Total 440 ml 850 ml Balance 440 ml 850 ml Free Water 400 ml 300 ml Tube Feeding 40 ml 550 ml Laboratory Tests 01/29/19 09:30: White Blood Count 7.7, Red Blood Count 2.98L, Hemoglobin 9.1L, Hematocrit 27.5L , Mean Corpuscular Volume 93, Mean Corpuscular Hemoglobin 30.6, Mean Corpuscular Hemoglobin Concent 33.1, Red Cell Distribution Width 14.3, Platelet Count 244, Mean Platelet Volume 5.7L, Neutrophils (%) (Auto) 62.3, Lymphocytes ( %) (Auto) 26.5, Monocytes (%) (Auto) 7.8, Eosinophils (%) (Auto) 2.7, Basophils (%) (Auto) 0.7 Height (Feet): 5 Height (Inches): 2.00 Weight (Pounds): 145 General Appearance: WD/WN, no apparent distress, alert Neck: non-tender, normal alignment, supple Cardiovascular: normal rate, regular rhythm, regularly irregular, no gallop/ murmur Respiratory/Chest: lungs clear, normal breath sounds, no respiratory distress Abdomen: normal bowel sounds, non tender, soft Extremities: other - Right lower extremity no edema, brace in place Edema: no edema noted Arm (L), no edema noted Arm (R), no edema noted Leg (L), no edema noted Leg (R), no edema noted Pedal (L), no edema noted Pedal (R), no edema noted Generalized Neurologic: alert, responsive Objective Aside from HPI all ROS are negative including 1-12 systems Juli Conrad DO Jan 29, 2019 10:16
--- NOTE | 2019-01-29 14:25 | Cardiac Electrophysiology PN ---
Assessment/Plan Assessment/Plan 1. Hypertension. On amlodipine 5 mg daily and Lopressor 12.5 bid 2. Paroxysmal atrial fibrillation, in SR on amiodarone 100 mg daily and Lopressor 12.5 bid 3. Severe AI and pulmonary HTN PAP 60. Compensated with no CHF. Not a surgical candidate 4. Diabetes, on insulin. 5. Hyperlipidemia, on Lipitor. 6. Status post fall and right distal femur fracture. S/P ORIF 01/25/19 7. Hypothyroidism, on Synthroid. 8. S/P PEG. KERI RN Subjective Subjective No CP or SOB. In SR on PEG feeding. Objective Last 24 Hour Vital Signs Date Time Temp Pulse Resp B/P (MAP) Pulse Ox O2 Delivery O2 Flow Rate FiO2 01/29/19 12:00 98.2 72 17 104/48 (66) 98 01/29/19 10:14 81 123/53 01/29/19 10:04 81 123/53 01/29/19 09:00 Room Air 01/29/19 08:34 98.2 81 19 123/53 (76) 98 01/29/19 08:00 79 01/29/19 04:00 82 01/29/19 04:00 97.7 87 18 136/53 (80) 96 01/29/19 01:42 97.9 01/29/19 00:00 97.9 86 20 105/60 (75) 95 01/29/19 00:00 88 01/28/19 21:52 79 124/65 01/28/19 21:00 Room Air 01/28/19 20:04 79 18 95 Room Air 21 01/28/19 20:00 97.9 79 18 124/65 (84) 94 01/28/19 20:00 77 01/28/19 16:00 69 01/28/19 16:00 96.7 70 20 101/61 (74) 92 Intake and Output 01/28/19 01/29/19 19:00 07:00 Intake Total 440 ml 850 ml Balance 440 ml 850 ml Free Water 400 ml 300 ml Tube Feeding 40 ml 550 ml Laboratory Tests Test 01/29/19 09:30 White Blood Count 7.7 K/UL (4.8-10.8) Red Blood Count 2.98 M/UL (4.20-5.40) L Hemoglobin 9.1 G/DL (12.0-16.0) L Hematocrit 27.5 % (37.0-47.0) L Mean Corpuscular Volume 93 FL (80-99) Mean Corpuscular Hemoglobin 30.6 PG (27.0-31.0) Mean Corpuscular Hemoglobin Concent 33.1 G/DL (32.0-36.0) Red Cell Distribution Width 14.3 % (11.6-14.8) Platelet Count 244 K/UL (150-450) Mean Platelet Volume 5.7 FL (6.5-10.1) L Neutrophils (%) (Auto) 62.3 % (45.0-75.0) Lymphocytes (%) (Auto) 26.5 % (20.0-45.0) Monocytes (%) (Auto) 7.8 % (1.0-10.0) Eosinophils (%) (Auto) 2.7 % (0.0-3.0) Basophils (%) (Auto) 0.7 % (0.0-2.0) Microbiology Date/Time Source Procedure Growth Status 01/27/19 16:50 Urine,Clean Catch Urine Culture - Preliminary Gram Negative Víctor Resulted Objective HEAD AND NECK: No JVD. LUNGS: Clear. CARDIOVASCULAR: Regular S1 and S2 with no gallop or murmur. ABDOMEN: Soft. EXTREMITIES: S/P surgery Avtar Munroe MD Jan 29, 2019 14:25
[2019-01-29] MEDS: cefTRIAXone 1 GM in D5W 55 ML IVPB SCH (14:51)
[2019-01-29] MEDS: Sennosides 8.6mg tab GT SCH (21:06)
[2019-01-29] MEDS: Levemir Flexpen SUBQ SCH (21:09)
[2019-01-30] VITALS: BP 106/64
[2019-01-30] MEDS: oxyCODONE 5mg IR tab GT SCH ×4 (00:52→17:07)
[2019-01-30 04:00] VITALS: BP 124/54
[2019-01-30] MEDS: NovoLOG Insulin Flexpen SUBQ SCH ×4 (06:44→21:14)
[2019-01-30 07:24] LABS: EOSINOPHILS % (AUTO) 3.4 % (0.0-3.0); HEMATOCRIT 26.1 % (37.0-47.0); HEMOGLOBIN 8.5 G/DL (12.0-16.0); LYMPHOCYTES % (AUTO) 31.9 % (20.0-45.0); MEAN CORPUSCULAR VOLUME 94 FL (80-99); MONOCYTES % (AUTO) 9.9 % (1.0-10.0); NEUTROPHILS % (AUTO) 53.7 % (45.0-75.0); PLATELET COUNT 280 K/UL (150-450); RED BLOOD COUNT 2.79 M/UL (4.20-5.40); RED CELL DISTRIBUTION WIDTH 14.2 % (11.6-14.8); WHITE BLOOD COUNT 6.1 K/UL (4.8-10.8)
[2019-01-30 07:40] LABS: ANION GAP 0 mmol/L (5-15); BLOOD UREA NITROGEN 25 mg/dL (7-18); CALCIUM 8.2 MG/DL (8.5-10.1); CARBON DIOXIDE 33 MMOL/L (21-32); CHLORIDE 105 MMOL/L (98-107); POTASSIUM 4.8 MMOL/L (3.5-5.1); SODIUM 138 MMOL/L (136-145)
[2019-01-30 08:00] VITALS: BP 120/55
[2019-01-30] MEDS: Amiodarone 200mg tab GT SCH (08:31)
[2019-01-30] MEDS: Gabapentin 300 MG/6 ML Soln GT SCH ×2 (08:31→17:07)
[2019-01-30] MEDS: Docusate 100mg/10ml Liq GT SCH ×3 (08:31→17:07)
[2019-01-30] MEDS: celeBREX 200mg Cap **SURGERY PATIENTS ONLY ORAL SCH (08:32)
[2019-01-30] MEDS: Metoprolol Tartrate 12.5mg TAB GT SCH ×2 (08:32→21:19)
[2019-01-30] MEDS: Multivitamin w/Minerals tab ORAL SCH (08:32)
[2019-01-30] MEDS: Heparin 5000 units/ml inj SUBQ SCH ×2 (08:46→21:18)
[2019-01-30 12:00] VITALS: BP 106/52
--- NOTE | 2019-01-30 13:02 | General Progress Note ---
Assessment/Plan Status: stable Assessment/Plan: Musculoskeletal: POD # 5 s/p right femur ORIF for Right femur distal fracture Orthopedic consult Dr Cyr appreciated s/p R femur ORIF on 01/25 200 cc blood loss during procedure Pain control PT/OT, plan to return to SNF turn q2hr to prevent pressure ulcer Hematological: Acute blood loss anemia on chronic anemia-s/p one unit prbc 01/28 w good response in hgb. Continue to monitor on telemetry check stool for occult blood : negative hgb stable Infectious disease: Leukocytosis and tachycardia- Resolved, UA positive for UTI, CXR negative for any acute process UTI. IV ceftriaxone (01/28-) follow up cultures -> ESBL, change rocephin to ertapenem 01/30-, ID consult, dispo planning dispo pending culture results Cardiac: CAD, Paroxysmal Afib, HTN, HLD, severe aortic regurgitation, Pulmonary hypertension Continue Amiodarone 100 mg daily, Metoprolol 12.5 mg BID, Amlodipine 5 mg daily , Atorvastatin 10mg qhs. ASA held for ORIF, resume today since hgb stable Compensated AI with no chf Will consider adding ACEi/ARB on discharge Cardiology consult appreciated Endocrine: Hypothyroidism and DM II- controlled Continue Synthroid 150 daily, Insulin Levemir 25 mg QHS, continue sliding scale insulin , hold metformin Monitor serum glucose and increase insulin as needed Psych: Depression and anxiety Discontinue valproic acid Continue Effexor and Remeron Psychiatry consult Dr. Fraga appreciated DVT Prophylaxis: SCD, HSQ Diet: feeds via PEG, mechanical soft if passes assessment by speech (she did not pass swallow on 01/26, will attempt again) Code Status: Full code- POLST reviewed Hospital Classification Declaration: Based on this initial evaluation, and depending on the patient's clinical course, I anticipate that this patient will require hospitalization for 1-2 days Disposition: Once the patient is stable to leave the hospital, I anticipate the patient will likely be discharged to the following environment: back to [facility] I spent 36 minutes on this patient's case, and 20 minutes were dedicated to counseling and/or care coordination. Subjective Date patient seen: Jan 30, 2019 Time patient seen: 13:00 Allergies: Coded Allergies: No Known Allergies (Unverified , 02/16/17) Subjective No fevers or chills. Pain is controlled. Hemoglobin stable. No acute events overnight Objective Last 24 Hour Vital Signs Date Time Temp Pulse Resp B/P (MAP) Pulse Ox O2 Delivery O2 Flow Rate FiO2 01/30/19 12:00 97.7 86 15 106/52 (70) 98 01/30/19 09:00 Room Air 01/30/19 08:33 77 120/55 01/30/19 08:32 77 120/55 01/30/19 08:00 76 01/30/19 08:00 98.2 77 14 120/55 (76) 97 01/30/19 07:00 74 16 98 Room Air 21 01/30/19 04:00 97.4 86 18 124/54 (77) 94 01/30/19 04:00 79 01/30/19 00:00 88 01/30/19 00:00 97.7 85 20 106/64 (78) 98 01/29/19 21:00 Room Air 01/29/19 20:55 81 18 97 Room Air 21 01/29/19 20:55 86 100/52 01/29/19 20:00 97.4 86 18 100/52 (68) 97 01/29/19 20:00 82 01/29/19 16:00 97.1 89 19 107/58 (74) 98 01/29/19 16:00 71 Intake and Output 01/29/19 01/30/19 19:00 07:00 Intake Total 105 ml 750 ml Output Total 400 ml Balance 105 ml 350 ml Free Water 250 ml IV Total 55 ml Tube Feeding 50 ml 500 ml Output Urine Total 400 ml # Voids 2 3 # Bowel Movements 3 Laboratory Tests 01/30/19 06:30: White Blood Count 6.1, Red Blood Count 2.79L, Hemoglobin 8.5L, Hematocrit 26.1L , Mean Corpuscular Volume 94, Mean Corpuscular Hemoglobin 30.4, Mean Corpuscular Hemoglobin Concent 32.5, Red Cell Distribution Width 14.2, Platelet Count 280, Mean Platelet Volume 5.3L, Neutrophils (%) (Auto) 53.7, Lymphocytes ( %) (Auto) 31.9, Monocytes (%) (Auto) 9.9, Eosinophils (%) (Auto) 3.4H, Basophils (%) (Auto) 1.0, Sodium Level 138, Potassium Level 4.8, Chloride Level 105, Carbon Dioxide Level 33H, Anion Gap 0L, Blood Urea Nitrogen 25H, Creatinine 1.0, Estimat Glomerular Filtration Rate , Glucose Level 227H, Calcium Level 8.2L 01/30/19 06:50: Stool Occult Blood Negative Height (Feet): 5 Height (Inches): 2.00 Weight (Pounds): 145 Objective General: No acute distress, thin, Neck: No cervical lymphadenopathy, trachea midline CV: S1-S2, regular rate and rhythm, no murmurs rubs or gallops RESP: CTA B ABD: Soft nontender to palpation Ext: Right lower extremity in brace, no edema bilateral lower extremities Neuro: At baseline, no gross focal deficits Juli Conrad DO Jan 30, 2019 13:02
--- NOTE | 2019-01-30 13:13 | Cardiac Electrophysiology PN ---
Assessment/Plan Assessment/Plan 1. Hypertension. On amlodipine 5 mg daily and Lopressor 12.5 bid 2. Paroxysmal atrial fibrillation, in SR on amiodarone 100 mg daily and Lopressor 12.5 bid 3. Severe AI and pulmonary HTN PAP 60. Compensated with no CHF. Not a surgical candidate 4. Diabetes, on insulin. 5. Hyperlipidemia, on Lipitor. 6. Status post fall and right distal femur fracture. S/P ORIF 01/25/19 7. Hypothyroidism, on Synthroid. 8. S/P PEG. 9. Dementia DW RN Subjective Subjective No CP or SOB. In SR on PEG feeding.Confused in restraints. Objective Last 24 Hour Vital Signs Date Time Temp Pulse Resp B/P (MAP) Pulse Ox O2 Delivery O2 Flow Rate FiO2 01/30/19 12:00 97.7 86 15 106/52 (70) 98 01/30/19 09:00 Room Air 01/30/19 08:33 77 120/55 01/30/19 08:32 77 120/55 01/30/19 08:00 76 01/30/19 08:00 98.2 77 14 120/55 (76) 97 01/30/19 07:00 74 16 98 Room Air 21 01/30/19 04:00 97.4 86 18 124/54 (77) 94 01/30/19 04:00 79 01/30/19 00:00 88 01/30/19 00:00 97.7 85 20 106/64 (78) 98 01/29/19 21:00 Room Air 01/29/19 20:55 81 18 97 Room Air 21 01/29/19 20:55 86 100/52 01/29/19 20:00 97.4 86 18 100/52 (68) 97 01/29/19 20:00 82 01/29/19 16:00 97.1 89 19 107/58 (74) 98 01/29/19 16:00 71 Intake and Output 01/29/19 01/30/19 19:00 07:00 Intake Total 105 ml 750 ml Output Total 400 ml Balance 105 ml 350 ml Free Water 250 ml IV Total 55 ml Tube Feeding 50 ml 500 ml Output Urine Total 400 ml # Voids 2 3 # Bowel Movements 3 Laboratory Tests Test 01/30/19 06:30 01/30/19 06:50 White Blood Count 6.1 K/UL (4.8-10.8) Red Blood Count 2.79 M/UL (4.20-5.40) L Hemoglobin 8.5 G/DL (12.0-16.0) L Hematocrit 26.1 % (37.0-47.0) L Mean Corpuscular Volume 94 FL (80-99) Mean Corpuscular Hemoglobin 30.4 PG (27.0-31.0) Mean Corpuscular Hemoglobin Concent 32.5 G/DL (32.0-36.0) Red Cell Distribution Width 14.2 % (11.6-14.8) Platelet Count 280 K/UL (150-450) Mean Platelet Volume 5.3 FL (6.5-10.1) L Neutrophils (%) (Auto) 53.7 % (45.0-75.0) Lymphocytes (%) (Auto) 31.9 % (20.0-45.0) Monocytes (%) (Auto) 9.9 % (1.0-10.0) Eosinophils (%) (Auto) 3.4 % (0.0-3.0) H Basophils (%) (Auto) 1.0 % (0.0-2.0) Sodium Level 138 MMOL/L (136-145) Potassium Level 4.8 MMOL/L (3.5-5.1) Chloride Level 105 MMOL/L (98-107) Carbon Dioxide Level 33 MMOL/L (21-32) H Anion Gap 0 mmol/L (5-15) L Blood Urea Nitrogen 25 mg/dL (7-18) H Creatinine 1.0 MG/DL (0.55-1.30) Estimat Glomerular Filtration Rate mL/min (>60) Glucose Level 227 MG/DL (74-106) H Calcium Level 8.2 MG/DL (8.5-10.1) L Stool Occult Blood Negative (NEGATIVE) Microbiology Date/Time Source Procedure Growth Status 01/27/19 16:50 Urine,Clean Catch Urine Culture - Final Escherichia Coli - Esbl Proteus Mirabilis Complete Objective HEAD AND NECK: No JVD. LUNGS: Clear. CARDIOVASCULAR: Regular S1 and S2 with no gallop or murmur. ABDOMEN: Soft. EXTREMITIES: S/P surgery Avtar Munroe MD Jan 30, 2019 13:13
[2019-01-30] MEDS: Ertapenem 1 GM in NS 55 ML IVPB SCH (13:46)
[2019-01-30 16:00] VITALS: BP 120/56
[2019-01-30 20:00] VITALS: BP 132/51
[2019-01-30] MEDS: Levemir Flexpen SUBQ SCH (21:13)
[2019-01-30] MEDS: Sennosides 8.6mg tab GT SCH (21:19)
[2019-01-31] VITALS: BP 105/54
[2019-01-31 04:00] VITALS: BP 100/52
[2019-01-31] MEDS: NovoLOG Insulin Flexpen SUBQ SCH ×2 (06:30→11:30)
[2019-01-31 06:47] LABS: EOSINOPHILS % (AUTO) 1.5 % (0.0-3.0); HEMATOCRIT 28.9 % (37.0-47.0); HEMOGLOBIN 9.6 G/DL (12.0-16.0); LYMPHOCYTES % (AUTO) 17.4 % (20.0-45.0); MEAN CORPUSCULAR VOLUME 94 FL (80-99); MONOCYTES % (AUTO) 5.3 % (1.0-10.0); NEUTROPHILS % (AUTO) 74.8 % (45.0-75.0); PLATELET COUNT 365 K/UL (150-450); RED BLOOD COUNT 3.08 M/UL (4.20-5.40); WHITE BLOOD COUNT 6.2 K/UL (4.8-10.8)
[2019-01-31] MEDS: oxyCODONE 5mg IR tab GT SCH ×3 (06:50→12:54)
[2019-01-31 07:13] LABS: ANION GAP 0 mmol/L (5-15); BLOOD UREA NITROGEN 40 mg/dL (7-18); CALCIUM 8.7 MG/DL (8.5-10.1); CARBON DIOXIDE 32 MMOL/L (21-32); CHLORIDE 105 MMOL/L (98-107); POTASSIUM 4.7 MMOL/L (3.5-5.1); SODIUM 137 MMOL/L (136-145)
[2019-01-31 08:00] VITALS: BP 115/53
[2019-01-31] MEDS: Amiodarone 200mg tab GT SCH (08:37)
[2019-01-31] MEDS: Docusate 100mg/10ml Liq GT SCH ×2 (08:37→12:54)
[2019-01-31] MEDS: Metoprolol Tartrate 12.5mg TAB GT SCH (08:37)
[2019-01-31] MEDS: celeBREX 200mg Cap **SURGERY PATIENTS ONLY ORAL SCH (08:37)
[2019-01-31] MEDS: Gabapentin 300 MG/6 ML Soln GT SCH (08:37)
[2019-01-31] MEDS: Multivitamin w/Minerals tab ORAL SCH (08:52)
[2019-01-31] MEDS: Heparin 5000 units/ml inj SUBQ SCH (08:53)
--- NOTE | 2019-01-31 09:28 | Discharge Summary ---
Discharge Summary Hospital Course Date of Admission Jan 22, 2019 at 04:07 Date of Discharge Admitting Diagnosis right distal femur fracture HPI Iram Reilly is a 73 year old female who was admitted on Jan 22, 2019 at 04:07 for Right Distal Femur Fracture Consultations Orthopedics, ID Procedures R femur ORIF Hospital Course Musculoskeletal: s/p right femur ORIF for Right femur distal fracture Orthopedic consult Dr Cyr appreciated s/p R femur ORIF on 01/25 200 cc blood loss during procedure Pain control PT/OT, plan to return to SNF turn q2hr to prevent pressure ulcer Hematological: Acute blood loss anemia on chronic anemia- Transfuse one unit prbc. Spoke with daughter Yisel who consented to transfusion. stool negative for occult blood Continued to monitor on telemetry Infectious disease: Leukocytosis and tachycardia- Resolved, UA positive for UTI, CXR negative for any acute process esbl e.coli/proteus uti mild leukocytosis resolved mrsa colonization invanz x 1 week, s/p 2 days of rocephin Cardiac: CAD, Paroxysmal Afib, HTN, HLD, severe aortic regurgitation, Pulmonary hypertension Continue Amiodarone 100 mg daily, Metoprolol 12.5 mg BID, Amlodipine 5 mg daily , Atorvastatin 10mg qhs. ASA held for ORIF, resume if hgb stable Compensated AI with no chf consider adding ACEi/ARB on discharge Cardiology consult appreciated Endocrine: Hypothyroidism and DM II- controlled Continue Synthroid 150 daily, Insulin Levemir 25 mg QHS, continue sliding scale insulin , resume metformin Monitor serum glucose and increase insulin as needed Psych: Depression and anxiety Discontinue valproic acid Continue Effexor and Remeron Psychiatry consult Dr. Fraga appreciated DVT Prophylaxis: SCD, HSQ Diet: feeds via PEG, mechanical soft if passes assessment by speech (she did not pass swallow on 01/26, need mod barium outpatient) Code Status: Full code- POLS reviewed Hospital Classification Declaration: Based on this initial evaluation, and depending on the patient's clinical course, I anticipate that this patient will be discharged today Disposition: Once the patient is stable to leave the hospital, I anticipate the patient will likely be discharged to the following environment: back to SNF rehab of [facility] I spent 40 minutes on this patient's case, and 20 minutes were dedicated to counseling and/or care coordination. Discussed with patient/family, nursing staff, SW/CM, ED physician, Orthopedic physician Dr. Ca and ID dr. Morales regarding clinical status, treatment course, and disposition planning. Time of note may not reflect time of encounter. Discharge Medications New Medications: Ertapenem (Invanz) 1 Gm Vial 1 GM IM DAILY for 7 Days, #1 VIAL Celecoxib* (Celebrex*) 200 Mg Capsule 200 MG ORAL DAILY PRN for 30 Days, #30 CAP Lansoprazole* (Lansoprazole*) 30 Mg Capsule.dr 30 MG GT EVERY 12 HOURS for 30 Days, #60 CAP Mirtazapine* (Mirtazapine*) 15 Mg Tablet 15 MG GT Q24H for 30 Days, #30 TAB Continued Medications: Acetaminophen* (Acetaminophen 325MG Tablet*) 325 Mg Tablet 650 MG ORAL Q4H PRN for Mild Pain (Pain Scale 1-3), TAB (This prescription has been renewed) Amiodarone Hcl (Amiodarone Hcl) 100 Mg Tablet 100 MG ORAL DAILY, TAB (This prescription has been renewed) Amlodipine Besylate (Norvasc) 5 Mg Tablet 5 MG ORAL DAILY, TAB (This prescription has been renewed) Ascorbic Acid* (Vitamin C*) 250 Mg Tablet 5 ML ORAL DAILY, #30 TAB 0 Refills (This prescription has been renewed) Aspirin* (Aspirin*) 81 Mg Tab.chew 81 MG ORAL DAILY, TAB (This prescription has been renewed) Atorvastatin Calcium* (Lipitor*) 10 Mg Tablet 10 MG ORAL BEDTIME, TAB (This prescription has been renewed) Atorvastatin Calcium* (Lipitor*) 10 Mg Tablet 10 MG ORAL BEDTIME, TAB (This prescription has been renewed) Bisacodyl (Dulcolax) 10 Mg Supp.rect 10 MG RC DAILY PRN for Constipation, SUPP (This prescription has been renewed) Cran/Vitc/Mannose/Inulin/Brom (Uti-Stat Liquid) 3,875 Mg/30 Ml Liquid 30 ML PO DAILY, ML (This prescription has been renewed) Docusate Sodium* (Colace*) 100 Mg Capsule 100 MG ORAL TWICE A DAY, CAP (This prescription has been renewed) Ferrous Sulfate (Ferrous Sulfate) 220 Mg/5 Ml Elixir 220 MG PO, ML (This prescription has been renewed) Folic Acid* (Folic Acid*) 1 Mg Tablet 1 MG ORAL DAILY, TAB (This prescription has been renewed) Gabapentin* (Gabapentin*) 100 Mg Capsule 250 MG ORAL BID, CAP (This prescription has been renewed) Glucagon HCl (Glucagon HCl) 1 Mg Vial 1 MG IJ q 24 hours PRN for bs<60, VIAL (This prescription has been renewed) Hydrocodone Bit/Acetaminophen 5-325* ([place] 5-325*) 1 Each Tablet 1 TAB ORAL DAILY PRN for For Pain, TAB 0 Refills (This prescription has been renewed) Insulin Detemir (Levemir) 100 Unit/1 Ml Vial 34 SUBQ BEDTIME, VIAL (This prescription has been renewed) Insulin Regular, Human* (Novolin R*) 100 Unit/1 Ml Vial 0 SUBQ .SLIDING SCALE, UNITS (This prescription has been renewed) Levothyroxine Sodium (Synthroid) 137 Mcg Tablet 162 MCG ORAL DAILY, TAB (This prescription has been renewed) Take in the morning on an empty stomach, at least 30 minutes before food. Magnesium Hydroxide* (Milk Of Magnesia*) 400 Mg/5 Ml Oral.susp 30 ML ORAL DAILY, ML (This prescription has been renewed) Metformin Hcl* (Metformin Hcl*) 1,000 Mg Tablet 1000 MG ORAL BID, TAB (This prescription has been renewed) Metoprolol Tartrate (Metoprolol Tartrate) 25 Mg Tablet 12.5 MG GT Q12HR for 90 Days, TAB Multivitamin With Minerals (Multivitamins With Minerals*) 1 Each Tablet 1 TAB ORAL DAILY, TAB (This prescription has been renewed) [Mylanta] () 20 ML PO EVERY 4 HOURS (This prescription has been renewed) Ondansetron Odt* (Zofran Odt*) 8 Mg Tab.rapdis 8 MG ORAL Q6H PRN for Nausea & Vomiting, #30 TAB (This prescription has been renewed) Sennosides (Senokot) 8.6 Mg Tablet 8.6 MG PO BEDTIME, TAB (This prescription has been renewed) Venlafaxine Hcl* (Effexor*) 37.5 Mg Tablet 37.5 MG ORAL DAILY, TAB (This prescription has been renewed) Vit D3 & K/Berberine Hcl/Hops (Ostera Tablet) 1 Each Tablet 2000 UNITS PO DAILY, TAB (This prescription has been renewed) Discontinued Medications: Divalproex Sodium (Depakote) 125 Mg Tablet.dr 125 MG PO, TAB Hydralazine Hcl* (Hydralazine Hcl*) 25 Mg Tablet 25 MG ORAL EVERY 8 HOURS, TAB 0 Refills Naproxen (Naproxen) 250 Mg Tablet 250 MG PO BID, TAB Ranitidine Hcl* (Zantac*) 150 Mg Tablet 150 MG ORAL BID, #30 TAB 0 Refills Discharge Condition Upon Discharge: stable Discharge Disposition Patient was discharged to [facility], [facility] Discharge Diagnoses: (1) Status post open reduction and internal fixation (ORIF) of fracture (2) ESBL (extended spectrum beta-lactamase) producing bacteria infection (3) UTI (urinary tract infection) (4) Diabetes mellitus (5) CAD (coronary artery disease) (6) Depression (7) GERD (gastroesophageal reflux disease) (8) HTN (hypertension) (9) HLD (hyperlipidemia) (10) Severe aortic regurgitation (11) Pulmonary HTN (12) Dehydration (13) paroxsymal atrial fibrillation Luis Eduardo Williamson M.D. Jan 31, 2019 09:28
--- NOTE | 2019-01-31 09:36 | Cardiac Electrophysiology PN ---
Assessment/Plan Assessment/Plan 1. Hypertension. On amlodipine 5 mg daily and Lopressor 12.5 bid 2. Paroxysmal atrial fibrillation, in SR on amiodarone 100 mg daily and Lopressor 12.5 bid 3. Severe AI and pulmonary HTN PAP 60. Compensated with no CHF. Not a surgical candidate 4. Diabetes, on insulin. 5. Hyperlipidemia, on Lipitor. 6. Status post fall and right distal femur fracture. S/P ORIF 01/25/19 7. Hypothyroidism, on Synthroid. 8. S/P PEG. 9. Dementia DW RN DC to SNIF pending Subjective Subjective No CP or SOB. PEG feeding.Confused in restraints. DC to SNIF in progress. Objective Last 24 Hour Vital Signs Date Time Temp Pulse Resp B/P (MAP) Pulse Ox O2 Delivery O2 Flow Rate FiO2 01/31/19 08:52 79 115/53 01/31/19 08:37 79 115/53 01/31/19 08:00 98.0 79 18 115/53 (73) 94 01/31/19 04:00 87 01/31/19 04:00 98.3 86 18 100/52 (68) 97 01/31/19 00:00 98.1 76 18 105/54 (71) 97 01/31/19 00:00 73 01/30/19 21:19 75 132/51 01/30/19 21:00 Room Air 01/30/19 20:00 98.0 75 20 132/51 (78) 99 01/30/19 20:00 76 01/30/19 18:00 76 01/30/19 16:00 98.5 69 14 120/56 (77) 97 01/30/19 12:00 65 01/30/19 12:00 97.7 86 15 106/52 (70) 98 Intake and Output 01/30/19 01/31/19 18:59 06:59 Intake Total 700 ml 350 ml Output Total 500 ml Balance 700 ml -150 ml Free Water 100 ml 100 ml Tube Feeding 600 ml 250 ml Output Urine Total 500 ml # Voids 3 # Bowel Movements 1 Laboratory Tests Test 01/31/19 06:07 White Blood Count 6.2 K/UL (4.8-10.8) Red Blood Count 3.08 M/UL (4.20-5.40) L Hemoglobin 9.6 G/DL (12.0-16.0) L Hematocrit 28.9 % (37.0-47.0) L Mean Corpuscular Volume 94 FL (80-99) Mean Corpuscular Hemoglobin 31.1 PG (27.0-31.0) H Mean Corpuscular Hemoglobin Concent 33.1 G/DL (32.0-36.0) Red Cell Distribution Width 14.0 % (11.6-14.8) Platelet Count 365 K/UL (150-450) Mean Platelet Volume 5.2 FL (6.5-10.1) L Neutrophils (%) (Auto) 74.8 % (45.0-75.0) Lymphocytes (%) (Auto) 17.4 % (20.0-45.0) L Monocytes (%) (Auto) 5.3 % (1.0-10.0) Eosinophils (%) (Auto) 1.5 % (0.0-3.0) Basophils (%) (Auto) 1.0 % (0.0-2.0) Sodium Level 137 MMOL/L (136-145) Potassium Level 4.7 MMOL/L (3.5-5.1) Chloride Level 105 MMOL/L (98-107) Carbon Dioxide Level 32 MMOL/L (21-32) Anion Gap 0 mmol/L (5-15) L Blood Urea Nitrogen 40 mg/dL (7-18) H Creatinine 1.0 MG/DL (0.55-1.30) Estimat Glomerular Filtration Rate mL/min (>60) Glucose Level 103 MG/DL (74-106) # Calcium Level 8.7 MG/DL (8.5-10.1) Objective HEAD AND NECK: No JVD. LUNGS: Clear. CARDIOVASCULAR: Regular S1 and S2 with no gallop or murmur. ABDOMEN: Soft. EXTREMITIES: S/P surgery Avtar Munroe MD Jan 31, 2019 09:36
[2019-01-31 12:00] VITALS: BP 116/55
[2019-01-31] MEDS: Ertapenem 1 GM in NS 55 ML IVPB SCH (13:46)
[2019-01-31] MEDS ORDERED: LANSOPRAZOLE30 MG GT (14:09)
[2019-01-31] MEDS ORDERED: MIRTAZAPINE15 M3 GT (14:09)
[2019-01-31] MEDS ORDERED: CELEBREX200 MG ORAL (14:09)
[2019-01-31] MEDS ORDERED: INVANZ1 G1 IM (14:12)
--- NOTE | 2019-01-31 14:13 | Discharge Instructions ---
Discharge Instructions Discharge Instructions Special Instructions to have mod barium study at SNF. For Congestive Heart Failure Reminder Report to your physician any weight gain of 5 pounds or more in one week. Luis Eduardo Williamson M.D. Jan 31, 2019 14:13
--- NOTE | 2019-01-31 14:14 | Discharge Instructions ---
Discharge Instructions Discharge Instructions Follow Up Orders CBC, BMP bi weekly while on antibiotics to receive ertapenem for 7 days For Congestive Heart Failure Reminder Report to your physician any weight gain of 5 pounds or more in one week. Luis Eduardo Williamson M.D. Jan 31, 2019 14:14
--- NOTE | 2019-01-31 15:40 | Infectious Diseases Prog Note ---
Assessment/Plan Assessment/Plan Full consult dictated: A) 1) esbl e.coli/proteus uti 2) mild leukocytosis resolved 3) mrsa colonization 4) pmh noted 5) allergies - nkda P) 1) invanz x 1 week 2) stable ID standpoint 3) d/w Dr. Williamson and Dr. Conrad 4) thank you Subjective Allergies: Coded Allergies: No Known Allergies (Unverified , 02/16/17) Objective Vital Signs Last 24 Hour Vital Signs Date Time Temp Pulse Resp B/P (MAP) Pulse Ox O2 Delivery O2 Flow Rate FiO2 01/31/19 12:00 98.4 82 18 116/55 (75) 95 01/31/19 12:00 66 01/31/19 09:00 Room Air 01/31/19 08:52 79 115/53 01/31/19 08:37 79 115/53 01/31/19 08:00 98.0 79 18 115/53 (73) 94 01/31/19 08:00 78 01/31/19 04:00 87 01/31/19 04:00 98.3 86 18 100/52 (68) 97 01/31/19 00:00 98.1 76 18 105/54 (71) 97 01/31/19 00:00 73 01/30/19 21:19 75 132/51 01/30/19 21:00 Room Air 01/30/19 20:00 98.0 75 20 132/51 (78) 99 01/30/19 20:00 76 01/30/19 18:00 76 01/30/19 16:00 98.5 69 14 120/56 (77) 97 Height (Feet): 5 Height (Inches): 2.00 Weight (Pounds): 145 Laboratory Tests Test 01/31/19 06:07 White Blood Count 6.2 K/UL (4.8-10.8) Red Blood Count 3.08 M/UL (4.20-5.40) L Hemoglobin 9.6 G/DL (12.0-16.0) L Hematocrit 28.9 % (37.0-47.0) L Mean Corpuscular Volume 94 FL (80-99) Mean Corpuscular Hemoglobin 31.1 PG (27.0-31.0) H Mean Corpuscular Hemoglobin Concent 33.1 G/DL (32.0-36.0) Red Cell Distribution Width 14.0 % (11.6-14.8) Platelet Count 365 K/UL (150-450) Mean Platelet Volume 5.2 FL (6.5-10.1) L Neutrophils (%) (Auto) 74.8 % (45.0-75.0) Lymphocytes (%) (Auto) 17.4 % (20.0-45.0) L Monocytes (%) (Auto) 5.3 % (1.0-10.0) Eosinophils (%) (Auto) 1.5 % (0.0-3.0) Basophils (%) (Auto) 1.0 % (0.0-2.0) Sodium Level 137 MMOL/L (136-145) Potassium Level 4.7 MMOL/L (3.5-5.1) Chloride Level 105 MMOL/L (98-107) Carbon Dioxide Level 32 MMOL/L (21-32) Anion Gap 0 mmol/L (5-15) L Blood Urea Nitrogen 40 mg/dL (7-18) H Creatinine 1.0 MG/DL (0.55-1.30) Estimat Glomerular Filtration Rate mL/min (>60) Glucose Level 103 MG/DL (74-106) # Calcium Level 8.7 MG/DL (8.5-10.1) Current Medications Medications (Trade) Dose Ordered Sig/Baldev Route PRN Reason Start Time Stop Time Status Last Admin Dose Admin Acetaminophen (Tylenol) 650 mg Q6H PRN GT Mild Pain/Temp > 100.5 01/25/19 17:42 02/24/19 17:41 Amiodarone HCl (Cordarone) 100 mg DAILY GT 01/26/19 09:00 02/21/19 08:59 01/31/19 08:37 Amlodipine Besylate (Norvasc) 5 mg DAILY GT 01/26/19 09:00 02/21/19 08:59 01/31/19 08:52 Aspirin (ASA) 325 mg BID GT 01/25/19 18:00 02/24/19 08:59 01/31/19 08:37 Atorvastatin Calcium (Lipitor) 10 mg BEDTIME GT 01/25/19 21:00 02/21/19 20:59 01/30/19 21:19 Bisacodyl (Dulcolax) 10 mg HSPRN PRN RECTAL Constipation 01/25/19 17:43 02/24/19 17:42 Celecoxib (CeleBREX) 200 mg DAILY ORAL 01/26/19 09:00 02/24/19 08:59 01/31/19 08:37 Dextrose (Dextrose 50%) 25 ml Q30M PRN IV Hypoglycemia 01/25/19 17:45 02/21/19 05:44 01/29/19 06:27 Dextrose (Dextrose 50%) 50 ml Q30M PRN IV Hypoglycemia 01/25/19 17:45 02/21/19 05:44 Docusate Sodium (Colace) 100 mg THREE TIMES A DAY GT 01/25/19 18:00 02/24/19 08:59 01/31/19 12:54 Ertapenem 1 gm/ Sodium Chloride 55 ml @ 110 mls/hr Q24H IVPB 01/30/19 14:00 02/04/19 13:59 01/31/19 13:46 Folic Acid (Folate) 1 mg DAILY GT 01/26/19 09:00 02/21/19 08:59 01/31/19 08:52 Gabapentin (Neurontin) 250 mg BID GT 01/25/19 18:00 02/21/19 08:59 01/31/19 08:37 Heparin Sodium (Porcine) (Heparin 5000 units/ml) 5,000 units EVERY 12 HOURS SUBQ 01/25/19 21:00 02/22/19 08:59 01/31/19 08:53 Hydromorphone HCl (Dilaudid) 0.5 mg Q4H PRN SUBQ Mild Pain (Pain Scale 1-3) 01/25/19 19:15 02/01/19 17:44 01/29/19 01:12 Hydromorphone HCl (Dilaudid) 1 mg Q3H PRN SUBQ Moderate Pain (Pain Scale 4-6) 01/25/19 19:15 02/01/19 17:44 Insulin Aspart (NovoLOG) BEFORE MEALS AND HS SUBQ 01/25/19 21:00 02/21/19 06:29 01/30/19 21:14 Insulin Detemir (Levemir) 25 units BEDTIME SUBQ 01/25/19 21:00 02/21/19 20:59 01/30/19 21:13 Lansoprazole (Prevacid) 30 mg EVERY 12 HOURS GT 01/25/19 21:00 02/24/19 08:59 01/31/19 08:52 Levothyroxine Sodium (Synthroid) 150 mcg DAILY@0630 GT 01/26/19 06:30 02/21/19 06:29 01/31/19 06:50 Metoprolol Tartrate (Lopressor) 12.5 mg Q12HR GT 01/25/19 21:00 02/21/19 20:59 01/31/19 08:37 Mirtazapine (Remeron) 15 mg Q24H GT 01/30/19 21:00 02/23/19 18:59 01/30/19 21:19 Multivitamins Therapeutic (Therapeutic Multivitamin) 1 ea DAILY ORAL 01/26/19 09:00 02/21/19 08:59 01/31/19 08:52 Ondansetron HCl (Zofran ODT) 8 mg Q6H PRN ORAL Nausea & Vomiting 01/25/19 17:46 02/24/19 17:45 01/30/19 21:59 Ondansetron HCl (Zofran) 4 mg Q6H PRN IVP Nausea & Vomiting 01/25/19 17:46 02/24/19 17:45 Oxycodone HCl (Roxicodone) 5 mg Q6HR GT 01/25/19 18:45 02/01/19 18:44 01/31/19 12:54 Sennosides (Senokot) 8.6 mg BEDTIME GT 01/25/19 21:00 02/21/19 20:59 01/30/19 21:19 Sodium Chloride 1,000 ml @ 75 mls/hr [id number] PRN IVLG While npo for surgery only 01/25/19 17:42 02/24/19 17:41 Jerson Keith MD Jan 31, 2019 15:40
[2019-01-31 16:00] VITALS: BP 107/50
--- NOTE | 2019-01-31 21:15 | Consultation ---
DATE OF CONSULTATION: 01/31/2019 INFECTIOUS DISEASE CONSULTATION CONSULTING PHYSICIAN: Jerson Keith M.D. ATTENDING PHYSICIAN: Napoleon Stubbs M.D. REFERRING PHYSICIAN: 1. Dr. Conrad. 2. Luis Eduardo Williamson M.D. REASON FOR CONSULTATION: Complicated ESBL E. coli and Proteus urinary tract infection. CHIEF COMPLAINT: The patient's chief complaint coming in to the hospital is distal fracture of the femur. HISTORY OF PRESENT ILLNESS: This is a 73-year-old female, who is not a very good historian. The patient presented to [facility] with a right femoral fracture. The patient was seen by Orthopedic surgery and the patient is status post open reduction and ORIF of the femur. Postoperatively, the patient had mild leukocytosis and workup showed that she had urinalysis that had too many to count white blood cells, and urine culture grew out Proteus and ESBL E. coli. The patient likely has complicated urinary tract infection with weakness. Infectious Disease consultation is requested for antibiotic management. The patient is currently on ertapenem 1 g IV q.24 hours. This was started yesterday. I discussed with both Dr. Conrad and I authorized the antibiotic with pharmacy because for stewardship process. Case as also discussed today with Dr. Williamson about antibiotic management. The Invanz will cover both the ESBL E. coli UTI and a Proteus UTI. MAR was noted. Orders were noted. Notes and records were reviewed. REVIEW OF SYSTEMS: CONSTITUTIONAL: The patient is mostly nonverbal. She has generalized fatigue. Opens her eyes. HEAD AND NECK: No obvious head pain or neck pain. CARDIAC: No chest pain or pressors. GASTROINTESTINAL: No nausea, vomiting, or diarrhea. No abdominal pain. GENITOURINARY: She has a Juan. PULMONARY: No congestion, shortness of breath, hemoptysis, or secretions. SKIN: No rash. EXTREMITIES: No extremity pain. NEUROLOGIC: No seizures. No mention of night sweats or weight loss. No obvious pain noted. No rash or seizures. PAST MEDICAL HISTORY: The patient has a past medical history of the following. The patient has a past medical history of CAD, gastroesophageal reflux disease, right femur fracture, status post open reduction and internal fixation of the right femur, elevated troponin, history of psychosis, history of aortic regurgitation, history of falls, history of ulcers, history of failure to thrive, history of percutaneous endoscopic gastrostomy or dysphagia and G-tube, history of hypertension, hyperlipidemia, dyslipidemia, essential hypertension, CAD, depression, and diabetes mellitus. MEDICATIONS: Upon reviewing the MAR, she is on following medications. She is on mirtazapine, ertapenem, amiodarone, and amlodipine. She is on Celebrex, folic acid, multivitamins, levothyroxine, atorvastatin, heparin, insulin, and lisinopril. She is on metoprolol, Senokot, Dilaudid, Levemir, Prevacid, NovoLog insulin, oxycodone, aspirin, Colace, Neurontin, Zofran, intravenous fluids, , sodium chloride, and acetaminophen. Outside medications were noted and reconciliated. ALLERGIES: She has no known drug allergies. No antibiotic allergies. SOCIAL HISTORY: Negative for smoking, alcohol, or drug abuse. FAMILY HISTORY: Noncontributory. Negative for exposure to tuberculosis or cancer. PHYSICAL EXAMINATION: VITAL SIGNS: Temperature 98.4, pulse 82, respirations 18, blood pressure is 116/55, and saturation 95%. GENERAL: Weak. Opens her eyes. HEAD AND NECK: Oral exam, no thrush. Eye exam, no icterus. Normocephalic. Neck is supple. No jugular venous distention. HEART: Regular. No gallop or murmur. No friction rub. ABDOMEN: Soft. Positive bowel sounds. Nontender. LUNGS: Clear bilaterally. No rhonchi or rales. SKIN: No rash. MUSCULOSKELETAL: No effusion. Legs are without cellulitis. PERIPHERAL VASCULAR: No gangrene or cyanosis. GENITOURINARY: She has a Juan. Urine is cloudy. LINE SITES: Without phlebitis. NEUROLOGIC: Generalized weakness. Not very responsive. Lethargic. Opens eyes. LABORATORY DATA: Laboratory data is as follows. White count is 6.2 and hemoglobin 9.6. White count was as high as 11.8. Creatinine is 1.0. Urinalysis had too many to count white blood cells and many bacteria. Urine culture had greater than 100,000 ESBL E. coli and also had Proteus. The ESBL E. coli and the Proteus were both sensitive to ertapenem, which the patient is on. MRSA screen is positive also. IMAGING STUDIES: Chest x-ray showed no acute disease, no active disease. ASSESSMENT AND PLAN: 1. The patient has ESBL and Proteus complicated urinary tract infection with weakness. The patient will be continued on ertapenem 1 g IV q.24 hours. Plan on 7 to 10 day course treatment. The patient was started on yesterday and plan another week of treatment with the ertapenem for the ESBL E. coli and Proteus complicated urinary tract infection. Case was discussed with Dr. Williamson about the antibiotics and also discussed with Dr. Conrad yesterday about the antibiotics. In addition, I discussed with pharmacy authorize through stewardship process the ertapenem for the ESBL E. coli urinary tract infection. Otherwise, stable from ID standpoint. Case was discussed with RN. 2. The patient has hypothyroidism. 3. Hyperlipidemia. 4. Diabetes. 5. Hypertension. 6. Diabetes and hypertension treatment per primary care team. 7. Fall. 8. Fracture of the right femur, status post open reduction and internal fixation. 9. Anemia. 10. CAD. 11. Gastroesophageal reflux disease. 12. Depression. 13. Skin care protocol. 14. No known allergy. 15. Social history is negative. 16. Family history is noncontributory. 17. MAR is noted. 18. Case was discussed with RN. 19. Continue treatment per primary consultants. 20. Notes and records were noted. Orders were entered. Jerson Keith M.D. DR: FLORA JOB#: [id number] CC:
--- NOTE | 2019-02-01 04:30 | Progress Note ---
DATE: 01/31/2019 SUBJECTIVE: The patient is in bed, in no acute distress. She has anxiety, agitation, and is screaming. MENTAL STATUS EXAMINATION: Alert, oriented times self and disoriented to date, situation, and place. Mood is anxious. Affect is flat. Thought process is concrete. Thought content, no suicidal or homicidal ideation. ASSESSMENT: 1. Dementia with behavior disturbance. 2. Anxiety disorder. PLAN: Continue current medications. Provide the patient with reality orientation and supportive therapy. Madhuri Fraga M.D. DR: NICKI JOB#: [id number] CC:
== END 2019-01-31 17:10 | DRG 481 ==
LOC: EDBD 03:00 → EMR 03:30 → 2E 04:07 → EDBEDREQ 04:53 → 4E 01-23 13:21 → 2E 01-25 16:45
PROC: 0QSB04Z Reposition Right Lower Femur with Internal Fixation Device, Open Approach (ICD-10-PCS; principal; 2019-01-25 10:00)
DX: S72.451A Displaced supracondylar fracture without intracondylar extension of lower end of right femur, initial encounter for closed fracture (principal); N39.0 Urinary tract infection, site not specified; F03.91 Unspecified dementia, unspecified severity, with behavioral disturbance; D62 Acute posthemorrhagic anemia; E86.0 Dehydration; I48.0 Paroxysmal atrial fibrillation; W19.XXXA Unspecified fall, initial encounter; Y92.129 Unspecified place in nursing home as the place of occurrence of the external cause; Z99.3 Dependence on wheelchair; E11.9 Type 2 diabetes mellitus without complications; I10 Essential (primary) hypertension; I25.10 Atherosclerotic heart disease of native coronary artery without angina pectoris; K21.9 Gastro-esophageal reflux disease without esophagitis; E78.5 Hyperlipidemia, unspecified; F32.9 Major depressive disorder, single episode, unspecified; R62.7 Adult failure to thrive; Z93.1 Gastrostomy status; E03.9 Hypothyroidism, unspecified; Z91.81 History of falling; B96.20 Unspecified Escherichia coli [E. coli] as the cause of diseases classified elsewhere; B96.4 Proteus (mirabilis) (morganii) as the cause of diseases classified elsewhere; Z79.4 Long term (current) use of insulin; I27.20 Pulmonary hypertension, unspecified; F41.9 Anxiety disorder, unspecified; I35.1 Nonrheumatic aortic (valve) insufficiency; Z22.322 Carrier or suspected carrier of Methicillin resistant Staphylococcus aureus; R00.0 Tachycardia, unspecified
CPT/HCPCS: 36415; 70450; 71045; 72192; 76000; 80048; 80053; 80164; 81003; 82270; 82962; 83036; 83880; 84443; 84484; 85007; 85025; 85610; 85730; 86850; 86900; 86901; 86920; 87081; 87086; 87181; 93005; 93306; 94003; 94150; 94664; 96365; 96375; 99285; J1815; J2250; J2405; J7030; S5561

== ENCOUNTER 2019-07-18 14:50 | Emergency (ER) | payer MEDICARE, OTHER ==
[~2019-07-18] VITALS: Ht 170.2 cm; Wt 56.7 kg
[~2019-07-18 14:50] MED LIST changes: +CELEBREX200 MG ORAL; +DEPAKOTE125 MG PO; +FERROUS SU220 MG/53 PO; +FOLIC ACID1 MG ORAL; +GABAPENTIN100 MG ORAL; +HYDRALAZINE HCL25 M1 ORAL; +INVANZ1 G1 IM; +LANSOPRAZOLE30 MG GT; +METFORMIN HCL1000 M1 ORAL; +MIRTAZAPINE15 M3 GT; +NAPROXEN250 M1 PO; +OSTERA TABLET1 EACH PO; +SYNTHROID137 MCG ORAL; +UTI-STAT L3875 MG/31 PO; +VITAMIN C250 MG ORAL; +ZANTAC150 MG ORAL; +ZOFRAN ODT8 MG ORAL
--- NOTE | 2019-07-18 14:58 | Emergency Room Report ---
History of Present Illness General Chief Complaint: G-tube malfunction Source: EMS Present Illness HPI Disclaimer: Please note that this report is being documented using DRAGON technology. This can lead to erroneous entry secondary to incorrect interpretation by the dictating instrument. HPI: 73-year-old female presents for G-tube replacement. Presents from long-term and is COVID-19 positive but in no respiratory distress, denies recent fevers, no other complaints today. G-tube was accidentally dislodged and a Juan was placed to maintain patency. No surrounding leaking, bleeding or other injury noted. Review documentation shows that the patient had an 18 Ukrainian G-tube. PMH: Diabetes, CAD, hypertension, hyperlipidemia, paroxysmal atrial fibrillation , aortic regurgitation PSH: G-tube Allergies: No known allergies Social Hx: Denies Allergies: Coded Allergies: No Known Allergies (Unverified , 02/16/17) Nursing Documentation-PMH Hx Cardiac Problems: Yes - Afib Hx Hypertension: Yes Hx Diabetes: Yes Hx Cancer: No Hx Gastrointestinal Problems: No Hx Neurological Problems: No Hx Dementia: Yes Review of Systems All Other Systems: negative except mentioned in HPI Physical Exam General: Awake and alert, no acute distress HEENT: NC/AT. EOMI. Resp: Normal work of breathing Abdomen: Soft, nontender, nondistended. Juan in place through G-tube ostomy. No surrounding erythema, bleeding or bruising. Skin: Intact. No abrasions, laceration or rash over the exposed skin MSK: Normal tone and bulk. Moving all extremities. No obvious deformity. Neuro: Awake and alert. Mentating appropriately Medical Decision Making Diagnostic Impression: Primary Impression: Gastrostomy tube dysfunction ER Course 73-year-old long-term patient presents for evaluation of gastrostomy displacement. Juan catheter was removed from ostomy without complication and a 19 Ukrainian G-tube was placed without difficulty. Inflated with 18 cc sterile water. Gastric contents aspirated. An x-ray G-tube study was performed showing proper positioning. The patient was discharged back to nursing facility. Resume care as per primary team. Other X-Ray Diagnostic Results Other X-Ray Diagnostic Results : X-Ray ordered: Abdomen # of Views/Limited Vs Complete: 1 View Indication: Other - G-tube replacement EP Interpretation: Yes Interpretation: no sbo, other - Enteric contrast in stomach, appropriate G- tube position Impression: Other - Appropriate G-tube position Electronically Signed by: Electronically signed by Dr. Dany Tovar Disposition: SNF Condition: Stable Dany Tovar MD July 18, 2019 14:58
[2019-07-18 15:08] VITALS: BP 118/70
--- NOTE | 2019-07-18 15:08 | NUR ---
ED Nurse Note: Patient BIBRg [facility] from [facility] for GT replacement. Not in any distress. Afebrile. VSS. ERMD at bedside.
[2019-07-18] MEDS ORDERED: Gastrograffin 30ml ORAL ONE (15:15)
--- NOTE | 2019-07-18 15:36 | NUR ---
ED Nurse Note: Xray at bedside.
[2019-07-18 15:49] VITALS: BP 112/74
--- NOTE | 2019-07-18 15:49 | NUR ---
ED Nurse Note: Pt cleared by ERMD for discharge. DC instructions was given and explained to pt and ambulance personnel, verbalized understanding of teachings. All medical deviecs such as ID band removed. Pt is AAO x2, picked up by 2 EMT via [place] and left with all personal belongings.
--- NOTE | 2019-07-18 17:38 | Diagnostic Imaging Report ---
Indication: Postgastrostomy replacement Technique: Supine view of the abdomen after injection of water-soluble contrast into gastrostomy Comparison: none Findings: Contrast opacifies the stomach. No contrast extravasation is demonstrated. The bowel gas pattern is unremarkable. Impression: Satisfactory position of gastrostomy tube
== END 2019-07-18 15:49 ==
LOC: EDBD 14:50 → EMR 14:56
DX: K94.23 Gastrostomy malfunction (principal); U07.1 COVID-19; E11.9 Type 2 diabetes mellitus without complications; I11.9 Hypertensive heart disease without heart failure; E78.5 Hyperlipidemia, unspecified; I25.10 Atherosclerotic heart disease of native coronary artery without angina pectoris; F03.90 Unspecified dementia, unspecified severity, without behavioral disturbance, psychotic disturbance, mood disturbance, and anxiety
CPT/HCPCS: 74018; 99284

== ENCOUNTER 2019-09-01 18:14 | Emergency (ER) | payer MEDICARE, MEDICAID ==
[~2019-09-01] VITALS: Ht 154.9 cm; Wt 59.0 kg
--- NOTE | 2019-09-01 18:17 | Emergency Room Report ---
History of Present Illness General Chief Complaint: G-tube dislodged Source: EMS Present Illness HPI Disclaimer: Please note that this report is being documented using DRAGON technology. This can lead to erroneous entry secondary to incorrect interpretation by the dictating instrument. HPI: 74-year-old female presents for G-tube replacement. G-tube was dislodged by the patient earlier today at unknown time. Patient arrives with an 18 Mauritian G-tube that is intact. Ostomy is patent without Juan. No surrounding leaking, bleeding or other injury noted. Patient does not provide any additional history due to dementia PMH: Dementia, CAD, hyperlipidemia, PSH: G-tube Allergies: No known allergies Social Hx: Denies Allergies: Coded Allergies: No Known Allergies (Unverified , 02/16/17) COVID-19 Screening Contact w/high risk pt: Yes Recent Travel to affected area: Yes Experienced COVID-19 symptoms?: Yes COVID-19 symptoms experienced: Flu-Like Symptoms Nursing Documentation-PMH Hx Cardiac Problems: Yes - Afib Hx Hypertension: Yes Hx Diabetes: Yes Hx Cancer: No Hx Gastrointestinal Problems: No Hx Neurological Problems: No Hx Dementia: Yes Review of Systems All Other Systems: limited Physical Exam Vital Signs Date Time Temp Pulse Resp B/P (MAP) Pulse Ox O2 Delivery O2 Flow Rate FiO2 25/20 18:18 66 18 136/64 (88) 98 Room Air General: Awake and alert, no acute distress HEENT: NC/AT. EOMI. Resp: Normal work of breathing Abdomen: Soft, nontender, nondistended. Ostomy in the epigastrium region appears patent, no Juan is present. No signs of surrounding trauma. No bleeding, no leaking. MSK: Normal tone and bulk. Moving all extremities. No obvious deformity. Neuro: Awake and alert. Mentating appropriately Procedures Additional Procedure Procedure Narrative G-tube replacement Patient was placed on hospital bed and ostomy was sterilized using chlorhexidine swab Unable to pass an 18 Mauritian G-tube but a 16 Mauritian was passed easily. No trauma, no bleeding, no complications. Able to aspirate gastric contents. Balloon was inflated with 18 cc sterile water Procedure was performed by me Electronically signed by Dr. Dany Tovar Medical Decision Making Diagnostic Impression: Primary Impression: Malfunction of gastrostomy tube ER Course 74-year-old female presents from nursing facility after G-tube was dislodged earlier today. Unknown what time the dislodgment occurred. G-tube was replaced with a 16 Mauritian by me as I could not pass an 18 Mauritian. Abdominal x-ray with Gastrografin shows contrast medium in the stomach suggesting appropriate placement. Able to aspirate gastric contents. Patient be returned to nursing facility. Follow-up with PMD and return as needed. Other X-Ray Diagnostic Results Other X-Ray Diagnostic Results : X-Ray ordered: Abdomen # of Views/Limited Vs Complete: 1 View Indication: Other - G-tube replacement EP Interpretation: Yes Interpretation: nonspecific bowel gas, no sbo, other - Contrast appears to be in stomach suggesting appropriate position of G-tube Impression: Other - Appropriate position of G-tube Electronically Signed by: Electronically signed by Dr. Dany Tovar Disposition: SNF Condition: Stable Dany Tovar MD Sep 01, 2019 18:17
[2019-09-01 18:20] VITALS: BP 130/70
[2019-09-01] MEDS ORDERED: Gastrograffin 30ml ORAL ONE (18:30)
--- NOTE | 2019-09-01 18:42 | Diagnostic Imaging Report ---
EXAM: XR Abdomen, 2 Views CLINICAL HISTORY: PAIN TECHNIQUE: Frontal view of the abdomen/pelvis with upright view of the abdomen. COMPARISON: 07/18/2019. FINDINGS: Intraperitoneal space: No free air. Gastrointestinal tract: Contrast material is noted at the fundal region of the stomach. Nonspecific bowel gas pattern. No dilation. Organs: Possible 1 cm gallstone in the right upper quadrant. Bones/joints: Osteopenia. Moderate osteoarthritic changes about the sacroiliac joints. Tubes, lines and devices: Presumed gastrostomy tube is noted in place. IMPRESSION: 1. Presumed gastrostomy tube noted in place within the stomach. 2. Contrast material is noted within the fundal region of the stomach. 3. Nonspecific bowel gas pattern.
[2019-09-01 18:43] VITALS: BP 132/66
== END 2019-09-01 18:43 | disposition home or self-care (01) ==
LOC: EDBD 18:14 → EDUNIT# 18:14 → EMR 18:25
DX: K94.23 Gastrostomy malfunction (principal); I48.91 Unspecified atrial fibrillation; I10 Essential (primary) hypertension; E11.9 Type 2 diabetes mellitus without complications; F03.90 Unspecified dementia, unspecified severity, without behavioral disturbance, psychotic disturbance, mood disturbance, and anxiety
CPT/HCPCS: 43762; 74018; 99284; Q9963

== ENCOUNTER 2019-09-10 04:40 | Emergency (ER) | payer MEDICARE, MEDICAID ==
[~2019-09-10] VITALS: Ht 160 cm; Wt 68.0 kg
[2019-09-10 04:47] VITALS: BP 124/42
--- NOTE | 2019-09-10 04:47 | NUR ---
ED Nurse Note: Pt michelle (RAYMOND) from [facility] pt pulling out GT and requiring GT replacement. pt aao x 1-2, bed bound, VSS no ss of distress noted. Awaiting further orders.
--- NOTE | 2019-09-10 04:50 | NUR ---
ED Nurse Note: ERMD at bedside for GT replacement. Pt tolerated well. NO ss of distress noted. Awaiting xray at bedside.
--- NOTE | 2019-09-10 05:08 | Emergency Room Report ---
History of Present Illness General Chief Complaint: Malfunctioning Gastric Tube Source: Patient, Medical Record, EMS Present Illness HPI Patient apparently dislodged her gastrostomy tube. A Juan catheter was placed. The gastrostomy tube is been replaced twice in the last 2 months. This just happened tonight. Patient denies any pain. No vomiting. There is no recorded fever. The patient tested COVID-19 +August 02. Patient was last admitted January 2019. Discharge diagnoses: (1) Status post open reduction and internal fixation (ORIF) of fracture (2) ESBL (extended spectrum beta-lactamase) producing bacteria infection (3) UTI (urinary tract infection) (4) Diabetes mellitus (5) CAD (coronary artery disease) (6) Depression (7) GERD (gastroesophageal reflux disease) (8) HTN (hypertension) (9) HLD (hyperlipidemia) (10) Severe aortic regurgitation (11) Pulmonary HTN (12) Dehydration (13) paroxsymal atrial fibrillation Allergies: Coded Allergies: No Known Allergies (Unverified , 02/16/17) COVID-19 Screening Contact w/high risk pt: No Recent Travel to affected area: No Experienced COVID-19 symptoms?: No COVID-19 symptoms experienced: Flu-Like Symptoms COVID-19 Testing performed LEATHER GRAINER: No COVID-19 Screening: Negative COVID-19 COVID-19 Testing Source: outside source Patient History Past Medical History: see triage record Past Surgical History: other - g tube, ORIF hip Social History: Denies: smoking Social History Narrative Xi Cole - Born in [place]. 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 Came to [place] age 8 Reviewed Nursing Documentation: PMH: Agreed; PSxH: Agreed Nursing Documentation-PMH Hx Cardiac Problems: Yes - Afib Hx Hypertension: Yes Hx Diabetes: Yes Hx Cancer: No Hx Gastrointestinal Problems: No - g tube Hx Neurological Problems: No Hx Dementia: Yes Review of Systems All Other Systems: negative except mentioned in HPI - Patient questionable historian Physical Exam Vital Signs Date Time Temp Pulse Resp B/P (MAP) Pulse Ox O2 Delivery O2 Flow Rate FiO2 09/10/19 04:41 98.4 65 16 112/67 (82) 99 Room Air Sp02 EP Interpretation: reviewed, normal General Appearance: well appearing, no apparent distress, alert, thin Head: normocephalic Eyes: bilateral eye normal inspection, bilateral eye PERRL, bilateral eye EOMI ENT: moist mucus membranes Cardiovascular #1: regular rate, rhythm Gastrointestinal: normal bowel sounds, non tender, non-distended, other - Juan and gastrostomy tube site Genitourinary: no CVA tenderness Musculoskeletal: moves extm spontaneously - However there is decreased range of motion on the right-hand side Neurologic: alert, sensory intact, motor weakness - Right-sided Psychiatric: mood/affect normal - Questionable recent memory Skin: normal color - Slightly pale, warm/dry Procedures Additional Procedure Procedure Narrative Juan catheter was removed. Gastrostomy tube 18 Czech was inserted with ease. 20 cc were instilled in the balloon. There was good flow of saline through the gastrostomy tube. X-ray ordered with Gastrografin. Medical Decision Making Diagnostic Impression: Primary Impression: Malfunction of gastrostomy tube Additional Impression: Lab test positive for detection of COVID-19 virus ER Course Patient presents after dislodgment of gastrostomy tube. Gastrostomy tube will be replaced. Patient does not appear in distress and vital signs are stable. Patient tolerated replacement of gastrostomy tube well. Abdomen film with contrast in stomach without leak. Patient stable for outpatient observation and treatment. Other X-Ray Diagnostic Results Other X-Ray Diagnostic Results : X-Ray ordered: Abdomen # of Views/Limited Vs Complete: 1 View Indication: Other EP Interpretation: Yes Interpretation: nonspecific bowel gas, no sbo, other - Contrast in stomach without leak Impression: Other Electronically Signed by: Electronically signed by Partha Nickerson MD Last Vital Signs Date Time Temp Pulse Resp B/P (MAP) Pulse Ox O2 Delivery O2 Flow Rate FiO2 09/10/19 04:41 98.4 65 16 112/67 (82) 99 Room Air Status: improved Disposition: SNF Condition: Stable Referrals: Napoleon Stubbs MD (PCP) Partha Nickerson MD Sep 10, 2019 05:08
--- NOTE | 2019-09-10 05:22 | NUR ---
ED Nurse Note: xray at bedside
[2019-09-10] MEDS ORDERED: Gastrograffin 30ml ORAL SCH (06:00)
--- NOTE | 2019-09-10 06:38 | Diagnostic Imaging Report ---
EXAM: XR Abdomen, 2 Views CLINICAL HISTORY: TUBE PLCMT TECHNIQUE: Frontal view of the abdomen/pelvis with upright view of the abdomen. COMPARISON: No relevant prior studies available. FINDINGS: Intraperitoneal space: No free air is identified Gastrointestinal tract: The small and large bowel appears unremarkable. Bones/joints: Unremarkable. Tubes, lines and devices: There is a presumed gastrostomy tube in the region of the gastric antrum/first portion of the duodenum. There is contrast extending of the duodenum which appears widely patent, however there is no reflux of contrast in the stomach. Gastric outlet obstruction by the balloon cannot be excluded, however the stomach does not appear significantly distended. IMPRESSION: There is a presumed gastrostomy tube with the balloon in the region of the gastric antrum/first portion of the duodenum. There is contrast extending of the duodenum which appears widely patent, however there is no reflux of contrast in the stomach. Gastric outlet obstruction by the balloon cannot be excluded, however the stomach does not appear significantly distended.
--- NOTE | 2019-09-10 06:53 | NUR ---
HAND-OFF: Report given to DEJAN Luna.
--- NOTE | 2019-09-10 07:02 | NUR ---
ED Nurse Note: Recieved report from DEJAN Sood. Patient resting in the bed, VSS at this time, waiting for transportation.
[2019-09-10 09:17] VITALS: BP 132/54
--- NOTE | 2019-09-10 09:18 | NUR ---
ED Nurse Note: Patient was transfered back to the [facility] via private ambulance [facility] # [id number]. Patient AAO x2, VSS at this time, skin is warm to touch. Paatient was transfered with all belongings. G -tube was flushed, intackt, dressing change was performed.
== END 2019-09-10 09:21 ==
LOC: EDBD 04:40 → EDUNIT# 04:40 → EMR 04:52
DX: K94.23 Gastrostomy malfunction (principal); Z86.19 Personal history of other infectious and parasitic diseases; I11.9 Hypertensive heart disease without heart failure; I25.10 Atherosclerotic heart disease of native coronary artery without angina pectoris; E11.9 Type 2 diabetes mellitus without complications; F32.9 Major depressive disorder, single episode, unspecified; K21.9 Gastro-esophageal reflux disease without esophagitis; E78.5 Hyperlipidemia, unspecified
CPT/HCPCS: 43762; 74018; 99283; Q9963

== ENCOUNTER 2020-01-03 02:33 | Emergency (ER) | payer MEDICARE, OTHER ==
[~2020-01-03] VITALS: Ht 172.7 cm; Wt 72.6 kg
[2020-01-03 02:36] VITALS: BP 122/72
[2020-01-03 02:40] VITALS: BP 126/67
--- NOTE | 2020-01-03 02:40 | NUR ---
ED Nurse Note: Pt brought in by ambulance from [facility] c/o pulled out gtube at 2200. Per EMS, gtube size 18 fr was pulled. Per EMS, stoma has closed. vss, nad, aaox4, ermd atbedside.
--- NOTE | 2020-01-03 02:50 | NUR ---
ED Nurse Note: 18 fr gtube placed by dr Ren. xr at bedside for placement.
--- NOTE | 2020-01-03 02:50 | Emergency Room Report ---
History of Present Illness General Chief Complaint: Malfunctioning Gastric Tube Source: EMS Present Illness HPI Is a 74-year-old [facility] patient with history of a G-tube. She presents with G-tube dislodgment. Onset tonight. Nursing staff unable to put it back in. Patient has no other trauma. No bleeding. No fever. No other complaint. 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 Patient History Past Medical History: see triage record, old chart reviewed Past Surgical History: other Pertinent Family History: none Social History: Denies: smoking Now: No Immunizations: other Reviewed Nursing Documentation: PMH: Agreed; PSxH: Agreed Nursing Documentation-PMH Hx Cardiac Problems: Yes - Afib, atherosclerotic heart disease Hx Hypertension: Yes - hyperlipidemia Hx Diabetes: Yes - type 2 Hx Cancer: No Hx Gastrointestinal Problems: No - g tube Hx Neurological Problems: No - dementa Hx Dementia: Yes Review of Systems Eye: Denies: eye pain, blurred vision ENT: Denies: ear pain, nose congestion, throat swelling Respiratory: Denies: cough, shortness of breath Cardiovascular: Denies: chest pain, palpitations Gastrointestinal: Denies: abdominal pain, diarrhea, nausea, vomiting Musculoskeletal: Denies: back pain, joint pain Skin: Denies: rash Neurological: Denies: headache, numbness Endocrine: Denies: increased thirst, increased urine Hematologic/Lymphatic: Denies: easy bruising All Other Systems: negative except mentioned in HPI Physical Exam Vital Signs Date Time Temp Pulse Resp B/P (MAP) Pulse Ox O2 Delivery O2 Flow Rate FiO2 01/03/20 02:36 98.4 68 17 122/72 (89) 96 Room Air Vitals normal Sp02 EP Interpretation: reviewed, normal General Appearance: well appearing, no apparent distress, alert Head: normocephalic, atraumatic Eyes: bilateral eye PERRL, bilateral eye EOMI ENT: hearing grossly normal, normal pharynx Neck: full range of motion, supple, no meningismus Respiratory: chest non-tender, lungs clear, normal breath sounds Cardiovascular #1: regular rate, rhythm, no murmur Gastrointestinal: normal bowel sounds, non tender, no mass, no organomegaly, no bruit, non-distended, other - G-tube stoma is very small. Musculoskeletal: back normal, normal range of motion, gait/station normal Psychiatric: mood/affect normal Procedures Additional Procedure Procedure Narrative Procedure: G-tube placement Indication: G-tube displacement Description: I placed 18 [place] G-tube. There was slight difficulty because the stoma was tight but eventually the tube went in without any problem. Tube placement confirmed with KUB with Gastrografin. Patient tolerated procedure without any problem. Medical Decision Making Diagnostic Impression: Primary Impression: Dislodged gastrostomy tube Additional Impression: Malfunction of gastrostomy tube ER Course Patient with G-tube dislodgment. New one placed without any difficulty. Will discharge back to [facility]. Other X-Ray Diagnostic Results Other X-Ray Diagnostic Results : X-Ray ordered: KUB with Gastrografin # of Views/Limited Vs Complete: 2 View Indication: Pain EP Interpretation: Yes Interpretation: no dislocation, no soft tissue swelling, no fractures, other - No extravasation Impression: Other - Status post G-tube placement Electronically Signed by: Cody Ren MD Last Vital Signs Date Time Temp Pulse Resp B/P (MAP) Pulse Ox O2 Delivery O2 Flow Rate FiO2 01/03/20 02:36 98.4 68 17 122/72 (89) 96 Room Air Status: improved Disposition: SNF Condition: Improved Patient Instructions: Gastrostomy Tube Home Guide, Adult Additional Instructions: Keep wound clean. Follow-up with her doctor in 7 days as needed. Return if worse. Cody Ren MD Jan 03, 2020 02:50
--- NOTE | 2020-01-03 02:55 | NUR ---
ER DISCHARGE NOTE: Patient is cleared to be discharged per ERMD, pt is aox4, on room air, with stable vital signs. apa was given dc instructions, pt was able to verbalize understanding, pt id band removed without complications. pt trasferred back to facility by [facility] ambulance in stable condition via gurney.
--- NOTE | 2020-01-03 14:49 | Diagnostic Imaging Report ---
Indication: Status post gastrostomy replacement Technique: Supine view of the abdomen after injection of water-soluble contrast into gastrostomy Comparison: 09/10/2019 Findings: Contrast opacifies the stomach. No contrast extravasation is demonstrated. The bowel gas pattern is unremarkable. There is opacification of the colon; most likely this is from similar study performed elsewhere. Impression: Satisfactory position of gastrostomy tube
== END 2020-01-03 02:55 ==
LOC: EDBD 02:33 → EMR 02:46
DX: K94.23 Gastrostomy malfunction (principal); E78.5 Hyperlipidemia, unspecified; E11.9 Type 2 diabetes mellitus without complications; F03.90 Unspecified dementia, unspecified severity, without behavioral disturbance, psychotic disturbance, mood disturbance, and anxiety
CPT/HCPCS: 43762; 74018; 99284; Q9963